=== PATIENT | male | born 1965 | race Caucasian/White ===

== ENCOUNTER 2024-02-22 13:58 | Outpatient (AMB) | payer MEDICARE, SELFPAY ==
[2024-02-22 14:14] VITALS: BP 127/72; PULSE 81; RESP 18; O2SAT 96; BMI 27.8
--- NOTE | 2024-02-22 14:14 | A.OFFVIS_ITS ---
Vital Signs 3 02/22/24 14:14 Height 6 ft 5 in Weight 234 lb 6 oz BMI 27.8 BP 127/72 Blood Pressure Location Lt brachial Position Sitting Respiration 18 Pulse 81 Pulse Source Pulse Oximeter Pulse Oximetry (%) 96 Oxygen Delivery Method Room Air Intake Visit Reasons: Spondylosis with Radiculopathy Cervical Region HPI Comments Details: Ravindra is a very pleasant 59-year-old male who presents to the office today for evaluation management of his chronic cervical neck pain Patient was referred here by Neurosurgery for consideration of cervical epidural steroid injection He has been suffering with right cervical neck pain with radiation down the arm for several years. Endorses pain to the front of the right shoulder and back of the right shoulder. Burning, numbness and tingling down the right arm and decreased right upper extremity strength. Reports atrophy of the muscles of the right hand. Neurosurgery has offered anterior and posterior cervical fusion but patient is not ready to proceed with such an extensive surgery. The pain is constant, rated today as a 6/10. Pain is worse with activity, movement and right arm use. Pain improved with elevation of the right arm over the head. He has not had a nerve conduction study, underwent an MRI a couple weeks ago. Full results are not available for review at this time. Patient has tried physical therapy, does home exercise program as best he can but states is very painful. He finds no relief with nonsteroidal anti- inflammatory medications or prescription medications. In terms of muscle damage condition is described as aching, spasming, hot, burning, stabbing, sharp, shooting, tiring, tingling, pins and needles Pain is negatively impacting patient's enjoyment of life, general activity, work, sleep Review of Systems Const All systems reviewed & are unremarkable except as noted in HPI and below Physical Exam Vital Signs: Last Vital Signs Pulse 81 02/22/24 14:14 Resp 18 02/22/24 14:14 BP 127/72 02/22/24 14:14 Pulse Ox 96 02/22/24 14:14 Oxygen Delivery Method Room Air 02/22/24 14:14 BMI result Body Mass Index 27.8 General: awake, alert, oriented. Answers questions appropriately. Fully engaged in examination. Skin: warm, dry, intact HEENT: Normocephalic. Hearing intact. Cardiac: External chest normal in appearance. Respiratory: No cough, audible wheezing or stridor. Abdomen: without gross distension. MS: No obvious swelling or deformities. Decreased cervical range of motion. Pain with right lateral rotation, right lateral flexion Tenderness midline cervical vertebrae and cervical paraspinal muscles. Tenderness to palpation right middle trapezius Decreased hand strength of the right Thenar wasting on the right hand Spurling positive Neurological: Oriented to person, place, time and situation. Thought process intact. No gait abnormalities appreciated. Psychiatric: Appropriate mood and affect. Good judgment and insight. Results Reviewed Results Reviewed: Assessment & Plan Assessment & Plan (1) Neuropathy: Code(s): G62.9 - Polyneuropathy, unspecified Category: Medical (2) Cervical radiculopathy: Code(s): M54.12 - Radiculopathy, cervical region Category: Medical Plan Patient presented to the office today for evaluation management of his chronic neck pain. History, physical exam and provocative testing consistent with cervical radiculopathy EMG ordered for evaluation Patient has exhausted conservative therapy including PT, home exercise program, nonsteroidal anti-inflammatory medications, prescription medications all without improvement of pain Referred here for cervical epidural steroid injection by Neurosurgery. Will schedule for fluoroscopy guided right C6-7 epidural steroid injection with local anesthetic All questions concerns answered, patient agrees with plan. Follow up after injections, sooner if needed Orders: Orders 2 NE electromyogram (EMG) Today G62.9 - Polyneuropathy, unspecified Coding Level of Care Code New Pt Level 4 (30863) Diagnoses Neuropathy G62.9 Cervical radiculopathy M54.12
== END 2024-02-22 14:55 | disposition home or self-care (01) ==
PROVIDERS: PCP Family Medicine; Visit Provider Registered Nurse Emergency
DX: G62.9 Polyneuropathy, unspecified (principal); M54.12 Radiculopathy, cervical region
CPT/HCPCS: 99204

== ENCOUNTER → 2024-02-22 13:58 | Outpatient (BNVA) | payer MEDICARE, SELFPAY | PROVIDERS: PCP Family Medicine; Visit Provider Registered Nurse Emergency | DX: G62.9 Polyneuropathy, unspecified (principal); M54.12 Radiculopathy, cervical region | CPT/HCPCS: 99202 ==

== ENCOUNTER 2024-03-17 14:53 | Outpatient (REF) | payer OTHER, SELFPAY ==
--- NOTE | 2024-03-17 15:00 | EMG_ITS ---
Chief complaint: Numbness on right hand, right arm and elbow pain, noted atrophy in right FDI. Chronic neck pain, history of degenerative disc per patient. History of right wrist laceration when he was younger. Reason for referral: Evaluate for radiculopathy Referred by: Alondra Oden NP Procedure done: Right upper extremity NCS/EMG Precautions and/or limitations: None The limb temperature was monitored continuously and remained between 32-36 degrees C during the performance of the NCS. Ulnar motor NCS was performed with moderate elbow flexion between 70-90 degrees, with across-elbow distance of 10 cm. Nerve Conduction Studies Anti Sensory Summary Table ?Stim Site NR Onset (ms) Norm Onset (ms) Peak (ms) Norm Peak (ms) O-P Amp (?V) Norm O-P Amp Site1 Site2 Delta-0 (ms) Dist (cm) Edmundo (m/s) Norm Edmundo (m/s) Right Median Anti Sensory (2nd Digit) Wrist ? 3.1 3.8 <3.6 9.1 >10 Wrist 2nd Digit 3.1 14.0 45 Right Radial Anti Sensory (Thumb) Forearm ? 1.6 2.1 <3.1 9.4 Forearm Thumb 1.6 0.0 Right Ulnar Anti Sensory (5th Digit) Wrist ? 3.2 3.9 <3.7 1.0 >15.0 Wrist 5th Digit 3.2 14.0 44 Motor Summary Table ?Stim Site NR Onset (ms) Norm Onset (ms) O-P Amp (mV) Norm O-P Amp iAmp (mV) Amp (1st) (%) Site1 Site2 Delta-0 (ms) Dist (cm) Edmundo (m/s) Norm Edmundo (m/s) Right Median Motor (Abd Poll Brev) Wrist ? 3.7 <3.9 5.0 >4.5 5.9 100.0 Elbow Wrist 4.6 23.0 50 >45 Elbow ? 8.3 5.0 5.8 100.0 Right Ulnar Motor (Abd Dig Minimi) Wrist ? 3.4 <3.0 2.9 >5 3.4 100.0 B Elbow Wrist 5.0 23.0 46 >45 B Elbow ? 8.4 2.2 2.7 75.9 A Elbow B Elbow 1.4 10.0 71 >45 A Elbow ? 9.8 2.2 2.5 75.9 EMG ?Side Muscle Nerve Root Ins Act Fibs Psw Amp Dur Poly Recrt Int Pat Comment Right 1stDorInt Ulnar C8-T1 Incr 1+ 1+ Nml Nml 0 Nml Complete Right Biceps Musculocut C5-6 Nml Nml Nml Nml Nml 0 Nml Complete Right Triceps Radial C6-7-8 Nml Nml Nml Nml Nml 0 Nml Complete Right Deltoid Axillary C5-6 Nml Nml Nml Nml Nml 0 Nml Complete Right FlexCarpiUln Ulnar C8,T1 Nml Nml Nml Nml Nml 0 Nml Complete Paraspinal EMG ?Side Muscle Nerve Root Ins Act Fibs Psw Comment Right Cervical Upper Rami Nml Nml Nml Right Cervical Mid Rami Nml Nml Nml Right Cervical Lower Rami Incr 2+ 2+ CRDs FINDINGS: Right ulnar motor nerve showed prolonged distal latency, small amplitudes and normal conduction velocity. Right ulnar sensory nerve showed very small amplitudes and prolonged peak latencies. Right median sensory nerve showed mildly prolonged peak latency and small amplitude. All other nerves tested were within normal. Concentric needle EMG was performed in selected muscles of the right upper extremity and cervical paraspinals. Study revealed signs of electric abnormalities as shown in the table above. Right FDI showed increased insertional activity, PSWs and fibrillations. Right lower cervical paraspinals showed CRDs. IMPRESSION: 1. This is an abnormal study. 2. There is electrodiagnostic evidence for right ulnar neuropathy, most likely at the elbow. 3. There is electrodiagnostic evidence for chronic lower cervical radiculopathy. 4. There is electrodiagnostic evidence for mild right median neuropathy at the wrist, consistent with Carpal Tunnel Syndrome. 5. There is no electrodiagnostic evidence for brachial plexopathy. Thank you for your kind referral. Noreen Roblero MD, NORAH Board Certified, [place] Board [employer] and Rehabilitation (ABPMR) Board Certified, [place] Board of Electrodiagnostic Medicine (ABEM) CODIN [id number] [facility]
== END 2024-03-17 14:54 | disposition home or self-care (01) ==
LOC: HO.NEURO 14:53
PROVIDERS: PCP Family Medicine; Visit Provider Registered Nurse Emergency
DX: G62.9 Polyneuropathy, unspecified (principal); R20.0 Anesthesia of skin
CPT/HCPCS: 95886; 95909

== ENCOUNTER → 2024-03-17 15:00 | Outpatient (BNV) | payer OTHER, SELFPAY | PROVIDERS: PCP Family Medicine; Visit Provider Physical Medicine & Rehabilitation | DX: G56.21 Lesion of ulnar nerve, right upper limb (principal); G56.01 Carpal tunnel syndrome, right upper limb | CPT/HCPCS: 95886; 95909 ==

== ENCOUNTER 2024-05-09 06:17 | Outpatient (REF) | payer OTHER, SELFPAY ==
--- NOTE | ~2024-05-09 | FL_ITS ---
EXAMINATION: XR FLUOROSCOPY WITH IMAGES CLINICAL INFORMATION: Radiculopathy, cervical region COMPARISON: None available. TECHNIQUE: Fluoroscopy provided to: Dr. Kent Fluoroscopy time: 0.3 minutes DAP: 0.0914 mGycm2 Images: 1 FINDINGS: Single coned down oblique image of the cervical spine, level unknown. FL/FL guidance in treatment room IMPRESSION: Fluoroscopic guidance. Please refer to the full operative report for details. Electronically signed by: Steven Ryan MD 07/07/2024 02:03 PM EDT
== END 2024-05-09 06:18 | disposition home or self-care (01) ==
LOC: CF 06:17
PROVIDERS: Visit Provider Anesthesiology
DX: M54.12 Radiculopathy, cervical region (principal)
CPT/HCPCS: 62321; J1100; Q9967

== ENCOUNTER 2024-05-09 07:54 | Outpatient (AMB) | payer OTHER, SELFPAY ==
--- NOTE | 2024-05-09 07:53 | MHC.OFFVIS ---
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 ?Informed consent was explained to the patient. All questions were explained and answered.? The patient was taken inside the operating room where she was positioned prone on the operating table. Time-out was performed delineating correct site, side, the nature of the procedure, patient's allergy, preoperative antibiotic if needed.? All operating room staff was participating in OR time-out procedure. The back of the neck and upper back were prepped with ChloraPrep and draped with sterile towels.? Sterilely draped C-arm was brought over the operating field and sq picture of? C4-C5-C6 -C7 vertebrae were delineated on the screen.? Upper border of the right C7 lamina was chosen as a target of the needle advancement. The projection of the point of interest to the skin was injected with 4 mls of lidocaine 1% PF using 25 g 1 inch needle. After that 22g Touhy needle was inserted through the skin wheal and advanced to the point of interest under intermittent AP, and lateral views. When the tip of the needle contacted the bone the needle was deviated cephalad and further advancement into the epidural space was made on the lateral view using ALICIA to air technique. When the loss of resistance was felt the contrast was injected into the needle demonstrating posterior epidurogram. After that injection of treatment solution of NS 0.9% 5 mls mixed with dexamethasone 10 mg was made into the needle . After that the needle was removed and bandaid was applied. The patient tolerated the procedure well, he was taken to recovery room where he recovered uneventfully. Coding Level of Care Code Procedure Only Diagnoses Cervical radiculopathy M54.12
--- OUTSIDE RECORDS SUMMARY | 2024-05-09 07:56 | XMS_ITS | Continuity of Care Document ---
Author Organization 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 Phone Jerry CHANG, Latesha Rocha Primary Care Physic augustina Encounter [facility] Date(s): 02/03/21 - 02/10/21 [facility] [address] [place] [address]- [place] Encounter Diagnosis Dizziness(Discharge Diagnosis) - 02/03/21 Lumbar back pain with radiculopathy affecting lower extremity(Discharge Diagnosis) - 02/03/21 Attending Physician: Jerry CHANG, Latesha Rocha Allergies, Adverse Reactions, Alerts No Known Medication Allergies Substance Reaction Severity Status Other Environmental Allergy 1 Active 1pets Immunizations Given and Recorded Vaccine Date Status Refusal Reason SARS-CoV-2 (COVID-19) mRNA-1273 vaccine 1 01/02/21 Recorded SARS-CoV-2 (COVID-19) mRNA-1273 vaccine 2 12/05/20 Recorded influenza virus vaccine, inactivated 3 08/08/20 Gi evan influenza virus vaccine, inactivated 4 09/07/18 Gi evan influenza virus vaccine, inactivated 5 07/05/17 Gi evan influenza virus vaccine, inactivated 09/02/16 Give n influenza virus vaccine, inactivated 10/09/15 Give n influenza virus vaccine, inactivated 07/18/14 Give n tetanus/diphtheria/pertussis, acel(Tdap) 6 11/07/14 Given tetanus-diphtheria toxoids (Td) 10/04/99 Recorded 1Result Comment: GUS Lowery [place] 2Result Comment: Beverley WEBER [place] 3Result Comment: [facility]: 08665-789-11 4Result Comment: [09/07/2018] [facility] # 90957-327-70 5Result Comment: [07/05/2017] [facility] 27447-235-64 6Result Comment: [11/07/2014] Dr. Knox; consent signed. Medications Accu-Chek Elayne Glucose Meter See Instructions, # 1 each, Maintenance, Test TID for Type 2 DM, 10/19/18 17:37:14 EST, Compound Start Date: 10/19/18 Status: Ordered Accu-Chek Elayne Plus Test Strips See Instructions, # 90 each, Refills 5, Tot. Refills 5, Maintenance, Test TID for DM type 2, 08/08/20 15:07:00 EST, Compound, 193.2, cm, 08/08/20 14:34:00 EST, Height, 113.1, kg, 08/09/19 10:20:00 EST, Dry Weight Start Date: 08/08/20 Status: Ordered Accu-Chek Compact Lancets See Instructions, # 100 each, Refills 5, Tot. Refills 5, Maintenance, Test TID for DM type 2, 08/08/20 15:07:00 EST, Compound, 193.2, cm, 08/08/20 14:34:00 EST, Height, 113.1, kg, 08/09/19 10:20:00 EST, Dry Weight Start Date: 08/08/20 Status: Ordered Advair Diskus 250 mcg-50 mcg inhalation powder 1, puffs, Inhalation, 2 times a day, # 3 each, Refills 1, Tot. Refills 1, Maintenance, 02/04/21 15:07:00 EDT, Powder, Route to Pharmacy Electronically, [id number], [facility]/pharmacy #[id number], 193.2, cm, 11/04/20 13:14:00 EST, Height,... Start Date: 02/04/21 Stop Date: 08/03/21 Status: Ordered albuterol CFC free 90 mcg/inh inhalation aerosol 2, puffs, Inhalation, Every 4 hours, PRN, # 3 each, Refills 1, Tot. Refills 1, Maintenance, 01/06/21 14:39:00 EDT, Route to Pharmacy Electronically, [id number], [facility]/pharmacy#[id number], 193.2, cm, 11/04/20 13:14:00 EST, Height, 11... Start Date: 01/06/21 Status: Ordered aspirin 81 mg oral tablet 1 tablet = 81 mg, By Mouth, Daily, # 90 tablet, 0 Refills, Maintenance, 05/20/17 11:35:13, Tablet Start Date: 05/20/17 Status: Ordered atorvastatin 20 mg oral tablet See Instructions, TAKE 1 TABLET BY MOUTH EVERY DAY, # 90 tablet, 1 Refills, Soft Stop, 01/06/21 11:59:00 EDT, [facility]/pharmacy #[id number], 193.2, cm, 11/04/20 13:14:00 EST, Height, 113.1, kg, 08/09/19 10:20:00 EST, Dry Weight Start Date: 01/06/21 Status: Ordered Basaglar KwikPen 100 units/mL subcutaneous solution = 75 units, Subcutaneous Injection, Daily at bedtime, # 12 mL, 0 Refills, Maintenance, 01/06/21 11:59:00 EDT, [facility]/pharmacy #[id number], 193.2, cm, 11/04/20 13:14:00 EST, Height, 113.1, kg, 08/09/19 10:20:00 EST, Dry Weight Start Date: 01/06/21 Status: Ordered BP monitor BP monitor, See Instructions, # 1 each, Refills 0, Tot. Refills 0, Maintenance, Dx: HTN, 02/03/21 9:25:00 EDT, Supply, 193.2, cm, 02/03/21 8:56:00 EDT, Height, 113.1, kg, 08/09/19 10:20:00 EST, Dry Weight Start Date: 02/03/21 Status: Ordered buPROPion 150 mg/12 hours (SR) oral tablet, extended release 1 tablet = 150 mg, By Mouth, Daily, # 90 tablet, 1 Refills, Soft Stop, 02/04/21 15:09:00 EDT, [facility]/pharmacy #[id number], 193.2, cm, 11/04/20 13:14:00 EST, Height, 113.1, kg, 08/09/19 10:20:00 EST, Dry Weight Start Date: 02/04/21 Stop Date: 08/03/21 Status: Ordered Freestyle Hany Sensor See Instructions, # 2 each, Refills 5, Tot. Refills 5, Maintenance, Use to test blood sugars for 14days. Type II DM E11.9, 08/08/20 15:07:00 EST, Supply, 193.2, cm, 08/08/20 14:34:00 EST, Height, 113.1, kg, 08/09/19 10:20:00 EST, Dry Weight Start Date: 08/08/20 Status: Ordered Insulin Syringe, BD Ultra-Fine 0.5 cc 31 G x 8 mm (16in) See Instructions, # 90 each, Refills 3, Tot. Refills 3, Maintenance, use as directed for Type 1 Diabetes Mellitus, 08/22/18 7:44:26 EST, Compound Start Date: 08/22/18 Stop Date: 12/20/18 Status: Ordered Insulin Syringe, BD Ultra-Fine 0.5 cc 31 G x 8 mm (16in) See Instructions, # 300 each, Refills 2, Tot. Refills 2, Maintenance, use to inject Novolog 3x daily with meals, E11.9, 90-day, 08/08/20 15:07:00 EST, BD brand, Supply, 193.2, cm, 08/08/20 14:34:00 EST, Height, 113.1, kg, 08/09/19 10:20:00 EST, Dry We... Start Date: 08/08/20 Status: Ordered levothyroxine 0.025 mg oral tablet 1 tablet = 25 mcg, By Mouth, Daily, Take with the 175 mcg for a total of 200 mcg daily, # 90 tablet, 0 Refills, Maintenance, 02/04/21 15:04:00 EDT, Tablet, [facility]/pharmacy #[id number], 193.2, cm, 11/04/20 13:14:00 EST, Height, 113.1, kg, 08/09/19 10:20:00 EST,... Start Date: 02/04/21 Stop Date: 05/05/21 Status: Ordered metFORMIN 500 mg oral tablet, extended release 2 tablet = 1,000 mg, By Mouth, Daily, # 180 tablet, 0 Refills, Soft Stop, 02/04/21 15:03:00 EDT, [facility]/pharmacy #[id number], 193.2, cm, 11/04/20 13:14:00 EST, Height, 113.1, kg, 08/09/19 10:20:00 EST, Dry Weight Start Date: 02/04/21 Stop Date: 05/05/21 Status: Ordered NovoLOG 100 units/mL subcutaneous solution See Instructions, 1-5 units sliding scale 15 min prior to meals Subcutaneous Infusion 3 times a day., # 30 mL, 0 Refills, Maintenance, 01/06/21 11:59:00 EDT, [facility]/pharmacy #[id number], 193.2, cm, 11/04/20 13:14:00 EST, Height, 113.1, kg, 08/09/19 10:20:00 ES... Start Date: 01/06/21 Status: Ordered NuLYTELY with Flavor Packs oral powder for reconstitution 240 mL, By Mouth, Every 10 minutes, Split prep method, # 1 each, 0 Refills, Acute 03/21/21 6:30:00 EDT, 03/20/21 17:00:00 EDT, REC Powder, [facility]/pharmacy #[id number], test date 03/21/21, 240 mL By Mouth Every10 minutes,Instr:Split prep method, 193.2, cm, 020... Start Date: 03/20/21 Stop Date: 03/21/21 Status: Ordered Pen [place], 30 G x 8 mm BD Ultra Fine II See Instructions, # 100 each, Refills 3, Tot. Refills 3, Maintenance, use as directed for Type 2 Diabetes Mellitus - once a day, 10/09/15 14:01:07, Compound Start Date: 10/09/15 Stop Date: 02/06/16 Status: Ordered Pen [place], 31 G x 5 mm BD Ultra Fine III See Instructions, # 100 each, Refills 2, Tot. Refills 2, Maintenance, use to inject Basaglar 1x daily, E11.9, 90-day, 08/08/20 15:07:00 EST, Supply, 193.2, cm, 08/08/20 14:34:00 EST, Height, 113.1, kg, 08/09/19 10:20:00 EST, Dry Weight Start Date: 08/08/20 Status: Ordered Pen [place], 31 G x 8 mm BD Ultra Fine III See Instructions, # 100 each, Refills 1, Tot. Refills 1, Maintenance, use with Lantus 1x daily, Dx E11.9, 90-day, 03/15/17 15:55:47, Compound Start Date: 03/15/17 Stop Date: 09/11/17 Status: Ordered Singulair 10 mg oral tablet 10 mg, 1, tablet, By Mouth, Daily in PM, # 90 tablet, Refills 1, Tot. Refills 1, Maintenance, 01/06/21 11:59:00 EDT, Route to Pharmacy Electronically, [facility]/pharmacy #[id number], 193.2, cm, 11/04/20 13:14:00EST, Height, 113.1, kg, 08/09/19 10:20:00 EST, Dry... Start Date: 01/06/21 Status: Ordered Problem List Condition Effective Dates Status Health Status Inform ant Diverticulosis(Confirmed) Active Esophagitis(Confirmed) Active Hemorrhoids(Confirmed) Active Hiatal hernia(Confirmed) Active History of colonic polyps(Confirmed) Active Hypothyroidism(Confirmed) Active ED (erectile dysfunction)(Confirmed) Active Hyperlipidemia, mixed(Confirmed) Active Diabetes mellitus type II, uncontrolled(Confirmed) Active Diagnosis Diagnosis Type Effective Dates Health Status Clinical Service Informant Dizziness Discharge Diagnosis 02/03/21 Lumbar back pain with radiculopathy affecting lower extremity Discharge Diagnosis 02/03/21 Vital Signs Most recent to oldest [Reference Range]: 1 Height 193.2 cm (02/03/21 8:56 AM) Social History Social History Type Response Smoking Status Current every day sherri weeks; Tobacco user in household: No; Type: Cigarettes; Tobacco use times per day: Down to 1/2 pack a day from 1 pack a day. Has been smoking for 35 years.; entered on: 08/19/17 Sex
--- OUTSIDE RECORDS SUMMARY | 2024-05-09 07:56 | XMS_ITS | Continuity of Care Document ---
Author Organization [facility] Address [address] [place] [address]- Care Team Providers Care Counter Stitcher Name Role Phone Jerry CHANG, Latesha Rocha Primary Care Physic augustina Encounter [facility] Date(s): 07/28/23 - 08/04/23 [facility] [address] [place] [address]- Encounter Diagnosis Hyperlipidemia, mixed(Discharge Diagnosis) - 07/28/23 Upper leg pain(Discharge Diagnosis) - 07/28/23 Hypothyroidism(Discharge Diagnosis) - 07/28/23 Myalgia(Discharge Diagnosis) - 07/28/23 Tobacco dependence(Discharge Diagnosis) - 07/28/23 Penile curve(Discharge Diagnosis) - 07/28/23 ED (erectile dysfunction)(Discharge Diagnosis) - 07/28/23 Attending Physician: Jerry CHANG, Latesha Rocha Allergies, Adverse Reactions, Alerts No Known Medication Allergies Substance Reaction Severity Status Other Environmental Allergy 1 Active 1pets Immunizations Given and Recorded Vaccine Date Status Refusal Reason Influenza Virus Vaccine (oldterm) 1 07/10/23 Recor ded SARS-CoV-2 mRNA (avtxren-ucpn-oxtey) vax 2 07/10/23 Recorded influenza virus vaccine, inactivated 09/13/22 Beny rded influenza virus vaccine, inactivated 3 08/08/20 Gi evan influenza virus vaccine, inactivated 4 09/07/18 Gi evan influenza virus vaccine, inactivated 5 07/05/17 Gi evan influenza virus vaccine, inactivated 09/02/16 Give n influenza virus vaccine, inactivated 10/09/15 Give n influenza virus vaccine, inactivated 07/18/14 Give n SARS-CoV-2 (COVID-19) mRNA-1273 vaccine 6 01/02/21 Recorded SARS-CoV-2 (COVID-19) mRNA-1273 vaccine 7 12/05/20 Recorded tetanus/diphtheria/pertussis, acel(Tdap) 8 11/07/14 Given tetanus-diphtheria toxoids (Td) 10/04/99 Recorded 1Result Comment: pt recevied vaccine from [facility] pharmacy 2Result Comment: pt received vaccine from [facility] pharmacy 3Result Comment: [facility]: 25085-546-15 4Result Comment: [09/07/2018] [facility] # 44684-893-87 5Result Comment: [07/05/2017] [facility] [id number] 6Result Comment: [facility] Beverley JACKSON 7Result [facility] [place] 8Result Comment: [11/07/2014] Dr. Knox; consent signed. Medications [...] times a day, # 3 each, Refills 3, Tot. Refills 3, Maintenance, 07/27/22 12:32:00 EDT, Powder, Route to Pharmacy Electronically, [id number], [facility]/pharmacy #[id number], 193.2, cm, 07/27/22 10:43:00 EDT, Height Start Date: 07/27/22 Stop Date: 07/22/23 Status: Ordered albuterol CFC free 90 mcg/inh inhalation aerosol 2, puffs, Inhalation, Every 4 hours, PRN, # 3 each, Refills 3, Tot. Refills 3, Maintenance, 05/07/23 10:14:00 EDT, Route to Pharmacy Electronically, [id number], [facility]/pharmacy#[id number], 195, cm, 05/07/23 9:23:00 EDT, Height, 112.6... Start Date: 05/07/23 Status: Ordered aspirin 81 mg oral tablet 1 tablet = 81 mg, By Mouth, Daily, # 90 tablet, 0 Refills, Maintenance, 05/20/17 11:35:13, Tablet Start Date: 05/20/17 Status: Ordered atorvastatin 20 mg oral tablet See Instructions, TAKE 1 TABLET BY MOUTH EVERY DAY, # 90 tablet, 3 Refills, Soft Stop, 07/27/22 12:32:00 EDT, [facility]/pharmacy #[id number], 193.2, cm, 07/27/22 10:43:00 EDT, Height Start Date: 07/27/22 Status: Ordered Basaglar KwikPen 100 units/mL subcutaneous solution = 80 units, Subcutaneous Injection, Daily at bedtime, # 15 mL, 6 Refills, Maintenance, 07/27/22 11:43:00 EDT, [facility]/pharmacy #[id number], 193.2, cm, 07/27/22 10:43:00 EDT, Height Start Date: 07/27/22 Status: Ordered BP monitor BP monitor, See Instructions, # 1 each, Refills 0, Tot. Refills 0, Maintenance, Dx: HTN, 02/03/21 9:25:00 EDT, Supply, 193.2, cm, 02/03/21 8:56:00 EDT, Height, 113.1, kg, 08/09/19 10:20:00 EST, Dry Weight Start Date: 02/03/21 Status: Ordered buPROPion 300 mg/24 hours (XL) oral tablet, extended release 1 tablet = 300 mg, By Mouth, Daily, # 90 tablet, 1 Refills, Maintenance, 05/07/23 9:46:00 EDT, ER Tablet, [facility]/pharmacy #[id number], Partial fill upon patient request if the prescription is for a schedule II opioid drug., 195, cm, 05/07/23 9:23:00 EDT, Heigh... Start Date: 05/07/23 Status: Ordered CeleBREX 100 mg oral capsule 1 capsule = 100 mg, By Mouth, 2 times a day, # 60 capsule, 0 Refills, Maintenance, 02/19/23 13:03:00 EDT, Capsule, [facility]/pharmacy #[id number], Partial fill upon patient request if the prescription is for a schedule II opioid drug., 195, cm, 02/10/23 13:17:00... Start Date: 02/19/23 Status: Ordered clonazePAM 0.5 mg oral tablet 1 tablet = 0.5 mg, By Mouth, Daily, # 28 tablet, 0 Refills, Maintenance, 09/02/22 17:46:00 EST, Tablet, [id number], Partial fill upon patient request if the prescription is for a schedule II opioid drug., 193.2, cm, 08/14/22 7:56:00 EST, Height Start Date: 09/02/22 Stop Date: 09/30/22 Status: Ordered Dexcom G7 Sensors Dexcom G7 Sensors, See Instructions, # 3 each, Refills 11, Tot. Refills 11, Maintenance, for continuous glucose monitoring, change every 10 days. E11.9, 05/13/23 13:12:00 EDT, Supply, 195, cm, 05/13/23 11:00:00 EDT, Height, 112.6, kg, 10/13/22 9:29:00... Start Date: 05/13/23 Status: Ordered Dexcom G7 Transmitter Dexcom G7 Transmitter, See Instructions, # 1 each, Refills 3, Tot. Refills 3, Maintenance, for continuous glucose monitoring. E11.9, 05/13/23 13:11:00 EDT, Supply, 195, cm, 05/13/23 11:00:00 EDT, Height, 112.6, kg, 10/13/22 9:29:00 EST, Dry Weight Start Date: 05/13/23 Status: Ordered Freestyle Hany Sensor See Instructions, # 2 each, Refills 11, Tot. Refills 11, Maintenance, Use to test blood sugars for 14 days. Type II DM E11.9, 07/27/22 12:32:00 EDT, Supply, 193.2, cm, 07/27/22 10:43:00 EDT, Height Start Date: 07/27/22 Status: Ordered gabapentin 300 mg oral capsule 300 mg, 1, capsule, By Mouth, Daily at bedtime, # 30 capsule, Refills 3, Tot. Refills 3, Maintenance, 07/28/23 11:04:00 EDT, Route to Pharmacy Electronically, [facility]/pharmacy #[id number], Partial fill upon patient request if the prescription is for a schedule... Start Date: 07/28/23 Status: Ordered Jardiance 10 mg oral tablet 1 tablet, By Mouth, Daily in AM, # 30 tablet, 2 Refills, Maintenance, 06/25/23 16:01:00 EDT, [id number], 195, cm, 05/13/23 11:00:00 EDT, Height, 112.6, kg, 10/13/22 9:29:00 EST, Dry Weight Start Date: 06/25/23 Status: Ordered levothyroxine 0.025 mg oral tablet 1 tablet = 25 mcg, By Mouth, Daily, Take with the 175 mcg for a total of 200 mcg daily, # 90 tablet, 3 Refills, Maintenance, 12/05/22 17:12:00 EST, Tablet, [facility]/pharmacy #[id number], 193.2, cm, 07/27/22 10:43:00 EDT, Height Start Date: 12/05/22 Stop Date: 11/30/23 Status: Ordered levothyroxine 175 mcg (0.175 mg) oral tablet 1 tablet = 175 mcg, By Mouth, Daily, # 90 tablet, 3 Refills, Maintenance, 12/12/22 12:34:00 EST, Tablet, [facility]/pharmacy #[id number], 193.2, cm, 07/27/22 10:43:00 EDT, Height Start Date: 12/12/22 Stop Date: 12/07/23 Status: Ordered MetFORMIN (Eqv-Glucophage XR) 500 mg oral tablet, extended release 2 tablet = 1,000 mg, By Mouth, Daily, # 180 tablet, 1 Refills, Maintenance, 05/07/23 10:45:00 EDT, [id number], Partial fill upon patient request if the prescription is for a schedule II opioid drug., 195, cm, 05/07/23 9:23:00 EDT, Height, 112.... Start Date: 05/07/23 Stop Date: 11/03/23 Status: Ordered metFORMIN 500 mg oral tablet, extended release 2 tablet = 1,000 mg, By Mouth, Daily, # 180 tablet, 1 Refills, Soft Stop, 05/07/23 9:49:00 EDT, [id number], 195, cm, 05/07/23 9:23:00 EDT, Height, 112.6, kg, 10/13/22 9:29:00 EST, Dry Weight Start Date: 05/07/23 Stop Date: 11/03/23 Status: Ordered NovoLOG 100 units/mL subcutaneous solution See Instructions, 1-5 units sliding scale 15 min prior to meals Subcutaneous Infusion 3 times a day., # 30 mL, 2 Refills, Maintenance, 07/27/22 12:32:00 EDT, [id number], 193.2, cm, 07/27/22 10:43:00 EDT, Height Start Date: 07/27/22 Status: Ordered NuLYTELY with Flavor Packs oral powder for reconstitution 240 mL, By Mouth, Every 10 minutes, May substitute any PEG 3350 solution available SPLIT PREP METHOD, # 1 each, 0 Refills, Maintenance, 10/12/22 17:00:00 EST, REC Powder, [id number], test date 10/13/22, 240 mL By Mouth Every 10 minutes,Instr:M... Start Date: 10/12/22 Status: Ordered Ozempic (1 mg dose) 4 mg/3 mL subcutaneous solution = 1 mg, Subcutaneous Infusion, Every week, use once per week e11.9, # 3 mL, 4 Refills, Maintenance,06/01/23 10:23:00 EDT, [id number], Partial fill upon patient request if the prescription isfor a schedule II opioid drug., 195, cm, 05/13/23... Start Date: 06/01/23 Status: Ordered Pen [place], 31 G x 5 mm BD Ultra Fine III See Instructions, # 100 each, Refills 3, Tot. Refills 3, Maintenance, use to inject Basaglar 1x daily, E11.9, 90-day, 07/27/22 12:32:00 EDT, Supply, 193.2, cm, 07/27/22 10:43:00 EDT, Height Start Date: 07/27/22 Status: Ordered sildenafil 20 mg oral tablet See Instructions, 1 tablet By Mouth as needed 1 hour prior to sexual intercourse. may take every 24hours as needed. take tablet on empty stomach. can take 2 tablets by mouth if 1 tablet is ineffective., # 10 tablet, 2 Refills, Maintenance, 08/04/23 1... Start Date: 08/04/23 Status: Ordered Problem List Condition Confirmation Course Effective Dates Status H ealth Status Informant Anxiety Confirmed Active Cellulitis and abscess of toe Confirmed Active Cellulitis of great toe Confirmed Active Diverticulosis Confirmed Active Rash Confirmed Active Esophagitis Confirmed Active Fatigue Confirmed Active Hemorrhoids Confirmed Active Hiatal hernia Confirmed Active History of colonic polyps Confirmed Active Hypothyroidism Confirmed Active ED (erectile dysfunction) Confirmed Active Low back pain with bilateral sciatica Confirmed Active Low back pain with right-sided sciatica Confirmed Active Lumbar spondylosis Confirmed Active Hyperlipidemia, mixed Confirmed Active Myalgia Confirmed Active Medication management Confirmed Active Penile curve Confirmed Active Upper leg pain Confirmed Active Tobacco dependence Confirmed Active 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 Confirmed Active Diagnosis Diagnosis Type Effective Dates Health Status Clinical Service Informant Hyperlipidemia, mixed Discharge Diagnosis 07/28/23 Upper leg pain Discharge Diagnosis 07/28/23 Hypothyroidism Discharge Diagnosis 07/28/23 Myalgia Discharge Diagnosis 07/28/23 Tobacco dependence Discharge Diagnosis 07/28/23 Penile curve Discharge Diagnosis 07/28/23 ED (erectile dysfunction) Discharge Diagnosis 07/28/23 Vital Signs Most recent to oldest [Reference Range]: 1 2 Height 192.3 cm (07/29/23 3:40 PM) 192.3 cm (07/28/23 10:04 AM) Weight 111.2 kg (07/29/23 3:40 PM) 111.2 kg (07/28/23 10:04 AM) Oxygen Saturation [94-100 %] 99 % (07/28/23 10:04 AM) Pulse Rate [55-90 bpm] 81 bpm (07/28/23 10:04 AM) Body Mass Index [18.5-24.99 kg/m2] 30.07 kg/m2 *>HHI* (07/28/23 10:04 AM) Blood Pressure [90-138/55-84 mm Hg] 124/ 74mm Hg (07/28/23 10:04 AM) Mode of Delivery (Oxygen) Room air (07/28/23 10:04 AM) Blood pressure sites Arm, left (07/28/23 10:04 AM) Weight Obtained Via Standing scale (07/28/23 10:04 AM) Social History Social History Type Response Smoking Status Current every day sm oker; Tobacco user in household: No; Type: Cigarettes; Tobacco use times per day: Down to 1/2 pack a day from 1 pack a day. Has been smoking for 35 years.; entered on: 08/19/17 Sex Note * Hortensia Patel: PERFORM, SIGN, VERIFY Event Display: Patient Education/Instruction Authored Date: [id number] [facility] Clinical Summary Name ROLA MAYES Age 58 Years 1965 PCP Latesha Edwards MD PCP Visit Date 07/28/2023 09:41:00 Additional Instructions: Scheduled Appointments?? Future Appointments ?*[facility] ?[address]??[place],??[place],??[address] ?Phone:??--?Fax:??-- ?Appt. Date:??08/25/2023?8:20 AM ?Scheduled Provider:??Latesha Riddle MD Follow-Up Instructions ?? With: Address: When: Follow up, 1 Year for Physical Comments: PROVIDER SCHEDULE NOT IN APPOINTMENT REMINDER ENTER FOR NEXT YEAR With: Address: When: 1 month Comments: FU myalgia and leg pain Diagnosis Encounter for general adult medical examination without abnormal findings; Pain in unspecified thigh; Nicotine dependence, unspecified, uncomplicated; Other specified hypothyroidism; Male erectile dysfunction, unspecified; Mixed hyperlipidemia; Myalgia, unspecified site; Curvature of penis (lateral) Medications: Please continue your medications until treatment is completed or stopped by your provider. Discuss any questions related to medications with your provider. New Medications [id number], [address] [place] [phone], [phone] Gabapentin (gabapentin 300 mg oral capsule) 1 capsule Oral Daily at Bedtime. Refills: 3. Next Dose: Medications to Continue with No Changes These medications were not printed or sent to your pharmacy Albuterol (albuterol CFC free 90 mcg/inh inhalation aerosol) 2 puff(s) Inhalation every 4 hours as needed NEEDED FOR WHEEZING/SHORTNESS OF BREATH. Refills: 3. Next Dose: Aspirin (aspirin 81 mg oral tablet) 1 tab(s) Oral Daily. Refills: 0. Next Dose: Atorvastatin (atorvastatin 20 mg oral tablet) TAKE 1 TABLET BY MOUTH EVERY DAY. Refills: 3. Next Dose: BuPROpion (buPROPion 300 mg/24 hours (XL) oral tablet, extended release) 1 tab(s) Oral Daily. Refills: 1. Next Dose: Celecoxib (CeleBREX 100 mg oral capsule) 1 capsule Oral twice a day. Refills: 0. Next Dose: Clonazepam (clonazePAM 0.5 mg oral tablet) 1 tab(s) Oral Daily for 28 Days. Refills: 0. Next Dose: Durable Medical Equipment (Accu-Chek Elayne Glucose Meter) Test TID for Type 2 DM. Refills: 0. Next Dose: Durable Medical Equipment (Accu-Chek Elayne Plus Test Strips) Test TID for DM type 2. Refills: 5. Next Dose: Durable Medical Equipment (Accu-Chek Compact Lancets) Test TID for DM type 2. Refills: 5. Next Dose: Durable Medical Equipment (BP monitor) Dx: HTN. Refills: 0. Next Dose: Durable Medical Equipment (Dexcom G7 Sensors) for continuous glucose monitoring, change every 10 days. E11.9. Refills: 11. Next Dose: Durable Medical Equipment (Dexcom G7 Transmitter) for continuous glucose monitoring. E11.9. Refills: 3. Next Dose: Durable Medical Equipment (Freestyle Hany Sensor) Use to test blood sugars for 14 days. Type II DME11.9. Refills: 11. Next Dose: Durable Medical Equipment (Pen [place], 31 G x 5 mm BD Ultra Fine III) use to inject Basaglar 1x daily, E11.9, 90-day. Refills: 3. Next Dose: empagliflozin (Jardiance 10 mg oral tablet) 1 tab(s) Oral Daily in the morning. Refills: 2. Next Dose: Fluticasone-Salmeterol (Advair Diskus 250 mcg-50 mcg inhalation powder) 1 puff(s) Inhalation twice a day for 90 Days. Refills: 3. Next Dose: Insulin Aspart (NovoLOG 100 units/mL subcutaneous solution) 1-5 units sliding scale 15 min prior tomeals Subcutaneous Infusion 3 times a day.. Refills: 2. Next Dose: Insulin Glargine (Basaglar KwikPen 100 units/mL subcutaneous solution) 80 unit(s) Subcutaneous Injection Daily at Bedtime. Refills: 6. Next Dose: Levothyroxine (levothyroxine 0.025 mg oral tablet) 1 tab(s) Oral Daily for 90 Days. Take with the 175 mcg for a total of 200 mcg daily. Refills: 3. Next Dose: Levothyroxine (levothyroxine 175 mcg (0.175 mg) oral tablet) 1 tab(s) Oral Daily for 90 Days. Refills: 3. Next Dose: Metformin (MetFORMIN (Eqv-Glucophage XR) 500 mg oral tablet, extended release) 2 tab(s) Oral Daily for 90 Days. Refills: 1. Next Dose: Metformin (metFORMIN 500 mg oral tablet, extended release) 2 tab(s) Oral Daily for 90 Days. Refills: 1. Next Dose: PEG Electrolyte Solution (NuLYTELY with Flavor Packs oral powder for reconstitution) 240 MilliliterOral every 10 minutes. May substitute any PEG 3350 solution available SPLIT PREP METHOD. Refills: 0. Next Dose: semaglutide (Ozempic (1 mg dose) 4 mg/3 mL subcutaneous solution) 1 Milligram Subcutaneous Infusionevery week. use once per week e11.9. Refills: 4. Next Dose: Allergy Info:?? No Known Medication Allergies; Other Environmental Allergy Medications Given This Visit Future Orders ?Lipid Panel? Order Date:07/28/23?- Complete on or after?07/28/23 ?Comprehensive Metabolic Panel? Order Date:07/28/23?- Complete on or after?07/28/23 ?CPK w/ Reflex CKMB? Order Date:07/28/23?- Complete on or after?07/28/23 ?TSH with T4 Reflex (Adults Only)? Order Date:07/28/23?- Complete on or after?07/28/23 ?CPK w/ Reflex CKMB? Order Date:07/28/23?- Complete on or after?07/28/23 Vital Signs Height 192.3 cm Weight 111.2 kg BMI 30.07 kg/m2 Blood Pressure 124 mm Hg/74 mm Hg Temperature Pulse Rate 81 bpm Respiratory Rate 02 Sat Mode of Delivery 99 %/Room air You can now view a summary of your hospital visit from the comfort of your home through a free online portal called [employer]. [employer] is a website that allows you to securely view your medical information including discharge summary, medications and follow-up visits. ??You can alsosend a secure electronic message to your doctor???s office to request appointments, renew medications or just ask a question. You can enroll at [email or web address] or register during your next office visit. Disclaimer:?? The information provided is of a general nature and is intended to be used in conjunction with the recommendations and advice of your health care practitioner. ??Every effort has been made to ensure that the information provided is accurate and complete at the time it is provided to you however, as your needs change, or, as new ??information becomes available, different or additional instructions may be required. If you have questions, please consult with your primary care provider or pharmacist, as appropriate. ??This information is not intended to serve as substitution for assessment and evaluation by a qualified health care provider. If you do not have a primary care provider, you may find a [facility] provider by calling [facility] at [phone]. [facility], in keeping with [facility] guidance, no longer requires face masks for staff, patientsor visitors in most situations. Similar to time spent indoors at other locations, there is the chance that you were exposed to respiratory viruses during your time with us (such as flu or COVID-19).? If you develop symptoms concerning for a viral respiratory infection, please seek testing (and treatment if indicated) from your medical provider or home test kit. For information about the plan of care including goals and instructions for your diagnosis, please see the patient education orders section of this document. Patient Education Materials?? The content of this educational material or handout may have been modified, supplemented, or adapted from its original content and format to support your individualized medical care. Prevention Guidelines, Men Ages 50 to 64 Screening tests and vaccines are an important part of managing your health. Health counseling is essential, too. Below are guidelines for these, for men ages 50 to 64. Talk with your healthcare provider to make sure you???re up-to-date on what you need. Screening Who needs it How often Alcohol misuse All men in this age group At routine exams Blood pressure All men in this age group Every 2 years if your blood pressure is less than 120/80 mm Hg; yearly if your systolic blood pressure is 120 to 139 mm Hg, or your diastolic blood pressure reading is 80 to 89 mm Hg Colorectal cancer All men in this age group Flexible sigmoidoscopy every 5 years, or colonoscopy every 10 years, or double- contrast barium enema every 5 years; yearly fecal occult blood test or fecal immunochemical test; or a stool DNA test asoften as your healthcare provider advises; talk with your healthcare provider about which tests arebest for you Depression All men in this age group At routine exams Type 2 diabetes or prediabetes All adults beginning at age 45 and adults without symptoms at any age who are overweight or obese and have 1 or more other risk factors for diabetes At least every 3 years Hepatitis C Men at increased risk for infection ??? talk with your healthcare provider At routine exams High cholesterol or triglycerides All men in this age group At least every 5 years HIV Men at increased risk for infection ??? talk with your healthcare provider At routine exams Lung cancer Adults age 55 to 80 who have smoked Yearly screening in smokers with 30 pack-year history of smoking or who quit within 15 years Obesity All men in this age group At routine exams Prostate cancer Starting at age 45, talk to healthcare provider about risks and benefits of digital rectal exam (SHARONA) and prostate-specific antigen (PSA) screening1 At routine exams Syphilis Men at increased risk for infection ??? talk with your healthcare provider At routine exams Tuberculosis Men at increased risk for infection ??? talk with your healthcare provider Ask your healthcare provider Vision All men in this age group Ask your healthcare provider Vaccine Who needs it How often Chickenpox (varicella) All men in this age group who have no record of this infection or vaccine 2 doses; second dose should be given at least 4 weeks after the first dose Hepatitis A Men at increased risk for infection ??? talk with your healthcare provider 2 doses given at least 6 months apart Hepatitis B Men at increased risk for infection ??? talk with your healthcare provider 3 doses over 6 months; second dose should be given 1 month after the first dose; the third dose should be given at least 2 months after the second dose and at least 4 months after the first dose Haemophilus influenzae??Type B (HIB) Men at increased risk for infection ??? talk with your healthcare provider 1 to 3 doses Influenza (flu) All men in this age group Once a year Measles, mumps, rubella (MMR) Men in this age group through their late 50s who have no record of these infections or vaccines 1 or 2 dose; ask your healthcare provider Meningococcal Men at increased risk for infection ??? talk with your healthcare provider 1 or more doses Pneumococcal conjugate vaccine (PCV13)??and pneumococcal polysaccharide??vaccine??(PPSV23) Men at increased risk for infection ??? talk with your healthcare provider PCV13: 1 dose ages 19 to 65 (protects against 13 types of pneumococcal bacteria) ?? PPSV23: 1 to??2doses through age 64, or 1 dose at 65 or older (protects against 23 types of pneumococcal bacteria) Tetanus/diphtheria/ pertussis (Td/Tdap) booster All men in this age group Td every 10 years, or a one-time dose of Tdap instead of a Td booster after age 18, then Td every 10 years Zoster All men ages 60 and older 1 dose Counseling Who needs it How often Diet and exercise Men who are overweight or obese When diagnosed, and then at routine exams Sexually transmitted infection prevention Men at increased risk for infection ??? talk with your healthcare provider At routine exams Use of daily aspirin Men in this age group at risk for cardiovascular health problems At routine exams Use of tobacco and the health affects it can cause All men in this age group Every visit [address] [place] [address] [facility] ?? [phone] [employer]. [address] [place] [address], [place] [address]. All rights reserved. This information is not intended as a substitute for professional medical care. Always follow your healthcare professional's instructions. Patient Care team information Care Team Personnel Name: Jerry CHANG, Latesha Rocha Position: [facility] Physician - Primary Care Member Role: PCP Address: Address: [address] [place] [id number]- Care Team Related Persons Name: ROSALIA MAYES Address: home [address] [place] [address]
--- OUTSIDE RECORDS SUMMARY | 2024-05-09 07:56 | XMS_ITS | Continuity of Care Document ---
Author Organization [facility] Address [address] [place] [address]- Care Team Providers Care Quarter Supervisor Name Role Phone Jerry CHANG, Latesha Rocha Primary Care Physic augustina Encounter [facility] Date(s): 08/17/23 - 08/24/23 [facility] [address] [place] [address]- Attending Physician: Manjinder Mendez MD Allergies, Adverse Reactions, Alerts No Known Medication Allergies Substance Reaction Severity Status Other Environmental Allergy 1 Active 1pets Immunizations Given and Recorded Vaccine Date Status Refusal Reason Influenza Virus Vaccine (oldterm) 1 07/10/23 Recor ded SARS-CoV-2 mRNA (narvxxa-uzmv-awzbu) vax 2 07/10/23 Recorded influenza virus vaccine, [...] Recorded 1Result Comment: pt recevied vaccine from [facility] 2Result Comment: pt received vaccine from [facility] 3Result Comment: [facility]: [id number] 4Result Comment: [09/07/2018] [facility] # [id number] 5Result Comment: [07/05/2017] [facility] [id number] 6Result Comment: GUS Lowery [place] 7Result Comment: Beverley WEBER [place] 8Result Comment: [11/07/2014] Dr. Knox; consent [...] 12:32:00 EDT, Powder, Route to Pharmacy Electronically, [id number], [facility]/pharmacy #[id number], 193.2, cm, 07/27/22 10:43:00 EDT, Height Start Date: 07/27/22 Stop Date: 07/22/23 Status: Ordered albuterol CFC free 90 mcg/inh inhalation aerosol 2, puffs, Inhalation, Every 4 hours, PRN, # 3 each, Refills 3, Tot. Refills 3, Maintenance, 05/07/23 10:14:00 EDT, Route to Pharmacy Electronically, [id number], [facility]/pharmacy#[id number], 195, cm, 05/07/23 9:23:00 EDT, Height, 112.6... Start Date: 05/07/23 Status: Ordered aspirin 81 mg oral tablet 1 tablet = 81 mg, By Mouth, Daily, # 90 tablet, 0 Refills, Maintenance, 05/20/17 11:35:13, Tablet Start Date: 05/20/17 Status: Ordered atorvastatin 20 mg oral tablet See Instructions, TAKE 1 TABLET BY MOUTH EVERY DAY, # 90 tablet, 3 Refills, Soft Stop, 07/27/22 12:32:00 EDT, [facility]/pharmacy #[id number], 193.2, cm, 07/27/22 10:43:00 EDT, Height Start Date: 07/27/22 Status: Ordered Basaglar KwikPen 100 units/mL subcutaneous solution = 80 units, Subcutaneous Injection, Daily at bedtime, # 15 mL, 6 Refills, Maintenance, 07/27/22 11:43:00 EDT, [facility]/pharmacy #[id number], 193.2, cm, 07/27/22 10:43:00 EDT, Height [...] Refills, Maintenance, 05/07/23 9:46:00 EDT, ER Tablet, [facility]/pharmacy #[id number], Partial fill upon patient request if the prescription is for a schedule II opioid drug., 195, cm, 05/07/23 9:23:00 EDT, Heigh... Start Date: 05/07/23 Status: Ordered CeleBREX 100 mg oral capsule 1 capsule = 100 mg, By Mouth, 2 times a day, # 60 capsule, 0 Refills, Maintenance, 02/19/23 13:03:00 EDT, Capsule, [facility]/pharmacy #[id number], Partial fill upon patient request if the prescription is for a schedule II opioid drug., 195, cm, 02/10/23 13:17:00... Start Date: 02/19/23 Status: Ordered clonazePAM 0.5 mg oral tablet 1 tablet = 0.5 mg, By Mouth, Daily, # 28 tablet, 0 Refills, Maintenance, 09/02/22 17:46:00 EST, Tablet, [facility]/pharmacy #[id number], Partial fill upon patient request if [...] 07/28/23 11:04:00 EDT, Route to Pharmacy Electronically, [facility]/pharmacy #[id number], Partial fill upon patient request if the prescription is for a schedule... Start Date: 07/28/23 Status: Ordered Jardiance 10 mg oral tablet 1 tablet, By Mouth, Daily in AM, # 30 tablet, 2 Refills, Maintenance, 06/25/23 16:01:00 EDT, [id number], 195, cm, 05/13/23 11:00:00 EDT, Height, 112.6, kg, 10/13/22 9:29:00 EST, Dry Weight Start Date: 06/25/23 Status: Ordered levothyroxine 0.025 mg oral tablet 1 tablet = 25 mcg, By Mouth, Daily, Take with the 175 mcg for a total of 200 mcg daily, # 90 tablet, 3 Refills, Maintenance, 12/05/22 17:12:00 EST, Tablet, [facility]/pharmacy #[id number], 193.2, cm, 07/27/22 10:43:00 EDT, Height Start Date: 12/05/22 Stop Date: 11/30/23 Status: Ordered levothyroxine 0.2 mg oral tablet 1 tablet = 200 mcg, By Mouth, Daily, take along with 225 mcg, # 90 tablet, 1 Refills, Maintenance, 08/17/23 11:43:00 EST, Tablet, [facility]/pharmacy #[id number], Partial fill upon patient request if the prescription is for a schedule II opioid drug., 192.3, cm, 1... Start Date: 08/17/23 Status: Ordered MetFORMIN (Eqv-Glucophage XR) 500 mg oral tablet, extended release 2 tablet = 1,000 mg, By Mouth, Daily, # 180 tablet, 1 Refills, Maintenance, 05/07/23 10:45:00 EDT, [facility]/pharmacy #[id number], Partial fill upon patient request if the prescription is for a schedule II opioid drug., 195, cm, 05/07/23 9:23:00 EDT, Height, 112.... Start Date: 05/07/23 Stop Date: 11/03/23 Status: Ordered metFORMIN 500 mg oral tablet, extended release 2 tablet = 1,000 mg, By Mouth, Daily, # 180 tablet, 1 Refills, Soft Stop, 05/07/23 9:49:00 EDT, [facility]/pharmacy #[id number], 195, cm, 05/07/23 9:23:00 EDT, Height, 112.6, kg, 10/13/22 9:29:00 EST, Dry Weight Start Date: 05/07/23 Stop Date: 11/03/23 Status: Ordered NovoLOG 100 units/mL subcutaneous solution See Instructions, 1-5 units sliding scale 15 min prior to meals Subcutaneous Infusion 3 times a day., # 30 mL, 2 Refills, Maintenance, 07/27/22 12:32:00 EDT, [facility]/pharmacy #[id number], 193.2, cm, 07/27/22 10:43:00 EDT, Height [...] 05/13/23... Start Date: 06/01/23 Status: Ordered Pen [place], 31 G x 5 mm BD Ultra [...] 2 diabetes mellitus with microalbuminuria Confirmed Active Vital Signs Most recent to oldest [Reference Range]: 1 Height 192.3 cm (08/17/23 11:20 AM) Weight 107 kg (08/17/23 11:20 AM) Body Mass Index [18.5-24.99 kg/m2] 28.94 kg/m2 *H* (08/17/23 11:20 AM) Weight Obtained Via Standing scale (08/17/23 11:20 AM) Social History Social History Type Response Smoking Status Current every day sm oker; Tobacco user in household: No; Type: Cigarettes; Tobacco use times per day: Down to 1/2 pack a day from 1 pack a day. Has been smoking for 35 years.; entered on: 08/19/17 Sex Note * Fatimah Solomon: PERFORM, SIGN, VERIFY Event Display: Patient Education/Instruction Authored Date: [id number] [facility] *[facility] Clinical Summary Name ROLA MAYES Age 58 Years 1965 PCP Jerry CHANG, Latesha Rocha PCP Visit Date 08/17/2023 11:20:00 Additional Instructions: Scheduled Appointments?? Future Appointments ?[facility] ?Phone:??--?Fax:??-- ?Appt. Date:??08/20/2023?1:30 PM ?Scheduled Provider:??[facility] [place] [facility] ?[address]??[place],??[place],??[address] ?Phone:??--?Fax:??-- ?Appt. Date:??08/25/2023?8:20 AM ?Scheduled Provider:??Latesha Riddle MD Follow-Up Instructions ?? Diagnosis Hypothyroidism, unspecified Medications: Please continue your medications until treatment is completed or stopped by your provider. Discuss any questions related to medications with your provider. Medications to Continue Taking That Have Changed [id number], [address] [place] [phone], [phone] - Levothyroxine (levothyroxine 0.2 mg oral tablet) 1 tab(s) Oral Daily. take along with 225 mcg. Refills: 1. Next Dose: These medications were not printed or sent to your pharmacy - Levothyroxine (levothyroxine 0.025 mg oral tablet) 1 tab(s) Oral Daily for 90 Days. Take with [id number] mcg for a total of 200 mcg daily. Refills: 3. Next Dose: Medications to Continue [...] 11. Next Dose: Durable Medical Equipment (Pen [place], 31 G x 5 mm BD Ultra Fine III) use to inject Basaglar 1x daily, E11.9, 90-day. Refills: 3. Next Dose: empagliflozin (Jardiance 10 mg oral tablet) 1 tab(s) Oral Daily in the morning. Refills: 2. Next Dose: Fluticasone-Salmeterol (Advair Diskus 250 mcg-50 mcg inhalation powder) 1 puff(s) Inhalation twice a day for 90 Days. Refills: 3. Next Dose: Gabapentin (gabapentin 300 mg oral capsule) 1 capsule Oral Daily at Bedtime. Refills: 3. Next Dose: Insulin Aspart (NovoLOG 100 units/mL subcutaneous solution) 1-5 units sliding scale 15 min prior tomeals Subcutaneous Infusion 3 times a day.. Refills: 2. Next Dose: Insulin Glargine (Basaglar KwikPen 100 units/mL subcutaneous solution) 80 unit(s) Subcutaneous Injection Daily at Bedtime. Refills: 6. Next Dose: Metformin (MetFORMIN (Eqv-Glucophage XR) 500 [...] per week e11.9. Refills: 4. Next Dose: Sildenafil (sildenafil 20 mg oral tablet) 1 tablet By Mouth as needed 1 hour prior to sexual intercourse. may take every 24 hours as needed. take tablet on empty stomach. can take 2 tablets by mouth if 1 tablet is ineffective.. Refills: 2. Next Dose: Contact Your Physician Prior to Taking the Following Medications Levothyroxine (levothyroxine 175 mcg (0.175 mg) oral tablet) 1 tab(s) Oral Daily for 90 Days. Refills: 3. Allergy Info:?? No Known Medication Allergies; Other Environmental Allergy Medications Given This Visit Future Orders ?TSH with T4 Reflex (Adults Only)? Order Date:09/28/23?- Complete by?10/05/23 Vital Signs Height 192.3 cm Weight 107 kg BMI 28.94 kg/m2 Blood Pressure / Temperature Pulse Rate Respiratory Rate 02 Sat Mode of Delivery / You can now view a summary of your hospital visit from the comfort of your home through a free online portal called [email or web address]. [email or web address] is a website that allows you to securely view your medical information including discharge summary, medications and follow-up visits. ??You can alsosend a secure electronic message to your doctor???s office to request appointments, renew medications or just ask a question. You can enroll at [email or web address] or register during your next office visit. [...] primary care provider, you may find a [facility] provider by calling [facility] [employer] Link at [phone]. [facility], in keeping with [facility] guidance, no longer requires face masks for [...] format to support your individualized medical care. Patient Care team information Care Team Personnel Name: Jerry CHANG, Latesha Rocha Position: S Physician - Primary Care Member Role: PCP Address: Address: [address] [place] [id number]- Care Team Related Persons Name: ROSALIA MAYES Address: home [address] [place] [address]
--- OUTSIDE RECORDS SUMMARY | 2024-05-09 07:56 | XMS_ITS | Continuity of Care Document ---
Author Organization [facility] Address [address] [place] [address]- Care Team Providers Care Gusset Ripper Name Role Phone Jerry CHANG, Latesha Rocha Primary Care Physic augustina Encounter [facility] Date(s): 09/01/23 - 10/01/23 [facility] [address] [place] [address]- Allergies, Adverse Reactions, Alerts No Known Medication Allergies Substance Reaction Severity Status Other Environmental Allergy 1 Active 1pets Immunizations Given and Recorded Vaccine Date Status Refusal Reason Influenza Virus Vaccine (oldterm) 1 07/10/23 Recor ded SARS-CoV-2 mRNA (phzrtcy-prrh-bdzdr) vax 2 07/10/23 Recorded influenza virus vaccine, [...] Recorded 1Result Comment: pt recevied vaccine from [facility] 2Result Comment: pt received vaccine from [facility] 3Result Comment: [facility]: [id number] 4Result Comment: [09/07/2018] [facility] # [id number] 5Result Comment: [07/05/2017] [facility] [id number] 6Result Comment: GUS Lowery [place] 7Result Comment: Beverley WEBER [place] 8Result Comment: [11/07/2014] Dr. Knox; consent signed. Medications Advair Diskus 250 mcg-50 mcg inhalation powder 1, puffs, Inhalation, 2 times a day, # 3 each, Refills 1, Tot. Refills 1, Maintenance, 09/01/23 18:48:00 EST, Powder, Route to Pharmacy Electronically, [id number], [facility]/pharmacy #[id number], 192.3, cm, 09/01/23 11:35:00 EST, Height,... Start Date: 09/01/23 Stop Date: 02/28/24 Status: Ordered albuterol CFC free 90 mcg/inh inhalation aerosol 2, puffs, Inhalation, Every 4 hours, PRN, # 3 each, Refills 3, Tot. Refills 3, Maintenance, 05/07/23 10:14:00 EDT, Route to Pharmacy Electronically, [id number], [facility]/pharmacy#[id number], 195, cm, 05/07/23 9:23:00 EDT, Height, 112.6... Start Date: 05/07/23 Status: Ordered aspirin 81 mg oral tablet 1 tablet = 81 mg, By Mouth, Daily, # 90 tablet, 0 Refills, Maintenance, 05/20/17 11:35:13, Tablet Start Date: 05/20/17 Status: Ordered atorvastatin 20 mg oral tablet See Instructions, TAKE 1 TABLET BY MOUTH EVERY DAY, # 90 tablet, 3 Refills, Soft Stop, 07/27/22 12:32:00 EDT, [facility]/pharmacy #[id number], 193.2, cm, 07/27/22 10:43:00 EDT, Height Start Date: 07/27/22 Status: Ordered Basaglar KwikPen 100 units/mL subcutaneous solution = 80 units, Subcutaneous Injection, Daily at bedtime, # 9 each, 2 Refills, Maintenance, 09/03/23 16:54:00 EST, [id number], 192.3, cm, 09/02/23 15:03:00 EST, Height, 108, kg, 08/04/23 9:53:00 EDT, Dry Weight Start Date: 09/03/23 Status: Ordered BP monitor BP monitor, See [...] Refills, Maintenance, 05/07/23 9:46:00 EDT, ER Tablet, [facility]/pharmacy #[id number], Partial fill upon patient request if the prescription is for a schedule II opioid drug., 195, cm, 05/07/23 9:23:00 EDT, Heigh... Start Date: 05/07/23 Status: Ordered CeleBREX 100 mg oral capsule 1 capsule = 100 mg, By Mouth, 2 times a day, # 60 capsule, 0 Refills, Maintenance, 02/19/23 13:03:00 EDT, Capsule, [id number], Partial fill upon patient request [...] Dry Weight Start Date: 05/13/23 Status: Ordered gabapentin 300 mg oral capsule 300 mg, 1, capsule, By Mouth, Daily at bedtime, # 30 capsule, Refills 3, Tot. Refills 3, Maintenance, 09/06/23 17:50:00 EST, Route to Pharmacy Electronically, [facility]/pharmacy #[id number], Partial fill upon patient request if the prescription is for a schedule... Start Date: 09/06/23 Status: Ordered Jardiance 10 mg oral tablet 1 tablet, By Mouth, Daily in AM, # 90 tablet, 3 Refills, Maintenance, 09/02/23 15:43:00 EST, [facility]/pharmacy #[id number], 192.3, cm, 09/02/23 15:03:00 EST, Height, 108, kg, 08/04/23 9:53:00 EDT, Dry Weight Start Date: 09/02/23 Status: Ordered levothyroxine 0.025 mg oral tablet 1 tablet = 25 mcg, By Mouth, Daily, Take with 200mcg tab for total of 225mcg., # 90 tablet, 1 Refills, Maintenance, 09/03/23 16:52:00 EST, Tablet, [facility]/pharmacy #1095, 192.3, cm, 09/02/23 15:03:00 EST, Height, 108, kg, 08/04/23 9:53:00 EDT, Dry Weight Start Date: 09/03/23 Stop Date: 03/01/24 Status: Ordered levothyroxine 0.2 mg oral tablet 1 tablet = 200 mcg, By Mouth, Daily, take along with 225 mcg, # 90 tablet, 1 Refills, Maintenance, 08/17/23 11:43:00 EST, Tablet, [id number], Partial fill upon patient request if the prescription is for a schedule II opioid drug., 192.3, cm, 1... Start Date: 08/17/23 Status: Ordered levothyroxine 175 mcg (0.175 mg) oral tablet 1 tablet = 175 mcg, By Mouth, Daily, # 90 tablet, 3 Refills, Maintenance, 12/12/22 12:34:00 EST, Tablet, [id number], 193.2, cm, 07/27/22 10:43:00 EDT, Height Start Date: 12/12/22 Stop Date: 12/07/23 Status: Ordered MetFORMIN (Eqv-Glucophage XR) 500 mg oral tablet, extended release 2 tablet = 1,000 mg, By Mouth, Daily, # 180 tablet, 3 Refills, Maintenance, 09/02/23 15:44:00 EST, [id number], Partial fill upon patient request if the prescription is for a schedule II opioid drug., 192.3, cm, 09/02/23 15:03:00 EST, Height, 1... Start Date: 09/02/23 Stop Date: 08/27/24 Status: Ordered NovoLOG 100 units/mL subcutaneous solution [...] 10 minutes,Instr:M... Start Date: 10/12/22 Status: Ordered One Touch Fine Point Lancets See Instructions, # 200 each, Refills 11, Tot. Refills 11, Maintenance, use at least 4 times per day for diabetes glucose monitor. Pharmamcy can replace by other brand based on insurance coverage, 09/02/23 15:45:00 EST, Pharmamcy can replace by other... Start Date: 09/02/23 Status: Ordered One touch Verio Glucometer One touch Verio Glucometer, See Instructions, # 1 each, Refills 0, Tot. Refills 0, Maintenance, usefor diabetes control. Pharmamcy can replace by other brand based on insurance coverage, 09/02/23 15:45:00 EST, Pharm[facility] can replace by other brand bas... Start Date: 09/02/23 Status: Ordered OneTouch Verio Test Strips OneTouch Verio Test Strips, See Instructions, # 200 each, Refills 11, Tot. Refills 11, Maintenance,use at least 4 times per day for diabetes glucose monitor. Pharmamcy can replace by other brand based on insurance coverage, 09/02/23 15:46:00 EST, Pha... Start Date: 09/02/23 Status: Ordered Ozempic (1 mg dose) 4 mg/3 mL subcutaneous solution = 1 mg, Subcutaneous Infusion, Every week, use once per week e11.9, # 9 mL, 3 Refills, Maintenance,09/02/23 15:44:00 EST, [facility]/pharmacy #[id number], Partial fill upon patient request if the prescription isfor a schedule II opioid drug., 192.3, cm, ... 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 Has been smoking for 35 years.; entered on: 08/19/17 Sex Patient Care team information Care Team Personnel Name: Jerry CHANG, Latesha Rocha Position: [facility] Physician - Primary Care Member Role: PCP [facility]: [facility] [place] [address]- Care Team Related Persons Name: ROSALIA MAYES Address: [address] [place] [address]
--- OUTSIDE RECORDS SUMMARY | 2024-05-09 07:56 | XMS_ITS | Continuity of Care Document ---
Author Organization [facility] Address [address] [place] [address]- Care Team Providers Care Fleet Director Name Role Phone Jerry CHANG, Latesha Rocha Primary Care Physic augustina Encounter [facility] Date(s): 10/19/19 - 02/16/20 [facility] [address] [place] [address]- [facility] Attending Physician: Latesha Edwards MD Allergies, Adverse Reactions, Alerts No Known Medication Allergies Substance Reaction Severity Status Other Environmental Allergy 1 Active 1pets Immunizations Given and Recorded Vaccine Date Status Refusal Reason influenza virus vaccine, inactivated 1 09/07/18 Gi evan influenza virus vaccine, inactivated 2 07/05/17 Gi evan influenza virus vaccine, inactivated 09/02/16 Give n influenza virus vaccine, inactivated 10/09/15 Give n influenza virus vaccine, inactivated 07/18/14 Give n tetanus/diphtheria/pertussis, acel(Tdap) 3 11/07/14 Given tetanus-diphtheria toxoids (Td) 10/04/99 Recorded 1Result Comment: [09/07/2018] [facility] # [id number] 2Result Comment: [07/05/2017] [facility] [id number] 3Result Comment: [11/07/2014] Dr. Knox; consent signed. Medications Accu-Chek Elayne Glucose Meter See Instructions, # 1 each, Maintenance, Test TID for Type 2 DM, 10/19/18 17:37:14 EST, Compound Start Date: 10/19/18 Status: Ordered Accu-Chek Elayne Plus Test Strips See Instructions, # 90 each, Refills 5, Tot. Refills 5, Maintenance, Test TID for DM type 2, 10/19/18 17:38:15 EST, Compound Start Date: 10/19/18 Status: Ordered Accu-Chek Compact Lancets See Instructions, # 100 each, Refills 5, Tot. Refills 5, Maintenance, Test TID for DM type 2, 04/16/19 8:55:19 EDT, Compound Start Date: 04/16/19 Status: Ordered Advair Diskus 250 mcg-50 mcg inhalation powder 1, puffs, Inhalation, 2 times a day, # 3 each, Refills 1, Tot. Refills 1, Maintenance, 02/09/20 14:47:00 EDT, Powder, Route to Pharmacy Electronically, [id number], [facility]/pharmacy #[id number], 194.2, cm, 08/16/19 8:47:00 EST, Height,... Start Date: 02/09/20 Stop Date: 08/07/20 Status: Ordered albuterol CFC free 90 mcg/inh inhalation aerosol 2, puffs, Inhalation, Every 4 hours, PRN, # 8.5 Unknown, Refills 1, Tot. Refills 1, Maintenance, 01/11/20 11:44:00 EDT, Route to Pharmacy Electronically, [id number], [facility]/pharmacy #[id number], 194.2, cm, 08/16/19 8:47:00 EST, Height... Start Date: 01/11/20 Status: Ordered aspirin 81 mg oral tablet 1 tablet = 81 mg, By Mouth, Daily, # 90 tablet, 0 Refills, Maintenance, 05/20/17 11:35:13, Tablet Start Date: 05/20/17 Status: Ordered atorvastatin 20 mg oral tablet See Instructions, TAKE 1 TABLET BY MOUTH EVERY DAY, # 90 tablet, 1 Refills, Soft Stop, 01/31/20 16:18:00 EDT, [facility]/pharmacy #[id number], 194.2, cm, 08/16/19 8:47:00 EST, Height, 113.1, kg, 08/09/19 10:20:00EST, Dry Weight Start Date: 01/31/20 Status: Ordered Basaglar KwikPen = 70 units, Subcutaneous Infusion, Daily, 0 Refills, Maintenance, 01/12/19 11:14:14 EDT Start Date: 01/12/19 Status: Ordered buPROPion 150 mg/12 hours (SR) oral tablet, extended release 1 tablet = 150 mg, By Mouth, Daily, # 90 tablet, 0 Refills, Soft Stop, 01/09/20 15:17:00 EDT, [facility]/pharmacy #[id number], 194.2, cm, 08/16/19 8:47:00 EST, Height, 113.1, kg, 08/09/19 10:20:00 EST, Dry Weight Start Date: 01/09/20 Stop Date: 04/08/20 Status: Ordered Colace sodium 100 mg oral capsule 100 mg, 1, capsule, By Mouth, 2 times a day, # 60 capsule, Refills 0, Tot. Refills 0, Maintenance, 08/09/19 11:40:56 EST, Print Requisition Start Date: 08/09/19 Status: Ordered Insulin Syringe, BD Ultra-Fine 0.5 cc 31 G x 8 mm (16in) See Instructions, # 300 each, Refills 2, Tot. Refills 2, Maintenance, use to inject Novolog 3x daily with meals, E11.9, 90-day, 02/01/20 10:41:00 EDT, BD brand, Supply, 194.2, cm, 08/16/19 8:47:00 EST, Height, 113.1, kg, 08/09/19 10:20:00 EST, Dry Weight Start Date: 02/01/20 Status: Ordered Insulin Syringe, BD Ultra-Fine 0.5 cc 31 G x 8 mm (16in) See Instructions, # 90 each, Refills 3, Tot. Refills 3, Maintenance, use as directed for Type 1 Diabetes Mellitus, 08/22/18 7:44:26 EST, Compound Start Date: 08/22/18 Stop Date: 12/20/18 Status: Ordered levothyroxine 0.025 mg oral tablet 1 tablet = 25 mcg, By Mouth, Daily, Take with the 175 mcg for a total of 200 mcg daily, # 90 tablet, 1 Refills, Maintenance, 10/27/19 7:12:00 EST, Tablet, [facility]/pharmacy #[id number], 194.2, cm, 08/16/19 8:47:00 EST, Height, 113.1, kg, 08/09/19 10:20:00 EST, D... Start Date: 10/27/19 Stop Date: 04/24/20 Status: Ordered levothyroxine 175 mcg (0.175 mg) oral tablet 1 tablet = 175 mcg, By Mouth, Daily, # 90 tablet, 3 Refills, Maintenance, 01/12/19 11:16:12 EDT, Tablet Start Date: 01/12/19 Stop Date: 01/07/20 Status: Ordered metFORMIN 500 mg oral tablet, extended release See Instructions, TAKE 2 TABLETS BY MOUTH EVERY DAY, # 180 tablet, 1 Refills, Soft Stop, 08/15/19 12:05:10 EST Start Date: 08/15/19 Stop Date: 10/15/19 Status: Ordered NovoLOG 100 units/mL subcutaneous solution See Instructions, 1-5 units sliding scale 15 min prior to meals Subcutaneous Infusion 3 times a day., # 30 mL, 0 Refills, Maintenance, 11/05/19 7:33:00 EST, [facility]/pharmacy #[id number], 194.2, cm, 08/16/19 8:47:00 EST, Height, 113.1, kg, 08/09/19 10:20:00 EST,... Start Date: 11/05/19 Status: Ordered Pen Telephone, 30 G x 8 mm BD Ultra Fine II See Instructions, # 100 each, Refills 3, Tot. Refills 3, Maintenance, use as directed for Type 2 Diabetes Mellitus - once a day, 10/09/15 14:01:07, Compound Start Date: 10/09/15 Stop Date: 02/06/16 Status: Ordered Pen Telephone, 31 G x 5 mm BD Ultra Fine III See Instructions, # 100 each, Refills 2, Tot. Refills 2, Maintenance, use to inject Basaglar 1x daily, E11.9, 90-day, 02/01/20 10:42:00 EDT, Supply, 194.2, cm, 08/16/19 8:47:00 EST, Height, 113.1, kg, 08/09/19 10:20:00 EST, Dry Weight Start Date: 02/01/20 Status: Ordered Pen Telephone, 31 G x 8 mm BD Ultra Fine III See Instructions, # 100 each, Refills 1, Tot. Refills 1, Maintenance, use with Lantus 1x daily, Dx E11.9, 90-day, 03/15/17 15:55:47, Compound Start Date: 03/15/17 Stop Date: 09/11/17 Status: Ordered Singulair 10 mg oral tablet 10 mg, 1, tablet, By Mouth, Daily in PM, # 90 tablet, Refills 1, Tot. Refills 1, Maintenance, 01/11/20 11:42:00 EDT, Route to Pharmacy Electronically, [facility]/pharmacy #[id number], 194.2, cm, 08/16/19 8:47:00 EST, Height, 113.1, kg, 08/09/19 10:20:00 EST, Dry W... Start Date: 01/11/20 Status: Ordered Problem List Condition Effective Dates Status Health Status Inform ant Diverticulosis(Confirmed) Active Esophagitis(Confirmed) Active Hemorrhoids(Confirmed) Active Hiatal hernia(Confirmed) Active History of colonic polyps(Confirmed) Active Hypothyroidism(Confirmed) Active ED (erectile dysfunction)(Confirmed) Active Hyperlipidemia, mixed(Confirmed) Active Diabetes mellitus type II, uncontrolled(Confirmed) Active Social History Social History Type Response Smoking Status Current every day sherri weeks; Tobacco user in household: No; Type: Cigarettes; Tobacco use times per day: Down to 1/2 pack a day from 1 pack a day. Has been smoking for 35 years.; entered on: 08/19/17 Sex
--- OUTSIDE RECORDS SUMMARY | 2024-05-09 07:56 | XMS_ITS | Continuity of Care Document ---
Author Organization [facility] Address [address] [place] [address]- Care Team Providers Care Radio Engineering Teacher Name Role Phone Jerry CHANG, Latesha Rocha Primary Care Physic augustina Encounter [facility] Date(s): 12/10/22 - 01/09/23 [facility] [address] [place] [address]- Allergies, Adverse Reactions, Alerts No Known Medication Allergies Substance Reaction Severity Status Other Environmental Allergy 1 Active 1pets Immunizations Given and Recorded Vaccine Date Status Refusal Reason influenza virus vaccine, inactivated 09/13/22 Beny rded influenza virus vaccine, inactivated 1 08/08/20 Gi evan influenza virus vaccine, inactivated 2 09/07/18 Gi evan influenza virus vaccine, inactivated 3 07/05/17 Gi evan influenza virus vaccine, inactivated 09/02/16 Give n influenza virus vaccine, inactivated 10/09/15 Give n influenza virus vaccine, inactivated 07/18/14 Give n SARS-CoV-2 (COVID-19) mRNA-1273 vaccine 4 01/02/21 Recorded SARS-CoV-2 (COVID-19) mRNA-1273 vaccine 5 12/05/20 Recorded tetanus/diphtheria/pertussis, acel(Tdap) 6 11/07/14 Given tetanus-diphtheria toxoids (Td) 10/04/99 Recorded 1Result Comment: [facility]: [id number] 2Result Comment: [09/07/2018] [facility] # [id number] 3Result Comment: [07/05/2017] [facility] [id number] 4Result Comment: GUS Lowery [place] 5Result Comment: Beverley WEBER [place] 6Result Comment: [11/07/2014] Dr. Knox; consent signed. [...] 12:32:00 EDT, Powder, Route to Pharmacy Electronically, [id number], [facility]/pharmacy #[id number], 193.2, cm, 07/27/22 10:43:00 EDT, Height Start Date: 07/27/22 Stop Date: 07/22/23 Status: Ordered albuterol CFC free 90 mcg/inh inhalation aerosol 2, puffs, Inhalation, Every 4 hours, PRN, # 3 each, Refills 1, Tot. Refills 1, Maintenance, 07/27/22 12:32:00 EDT, Route to Pharmacy Electronically, [id number], [facility]/pharmacy#[id number], 193.2, cm, 07/27/22 10:43:00 EDT, Height Start Date: 07/27/22 Status: Ordered aspirin 81 mg oral tablet 1 tablet = 81 mg, By Mouth, Daily, # 90 tablet, 0 Refills, Maintenance, 05/20/17 11:35:13, Tablet Start Date: 05/20/17 Status: Ordered atorvastatin 20 mg oral tablet See Instructions, TAKE 1 TABLET BY MOUTH EVERY DAY, # 90 tablet, 3 Refills, Soft Stop, 07/27/22 12:32:00 EDT, [facility]/pharmacy #[id number], 193.2, cm, 07/27/22 10:43:00 EDT, Height Start Date: 07/27/22 Status: Ordered Basaglar KwikPen 100 units/mL subcutaneous solution = 80 units, Subcutaneous Injection, Daily at bedtime, # 15 mL, 6 Refills, Maintenance, 07/27/22 11:43:00 EDT, [facility]/pharmacy #[id number], 193.2, cm, 07/27/22 10:43:00 EDT, Height [...] Daily, # 90 tablet, 1 Refills, Maintenance, 11/11/22 14:09:00 EST, ER Tablet, [facility]/pharmacy #[id number], Partial fill upon patient request if the prescription is for a schedule II opioid drug., 195, cm, 11/11/22 13:45:00 EST, Hei... Start Date: 11/11/22 Status: Ordered clonazePAM 0.5 mg oral tablet 1 tablet = 0.5 mg, By Mouth, Daily, # 28 tablet, 0 Refills, Maintenance, 09/02/22 17:46:00 EST, Tablet, [facility]/pharmacy #[id number], Partial fill upon patient request if the prescription is for a schedule II opioid drug., 193.2, cm, 08/14/22 7:56:00 EST, Height Start Date: 09/02/22 Stop Date: 09/30/22 Status: Ordered Freestyle Hany Sensor See Instructions, # 2 each, Refills 11, Tot. Refills 11, Maintenance, Use to test blood sugars for 14 days. Type II DM E11.9, 07/27/22 12:32:00 EDT, Supply, 193.2, cm, 07/27/22 10:43:00 EDT, Height Start Date: 07/27/22 Status: Ordered Insulin Syringe, BD Ultra-Fine 0.5 cc 31 G x 8 mm (5/16in) See Instructions, # 90 each, Refills 3, Tot. Refills 3, Maintenance, use as directed for Type 1 Diabetes Mellitus, 08/22/18 7:44:26 EST, Compound Start Date: 08/22/18 Stop Date: 12/20/18 Status: Ordered Insulin Syringe, BD Ultra-Fine 0.5 cc 31 G x 8 mm (516in) See Instructions, # 300 each, Refills 2, [...] 3 Refills, Maintenance, 12/05/22 17:12:00 EST, Tablet, [facility]/pharmacy #[id number], 193.2, cm, 07/27/22 [...] Daily, # 180 tablet, 3 Refills, Maintenance, 09/27/22 13:35:00 EST, [facility]pharmacy #[id number], Partial fill upon patient request if the prescription is for a schedule II opioid drug., 193.2, cm, 07/27/22 10:43:00 EDT, Height Start Date: 09/27/22 Stop Date: 09/22/23 Status: Ordered metFORMIN 500 mg oral tablet, extended release 2 tablet = 1,000 mg, By Mouth, Daily, # 180 tablet, 1 Refills, Soft Stop, 10/01/21 13:42:00 EST, [id number], 193.2, cm, 02/03/21 8:56:00 EDT, Height Start Date: 10/01/21 Stop Date: 03/30/22 Status: Ordered Nicotine 7 mg/24 hour patch 1 patch, Topically, Daily, for 6 week(s), # 42 patch, 0 Refills, Acute 02/17/23 11:15:00 EDT, 01/06/23 11:15:00 EDT, [id number], Partial fill upon patient request if the prescription is for aschedule II opioid drug., 1 patch Topically Daily,x... Start Date: 01/06/23 Stop Date: 02/17/23 Status: Ordered NovoLOG 100 units/mL subcutaneous solution [...] 10 minutes,Instr:M... Start Date: 10/12/22 Status: Ordered Pen Lakeside, 30 G x 8 mm BD Ultra Fine II See Instructions, # 100 each, Refills 3, Tot. Refills 3, Maintenance, use as directed for Type 2 Diabetes Mellitus - once a day, 10/09/15 14:01:07, Compound Start Date: 10/09/15 Stop Date: 02/06/16 Status: Ordered Pen [place]ide, 31 G x 5 mm BD Ultra Fine III See Instructions, # 100 each, Refills 3, Tot. Refills 3, Maintenance, use to inject Basaglar 1x daily, E11.9, 90-day, 07/27/22 12:32:00 EDT, Supply, 193.2, cm, 07/27/22 10:43:00 EDT, Height Start Date: 07/27/22 Status: Ordered Pen [place], 31 G x 8 mm BD Ultra Fine III See Instructions, # 100 each, Refills 1, Tot. Refills 1, Maintenance, use with Lantus 1x daily, Dx E11.9, 90-day, 03/15/17 15:55:47, Compound Start Date: 03/15/17 Stop Date: 09/11/17 Status: Ordered semaglutide 0.25 mg/0.5 mL (0.25 mg dose) subcutaneous solution = 0.25 mg, Subcutaneous Infusion, Every week, for 4 week(s), # 1 each, 0 Refills, Acute 01/14/23 18:36:00 EDT, 12/17/22 18:36:00 EDT, [facility]/pharmacy #[id number], Partial fill upon patient request if the prescription is for a schedule II opioid drug., 195, cm,... Start Date: 12/17/22 Stop Date: 01/14/23 Status: Ordered sertraline 50 mg oral tablet 1 tablet = 50 mg, By Mouth, Daily, # 90 tablet, 3 Refills, Maintenance, 07/27/22 12:32:00 EDT, Tablet, [facility]/pharmacy #[id number], Partial fill upon patient request if the prescription is for a schedule II opioid drug., 193.2, cm, 10/24/22 10:43:00 EDT, Height Start Date: 07/27/22 Stop Date: 07/22/23 Status: Ordered Singulair 10 mg oral tablet 10 mg, 1, tablet, By Mouth, Daily in PM, # 90 tablet, Refills 3, Tot. Refills 3, Maintenance, 07/27/22 12:32:00 EDT, Route to Pharmacy Electronically, [facility]/pharmacy #[id number], 193.2, cm, 07/27/22 10:43:00EDT, Height Start Date: 07/27/22 Status: Ordered Problem List Condition Confirmation Course Effective Dates Status H ealth Status Informant Anxiety Confirmed Active Diverticulosis Confirmed Active Esophagitis Confirmed Active Fatigue Confirmed Active Hemorrhoids Confirmed Active Hiatal hernia Confirmed Active History of colonic polyps Confirmed Active Hypothyroidism Confirmed Active ED (erectile dysfunction) Confirmed Active Low back pain with bilateral sciatica Confirmed Active Low back pain with right-sided sciatica Confirmed Active Hyperlipidemia, mixed Confirmed Active Tobacco dependence Confirmed Active 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 Has been smoking for 35 years.; entered on: 08/19/17 Sex Patient Care team information Care Team Personnel Name: Jerry CHANG, Latesha Rocha Position: [facility] Primary Care Physician Member Role: PCP Address: Address: [address] [place] [id number]- Care Team Related Persons Name: ROSALIA MAYES Address: home [address] [place] [address]
--- OUTSIDE RECORDS SUMMARY | 2024-05-09 07:56 | XMS_ITS | Continuity of Care Document ---
Author Organization [facility] Address [address] [place] [address]- Care Team Providers Care Religion Teacher Name Role Phone Jerry CHANG, Latesha Rocha Primary Care Physic augustina Encounter [facility] Date(s): 03/27/24 - 04/26/24 [facility] [address] [place] [address]- [place] Encounter Diagnosis Lumbar spondylosis(Discharge Diagnosis) - 03/28/24 Allergies, Adverse Reactions, Alerts No Known Medication Allergies Substance Reaction Severity Status Other Environmental Allergy 1 Active 1pets Immunizations Given and Recorded Vaccine Date Status Refusal Reason SARS-CoV-2(COVID-19)mRNA-LNP vac([id number]) 12/21/23 Recorded Influenza Virus Vaccine (oldterm) 1 07/10/23 Recor ded SARS-CoV-2 mRNA ([id number]) vax 2 07/10/23 Recorded influenza virus vaccine, [...] Recorded 1Result Comment: pt recevied vaccine from [facility] pharmacy 2Result Comment: pt received vaccine from [facility] pharmacy 3Result Comment: [facility]: [id number] 4Result Comment: [09/07/2018] [facility] # [id number] 5Result Comment: [07/05/2017] [facility] [id number] 6Result Comment: [facility] Beverley JACK[place] 7Result [facility] [place] 8Result Comment: [11/07/2014] Dr. Knox; consent signed. Medications Advair Diskus 250 mcg-50 mcg inhalation powder 1, puffs, Inhalation, 2 times a day, # 3 each, Refills 1, Tot. Refills 1, Maintenance, 09/01/23 18:48:00 EST, Powder, Route to Pharmacy Electronically, [id number], [id number] 192.3, cm, 09/01/23 11:35:00 EST, Height,... Start Date: 09/01/23 Stop Date: 02/28/24 Status: Ordered albuterol CFC free 90 mcg/inh inhalation aerosol 2, puffs, Inhalation, Every 4 hours, PRN, # 3 each, Refills 3, Tot. Refills 3, Maintenance, 03/30/24 14:05:00 EDT, Route to Pharmacy Electronically, [id number], [id number], 192.3, cm, 01/24/24 10:24:00 EDT, Height, 10... Start Date: 03/30/24 Status: Ordered aspirin 81 mg oral tablet 1 tablet = 81 mg, By Mouth, Daily, # 90 tablet, 0 Refills, Maintenance, 05/20/17 11:35:13, Tablet Start Date: 05/20/17 Status: Ordered atorvastatin 20 mg oral tablet See Instructions, TAKE 1 TABLET BY MOUTH EVERY DAY, # 90 tablet, 3 Refills, Soft Stop, 10/22/23 15:01:00 EST, [facility]/pharmacy #[id number], 192.3, cm, 10/13/23 12:06:00 EST, Height, 108, kg, 08/04/23 9:53:00 EDT, Dry Weight Start Date: 10/22/23 Status: Ordered BP monitor BP monitor, See [...] Daily, # 90 tablet, 3 Refills, Maintenance, 01/24/24 11:08:00 EDT, ER Tablet, [facility]/pharmacy #[id number], Partial fill upon patient request if the prescription is for a schedule II opioid drug., 192.3, cm, 01/24/24 10:24:00 EDT, H... Start Date: 01/24/24 Status: Ordered CeleBREX 100 mg oral capsule 1 capsule = 100 mg, By Mouth, 2 times a day, # 60 capsule, 0 Refills, Maintenance, 03/28/24 16:02:00 EDT, Capsule, [id number], Partial fill upon patient request if the prescription is for a schedule II opioid drug., 192.3, cm, 01/24/24 10:24:0... Start Date: 03/28/24 Status: Ordered clonazePAM 0.5 mg oral tablet [...] Status: Ordered gabapentin 300 mg oral capsule 600 mg, 2, capsule, By Mouth, 3 times a day, # 168 capsule, Refills 1, Tot. Refills 1, Maintenance,02/11/24 9:05:00 EDT, Route to Pharmacy Electronically, [facility]/pharmacy #[id number], Partial fill upon patient request if the prescription is for a schedule II... Start Date: 02/11/24 Stop Date: 04/07/24 Status: Ordered Jardiance 10 mg oral tablet 1 tablet, By Mouth, Daily in AM, # 90 tablet, 3 Refills, Maintenance, 09/02/23 15:43:00 EST, [facility]/pharmacy #[id number], 192.3, cm, 09/02/23 15:03:00 EST, Height, 108, kg, 08/04/23 9:53:00 EDT, Dry Weight Start Date: 09/02/23 Status: Ordered Lantus Solostar Pen 100 units/mL subcutaneous solution = 80 units, Subcutaneous Infusion, Daily, 6 months supplies, # 144 mL, 3 Refills, Maintenance, 11/24/23 11:09:00 EST, [facility]/pharmacy #[id number], Partial fill upon patient request if the prescription is for a schedule II opioid drug., 192.3, cm, 11/24/23 8:32... Start Date: 11/24/23 Stop Date: 11/13/25 Status: Ordered levalbuterol 45 mcg/inh inhalation aerosol 2 puffs, Inhalation, Every 4 hours, PRN for wheezing, # 15 Gm, 3 Refills, Maintenance, 01/24/24 11:27:00 EDT, Aerosol, [id number], Partial fill upon patient request if the prescription is fora schedule II opioid drug., 192.3, cm, 01/24/24 10:... Start Date: 01/24/24 Status: Ordered levothyroxine 0.025 mg oral tablet 1 tablet = 25 mcg, By Mouth, Daily, Take with 200mcg tab for total of 225mcg., # 90 tablet, 1 Refills, Maintenance, 03/01/24 16:52:00 EDT, Tablet, [id number], 192.3, cm, 01/24/24 10:24:00 EDT, Height, 108, kg, 08/04/23 9:53:00 EDT, Dry Weight Start Date: 03/01/24 Stop Date: 08/28/24 Status: Ordered levothyroxine 0.2 mg oral tablet 1 tablet = 200 mcg, By Mouth, Daily, take along with 225 mcg, # 90 tablet, 1 Refills, Maintenance, 01/24/24 11:08:00 EDT, Tablet, [facility]/pharmacy #[id number], Partial fill upon patient request if the prescription is for a schedule II opioid drug., 192.3, cm, 0... Start Date: 01/24/24 Status: Ordered levothyroxine 175 mcg (0.175 mg) oral tablet 1 tablet = 175 mcg, By Mouth, Daily, # 90 tablet, 3 Refills, Maintenance, 12/12/22 12:34:00 EST, Tablet, [facility]/pharmacy #[id number], 193.2, cm, 07/27/22 10:43:00 EDT, [...] mL, 2 Refills, Maintenance, 07/27/22 12:32:00 EDT, [facility]/pharmacy #[id number], 193.2, cm, 07/27/22 10:43:00 EDT, Height Start Date: 07/27/22 Status: Ordered NuLYTELY with Flavor Packs oral powder for reconstitution 240 mL, By Mouth, Every 10 minutes, May substitute any PEG 3350 solution available SPLIT PREP METHOD, # 1 each, 0 Refills, Maintenance, 10/12/22 17:00:00 EST, REC Powder, [facility]/pharmacy #[id number], test date 10/13/22, 240 mL By [...] mg dose) 4 mg/3 mL subcutaneous solution See Instructions, INJECT 1 MG SUBCUTANEOUS INFUSION EVERY WEEK. USE ONCE PER WEEK E11.9, # 3 Unknown, 11 Refills, Maintenance, 12/21/23 8:40:00 EDT, [id number], 192.3, cm, 11/24/23 8:32:00 EST, Height, 108, kg, 08/04/23 9:53:00 EDT, Dry Weight Start Date: 12/21/23 Status: Ordered Pen [place], 31 G x 5 mm BD Ultra [...] 08/04/23 1... Start Date: 08/04/23 Status: Ordered Singulair 10 mg oral tablet 10 mg, 1, tablet, By Mouth, Daily in PM, # 90 tablet, Refills 3, Tot. Refills 3, Maintenance, 11/15/23 15:36:00 EST, Route to Pharmacy Electronically, [facility]/pharmacy #[id number], 192.3, cm, 10/13/23 12:06:00EST, Height, 108, kg, 08/04/23 9:53:00 EDT, Dry Weight Start Date: 11/15/23 Status: Ordered Problem List Condition Confirmation Course Effective Dates Status H ealth Status Informant Anxiety Confirmed Active Cellulitis and abscess of toe Confirmed Active Cellulitis of great toe Confirmed Active Diverticulosis Confirmed Active Dyspnea on exertion Confirmed Active Rash Confirmed Active Esophagitis Confirmed Active Fatigue Confirmed Active Hemorrhoids Confirmed Active Hiatal hernia Confirmed Active History of colonic polyps Confirmed Active History of COVID-19 Confirmed Active Hypothyroidism Confirmed Active ED (erectile [...] Venous insufficiency of lower extremity Confirmed Active Diagnosis Diagnosis Type Effective Dates Health Status Clinical Service Informant Lumbar spondylosis Discharge Diagnosis 03/28/24 Non-Specified Social History Social History Type Response Smoking [...] Primary Care Member Role: PCP Address: Address: [address] [place] [id number]- Care Team Related Persons Name: ROSALIA MAYES Address: home [address] [place] [address]
--- OUTSIDE RECORDS SUMMARY | 2024-05-09 07:56 | XMS_ITS | Continuity of Care Document ---
Author Organization [facility] Address [address] [place] [address]- Care Team Providers Care Health Researcher Name Role Phone Jerry CHANG, Latesha Rocha Primary Care Physic augustina Encounter [facility] Date(s): 01/11/20 - 01/18/20 [facility] [address] [place] [address]- [facility] Encounter Diagnosis Mild persistent asthma(Discharge Diagnosis) - 01/11/20 Attending Physician: Jerry CHANG, Latesha Rocha Allergies, [...] toxoids (Td) 10/04/99 Recorded 1Result Comment: [09/07/2018] [facility] # [id number] 2Result Comment: [07/05/2017] [facility] [id number] 3Result Comment: [11/07/2014] Dr. Knox; consent signed. [...] each, Refills 3, Tot. Refills 3, Maintenance, 01/12/19 11:20:04 EDT, Powder, Route to Pharmacy Electronically, [id number], [facility]/pharmacy #[id number] Start Date: 01/12/19 Stop Date: 01/07/20 Status: Ordered albuterol CFC free 90 mcg/inh inhalation aerosol 2, puffs, Inhalation, Every 4 hours, PRN, # 8.5 Unknown, Refills 1, Tot. Refills 1, Maintenance, 01/11/20 11:44:00 EDT, Route to Pharmacy Electronically, [id number], [facility]/pharmacy #[id number], 194.2, cm, 08/16/19 8:47:00 EST, Height... Start Date: 01/11/20 Status: Ordered aspirin 81 mg oral tablet 1 tablet = 81 mg, By Mouth, Daily, # 90 tablet, 0 Refills, Maintenance, 05/20/17 11:35:13, Tablet Start Date: 05/20/17 Status: Ordered atorvastatin 20 mg oral tablet See Instructions, # 90 tablet, Refills 1 Tot. Refills 1, TAKE 1 TABLET BY MOUTH EVERY DAY, [facility]/pharmacy #[id number] Start Date: 06/30/19 Status: Ordered Basaglar KwikPen = 70 units, Subcutaneous Infusion, Daily, 0 Refills, Maintenance, 01/12/19 11:14:14 EDT Start Date: 01/12/19 Status: Ordered buPROPion 150 mg/12 hours (SR) oral tablet, extended release 1 tablet = 150 mg, By Mouth, Daily, # 90 tablet, 0 Refills, Soft Stop, 01/09/20 15:17:00 EDT, [facility]/pharmacy #[id number], 194.2, cm, 08/16/19 8:47:00 EST, Height, [...] 1 Refills, Maintenance, 10/27/19 7:12:00 EST, Tablet, [facility]/pharmacy #[id number], 194.2, cm, 08/16/19 8:47:00 EST, Height, [...] mL, 0 Refills, Maintenance, 11/05/19 7:33:00 EST, [facility]/pharmacy #[id number], 194.2, cm, 08/16/19 8:47:00 EST, Height, 113.1, kg, 08/09/19 10:20:00 EST,... Start Date: 11/05/19 Status: Ordered Pen [place], 30 G x 8 mm BD Ultra Fine II See Instructions, # 100 each, Refills 3, Tot. Refills 3, Maintenance, use as directed for Type 2 Diabetes Mellitus - once a day, 10/09/15 14:01:07, Compound Start Date: 10/09/15 Stop Date: 02/06/16 Status: Ordered Pen [place], 31 G x 8 mm BD Ultra [...] 01/11/20 11:42:00 EDT, Route to Pharmacy Electronically, [facility]/pharmacy #[id number], 194.2, cm, 08/16/19 8:47:00 EST, Height, [...] Effective Dates Health Status Clinical Service Informant Mild persistent asthma Discharge Diagnosis 01/11/20 Social History Social History Type Response Smoking Status Current every day sherri weeks; Tobacco user in household: No; Type: Cigarettes; Tobacco use times per day: Down to 1/2 pack a day from 1 pack a day. Has been smoking for 35 years.; entered on: 08/19/17 Sex
--- OUTSIDE RECORDS SUMMARY | 2024-05-09 07:56 | XMS_ITS | Continuity of Care Document ---
Author Organization [facility] Address [address] [place] [address]- Care Team Providers Care Cocktail Server Name Role Phone Jerry CHANG, Latesha Rocha Primary Care Physic augustina Encounter [facility] Date(s): 02/01/20 - 03/02/20 [facility] [address] [place] [address]- [facility] Attending Physician: Admtr, Ar8 Admitting Physician: Admtr, Ar8 Referring Physician: Admtr, Ar8 Allergies, Adverse Reactions, Alerts No Known Medication [...] toxoids (Td) 10/04/99 Recorded 1Result Comment: [09/07/2018] [facility] # [id number] 2Result Comment: [07/05/2017] [facility] [id number] 3Result Comment: [11/07/2014] Dr. Knox; consent signed. [...] 14:47:00 EDT, Powder, Route to Pharmacy Electronically, [id number], [facility]/pharmacy #[id number], 194.2, cm, 08/16/19 8:47:00 EST, Height,... Start Date: 02/09/20 Stop Date: 08/07/20 Status: Ordered albuterol CFC free 90 mcg/inh inhalation aerosol 2, puffs, Inhalation, Every 4 hours, PRN, # 8.5 Unknown, Refills 1, Tot. Refills 1, Maintenance, 01/11/20 11:44:00 EDT, Route to Pharmacy Electronically, [id number], [facility]/pharmacy #[id number], 194.2, cm, 08/16/19 8:47:00 [...] x 8 mm (5/16in) See Instructions, # 300 each, Refills 2, [...] mcg, By Mouth, Daily, # 90 tablet, 0 Refills, Maintenance, 02/29/20 9:22:00 EDT, Tablet, [facility]/pharmacy #1095, 194.2, cm, 08/16/19 8:47:00 EST, Height, 113.1, kg, 08/09/19 10:20:00 EST, Dry Weight Start Date: 02/29/20 Stop Date: 05/29/20 Status: Ordered metFORMIN 500 mg oral tablet, extended release 2 tablet = 1,000 mg, By Mouth, Daily, # 180 tablet, 0 Refills, Soft Stop, 02/29/20 9:22:00 EDT, [facility]/pharmacy #[id number], 194.2, cm, 08/16/19 8:47:00 EST, Height, 113.1, kg, 08/09/19 10:20:00 EST, Dry Weight Start Date: 02/29/20 Stop Date: 05/29/20 Status: Ordered NovoLOG 100 units/mL subcutaneous solution See Instructions, 1-5 units sliding scale 15 min prior to meals Subcutaneous Infusion 3 times a day., # 30 mL, 0 Refills, Maintenance, 11/05/19 7:33:00 EST, [facility]/pharmacy #[id number], 194.2, cm, 08/16/19 8:47:00 EST, Height, 113.1, kg, 08/09/19 10:20:00 EST,... Start Date: 11/05/19 Status: Ordered Pen [place], 30 G x 8 mm BD Ultra Fine II See Instructions, # 100 each, Refills 3, Tot. Refills 3, Maintenance, use as directed for Type 2 Diabetes Mellitus - once a day, 10/09/15 14:01:07, Compound Start Date: 10/09/15 Stop Date: 02/06/16 Status: Ordered Pen [place], 31 G x 5 mm BD Ultra Fine III See Instructions, # 100 each, Refills 2, Tot. Refills 2, Maintenance, use to inject Basaglar 1x daily, E11.9, 90-day, 02/01/20 10:42:00 EDT, Supply, 194.2, cm, 08/16/19 8:47:00 EST, Height, 113.1, kg, 08/09/19 10:20:00 EST, Dry Weight Start Date: 02/01/20 Status: Ordered Pen [place], 31 G x 8 mm BD Ultra [...]
--- OUTSIDE RECORDS SUMMARY | 2024-05-09 07:56 | XMS_ITS | Continuity of Care Document ---
Author Organization [facility] Address [address] [place] [address]- Care Team Providers Care Scalp Specialist Name Role Phone Jerry CHANG, Latesha Rocha Primary Care Physic augustina Encounter [facility] Date(s): 09/01/23 - 10/01/23 [facility] [address] [place] [address]- Allergies, Adverse Reactions, Alerts No Known Medication Allergies Substance Reaction Severity Status Other Environmental Allergy 1 Active 1pets Immunizations Given and Recorded Vaccine Date Status Refusal Reason Influenza Virus Vaccine (oldterm) 1 07/10/23 Recor ded SARS-CoV-2 mRNA (hlheazh-mabq-oisos) vax 2 07/10/23 Recorded influenza virus vaccine, [...] Recorded 1Result Comment: pt recevied vaccine [facility] 2Result Comment: pt received vaccine from [facility] 3Result Comment: [facility]: [id number] 4Result Comment: [09/07/2018] [facility] # [id number] 5Result Comment: [07/05/2017] [facility] [id number] 6Result Comment: GUS Lowery [place] 7Result Comment: Beverley WEBER [place] 8Result Comment: [11/07/2014] Dr. Knox; consent signed. Medications Advair Diskus 250 mcg-50 mcg inhalation powder 1, puffs, Inhalation, 2 times a day, # 3 each, Refills 1, Tot. Refills 1, Maintenance, 09/01/23 18:48:00 EST, Powder, Route to Pharmacy Electronically, [id number], [facility]/pharmacy #[id number], 192.3, cm, 09/01/23 11:35:00 EST, Height,... Start Date: 09/01/23 Stop Date: 02/28/24 Status: Ordered albuterol CFC free 90 mcg/inh inhalation aerosol 2, puffs, Inhalation, Every 4 hours, PRN, # 3 each, Refills 3, Tot. Refills 3, Maintenance, 05/07/23 10:14:00 EDT, Route to Pharmacy Electronically, [id number], [facility], [facility], cm, 05/07/23 9:23:00 EDT, Height, 112.6... Start Date: 05/07/23 Status: Ordered aspirin 81 mg oral tablet 1 tablet = 81 mg, By Mouth, Daily, # 90 tablet, 0 Refills, Maintenance, 05/20/17 11:35:13, Tablet Start Date: 05/20/17 Status: Ordered atorvastatin 20 mg oral tablet See Instructions, TAKE 1 TABLET BY MOUTH EVERY DAY, # 90 tablet, 3 Refills, Soft Stop, 07/27/22 12:32:00 EDT, [facility]/pharmacy #[id number], 193.2, cm, 07/27/22 [...] Refills, Maintenance, 05/07/23 9:46:00 EDT, ER Tablet, [facility]/pharmacy #[id number], Partial fill upon [...] 09/06/23 17:50:00 EST, Route to Pharmacy Electronically, [facility]/pharmacy #[id number], Partial fill upon patient request if the prescription is for a schedule... Start Date: 09/06/23 Status: Ordered Jardiance 10 mg oral tablet 1 tablet, By Mouth, Daily in AM, # 90 tablet, 3 Refills, Maintenance, 09/02/23 15:43:00 EST, [facility]/pharmacy #[id number], 192.3, cm, 09/02/23 15:03:00 EST, Height, 108, kg, 08/04/23 9:53:00 EDT, Dry Weight Start Date: 09/02/23 Status: Ordered levothyroxine 0.025 mg oral tablet 1 tablet = 25 mcg, By Mouth, Daily, Take with 200mcg tab for total of 225mcg., # 90 tablet, 1 Refills, Maintenance, 09/03/23 16:52:00 EST, Tablet, [facility]/pharmacy #[id number], 192.3, cm, 09/02/23 15:03:00 EST, Height, 108, kg, 08/04/23 9:53:00 EDT, Dry Weight Start Date: 09/03/23 Stop Date: 5/29/24 Status: Ordered levothyroxine 0.2 mg oral tablet [...] 9 mL, 3 Refills, Maintenance,09/02/23 15:44:00 EST, [facility]/pharmacy #[id number], Partial fill upon patient request if the prescription isfor a schedule II opioid drug., 192.3, cm, ... Start Date: 09/02/23 Status: Ordered Pen [place], 31 G x 5 mm BD Ultra [...] Response Smoking Status Current every day sm desi; Tobacco user in household: No; Type: Cigarettes; Tobacco use times per day: Down to 1/2 pack a day from 1 pack a day. Has been smoking for 35 years.; entered on: 08/19/17 Sex Patient Care team information Care Team Personnel Name: Jerry CHANG, Latesha Rocha Position: [facility] Physician - Primary Care Member Role: PCP Address: [facility] [place] [address]- Care Team Related Persons Name: ROSALIA MAYES Address: home [address] [place] [address]
--- OUTSIDE RECORDS SUMMARY | 2024-05-09 07:56 | XMS_ITS | Continuity of Care Document ---
Author Organization [facility] Address [address] [place] [address]- Care Team Providers Care Roadability Machine Operator Name Role Phone Jerry CHANG, Latesha Rocha Primary Care Physic augustina Encounter [facility] Date(s): 10/12/22 - 11/11/22 [facility] [address] [place] [address]- Allergies, Adverse Reactions, Alerts No Known Medication Allergies Substance Reaction Severity Status Other Environmental Allergy 1 Active 1pets Immunizations Given and Recorded Vaccine Date Status Refusal Reason influenza virus vaccine, inactivated 09/13/22 Ebny rded influenza virus vaccine, inactivated 1 08/08/20 [...] tetanus-diphtheria toxoids (Td) 10/04/99 Recorded 1Result Comment: [facility]: [id number] 2Result Comment: [09/07/2018] [facility] # [id number] 3Result Comment: [07/05/2017] [facility] [id number] 4Result Comment: GUS Lowery [place] 5Result Comment: [...] 12:32:00 EDT, Powder, Route to Pharmacy Electronically, [id number], [facility]/pharmacy #[id number], 193.2, cm, 07/27/22 10:43:00 EDT, Height Start Date: 07/27/22 Stop Date: 07/22/23 Status: Ordered albuterol CFC free 90 mcg/inh inhalation aerosol 2, puffs, Inhalation, Every 4 hours, PRN, # 3 each, Refills 1, Tot. Refills 1, Maintenance, 07/27/22 12:32:00 EDT, Route to Pharmacy Electronically, [id number], [facility]/pharmacy#1095, 193.2, cm, 07/27/22 10:43:00 EDT, Height Start Date: 07/27/22 Status: Ordered aspirin 81 mg oral tablet 1 tablet = 81 mg, By Mouth, Daily, # 90 tablet, 0 Refills, Maintenance, 05/20/17 11:35:13, Tablet Start Date: 05/20/17 Status: Ordered atorvastatin 20 mg oral tablet See Instructions, TAKE 1 TABLET BY MOUTH EVERY DAY, # 90 tablet, 3 Refills, Soft Stop, 07/27/22 12:32:00 EDT, [facility]/pharmacy #1095, 193.2, cm, 07/27/22 10:43:00 EDT, Height Start Date: 07/27/22 Status: Ordered Basaglar KwikPen 100 units/mL subcutaneous solution = 80 units, Subcutaneous Injection, Daily at bedtime, # 15 mL, 6 Refills, Maintenance, 07/27/22 11:43:00 EDT, [id number], 193.2, cm, 07/27/22 10:43:00 [...] Refills, Maintenance, 11/11/22 14:09:00 EST, ER Tablet, [facility]/pharmacy #[id number], Partial fill upon patient request if the prescription is for a schedule II opioid drug., 195, cm, 11/11/22 13:45:00 EST, Hei... Start Date: 11/11/22 Status: Ordered clonazePAM 0.5 mg oral tablet 1 tablet = 0.5 mg, By Mouth, Daily, # 28 tablet, 0 Refills, Maintenance, 09/02/22 17:46:00 EST, Tablet, [facility]/pharmacy #[id number], Partial fill upon patient request if [...] 3 Refills, Maintenance, 12/05/22 17:12:00 EST, Tablet, [facility]/pharmacy #1095, 193.2, cm, 07/27/22 10:43:00 EDT, Height Start Date: 12/05/22 Stop Date: 11/30/23 Status: Ordered levothyroxine 0.025 mg oral tablet 1 tablet = 25 mcg, By Mouth, Daily, for 90 days, Take with the 175 mcg for a total of 200 mcg daily, # 90 tablet, 1 Refills, Hard Stop 12/05/22 17:12:00 EST, 06/08/22 17:12:00 EDT, Tablet, [id number], 193.2, cm, 03/16/22 9:24:00 EDT, Height Start Date: 06/08/22 Stop Date: 12/05/22 Status: Ordered levothyroxine 175 mcg (0.175 mg) oral tablet 1 tablet = 175 mcg, By Mouth, Daily, # 90 tablet, 3 Refills, Maintenance, 12/12/22 12:34:00 EST, Tablet, [id number], 193.2, cm, 07/27/22 10:43:00 EDT, Height Start Date: 12/12/22 Stop Date: 12/07/23 Status: Ordered levothyroxine 175 mcg (0.175 mg) oral tablet 1 tablet = 175 mcg, By Mouth, Daily, for 90 days, # 90 tablet, 1 Refills, Hard Stop 12/12/22 12:34:00 EST, 06/15/22 12:34:00 EDT, Tablet, [facility]/pharmacy #[id number], 193.2, cm, 03/16/22 9:24:00 EDT, Height Start Date: 06/15/22 Stop Date: 12/12/22 Status: Ordered MetFORMIN (Eqv-Glucophage XR) 500 mg [...] Date: 10/01/21 Stop Date: 03/30/22 Status: Ordered nicotine 21 mg/24 hr transdermal film, extended release 1 patch, Topically, Daily, for 6 week(s), # 42 patch, 0 Refills, Acute 12/23/22 14:08:00 EDT, 11/11/22 14:08:00 EST, [facility]/pharmacy #[id number], Partial fill upon patient request if the prescription is for aschedule II opioid drug., 1 patch Topically Daily,x... Start Date: 11/11/22 Stop Date: 12/23/22 Status: Ordered nicotine 21 mg/24 hr transdermal film, extended release 1 patch, Topically, Daily, for 6 week(s), # 42 patch, 0 Refills, Acute 11/27/22 12:44:00 EST, 10/16/22 12:44:00 EST, Patch, [facility]/pharmacy #[id number], Partial fill upon patient request if the prescription is for a schedule II opioid drug., 1 patch Topically... Start Date: 10/16/22 Stop Date: 11/27/22 Status: Ordered NovoLOG 100 units/mL subcutaneous solution See Instructions, 1-5 units sliding scale 15 min prior to meals Subcutaneous Infusion 3 times a day., # 30 mL, 2 Refills, Maintenance, 07/27/22 12:32:00 EDT, [facility]/pharmacy #[id number], 193.2, cm, 07/27/22 10:43:00 EDT, Height Start Date: 07/27/22 Status: Ordered NuLYTELY with Flavor Packs oral powder for reconstitution 240 mL, By Mouth, Every 10 minutes, May substitute any PEG 3350 solution available SPLIT PREP METHOD, # 1 each, 0 Refills, Maintenance, 10/12/22 17:00:00 EST, REC Powder, [facility]/pharmacy #[id number], test date 10/13/22, 240 mL By Mouth Every 10 minutes,Instr:M... Start Date: 10/12/22 Status: Ordered Pen [place], 30 G x 8 mm BD Ultra Fine II See Instructions, # 100 each, Refills 3, Tot. Refills 3, Maintenance, use as directed for Type 2 Diabetes Mellitus - once a day, 10/09/15 14:01:07, Compound Start Date: 10/09/15 Stop Date: 02/06/16 Status: Ordered Pen [place], 31 G x 5 mm BD Ultra Fine III See Instructions, # 100 each, Refills 3, Tot. Refills 3, Maintenance, use to inject Basaglar 1x daily, E11.9, 90-day, 07/27/22 12:32:00 EDT, Supply, 193.2, cm, 07/27/22 10:43:00 EDT, Height Start Date: 07/27/22 Status: Ordered Pen [place], 31 G x 8 mm BD Ultra Fine III See Instructions, # 100 each, Refills 1, Tot. Refills 1, Maintenance, use with Lantus 1x daily, Dx E11.9, 90-day, 03/15/17 15:55:47, Compound Start Date: 03/15/17 Stop Date: 09/11/17 Status: Ordered sertraline 50 mg oral tablet 1 tablet = 50 mg, By Mouth, Daily, # 90 tablet, 3 Refills, Maintenance, 07/27/22 12:32:00 EDT, Tablet, [facility]/pharmacy #[id number], Partial fill upon patient request if the prescription is for a schedule II opioid drug., 193.2, cm, 07/27/22 10:43:00 EDT, Height Start Date: 07/27/22 Stop Date: 07/22/23 Status: Ordered Singulair 10 mg oral tablet 10 mg, 1, tablet, By Mouth, Daily in PM, # 90 tablet, Refills 3, Tot. Refills 3, Maintenance, 07/27/22 12:32:00 EDT, Route to Pharmacy Electronically, [facility]/pharmacy #[id number], 193.2, cm, 07/27/22 10:43:00EDT, Height Start [...] back pain with bilateral sciatica Confirmed Active Hyperlipidemia, mixed Confirmed Active [...] Personnel Name: Jerry CHANG, Latesha Rocha Position: [facility] Primary Care Physician Member Role: PCP Address: Address: [address] [place] [address]- Care Team Related Persons Name: MAYESROSALIA Address: home [address] [place] [address]
--- OUTSIDE RECORDS SUMMARY | 2024-05-09 07:56 | XMS_ITS | Continuity of Care Document ---
Author Organization [facility] Address [address] [place] [address]- Care Team Providers Care Stenocaptioner Name Role Phone Jerry CHANG, Latesha Rocha Primary Care Physic augustina Encounter [facility] Date(s): 09/01/23 - 10/01/23 [facility] [address] [place] [address]- Allergies, Adverse Reactions, Alerts No Known Medication Allergies Substance Reaction Severity Status Other Environmental Allergy 1 Active 1pets Immunizations Given and Recorded Vaccine Date Status Refusal Reason Influenza Virus Vaccine (oldterm) 1 07/10/23 Recor ded SARS-CoV-2 mRNA (imswnxx-abwd-gzrht) vax 2 07/10/23 Recorded influenza virus vaccine, [...] Recorded 1Result Comment: pt recevied vaccine from [facility] 2Result Comment: pt received vaccine from [facility] 3Result Comment: [facility]: [id number] 4Result Comment: [09/07/2018] [facility] # [id number] 5Result Comment: [07/05/2017] [facility] [id number] 6Result Comment: GUS Lowery [place] 7Result Comment: Beverley WEBER [place] 8Result Comment: [11/07/2014] Dr. Knox; consent signed. Medications Advair Diskus 250 mcg-50 mcg inhalation powder 1, puffs, Inhalation, 2 times a day, # 3 each, Refills 1, Tot. Refills 1, Maintenance, 09/01/23 18:48:00 EST, Powder, Route to Pharmacy Electronically, [id number], [facility]/pharmacy #[id number], 192.3, cm, 09/01/23 11:35:00 EST, Height,... Start Date: 09/01/23 Stop Date: 02/28/24 Status: Ordered albuterol CFC free 90 mcg/inh inhalation aerosol 2, puffs, Inhalation, Every 4 hours, PRN, # 3 each, Refills 3, Tot. Refills 3, Maintenance, 05/07/23 10:14:00 EDT, Route to Pharmacy Electronically, [id number], [facility]/pharmacy#1095, 195, cm, 05/07/23 9:23:00 EDT, Height, 112.6... [...] Soft Stop, 07/27/22 12:32:00 EDT, [facility]/pharmacy #1095, 193.2, cm, 07/27/22 10:43:00 EDT, Height [...] 05/07/23 9:46:00 EDT, ER Tablet, [facility]/pharmacy #1095, Partial fill upon patient request if [...] 09/06/23 17:50:00 EST, Route to Pharmacy Electronically, [facility]/pharmacy #1095, Partial fill upon patient request if the prescription is for a schedule... Start Date: 09/06/23 Status: Ordered Jardiance 10 mg oral tablet 1 tablet, By Mouth, Daily in AM, # 90 tablet, 3 Refills, Maintenance, 09/02/23 15:43:00 EST, [facility]/pharmacy #1095, 192.3, cm, 09/02/23 15:03:00 EST, Height, 108, kg, 08/04/23 9:53:00 EDT, Dry Weight Start Date: 09/02/23 Status: Ordered levothyroxine 0.025 mg oral tablet 1 tablet = 25 mcg, By Mouth, Daily, Take with 200mcg tab for total of 225mcg., # 90 tablet, 1 Refills, Maintenance, 09/03/23 16:52:00 EST, Tablet, [facility]/pharmacy #1095, 192.3, cm, 09/02/23 15:03:00 EST, Height, [...] 9 mL, 3 Refills, Maintenance,09/02/23 15:44:00 EST, [facility]/pharmacy #[id number], Partial fill upon patient request if the prescription isfor a schedule II opioid drug., 192.3, cm, ... Start Date: 09/02/23 Status: Ordered Pen [place], 31 G x 5 mm BD Ultra [...] Personnel Name: Jerry CHANG, Latesha Rocha Position: [facility] Physician - Primary Care Member Role: PCP Address: [facility] [place] [address]- Care Team Related Persons Name: ROSALIA MAYES Address: home [address] [place] [address]
--- OUTSIDE RECORDS SUMMARY | 2024-05-09 07:56 | XMS_ITS | Continuity of Care Document ---
Author Organization [facility] Address [address] [place] [address]- Care Team Providers Care Band Booker Name Role Phone Jerry CHANG, Latesha Rocha Primary Care Physic augustina [facility]counter [facility] Date[facility]s): 01/06[facility]21 - 02/05/21 [facility] [address] [place] [address]- [place] Allergies, Adverse Reactions, Alerts No Known Medication [...] 2Result Comment: Beverley WEBER [place] 3Result Comment: [facility]: [id number] 4Result Comment: [09/07/2018] [facility] # [id number] 5Result Comment: [07/05/2017] [facility] [id number] 6Result Comment: [11/07/2014] Dr. Knox; consent signed. [...] 15:07:00 EDT, Powder, Route to Pharmacy Electronically, [id number], [facility]/pharmacy #[id number], 193.2, cm, 11/04/20 13:14:00 EST, Height,... Start Date: 02/04/21 Stop Date: 08/03/21 Status: Ordered albuterol CFC free 90 mcg/inh inhalation aerosol 2, puffs, Inhalation, Every 4 hours, PRN, # 3 each, Refills 1, Tot. Refills 1, Maintenance, 01/06/21 14:39:00 EDT, Route to Pharmacy Electronically, [id number], [facility]/pharmacy#[id number], 193.2, cm, 11/04/20 13:14:00 EST, Height, 11... Start Date: 01/06/21 Status: Ordered aspirin 81 mg oral tablet 1 tablet = 81 mg, By Mouth, Daily, # 90 tablet, 0 Refills, Maintenance, 05/20/17 11:35:13, Tablet Start Date: 05/20/17 Status: Ordered atorvastatin 20 mg oral tablet See Instructions, TAKE 1 TABLET BY MOUTH EVERY DAY, # 90 tablet, 1 Refills, Soft Stop, 01/06/21 11:59:00 EDT, [facility]/pharmacy #[id number], 193.2, cm, 11/04/20 13:14:00 EST, Height, 113.1, kg, 08/09/19 10:20:00 EST, Dry Weight Start Date: 01/06/21 Status: Ordered Basaglar KwikPen 100 units/mL subcutaneous solution = 75 units, Subcutaneous Injection, Daily at bedtime, # 12 mL, 0 Refills, Maintenance, 01/06/21 11:59:00 EDT, [facility]/pharmacy #[id number], 193.2, cm, 11/04/20 13:14:00 EST, Height, [...] 1 Refills, Soft Stop, 02/04/21 15:09:00 EDT, [id number], 193.2, cm, 11/04/20 13:14:00 EST, Height, [...] 0 Refills, Maintenance, 02/04/21 15:04:00 EDT, Tablet, [facility]/pharmacy #[id number], 193.2, cm, 11/04/20 13:14:00 EST, Height, 113.1, kg, 08/09/19 10:20:00 EST,... Start Date: 02/04/21 Stop Date: 05/05/21 Status: Ordered metFORMIN 500 mg oral tablet, extended release 2 tablet = 1,000 mg, By Mouth, Daily, # 180 tablet, 0 Refills, Soft Stop, 02/04/21 15:03:00 EDT, [id number], 193.2, cm, 11/04/20 13:14:00 EST, Height, 113.1, kg, 08/09/19 10:20:00 EST, Dry Weight Start Date: 02/04/21 Stop Date: 05/05/21 Status: Ordered NovoLOG 100 units/mL subcutaneous solution See Instructions, 1-5 units sliding scale 15 min prior to meals Subcutaneous Infusion 3 times a day., # 30 mL, 0 Refills, Maintenance, 01/06/21 11:59:00 EDT, [facility]/pharmacy #[id number], 193.2, cm, 11/04/20 13:14:00 EST, Height, 113.1, kg, 08/09/19 10:20:00 ES... Start Date: 01/06/21 Status: Ordered NuLYTELY with Flavor Packs oral powder for reconstitution 240 mL, By Mouth, Every 10 minutes, Split prep method, # 1 each, 0 Refills, Acute 03/21/21 6:30:00 EDT, 03/20/21 17:00:00 EDT, REC Powder, [facility]/pharmacy #[id number], test date 03/21/21, 240 mL By Mouth Every10 minutes,Instr:Split prep method, 193.2, cm, 020... Start Date: 03/20/21 Stop Date: 03/21/21 Status: Ordered Pen [place], 30 G x 8 mm BD Ultra Fine II See Instructions, # 100 each, Refills 3, Tot. Refills 3, Maintenance, use as directed for Type 2 Diabetes Mellitus - once a day, 10/09/15 14:01:07, Compound Start Date: 10/09/15 Stop Date: 02/06/16 Status: Ordered Pen [place], 31 G x 5 mm BD Ultra Fine III See Instructions, # 100 each, Refills 2, Tot. Refills 2, Maintenance, use to inject Basaglar 1x daily, E11.9, 90-day, 08/08/20 15:07:00 EST, Supply, 193.2, cm, 08/08/20 14:34:00 EST, Height, 113.1, kg, 08/09/19 10:20:00 EST, Dry Weight Start Date: 08/08/20 Status: Ordered Pen [place], 31 G x 8 mm BD Ultra [...] 01/06/21 11:59:00 EDT, Route to Pharmacy Electronically, [facility]/pharmacy #[id number], 193.2, cm, 11/04/20 13:14:00EST, Height, 113.1, [...]
--- OUTSIDE RECORDS SUMMARY | 2024-05-09 07:56 | XMS_ITS | Continuity of Care Document ---
Author Organization [facility] Address [address] [place] [address]- Care Team Providers Care Professional Athletes Coach Name Role Phone Jerry CHANG, Latesha Rocha Primary Care Physic augustina [place] [facility] [place] 02[place]19[place]23 - 03/21/23 [facility] [address] [place] [address]- Attending Physician: Nagi Francois Admitting Physician: AdmtrNagi Referring Physician: Admtr, Ar8 Allergies, Adverse Reactions, [...] tetanus-diphtheria toxoids (Td) 10/04/99 Recorded 1Result Comment: [facility]: [id number] 2Result Comment: [09/07/2018] [facility] # [id number] 3Result Comment: [07/05/2017] [facility] [id number] 4Result Comment: GUS Lowery [place] 5Result Comment: [...] 12:32:00 EDT, Powder, Route to Pharmacy Electronically, [id number], [facility]/pharmacy #[id number], 193.2, cm, 07/27/22 10:43:00 EDT, Height Start Date: 07/27/22 Stop Date: 07/22/23 Status: Ordered albuterol CFC free 90 mcg/inh inhalation aerosol 2, puffs, Inhalation, Every 4 hours, PRN, # 3 each, Refills 1, Tot. Refills 1, Maintenance, 07/27/22 12:32:00 EDT, Route to Pharmacy Electronically, [id number], [facility]/pharmacy#[id number], 193.2, cm, 07/27/22 10:43:00 EDT, Height Start Date: 07/27/22 Status: Ordered aspirin 81 mg oral tablet 1 tablet = 81 mg, By Mouth, Daily, # 90 tablet, 0 Refills, Maintenance, 05/20/17 11:35:13, Tablet Start Date: 05/20/17 Status: Ordered atorvastatin 20 mg oral tablet See Instructions, TAKE 1 TABLET BY MOUTH EVERY DAY, # 90 tablet, 3 Refills, Soft Stop, 07/27/22 12:32:00 EDT, [id number], 193.2, cm, 07/27/22 10:43:00 EDT, Height Start Date: 07/27/22 Status: Ordered Basaglar KwikPen 100 units/mL subcutaneous solution = 80 units, Subcutaneous Injection, Daily at bedtime, # 15 mL, 6 Refills, Maintenance, 07/27/22 11:43:00 EDT, [facility]/pharmacy #[id number], 193.2, cm, 07/27/22 10:43:00 EDT, [...] Refills, Maintenance, 11/11/22 14:09:00 EST, ER Tablet, [facility]/pharmacy #[id number], Partial fill upon patient request if the prescription is for a schedule II opioid drug., 195, cm, 11/11/22 13:45:00 EST, Hei... Start Date: 11/11/22 Status: Ordered CeleBREX 100 mg oral capsule 1 capsule = 100 mg, By Mouth, 2 times a day, # 60 capsule, 0 Refills, Maintenance, 02/19/23 13:03:00 EDT, Capsule, [facility]/pharmacy #[id number], Partial fill upon patient request if the prescription is for a schedule II opioid drug., 195, cm, 02/10/23 13:17:00... Start Date: 02/19/23 Status: Ordered clonazePAM 0.5 mg oral tablet 1 tablet = 0.5 mg, By Mouth, Daily, # 28 tablet, 0 Refills, Maintenance, 09/02/22 17:46:00 EST, Tablet, [facility]/pharmacy #[id number], Partial fill upon patient request [...] Dry We... Start Date: 08/08/20 Status: Ordered Jardiance 10 mg oral tablet 1 tablet = 10 mg, By Mouth, Daily in AM, Take once daily in the morning E11.9, # 30 tablet, 3 Refills, Maintenance, 02/23/23 11:16:00 EDT, Tablet, [facility]/pharmacy #[id number], Partial fill upon patient request if the prescription is for a schedule II opioid d... Start Date: 02/23/23 Status: Ordered levothyroxine 0.025 mg oral tablet [...] 3 Refills, Maintenance, 12/12/22 12:34:00 EST, Tablet, [facility]/pharmacy #[id number], 193.2, cm, 07/27/22 10:43:00 EDT, Height Start Date: 12/12/22 Stop Date: 12/07/23 Status: Ordered metFORMIN 500 mg oral tablet, extended release 2 tablet = 1,000 mg, By Mouth, Daily, # 180 tablet, 1 Refills, Soft Stop, 10/01/21 13:42:00 EST, [facility]/pharmacy #[id number], 193.2, cm, 02/03/21 8:56:00 EDT, Height Start Date: 10/01/21 Stop Date: 03/30/22 Status: Ordered NovoLOG 100 units/mL subcutaneous solution [...] Refills, Maintenance, 10/12/22 17:00:00 EST, REC Powder, [facility]/pharmacy #[id number], test date 10/13/22, 240 mL By Mouth Every 10 minutes,Instr:M... Start Date: 10/12/22 Status: Ordered Ozempic 2 mg/3 mL (0.25 mg or 0.5 mg dose) subcutaneous solution = 0.25 mg, Subcutaneous Infusion, Every week, Take once weekly, rotate injection sites 11.9, # 3 mL, 3 Refills, Maintenance, 02/23/23 10:53:00 EDT, [facility]/pharmacy #[id number], Partial fill upon patient request if the prescription is for a schedule II opioid... Start Date: 02/23/23 Status: Ordered Pen [place], 30 G x 8 mm BD Ultra Fine II See Instructions, # 100 each, Refills 3, Tot. Refills 3, Maintenance, use as directed for Type 2 Diabetes Mellitus - once a day, 10/09/15 14:01:07, Compound Start Date: 10/09/15 Stop Date: 02/06/16 Status: Ordered Pen [place], 31 G x 5 mm BD Ultra Fine III See Instructions, # 100 each, Refills 3, Tot. Refills 3, Maintenance, use to inject Basaglar 1x daily, E11.9, 90-day, 07/27/22 12:32:00 EDT, Supply, 193.2, cm, 07/27/22 10:43:00 EDT, Height Start Date: 07/27/22 Status: Ordered Pen [place], 31 G x 8 mm BD Ultra Fine III See Instructions, # 100 each, Refills 1, Tot. Refills 1, Maintenance, use with Lantus 1x daily, Dx E11.9, 90-day, 03/15/17 15:55:47, Compound Start Date: 03/15/17 Stop Date: 09/11/17 Status: Ordered sertraline 50 mg oral tablet 1 tablet = 50 mg, By Mouth, Daily, # 90 tablet, 3 Refills, Maintenance, 07/27/22 12:32:00 EDT, Tablet, [facility]/pharmacy #[id number], Partial fill upon patient request if the prescription is for a schedule II opioid drug., 193.2, cm, 07/27/22 10:43:00 EDT, Height Start Date: 07/27/22 Stop Date: 07/22/23 Status: Ordered Problem List Condition Confirmation Course Effective Dates Status H ealth Status Informant Anxiety Confirmed Active Diverticulosis Confirmed Active Rash Confirmed Active Esophagitis Confirmed Active Fatigue Confirmed Active Hemorrhoids Confirmed Active Hiatal hernia Confirmed Active History of colonic polyps Confirmed Active Hypothyroidism Confirmed Active ED (erectile dysfunction) Confirmed Active Low back pain with bilateral sciatica Confirmed Active Low back pain with right-sided sciatica Confirmed Active Lumbar spondylosis Confirmed Active Hyperlipidemia, mixed Confirmed Active Tobacco [...] for 35 years.; entered on: 08/19/17 Sex EKG study * Event Display: EKG Authored Date: Laboratory * Event Display: Non BH Lab Results Authored Date: * Event Display: Laboratory Result Scanned Authored Date: * Event Display: Laboratory Result Scanned Authored Date: XR Chest Views * Event Display: X-Ray Chest Authored Date: Patient Care team information Care Team Personnel Name: Jerry CHANG, Latesha Rocha Position: [facility] Physician - Primary Care Member Role: PCP Address: Address: [address] [place] [id number] Care Team Related Persons Name: ROSALIA MAYES Address: home [address] [place] [address]
--- OUTSIDE RECORDS SUMMARY | 2024-05-09 07:56 | XMS_ITS | Continuity of Care Document ---
Author Organization [facility] Address [address] [place] [address]- Care Team Providers Care Electrophysiology Tech Name Role Phone Jerry CHANG, Latesha Rocha Primary Care Physic augustina Encounter [facility] Date(s): 01/06/21 - 02/05/21 [facility] [address] [place] [address]- [place] Allergies, Adverse Reactions, Alerts No Known [...] 2Result Comment: Beverley WEBER [place] 3Result Comment: [facility]: [id number] 4Result Comment: [09/07/2018] [facility] # [id number] 5Result Comment: [07/05/2017] [facility] [id number] 6Result Comment: [11/07/2014] Dr. Knox; consent signed. [...] 15:07:00 EDT, Powder, Route to Pharmacy Electronically, [id number], [facility]/pharmacy #[id number], 193.2, cm, 11/04/20 13:14:00 EST, Height,... Start Date: 02/04/21 Stop Date: 08/03/21 Status: Ordered albuterol CFC free 90 mcg/inh inhalation aerosol 2, puffs, Inhalation, Every 4 hours, PRN, # 3 each, Refills 1, Tot. Refills 1, Maintenance, 01/06/21 14:39:00 EDT, Route to Pharmacy Electronically, [id number], [facility]/pharmacy#[id number], 193.2, cm, 11/04/20 13:14:00 EST, Height, 11... Start Date: 01/06/21 Status: Ordered aspirin 81 mg oral tablet 1 tablet = 81 mg, By Mouth, Daily, # 90 tablet, 0 Refills, Maintenance, 05/20/17 11:35:13, Tablet Start Date: 05/20/17 Status: Ordered atorvastatin 20 mg oral tablet See Instructions, TAKE 1 TABLET BY MOUTH EVERY DAY, # 90 tablet, 1 Refills, Soft Stop, 01/06/21 11:59:00 EDT, [facility]/pharmacy #[id number], 193.2, cm, 11/04/20 13:14:00 EST, Height, 113.1, kg, 08/09/19 10:20:00 EST, Dry Weight Start Date: 01/06/21 Status: Ordered Basaglar KwikPen 100 units/mL subcutaneous solution = 75 units, Subcutaneous Injection, Daily at bedtime, # 12 mL, 0 Refills, Maintenance, 01/06/21 11:59:00 EDT, [facility]/pharmacy #[id number], 193.2, cm, 11/04/20 13:14:00 EST, Height, [...] 0 Refills, Maintenance, 02/04/21 15:04:00 EDT, Tablet, [facility]/pharmacy #1095, 193.2, cm, 11/04/20 13:14:00 EST, Height, [...] mL, 0 Refills, Maintenance, 01/06/21 11:59:00 EDT, [facility]/pharmacy #1095, 193.2, cm, 11/04/20 13:14:00 EST, Height, 113.1, kg, 08/09/19 10:20:00 ES... Start Date: 01/06/21 Status: Ordered NuLYTELY with Flavor Packs oral powder for reconstitution 240 mL, By Mouth, Every 10 minutes, Split prep method, # 1 each, 0 Refills, Acute 03/21/21 6:30:00 EDT, 03/20/21 17:00:00 EDT, REC Powder, [facility]/pharmacy #[id number], test date 03/21/21, 240 mL By Mouth Every10 minutes,Instr:Split prep method, 193.2, cm, 020... Start Date: 03/20/21 Stop Date: 03/21/21 Status: Ordered Pen [place], 30 G x 8 mm BD Ultra Fine II See Instructions, # 100 each, Refills 3, Tot. Refills 3, Maintenance, use as directed for Type 2 Diabetes Mellitus - once a day, 10/09/15 14:01:07, Compound Start Date: 10/09/15 Stop Date: 02/06/16 Status: Ordered Pen [place], 31 G x 5 mm BD Ultra Fine III See Instructions, # 100 each, Refills 2, Tot. Refills 2, Maintenance, use to inject Basaglar 1x daily, E11.9, 90-day, 08/08/20 15:07:00 EST, Supply, 193.2, cm, 08/08/20 14:34:00 EST, Height, 113.1, kg, 08/09/19 10:20:00 EST, Dry Weight Start Date: 08/08/20 Status: Ordered Pen [place], 31 G x 8 mm BD Ultra [...] 01/06/21 11:59:00 EDT, Route to Pharmacy Electronically, [facility]/pharmacy #[id number], 193.2, cm, 11/04/20 13:14:00EST, Height, 113.1, [...]
--- OUTSIDE RECORDS SUMMARY | 2024-05-09 07:56 | XMS_ITS | Continuity of Care Document ---
Author Organization [facility] Address [address] [place] [address]- Care Team Providers Care Greenhouse Instructor Name Role Phone Jerry CHANG, Latesha Rocha Primary Care Physic augustina En[place] [facility] [place](s): 07/27/22 - 08/03/22 [facility] [address] [place] [address]- [place] Encounter Diagnosis 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(Discharge Diagnosis) - 07/27/22 Fatigue(Discharge Diagnosis) - 07/27/22 Low back pain with bilateral sciatica(Discharge Diagnosis) - 07/27/22 Hypothyroidism(Discharge Diagnosis) - 07/27/22 Attending Physician: Jerry CHANG, Latesha Rocha Allergies, [...] 2Result Comment: Beverley WEBER [place] 3Result Comment: [facility]: [id number] 4Result Comment: [09/07/2018] [facility] # [id number] 5Result Comment: [07/05/2017] [facility] [id number] 6Result Comment: [11/07/2014] Dr. Knox; consent signed. [...] 12:32:00 EDT, Powder, Route to Pharmacy Electronically, [id number], [facility]/pharmacy #[id number], 193.2, cm, 07/27/22 10:43:00 EDT, Height Start Date: 07/27/22 Stop Date: 07/22/23 Status: Ordered albuterol CFC free 90 mcg/inh inhalation aerosol 2, puffs, Inhalation, Every 4 hours, PRN, # 3 each, Refills 1, Tot. Refills 1, Maintenance, 07/27/22 12:32:00 EDT, Route to Pharmacy Electronically, [id number], [facility]/pharmacy#[id number], 193.2, cm, 07/27/22 10:43:00 EDT, Height Start Date: 07/27/22 Status: Ordered aspirin 81 mg oral tablet 1 tablet = 81 mg, By Mouth, Daily, # 90 tablet, 0 Refills, Maintenance, 05/20/17 11:35:13, Tablet Start Date: 05/20/17 Status: Ordered atorvastatin 20 mg oral tablet See Instructions, TAKE 1 TABLET BY MOUTH EVERY DAY, # 90 tablet, 3 Refills, Soft Stop, 07/27/22 12:32:00 EDT, [facility]/pharmacy #[id number], 193.2, cm, 07/27/22 10:43:00 EDT, Height Start Date: 07/27/22 Status: Ordered Basaglar KwikPen 100 units/mL subcutaneous solution = 80 units, Subcutaneous Injection, Daily at bedtime, # 15 mL, 6 Refills, Maintenance, 07/27/22 11:43:00 EDT, [facility]/pharmacy #[id number], 193.2, cm, 07/27/22 10:43:00 EDT, [...] Mouth, Daily, # 90 tablet, 3 Refills, Soft Stop, 10/27/22 15:09:00 EST, [facility]/pharmacy #[id number], 193.2, cm, 07/27/22 10:43:00 EDT, Height Start Date: 10/27/22 Stop Date: 10/22/23 Status: Ordered buPROPion 150 mg/12 hours (SR) oral tablet, extended release 1 tablet = 150 mg, By Mouth, Daily, for 90 days, # 90 tablet, 0 Refills, Hard Stop 10/27/22 15:09:00 EST, 07/29/22 15:09:00 EDT, [facility]/pharmacy #[id number], 193.2, cm, 03/16/22 9:24:00 EDT, Height Start Date: 07/29/22 Stop Date: 10/27/22 Status: Ordered clonazePAM 0.5 mg oral tablet 1 tablet = 0.5 mg, By Mouth, Daily, # 28 tablet, 0 Refills, Maintenance, 07/03/22 17:43:00 EDT, Tablet, [facility], Partial fill upon patient request if the prescription is for a schedule II opioid drug., 193.2, cm, 03/16/22 9:24:00 EDT, Height Start Date: 07/03/22 Stop Date: 07/31/22 Status: Ordered Freestyle Hany Sensor See Instructions, [...] 12/12/22 12:34:00 EST, 06/15/22 12:34:00 EDT, Tablet, [id number], 193.2, cm, 03/16/22 [...] Date: 09/27/22 Stop Date: 09/22/23 Status: Ordered MetFORMIN (Eqv-Glucophage XR) 500 mg oral tablet, extended release 2 tablet = 1,000 mg, By Mouth, Daily, for 90 days, # 180 tablet, 1 Refills, Hard Stop 09/27/22 13:35:00 EST, 03/31/22 13:35:00 EDT, [facility]/pharmacy #[id number], Partial fill upon patient request if the prescription is for a schedule II opioid drug., 193.2, cm,... Start Date: 03/31/22 Stop Date: 09/27/22 Status: Ordered metFORMIN 500 mg oral tablet, extended release 2 tablet = 1,000 mg, By Mouth, Daily, # 180 tablet, 1 Refills, Soft Stop, 10/01/21 13:42:00 EST, [facility]/pharmacy #[id number], 193.2, cm, 02/03/21 8:56:00 EDT, Height Start Date: 10/01/21 Stop Date: 03/30/22 Status: Ordered NovoLOG 100 units/mL subcutaneous solution See Instructions, 1-5 units sliding scale 15 min prior to meals Subcutaneous Infusion 3 times a day., # 30 mL, 2 Refills, Maintenance, 07/27/22 12:32:00 EDT, [id number], 193.2, cm, 07/27/22 10:43:00 EDT, Height Start Date: 07/27/22 Status: Ordered Pen [place], 30 G x 8 mm BD Ultra Fine II See Instructions, # 100 each, Refills 3, Tot. Refills 3, Maintenance, use as directed for Type 2 Diabetes Mellitus - once a day, 10/09/15 14:01:07, Compound Start Date: 10/09/15 Stop Date: 02/06/16 Status: Ordered Pen [place], 31 G x 5 mm BD Ultra Fine III See Instructions, # 100 each, Refills 3, Tot. Refills 3, Maintenance, use to inject Basaglar 1x daily, E11.9, 90-day, 07/27/22 12:32:00 EDT, Supply, 193.2, cm, 07/27/22 10:43:00 EDT, Height Start Date: 07/27/22 Status: Ordered Pen [place], 31 G x 8 mm BD Ultra Fine III See Instructions, # 100 each, Refills 1, Tot. Refills 1, Maintenance, use with Lantus 1x daily, Dx E11.9, 90-day, 03/15/17 15:55:47, Compound Start Date: 03/15/17 Stop Date: 09/11/17 Status: Ordered sertraline 50 mg oral tablet 1 tablet = 50 mg, By Mouth, Daily, # 90 tablet, 3 Refills, Maintenance, 07/27/22 12:32:00 EDT, Tablet, [facility]/pharmacy #[id number], Partial fill upon patient request if the prescription is for a schedule II opioid drug., 193.2, cm, 07/27/22 10:43:00 EDT, Height Start Date: 07/27/22 Stop Date: 07/22/23 Status: Ordered Singulair 10 mg oral tablet 10 mg, 1, tablet, By Mouth, Daily in PM, # 90 tablet, Refills 3, Tot. Refills 3, Maintenance, 07/27/22 12:32:00 EDT, Route to Pharmacy Electronically, [facility]/pharmacy #[id number], 193.2, cm, 07/27/22 10:43:00EDT, Height Start [...] sciatica Confirmed Active Hyperlipidemia, mixed Confirmed Active Obese class I Confirmed Active Diabetes mellitus type II, uncontrolled Confirmed Active 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 Confirmed Active Diagnosis Diagnosis Type Effective Dates Health Status Clinical Service Informant 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 Discharge Diagnosis 07/27/22 Fatigue Discharge Diagnosis 07/27/22 Low back pain with bilateral sciatica Discharge Diagnosis 07/27/22 Hypothyroidism Discharge Diagnosis 07/27/22 Vital Signs Most recent to oldest [Reference Range]: 1 Height 193.2 cm (07/27/22 10:43 AM) Weight 114.5 kg (07/27/22 10:43 AM) Oxygen Saturation [94-100 %] 98 % (07/27/22 10:43 AM) Pulse Rate [55-90 bpm] 78 bpm (07/27/22 10:43 AM) Body Mass Index [18.5-24.99 kg/m2] 30.68 kg/m2 *>HHI* (07/27/22 10:43 AM) Blood Pressure [90-138/55-84 mm Hg] 120/ 64mm Hg (07/27/22 10:43 AM) Blood pressure sites Arm, right (07/27/22 10:43 AM) Weight Obtained Via Standing scale (07/27/22 10:43 AM) Social History Social History Type Response Smoking Status Current every day sm oker; Tobacco user in household: No; Type: Cigarettes; Tobacco use times per day: Down to 1/2 pack a day from 1 pack a day. Has been smoking for 35 years.; entered on: 08/19/17 Sex Patient Care team information Personnel Name: Jerry CHANG, Latesha Rocha Address: Address: [address] [place] [address]
--- OUTSIDE RECORDS SUMMARY | 2024-05-09 07:56 | XMS_ITS | Continuity of Care Document ---
Author Organization [facility] Address [address] [place] [address]- Care Team Providers Care Metal Hanger Name Role Phone Jerry CHANG, Latesha Rocha Primary Care Physic augustina [place] [facility] [place] 09/14/22 - 09/21/22 [facility] [address] [place] [address]- Encounter Diagnosis Diabetes mellitus type II, uncontrolled(Discharge Diagnosis) - 09/14/22 Attending Physician: Jerry CHANG, Latesha Rocha Allergies, [...] tetanus-diphtheria toxoids (Td) 10/04/99 Recorded 1Result Comment: [facility]: [id number] 2Result Comment: [09/07/2018] [facility] # [id number] 3Result Comment: [07/05/2017] [facility] [id number] 4Result Comment: GUS Lowery [place] 5Result Comment: GUS, RENETTA Lowery 6Result Comment: [11/07/2014] Dr. Knox; consent signed. [...] 12:32:00 EDT, Powder, Route to Pharmacy Electronically, [id number], [facility]/pharmacy #[id number], 193.2, cm, 07/27/22 10:43:00 EDT, Height Start Date: 07/27/22 Stop Date: 07/22/23 Status: Ordered albuterol CFC free 90 mcg/inh inhalation aerosol 2, puffs, Inhalation, Every 4 hours, PRN, # 3 each, Refills 1, Tot. Refills 1, Maintenance, 07/27/22 12:32:00 EDT, Route to Pharmacy Electronically, [id number], [facility]/pharmacy#[id number], 193.2, cm, 07/27/22 10:43:00 EDT, [...] 3 Refills, Soft Stop, 07/27/22 12:32:00 EDT, [facility]/pharmacy #[id number], 193.2, cm, 07/27/22 10:43:00 EDT, Height Start Date: 07/27/22 Status: Ordered Basaglar KwikPen 100 units/mL subcutaneous solution = 80 units, Subcutaneous Injection, Daily at bedtime, # 15 mL, 6 Refills, Maintenance, 07/27/22 11:43:00 EDT, [facility]/pharmacy #[id number], 193.2, cm, 07/27/22 10:43:00 [...] 3 Refills, Soft Stop, 10/27/22 15:09:00 EST, [facility]/pharmacy #[id number], 193.2, cm, 07/27/22 10:43:00 EDT, Height Start Date: 10/27/22 Stop Date: 10/22/23 Status: Ordered buPROPion 150 mg/12 hours (SR) oral tablet, extended release 1 tablet = 150 mg, By Mouth, Daily, for 90 days, # 90 tablet, 0 Refills, Hard Stop 10/27/22 15:09:00 EST, 07/29/22 15:09:00 EDT, [facility]/pharmacy #[id number], 193.2, cm, 03/16/22 9:24:00 EDT, Height Start Date: 07/29/22 Stop Date: 10/27/22 Status: Ordered clonazePAM 0.5 mg oral tablet 1 tablet = 0.5 mg, By Mouth, Daily, # 28 tablet, 0 Refills, Maintenance, 09/02/22 17:46:00 EST, Tablet, [facility]/pharmacy #[id number], Partial fill upon patient [...] 12/12/22 12:34:00 EST, 06/15/22 12:34:00 EDT, Tablet, [facility]/pharmacy #[id number], 193.2, cm, 03/16/22 9:24:00 EDT, [...] Stop 09/27/22 13:35:00 EST, 03/31/22 13:35:00 EDT, [facility]/pharmacy #[id number], Partial fill upon patient request if the prescription is for a schedule II opioid drug., 193.2, cm,... Start Date: 03/31/22 Stop Date: 09/27/22 Status: Ordered metFORMIN 500 mg oral tablet, extended release 2 tablet = 1,000 mg, By Mouth, Daily, # 180 tablet, 1 Refills, Soft Stop, 10/01/21 13:42:00 EST, [facility]/pharmacy #[id number], 193.2, cm, 02/03/21 8:56:00 [...] minutes,Instr:M... Start Date: 10/12/22 Status: Ordered Pen [place], 30 G x 8 mm BD Ultra Fine II See Instructions, # 100 each, Refills 3, Tot. Refills 3, Maintenance, use as directed for Type 2 Diabetes Mellitus - once a day, 10/09/15 14:01:07, Compound Start Date: 10/09/15 Stop Date: 02/06/16 Status: Ordered Pen [place], 31 G x 5 mm BD Ultra Fine III See Instructions, # 100 each, Refills 3, Tot. Refills 3, Maintenance, use to inject Basaglar 1x daily, E11.9, 90-day, 07/27/22 12:32:00 EDT, Supply, 193.2, cm, 07/27/22 10:43:00 EDT, Height Start Date: 07/27/22 Status: Ordered Pen [place], 31 G x 8 mm BD Ultra Fine III See Instructions, # 100 each, Refills 1, Tot. Refills 1, Maintenance, use with Lantus 1x daily, Dx E11.9, 90-day, 03/15/17 15:55:47, Compound Start Date: 03/15/17 Stop Date: 09/11/17 Status: Ordered sertraline 50 mg oral tablet 1 tablet = 50 mg, By Mouth, Daily, # 90 tablet, 3 Refills, Maintenance, 07/27/22 12:32:00 EDT, Tablet, [facility]/pharmacy #[id number], Partial fill upon patient request if the prescription is for a schedule II opioid drug., 193.2, cm, 07/27/22 10:43:00 EDT, Height Start Date: 07/27/22 Stop Date: 07/22/23 Status: Ordered Singulair 10 mg oral tablet 10 mg, 1, tablet, By Mouth, Daily in PM, # 90 tablet, Refills 3, Tot. Refills 3, Maintenance, 07/27/22 12:32:00 EDT, Route to Pharmacy Electronically, [facility]/pharmacy #[id number], 193.2, cm, 07/27/22 10:43:00EDT, Height [...] Effective Dates Health Status Clinical Service Informant Diabetes mellitus type II, uncontrolled Discharge Diagnosis 09/14/22 Social History Social History Type Response Smoking Status Current every day sm oker; Tobacco user in household: No; Type: Cigarettes; Tobacco use times per day: Down to 1/2 pack a day from 1 pack a day. Has been smoking for 35 years.; entered on: 08/19/17 Sex Patient Care team information Care Team Personnel Name: Jerry CHANG, Latesha Rocha Position: [facility] Primary Care Physician Member Role: PCP Address: Address: [address] [place] [address]- Care Team Related Persons Name: ROSALIA MAYES Address: home [address] [place] [address]
--- OUTSIDE RECORDS SUMMARY | 2024-05-09 07:56 | XMS_ITS | Continuity of Care Document ---
Author Organization [facility] Address [address] [place] [address]- Care Team Providers Care Thread Winder Automatic Name Role Phone Jerry CHANG, Latesha Rocha Primary Care Physic augustina [place] [facility] [place] 09/01/23 - 10/01/23 [facility] [address] [place] [address]- Allergies, Adverse Reactions, Alerts No Known Medication Allergies Substance Reaction Severity Status Other Environmental Allergy 1 Active 1pets Immunizations Given and Recorded Vaccine Date Status Refusal Reason Influenza Virus Vaccine (oldterm) 1 07/10/23 Recor ded SARS-CoV-2 mRNA (barcrkv-femz-dting) vax 2 07/10/23 Recorded influenza virus vaccine, [...] Recorded 1Result Comment: pt recevied vaccine [facility] 2Result Comment: pt received vaccine from [facility] 3Result Comment: [facility]: [id number] 4Result Comment: [09/07/2018] [facility] # [id number] 5Result Comment: [07/05/2017] [facility] [id number] 6Result Comment: GUS Lowery [place] 7Result Comment: Beverley WEBER [place] 8Result Comment: [11/07/2014] Dr. Knox; consent signed. Medications Advair Diskus 250 mcg-50 mcg inhalation powder 1, puffs, Inhalation, 2 times a day, # 3 each, Refills 1, Tot. Refills 1, Maintenance, 09/01/23 18:48:00 EST, Powder, Route to Pharmacy Electronically, [id number], [facility]/pharmacy #[id number], 192.3, cm, 09/01/23 11:35:00 EST, Height,... Start Date: 09/01/23 Stop Date: 02/28/24 Status: Ordered albuterol CFC free 90 mcg/inh inhalation aerosol 2, puffs, Inhalation, Every 4 hours, PRN, # 3 each, Refills 3, Tot. Refills 3, Maintenance, 05/07/23 10:14:00 EDT, Route to Pharmacy Electronically, [id number], [facility]/pharmacy#[id number], 195, cm, 05/07/23 9:23:00 EDT, Height, [...] Refills, Soft Stop, 07/27/22 12:32:00 EDT, [facility]/pharmacy #[id number], 193.2, cm, 07/27/22 10:43:00 EDT, [...] Maintenance, 05/07/23 9:46:00 EDT, ER Tablet, [facility]/pharmacy #[id number], Partial fill upon patient request [...] 09/06/23 17:50:00 EST, Route to Pharmacy Electronically, [facility]/pharmacy #[id number], Partial fill upon patient request if the prescription is for a schedule... Start Date: 09/06/23 Status: Ordered Jardiance 10 mg oral tablet 1 tablet, By Mouth, Daily in AM, # 90 tablet, 3 Refills, Maintenance, 09/02/23 15:43:00 EST, [facility]/pharmacy #[id number], 192.3, cm, 09/02/23 15:03:00 EST, Height, 108, kg, 08/04/23 9:53:00 EDT, Dry Weight Start Date: 09/02/23 Status: Ordered levothyroxine 0.025 mg oral tablet 1 tablet = 25 mcg, By Mouth, Daily, Take with 200mcg tab for total of 225mcg., # 90 tablet, 1 Refills, Maintenance, 09/03/23 16:52:00 EST, Tablet, [facility]/pharmacy #[id number], 192.3, cm, 09/02/23 15:03:00 EST, Height, [...] 9 mL, 3 Refills, Maintenance,09/02/23 15:44:00 EST, [facility]/pharmacy #[id number], Partial fill upon patient request if the prescription isfor a schedule II opioid drug., 192.3, cm, ... Start Date: 09/02/23 Status: Ordered Pen [place], 31 G x 5 mm BD Ultra [...] Personnel Name: Jerry CHANG, Latesha Rocha Position: [facility] Physician - Primary Care Member Role: PCP Address: [facility] [place] [address]- Care Team Related Persons Name: ROSALIA MAYES Address: home [address] [place] [address]
--- OUTSIDE RECORDS SUMMARY | 2024-05-09 07:56 | XMS_ITS | Continuity of Care Document ---
Author Organization [facility] Address [address] [place] [address]- Care Team Providers Care Part Time Name Role Phone Jerry CHANG, Latesha Rocha Primary Care Physic augustina [place] [facility] [place] 09/10/23 - 10/10/23 [facility] [address] [place] [address]- Allergies, Adverse Reactions, Alerts No Known Medication Allergies Substance Reaction Severity Status Other Environmental Allergy 1 Active 1pets Immunizations Given and Recorded Vaccine Date Status Refusal Reason Influenza Virus Vaccine (oldterm) 1 07/10/23 Recor ded SARS-CoV-2 mRNA (xgdosio-xpik-enxzm) vax 2 07/10/23 Recorded influenza virus vaccine, [...] Recorded 1Result Comment: pt recevied vaccine from [facility] 2Result Comment: pt received vaccine from [facility] 3Result Comment: [facility]: [id number] 4Result Comment: [09/07/2018] [facility] # [id number] 5Result Comment: [07/05/2017] [facility] [id number] 6Result Comment: GUS Lowery [place] 7Result Comment: Beverley WEBER [place] 8Result Comment: [11/07/2014] Dr. Knox; consent signed. Medications Advair Diskus 250 mcg-50 mcg inhalation powder 1, puffs, Inhalation, 2 times a day, # 3 each, Refills 1, Tot. Refills 1, Maintenance, 09/01/23 18:48:00 EST, Powder, Route to Pharmacy Electronically, [id number], [facility]/pharmacy #[id number], 192.3, cm, 09/01/23 11:35:00 EST, Height,... Start Date: 09/01/23 Stop Date: 02/28/24 Status: Ordered albuterol CFC free 90 mcg/inh inhalation aerosol 2, puffs, Inhalation, Every 4 hours, PRN, # 3 each, Refills 3, Tot. Refills 3, Maintenance, 05/07/23 10:14:00 EDT, Route to Pharmacy Electronically, [id number], [id number], 195, cm, 05/07/23 9:23:00 EDT, Height, 112.6... Start Date: 05/07/23 Status: Ordered aspirin 81 mg oral tablet 1 tablet = 81 mg, By Mouth, Daily, # 90 tablet, 0 Refills, Maintenance, 05/20/17 11:35:13, Tablet Start Date: 05/20/17 Status: Ordered atorvastatin 20 mg oral tablet See Instructions, TAKE 1 TABLET BY MOUTH EVERY DAY, # 90 tablet, 3 Refills, Soft Stop, 07/27/22 12:32:00 EDT, [facility]/pharmacy #[id number], 193.2, cm, 07/27/22 10:43:00 [...] Refills, Maintenance, 05/07/23 9:46:00 EDT, ER Tablet, [facility]/pharmacy #[id number], Partial fill upon patient [...] 09/06/23 17:50:00 EST, Route to Pharmacy Electronically, [facility]/pharmacy #[id number], Partial fill upon patient request if the prescription is for a schedule... Start Date: 09/06/23 Status: Ordered Jardiance 10 mg oral tablet 1 tablet, By Mouth, Daily in AM, # 90 tablet, 3 Refills, Maintenance, 09/02/23 15:43:00 EST, [facility]/pharmacy #[id number], 192.3, cm, 09/02/23 15:03:00 EST, Height, 108, kg, 08/04/23 9:53:00 EDT, Dry Weight Start Date: 09/02/23 Status: Ordered levothyroxine 0.025 mg oral tablet 1 tablet = 25 mcg, By Mouth, Daily, Take with 200mcg tab for total of 225mcg., # 90 tablet, 1 Refills, Maintenance, 09/03/23 16:52:00 EST, Tablet, [facility]/pharmacy #[id number], 192.3, cm, 09/02/23 15:03:00 EST, [...] 9 mL, 3 Refills, Maintenance,09/02/23 15:44:00 EST, [facility]/pharmacy #[id number], Partial fill upon patient request if the prescription isfor a schedule II opioid drug., 192.3, cm, ... Start Date: 09/02/23 Status: Ordered Pen [place], 31 G x 5 mm BD Ultra [...] Personnel Name: Jerry CHANG, Latesha Rocha Position: [facility] Physician - Primary Care Member Role: PCP Address: [facility] [place] [address]- Care Team Related Persons Name: ROSALIA MAYES Address: home [address] [place] [address]
--- OUTSIDE RECORDS SUMMARY | 2024-05-09 07:57 | XMS_ITS | Continuity of Care Document ---
Author Organization [facility] Address [address] [place] [address]- Care Team Providers Care Sticker Operator Name Role Phone Jerry CHANG, Latesha Rocha Primary Care Physic augustina [place] [facility] [place] 11[place]04[place]21 - 11/11/21 [facility] [address] [place] [address]- Encounter Diagnosis Hypothyroidism(Discharge Diagnosis) - 11/05/21 Hyperlipidemia, mixed(Discharge Diagnosis) - 11/05/21 Attending Physician: Merced Osullivan MD Allergies, Adverse Reactions, Alerts No Known [...] 2Result Comment: Beverley WEBER [place] 3Result Comment: [facility]: [id number] 4Result Comment: [09/07/2018] [facility] # [id number] 5Result Comment: [07/05/2017] [facility] [id number] 6Result Comment: [11/07/2014] Dr. Knox; consent signed. [...] 15:07:00 EDT, Powder, Route to Pharmacy Electronically, [id number], [facility]/pharmacy #[id number], 193.2, cm, 11/04/20 13:14:00 EST, Height,... Start Date: 02/04/21 Stop Date: 08/03/21 Status: Ordered albuterol CFC free 90 mcg/inh inhalation aerosol 2, puffs, Inhalation, Every 4 hours, PRN, # 3 each, Refills 1, Tot. Refills 1, Maintenance, 06/12/21 22:49:00 EDT, Route to Pharmacy Electronically, [id number], [facility]/pharmacy#1095, 193.2, cm, 02/03/21 8:56:00 EDT, Height, 113... Start Date: 06/12/21 Status: Ordered aspirin 81 mg oral tablet 1 tablet = 81 mg, By Mouth, Daily, # 90 tablet, 0 Refills, Maintenance, 05/20/17 11:35:13, Tablet Start Date: 05/20/17 Status: Ordered atorvastatin 20 mg oral tablet See Instructions, TAKE 1 TABLET BY MOUTH EVERY DAY, # 90 tablet, 1 Refills, Soft Stop, 06/12/21 22:49:00 EDT, [facility]/pharmacy #[id number], 193.2, cm, 02/03/21 8:56:00 EDT, Height, 113.1, kg, 08/09/19 10:20:00EST, Dry Weight Start Date: 06/12/21 Status: Ordered Basaglar KwikPen 100 units/mL subcutaneous solution = 75 units, Subcutaneous Injection, Daily at bedtime, # 12 mL, 0 Refills, Maintenance, 01/06/21 11:59:00 EDT, [facility]/pharmacy #[id number], 193.2, cm, 11/04/20 13:14:00 EST, [...] # 90 tablet, 1 Refills, Soft Stop, 08/03/21 15:09:00 EDT, [facility]/pharmacy #[id number], 193.2, cm, 02/03/21 8:56:00 EDT, Height, 113.1, kg, 08/09/19 10:20:00 EST, Dry Weight Start Date: 08/03/21 Stop Date: 01/30/22 Status: Ordered cephalexin monohydrate 250 mg oral capsule 1 capsule = 250 mg, By Mouth, 4 times a day, for 7 days, # 28 capsule, 0 Refills, Acute 11/12/21 11:24:00 EST, 11/05/21 11:24:00 EST, Capsule, [facility]/pharmacy #[id number], Partial fill upon patient request ifthe prescription is for a schedule II opioid drug.,... Start Date: 11/05/21 Stop Date: 11/12/21 Status: Ordered Freestyle Hany Sensor See Instructions, # 2 each, Refills 5, Tot. Refills 5, Maintenance, Use to test blood sugars for 14days. Type II DM E11.9, 08/18/21 16:44:00 EST, Supply, 193.2, cm, 02/03/21 8:56:00 EDT, Height Start Date: 08/18/21 Status: Ordered Insulin Syringe, BD Ultra-Fine 0.5 [...] daily, # 90 tablet, 1 Refills, Maintenance, 06/13/21 17:12:00 EDT, Tablet, [facility]/pharmacy #[id number], 193.2, cm, 02/03/21 8:56:00 EDT, Height, 113.1, kg, 08/09/19 10:20:00 EST,... Start Date: 06/13/21 Stop Date: 12/10/21 Status: Ordered levothyroxine 175 mcg (0.175 mg) oral tablet 1 tablet = 175 mcg, By Mouth, Daily, for 90 days, # 90 tablet, 1 Refills, Hard Stop 12/10/21 12:26:00 EST, 06/13/21 12:26:00 EDT, Tablet, [facility]/pharmacy #[id number], 193.2, cm, 02/03/21 8:56:00 EDT, Height, 113.1, kg, 08/09/19 10:20:00 EST, Dry Weight Start Date: 06/13/21 Stop Date: 12/10/21 Status: Ordered MetFORMIN (Eqv-Glucophage XR) 500 mg oral tablet, extended release 2 tablet = 1,000 mg, By Mouth, Daily, # 180 tablet, 1 Refills, Maintenance, 10/02/21 13:35:00 EST, [facility]/pharmacy #[id number], Partial fill upon patient request if the prescription is for a schedule II opioid drug., 193.2, cm, 02/03/21 8:56:00 EDT, Height Start Date: 10/02/21 Stop Date: 03/31/22 Status: Ordered metFORMIN 500 mg oral tablet, extended release 2 tablet = 1,000 mg, By Mouth, Daily, # 180 tablet, 1 Refills, Soft Stop, 10/01/21 13:42:00 EST, [facility]/pharmacy #[id number], 193.2, cm, 02/03/21 8:56:00 EDT, Height Start Date: 10/01/21 Stop Date: 03/30/22 Status: Ordered NovoLOG 100 units/mL subcutaneous solution See Instructions, 1-5 units sliding scale 15 min prior to meals Subcutaneous Infusion 3 times a day., # 30 mL, 0 Refills, Maintenance, 01/06/21 11:59:00 EDT, [facility]/pharmacy #[id number], 193.2, cm, 11/04/20 13:14:00 EST, Height, 113.1, kg, 08/09/19 10:20:00 ES... Start Date: 01/06/21 Status: Ordered Pen [place], 30 G x 8 mm BD Ultra Fine II See Instructions, # 100 each, Refills 3, Tot. Refills 3, Maintenance, use as directed for Type 2 Diabetes Mellitus - once a day, 10/09/15 14:01:07, Compound Start Date: 10/09/15 Stop Date: 02/06/16 Status: Ordered Pen [place], 31 G x 5 mm BD Ultra Fine III See Instructions, # 100 each, Refills 2, Tot. Refills 2, Maintenance, use to inject Basaglar 1x daily, E11.9, 90-day, 08/08/20 15:07:00 EST, Supply, 193.2, cm, 08/08/20 14:34:00 EST, Height, 113.1, kg, 08/09/19 10:20:00 EST, Dry Weight Start Date: 08/08/20 Status: Ordered Pen [place], 31 G x 8 mm BD Ultra Fine III See Instructions, # 100 each, Refills 1, Tot. Refills 1, Maintenance, use with Lantus 1x daily, Dx E11.9, 90-day, 03/15/17 15:55:47, Compound Start Date: 03/15/17 Stop Date: 09/11/17 Status: Ordered Singulair 10 mg oral tablet 10 mg, 1, tablet, By Mouth, Daily in PM, # 90 tablet, Refills 1, Tot. Refills 1, Maintenance, 06/12/21 22:49:00 EDT, Route to Pharmacy Electronically, [facility]/pharmacy #[id number], 193.2, cm, 02/03/21 8:56:00 EDT, Height, 113.1, kg, 08/09/19 10:20:00 EST, Dry W... 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 Has been smoking for 35 years.; entered on: 08/19/17 Sex
--- OUTSIDE RECORDS SUMMARY | 2024-05-09 07:57 | XMS_ITS | Continuity of Care Document ---
Author Organization [facility] Address [address] [place] [address]- Care Team Providers Care Workers Compensation Paralegal Name Role Phone Jerry CHANG, Latesha Rocha Primary Care Physic augustina Encounter [facility] [place] Date(s): 04/03/20 - 05/03/20 [facility] [address] [place] [address]- [facility] Attending Physician: Nagi Francois Admitting Physician: AdmNagi nj Referring Physician: Admtr, Glenn8 Allergies, Adverse Reactions, Alerts No Known Medication [...] toxoids (Td) 10/04/99 Recorded 1Result Comment: [09/07/2018] [facility] # [id number] 2Result Comment: [07/05/2017] [facility] [id number] 3Result Comment: [11/07/2014] Dr. Knox; consent signed. [...] 14:47:00 EDT, Powder, Route to Pharmacy Electronically, [id number], [facility]/pharmacy #[id number], 194.2, cm, 08/16/19 8:47:00 EST, Height,... Start Date: 02/09/20 Stop Date: 08/07/20 Status: Ordered albuterol CFC free 90 mcg/inh inhalation aerosol 2, puffs, Inhalation, Every 4 hours, PRN, # 8.5 Unknown, Refills 1, Tot. Refills 1, Maintenance, 01/11/20 11:44:00 EDT, Route to Pharmacy Electronically, [id number], [facility]/pharmacy #[id number], 194.2, cm, 08/16/19 8:47:00 [...] Date: 01/09/20 Stop Date: 04/08/20 Status: Ordered Insulin Syringe, BD Ultra-Fine 0.5 [...] 1 Refills, Maintenance, 10/27/19 7:12:00 EST, Tablet, [facility]/pharmacy #[id number], 194.2, cm, 08/16/19 8:47:00 EST, [...] 0 Refills, Soft Stop, 02/29/20 9:22:00 EDT, [facility]acy [facility][id number], 194.2, cm, 08/16/19 8:47:00 EST, [...] EST,... Start Date: 11/05/19 Status: Ordered Pen [place], 30 G x 8 mm BD Ultra Fine II See Instructions, # 100 each, Refills 3, Tot. Refills 3, Maintenance, use as directed for Type 2 Diabetes Mellitus - once a day, 10/09/15 14:01:07, Compound Start Date: 10/09/15 Stop Date: 02/06/16 Status: Ordered Pen [place], 31 G x 5 mm BD Ultra Fine III See Instructions, # 100 each, Refills 2, Tot. Refills 2, Maintenance, use to inject Basaglar 1x daily, E11.9, 90-day, 02/01/20 10:42:00 EDT, Supply, 194.2, cm, 08/16/19 8:47:00 EST, Height, 113.1, kg, 08/09/19 10:20:00 EST, Dry Weight Start Date: 02/01/20 Status: Ordered Pen [place], 31 G x 8 mm BD Ultra [...]
--- OUTSIDE RECORDS SUMMARY | 2024-05-09 07:57 | XMS_ITS | Continuity of Care Document ---
Author Organization [facility] Address [address] [place] [address]- Care Team Providers Care Sales Marketing Coordinator Name Role Phone Jerry CHANG, Latesha Rocha Primary Care Physic augustina Encounter [facility] Date(s): 09/10/23 - 10/10/23 [facility] [address] [place] [address]- Attending Physician: Nagi Francois Admitting Physician: Nagi Francois Referring Physician: AdmtrNagi Allergies, Adverse Reactions, Alerts No Known Medication Allergies Substance Reaction Severity Status Other Environmental Allergy 1 Active 1pets Immunizations Given and Recorded Vaccine Date Status Refusal Reason Influenza Virus Vaccine (oldterm) 1 07/10/23 Recor ded SARS-CoV-2 mRNA (nvoykqc-kitc-qfooi) vax 2 07/10/23 Recorded influenza virus vaccine, [...] Recorded 1Result Comment: pt recevied vaccine from [facility] 2Result Comment: pt received vaccine from [facility] 3Result Comment: [facility]: [phone] 4Result Comment: [09/07/2018] [facility] # [id number] 5Result Comment: [07/05/2017] [facility] [phone] 6Result Comment: [facility] [place] 7[facility] [place] [facility] Comment: [11/07/2014] Dr. Knox; consent signed. Medications Advair Diskus 250 mcg-50 mcg inhalation powder 1, puffs, Inhalation, 2 times a day, # 3 each, Refills 1, Tot. Refills 1, Maintenance, 09/01/23 18:48:00 EST, Powder, Route to Pharmacy Electronically, [id number], [id number] 192.3, cm, 09/01/23 11:35:00 EST, Height,... Start Date: 09/01/23 Stop Date: 02/28/24 Status: Ordered albuterol CFC free 90 mcg/inh inhalation aerosol 2, puffs, Inhalation, Every 4 hours, PRN, # 3 each, Refills 3, Tot. Refills 3, Maintenance, 05/07/23 10:14:00 EDT, Route to Pharmacy Electronically, [id number], [id number], cm, 05/07/23 9:23:00 EDT, Height, 112.6... Start Date: 05/07/23 Status: Ordered aspirin 81 mg oral tablet 1 tablet = 81 mg, By Mouth, Daily, # 90 tablet, 0 Refills, Maintenance, 05/20/17 11:35:13, Tablet Start Date: 05/20/17 Status: Ordered atorvastatin 20 mg oral tablet See Instructions, TAKE 1 TABLET BY MOUTH EVERY DAY, # 90 tablet, 3 Refills, Soft Stop, 07/27/22 12:32:00 EDT, [facility]/pharmacy #[id number], 193.2, cm, 07/27/22 10:43:00 EDT, Height [...] Refills, Maintenance, 05/07/23 9:46:00 EDT, ER Tablet, [facility]/pharmacy #[id number], Partial fill upon patient request if the prescription is for a schedule II opioid drug., 195, cm, 05/07/23 9:23:00 EDT, Heigh... Start Date: 05/07/23 Status: Ordered CeleBREX 100 mg oral capsule 1 capsule = 100 mg, By Mouth, 2 times a day, # 60 capsule, 0 Refills, Maintenance, 02/19/23 13:03:00 EDT, Capsule, [facility]/pharmacy #[id number], Partial fill upon patient request if [...] cm, 08/14/22 7:56:00 EST, Height Start Date: 11/30/22 Stop Date: 09/30/22 Status: Ordered Dexcom G7 [...] 09/06/23 17:50:00 EST, Route to Pharmacy Electronically, [facility]/pharmacy #[id number], Partial fill upon patient request if the prescription is for a schedule... Start Date: 09/06/23 Status: Ordered Jardiance 10 mg oral tablet 1 tablet, By Mouth, Daily in AM, # 90 tablet, 3 Refills, Maintenance, 09/02/23 15:43:00 EST, [facility]/pharmacy #[id number], 192.3, cm, 09/02/23 15:03:00 EST, Height, 108, kg, 08/04/23 9:53:00 EDT, Dry Weight Start Date: 09/02/23 Status: Ordered levothyroxine 0.025 mg oral tablet 1 tablet = 25 mcg, By Mouth, Daily, Take with 200mcg tab for total of 225mcg., # 90 tablet, 1 Refills, Maintenance, 09/03/23 16:52:00 EST, Tablet, [facility]/pharmacy #[id number], 192.3, cm, 09/02/23 15:03:00 EST, Height, [...] 9 mL, 3 Refills, Maintenance,09/02/23 15:44:00 EST, [facility]/pharmacy #[id number], Partial fill upon patient request if the prescription isfor a schedule II opioid drug., 192.3, cm, 2... Start Date: 09/02/23 Status: Ordered Pen [place], 31 G x 5 mm BD Ultra [...] Primary Care Member Role: PCP Address: Address: [address] [place] [id number]- Care Team Related Persons Name: ROSALIA MAYES Address: home [address] [place] [address]
--- OUTSIDE RECORDS SUMMARY | 2024-05-09 07:57 | XMS_ITS | Continuity of Care Document ---
Author Organization [facility] Address [address] [place] [address]- Care Team Providers Care Infirmary Attendant Name Role Phone Jerry CHANG, Latesha Rocha Primary Care Physic augustina Encounter [facility] Date(s): 02/11/24 - 02/18/24 [facility] [address] [place] [address]- [place] Encounter Diagnosis Cervical radicular pain(Discharge Diagnosis) - 02/11/24 Attending Physician: Jerry CHANG, Latesha Rocha Allergies, Adverse Reactions, Alerts No Known Medication Allergies Substance Reaction Severity Status Other Environmental Allergy 1 Active 1pets Immunizations Given and Recorded Vaccine Date Status Refusal Reason SARS-CoV-2(COVID-19)mRNA-LNP vac(nmp388) 12/21/23 Recorded Influenza Virus Vaccine (oldterm) 1 07/10/23 Recor ded SARS-CoV-2 mRNA (qmbzaoo-mqsq-ejxxa) vax 2 07/10/23 Recorded influenza virus vaccine, [...] Recorded 1Result Comment: pt recevied vaccine from [facility] pharmacy 2Result Comment: pt received vaccine from [facility] pharmacy 3Result Comment: [facility]: [id number] 4Result Comment: [09/07/2018] [facility] # [id number] 5Result Comment: [07/05/2017] [facility] [id number] 6Result Comment: [facility] [place] 7Result Comment: [facility] [place] 8Result Comment: [11/07/2014] Dr. Knox; consent signed. Medications Advair Diskus 250 mcg-50 mcg inhalation powder 1, puffs, Inhalation, 2 times a day, # 3 each, Refills 1, Tot. Refills 1, Maintenance, 09/01/23 18:48:00 EST, Powder, Route to Pharmacy Electronically, [id number][id number].3, cm, 09/01/23 11:35:00 EST, Height,... Start Date: 09/01/23 Stop Date: 02/28/24 Status: Ordered aspirin 81 mg oral tablet 1 tablet = 81 mg, By Mouth, Daily, # 90 tablet, 0 Refills, Maintenance, 05/20/17 11:35:13, Tablet Start Date: 05/20/17 Status: Ordered atorvastatin 20 mg oral tablet See Instructions, TAKE 1 TABLET BY MOUTH EVERY DAY, # 90 tablet, 3 Refills, Soft Stop, 10/22/23 15:01:00 EST, [facility]/pharmacy #[id number], 192.3, cm, 10/13/23 12:06:00 EST, Height, [...] Refills, Maintenance, 01/24/24 11:08:00 EDT, ER Tablet, [facility]/pharmacy #[id number], Partial fill upon patient request if the prescription is for a schedule II opioid drug., 192.3, cm, 01/24/24 10:24:00 EDT, H... Start Date: 01/24/24 Status: Ordered CeleBREX 100 mg oral capsule 1 capsule = 100 mg, By Mouth, 2 times a day, # 60 capsule, 0 Refills, Maintenance, 01/24/24 10:57:00 EDT, Capsule, [id number], Partial fill upon patient request if the prescription is for a schedule II opioid drug., 192.3, cm, 01/24/24 10:24:0... Start Date: 01/24/24 Status: Ordered clonazePAM 0.5 mg oral tablet [...] Maintenance,02/11/24 9:05:00 EDT, Route to Pharmacy Electronically, [facility]/pharmacy #[id number], Partial fill upon patient request if the prescription is for a schedule II... Start Date: 02/11/24 Stop Date: 04/07/24 Status: Ordered Jardiance 10 mg oral tablet 1 tablet, By Mouth, Daily in AM, # 90 tablet, 3 Refills, Maintenance, 09/02/23 15:43:00 EST, [facility]/pharmacy #[id number], 192.3, cm, 09/02/23 15:03:00 EST, Height, 108, kg, 08/04/23 9:53:00 EDT, Dry Weight Start Date: 09/02/23 Status: Ordered Lantus Solostar Pen 100 units/mL subcutaneous solution = 80 units, Subcutaneous Infusion, Daily, 6 months supplies, # 144 mL, 3 Refills, Maintenance, 11/24/23 11:09:00 EST, [facility]/pharmacy #[id number], Partial fill upon patient request if the prescription is for a schedule II opioid drug., 192.3, cm, 11/24/23 8:32... Start Date: 11/24/23 Stop Date: 11/13/25 Status: Ordered levalbuterol 45 mcg/inh inhalation aerosol 2 puffs, Inhalation, Every 4 hours, PRN for wheezing, # 15 Gm, 3 Refills, Maintenance, 01/24/24 11:27:00 EDT, Aerosol, [facility]/pharmacy #[id number], Partial fill upon patient request if [...] 03/01/24 Stop Date: 08/28/24 Status: Ordered levothyroxine 0.025 mg oral tablet 1 tablet = 25 mcg, By Mouth, Daily, for 90 days, Take with 200mcg tab for total of 225mcg., # 90 tablet, 1 Refills, Hard Stop 03/01/24 16:52:00 EDT, 09/03/23 16:52:00 EST, Tablet, [id number],192.3, cm, 09/02/23 15:03:00 EST, Height, 108, kg,... Start Date: 09/03/23 Stop Date: 03/01/24 Status: Ordered levothyroxine 0.2 mg oral tablet 1 tablet = 200 mcg, By Mouth, Daily, take along with 225 mcg, # 90 tablet, 1 Refills, Maintenance, 01/24/24 11:08:00 EDT, Tablet, [facility]/pharmacy #[id number], Partial fill upon patient request if the prescription is for a schedule II opioid drug., 192.3, cm, 0... Start Date: 01/24/24 Status: Ordered levothyroxine 175 mcg (0.175 mg) oral tablet 1 tablet = 175 mcg, By Mouth, Daily, # 90 tablet, 3 Refills, Maintenance, 12/12/22 12:34:00 EST, Tablet, [facility]/pharmacy #[id number], 193.2, cm, 07/27/22 10:43:00 EDT, Height [...] mL, 2 Refills, Maintenance, 07/27/22 12:32:00 EDT, [facility]/pharmacy #1095, 193.2, cm, 07/27/22 10:43:00 EDT, Height Start Date: 07/27/22 Status: Ordered NuLYTELY with Flavor Packs oral powder for reconstitution 240 mL, By Mouth, Every 10 minutes, May substitute any PEG 3350 solution available SPLIT PREP METHOD, # 1 each, 0 Refills, Maintenance, 10/12/22 17:00:00 EST, REC Powder, [facility]/pharmacy #[id number], test date 10/13/22, 240 mL By [...] Refills, Maintenance, 12/21/23 8:40:00 EDT, [id number], 192.3, cm, 11/24/23 8:32:00 EST, Height, 108, kg, 08/04/23 9:53:00 EDT, Dry Weight Start Date: 12/21/23 Status: Ordered Pen [place], 31 G x 5 mm BD [...] 11/15/23 15:36:00 EST, Route to Pharmacy Electronically, [facility]/pharmacy #[id number], 192.3, cm, 10/13/23 12:06:00EST, Height, 108, [...] Diagnosis Diagnosis Type Effective Dates Health Status Cl inical Service Informant Cervical radicular pain Discharge Diagnosis 02/11/24 Non-Specified Social History Social History Type Response Smoking Status Current every day sm oker; Tobacco user in household: No; Type: Cigarettes; Tobacco use times per day: Down to 1/2 pack a day from 1 pack a day. Has been smoking for 35 years.; entered on: 08/19/17 Sex Patient Care team information Care Team Personnel Name: Jerry CHANG, Latesha Rocha Position: [facility] Physician - Primary Care Member Role: PCP Address: Address: [address] [place] [id number]- Care Team Related Persons Name: ROSALIA MAYES Address: home [address] [place] [address]
--- OUTSIDE RECORDS SUMMARY | 2024-05-09 07:57 | XMS_ITS | Continuity of Care Document ---
Author Organization [facility] Address [address] [place] [address]- Care Team Providers Care Ceramics Machine Operator Name Role Phone Jerry CHANG, Latesha Rocha Primary Care Physic augustina [place] [facility] [place] 11/05/23 - 12/05/23 [facility] [address] [place] [address]- Allergies, Adverse Reactions, Alerts No Known Medication Allergies Substance Reaction Severity Status Other Environmental Allergy 1 Active 1pets Immunizations Given and Recorded Vaccine Date Status Refusal Reason Influenza Virus Vaccine (oldterm) 1 07/10/23 Recor ded SARS-CoV-2 mRNA (lceyfgl-jfjp-szore) vax 2 07/10/23 Recorded influenza virus vaccine, [...] Recorded 1Result Comment: pt recevied vaccine from [facility] 2Result Comment: pt received vaccine from [facility] 3Result Comment: [facility]: [id number] 4Result Comment: [09/07/2018] [facility] # [id number] 5Result Comment: [07/05/2017] [facility] [id number] 6Result Comment: [facility] [place] 7Result Comment: [place] 8Result Comment: [11/07/2014] Dr. Knox; consent signed. Medications Advair Diskus 250 mcg-50 mcg inhalation powder 1, puffs, Inhalation, 2 times a day, # 3 each, Refills 1, Tot. Refills 1, Maintenance, 09/01/23 18:48:00 EST, Powder, Route to Pharmacy Electronically, [id number], [facility]/pharmacy #1095, 192.3, cm, 09/01/23 11:35:00 EST, Height,... Start Date: 09/01/23 Stop Date: 02/28/24 Status: Ordered albuterol CFC free 90 mcg/inh inhalation aerosol 2, puffs, Inhalation, Every 4 hours, PRN, # 3 each, Refills 3, Tot. Refills 3, Maintenance, 05/07/23 10:14:00 EDT, Route to Pharmacy Electronically, [id number], [facility]/pharmacy#1095, 195, cm, 05/07/23 9:23:00 [...] 3 Refills, Soft Stop, 10/22/23 15:01:00 EST, [facility]/pharmacy #1095, 192.3, cm, 10/13/23 12:06:00 EST, [...] Daily, # 90 tablet, 1 Refills, Maintenance, 11/15/23 15:34:00 EST, ER Tablet, [facility]/pharmacy #1095, Partial fill upon patient request if the prescription is for a schedule II opioid drug., 192.3, cm, 10/13/23 12:06:00 EST, H... Start Date: 11/15/23 Status: Ordered CeleBREX 100 mg oral capsule 1 capsule = 100 mg, By Mouth, 2 times a day, # 60 capsule, 0 Refills, Maintenance, 02/19/23 13:03:00 EDT, Capsule, [facility]/pharmacy #1095, Partial fill upon patient request if the prescription is for a schedule II opioid drug., 195, cm, 02/10/23 13:17:00... Start Date: 02/19/23 Status: Ordered clonazePAM 0.5 mg oral tablet 1 tablet = 0.5 mg, By Mouth, Daily, # 28 tablet, 0 Refills, Maintenance, 09/02/22 17:46:00 EST, Tablet, [facility]/pharmacy #1095, Partial fill upon [...] 09/06/23 17:50:00 EST, Route to Pharmacy Electronically, [facility]/pharmacy #1095, Partial fill upon patient request if the prescription is for a schedule... Start Date: 09/06/23 Status: Ordered Jardiance 10 mg oral tablet 1 tablet, By Mouth, Daily in AM, # 90 tablet, 3 Refills, Maintenance, 09/02/23 15:43:00 EST, [facility]/pharmacy #1095, 192.3, cm, 09/02/23 15:03:00 EST, Height, 108, kg, 08/04/23 9:53:00 EDT, Dry Weight Start Date: 09/02/23 Status: Ordered Lantus Solostar Pen 100 units/mL subcutaneous solution = 80 units, Subcutaneous Infusion, Daily, 6 months supplies, # 144 mL, 3 Refills, Maintenance, 11/24/23 11:09:00 EST, [facility]/pharmacy #1095, Partial fill upon patient request if the prescription is for a schedule II opioid drug., 192.3, cm, 11/24/23 8:32... Start Date: 11/24/23 Stop Date: 11/13/25 Status: Ordered levothyroxine 0.025 mg oral tablet 1 tablet = 25 mcg, By Mouth, Daily, Take with 200mcg tab for total of 225mcg., # 90 tablet, 1 Refills, Maintenance, 09/03/23 16:52:00 EST, Tablet, [facility]/pharmacy #1095, 192.3, cm, 09/02/23 [...] 9 mL, 3 Refills, Maintenance,09/02/23 15:44:00 EST, [facility]/pharmacy #1095, Partial fill upon patient request if the prescription isfor a schedule II opioid drug., 192.3, cm, 2... Start Date: 09/02/23 Status: Ordered Pen [place], 31 G x 5 mm BD Ultra [...] 11/15/23 15:36:00 EST, Route to Pharmacy Electronically, [facility]/pharmacy #[id number], 192.3, cm, 10/13/23 12:06:00EST, Height, [...] Personnel Name: Jerry CHANG, Latesha Rocha Position: [facility] Physician - Primary Care Member Role: PCP Address: Address: [place] [address]- Care Team Related Persons Name: ROSALIA MAYES Address: home [address] [place] [address]
--- OUTSIDE RECORDS SUMMARY | 2024-05-09 07:57 | XMS_ITS | Continuity of Care Document ---
Author Organization [facility] Address [address] [place] [address]- Care Team Providers Care Former Hand Name Role Phone Jerry CHANG, Latesha Rocha Primary Care Physic augustina Encounter [facility] Date(s): 12/18/21 - 01/17/22 [facility] [address] [place] [address]- [place] Allergies, Adverse Reactions, Alerts No Known [...] 2Result Comment: [place] 3Result Comment: [facility] [id number] 4Result Comment: [09/07/2018] [facility] # [id number] 5Result Comment: [07/05/2017] [facility] [id number] 6Result Comment: [11/07/2014] Dr. Knox; consent signed. [...] 15:07:00 EDT, Powder, Route to Pharmacy Electronically, [id number], [facility]/pharmacy #1095, 193.2, cm, 11/04/20 13:14:00 EST, Height,... Start Date: 02/04/21 Stop Date: 08/03/21 Status: Ordered albuterol CFC free 90 mcg/inh inhalation aerosol 2, puffs, Inhalation, Every 4 hours, PRN, # 3 each, Refills 1, Tot. Refills 1, Maintenance, 06/12/21 22:49:00 EDT, Route to Pharmacy Electronically, [id number], [facility]/pharmacy#1095, 193.2, cm, 02/03/21 8:56:00 EDT, Height, [...] 1 Refills, Soft Stop, 06/12/21 22:49:00 EDT, [facility]/pharmacy #1095, 193.2, cm, 02/03/21 8:56:00 EDT, Height, 113.1, kg, 08/09/19 10:20:00EST, Dry Weight Start Date: 06/12/21 Status: Ordered Basaglar KwikPen 100 units/mL subcutaneous solution = 75 units, Subcutaneous Injection, Daily at bedtime, # 12 mL, 0 Refills, Maintenance, 01/06/21 11:59:00 EDT, [facility]/pharmacy #1095, 193.2, cm, 11/04/20 13:14:00 EST, [...] # 90 tablet, 1 Refills, Soft Stop, 01/30/22 15:09:00 EDT, [facility]/pharmacy #1095, 193.2, cm, 11/05/21 10:33:00 EST, Height Start Date: 01/30/22 Stop Date: 07/29/22 Status: Ordered buPROPion 150 mg/12 hours (SR) oral tablet, extended release 1 tablet = 150 mg, By Mouth, Daily, for 90 days, # 90 tablet, 1 Refills, Hard Stop 01/30/22 15:09:00 EDT, 08/03/21 15:09:00 EDT, [facility]/pharmacy #1095, 193.2, cm, 02/03/21 8:56:00 EDT, Height, 113.1, kg, 08/09/19 10:20:00 EST, Dry Weight Start Date: 08/03/21 Stop Date: 01/30/22 Status: Ordered clonazePAM 0.5 mg oral tablet 1 tablet = 0.5 mg, By Mouth, Daily, # 28 tablet, 0 Refills, Maintenance, 01/15/22 12:14:00 EDT, Tablet, [facility]/pharmacy #1095, Partial fill upon patient request if the prescription is for a schedule II opioid drug., 193.2, cm, 11/05/21 10:33:00 EST, Height Start Date: 01/15/22 Stop Date: 02/12/22 Status: Ordered Freestyle Hany Sensor See Instructions, [...] daily, # 90 tablet, 1 Refills, Maintenance, 12/10/21 17:12:00 EST, Tablet, [facility]/pharmacy #1095, 193.2, cm, 11/05/21 10:33:00 EST, Height Start Date: 12/10/21 Stop Date: 06/08/22 Status: Ordered levothyroxine 175 mcg (0.175 mg) oral tablet 1 tablet = 175 mcg, By Mouth, Daily, # 90 tablet, 1 Refills, Maintenance, 12/17/21 12:34:00 EDT, Tablet, [facility]/pharmacy #[id number], 193.2, cm, 11/05/21 10:33:00 EST, Height Start Date: 12/17/21 Stop Date: 06/15/22 Status: Ordered MetFORMIN (Eqv-Glucophage XR) 500 mg oral tablet, extended release 2 tablet = 1,000 mg, By Mouth, Daily, # 180 tablet, 1 Refills, Maintenance, 10/02/21 13:35:00 EST, [id number], Partial fill upon [...] day., # 30 mL, 0 Refills, Maintenance, 12/15/21 14:12:00 EDT, [facility], 193.2, cm, 11/05/21 10:33:00 EST, Height Start Date: 12/15/21 Status: Ordered Pen [place], 30 G x 8 mm BD Ultra Fine II See Instructions, # 100 each, Refills 3, Tot. Refills 3, Maintenance, use as directed for Type 2 Diabetes Mellitus - once a day, 10/09/15 14:01:07, Compound Start Date: 10/09/15 Stop Date: 02/06/16 Status: Ordered Pen [place], 31 G x 5 mm BD Ultra Fine III See Instructions, # 100 each, Refills 2, Tot. Refills 2, Maintenance, use to inject Basaglar 1x daily, E11.9, 90-day, 12/02/21 15:33:00 EST, Supply, 193.2, cm, 11/05/21 10:33:00 EST, Height Start Date: 12/02/21 Status: Ordered Pen [place], 31 G x 8 mm BD Ultra Fine III See Instructions, # 100 each, Refills 1, Tot. Refills 1, Maintenance, use with Lantus 1x daily, Dx E11.9, 90-day, 03/15/17 15:55:47, Compound Start Date: 03/15/17 Stop Date: 09/11/17 Status: Ordered sertraline 25 mg oral tablet 1 tablet = 25 mg, By Mouth, Daily, # 90 tablet, 1 Refills, Maintenance, 01/15/22 12:14:00 EDT, Tablet, [facility]/pharmacy #1095, Partial fill upon patient request if the prescription is for a schedule II opioid drug., 193.2, cm, 11/05/21 10:33:00 EST, Height Start Date: 01/15/22 Status: Ordered Singulair 10 mg oral tablet 10 mg, 1, tablet, By Mouth, Daily in PM, # 90 tablet, Refills 3, Tot. Refills 3, Maintenance, 01/15/22 12:15:00 EDT, Route to Pharmacy Electronically, [facility]/pharmacy #1095, 193.2, cm, 11/05/21 10:33:00EST, Height Start Date: 01/15/22 Status: Ordered Problem List Condition Effective Dates Status Health Status Inform ant Diverticulosis(Confirmed) Active Esophagitis(Confirmed) Active Hemorrhoids(Confirmed) Active Hiatal hernia(Confirmed) Active History of colonic polyps(Confirmed) Active Hypothyroidism(Confirmed) Active ED (erectile dysfunction)(Confirmed) Active Hyperlipidemia, mixed(Confirmed) Active Diabetes mellitus type II, uncontrolled(Confirmed) Active 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 Has been smoking for 35 years.; entered on: 08/19/17 Sex
--- OUTSIDE RECORDS SUMMARY | 2024-05-09 07:57 | XMS_ITS | Continuity of Care Document ---
Author Organization [facility] Address [address] [place] [address]- Care Team Providers Care Bi Solutions Architect Name Role Phone Jerry CHANG, Latesha Rocha Primary Care Physic augustina [place] [facility] [place]14[place]22 - 10/14/22 [facility] [address] [place] [address]- Attending Physician: Nagi Francois Admitting Physician: AdmNagi nj Referring Physician: [id number] Allergies, Adverse Reactions, Alerts No Known Medication [...] tetanus-diphtheria toxoids (Td) 10/04/99 Recorded 1Result Comment: [facility]: [id number] 2Result Comment: [09/07/2018] [facility] # [id number] 3Result Comment: [07/05/2017] [facility] [id number] 4Result Comment: GUS Lowery [place] 5Result Comment: GUS, RENETTA oLwery 6Result Comment: [11/07/2014] Dr. Knox; consent signed. [...] 12:32:00 EDT, Powder, Route to Pharmacy Electronically, [id number], [facility]/pharmacy #[id number], 193.2, cm, 07/27/22 10:43:00 EDT, Height Start Date: 07/27/22 Stop Date: 07/22/23 Status: Ordered albuterol CFC free 90 mcg/inh inhalation aerosol 2, puffs, Inhalation, Every 4 hours, PRN, # 3 each, Refills 1, Tot. Refills 1, Maintenance, 07/27/22 12:32:00 EDT, Route to Pharmacy Electronically, [id number], [id number], 193.2, cm, 07/27/22 10:43:00 EDT, Height Start [...] 3 Refills, Soft Stop, 10/27/22 15:09:00 EST, [id number], 193.2, cm, 07/27/22 10:43:00 EDT, Height Start Date: 10/27/22 Stop Date: 10/22/23 Status: Ordered buPROPion 150 mg/12 hours (SR) oral tablet, extended release 1 tablet = 150 mg, By Mouth, Daily, for 90 days, # 90 tablet, 0 Refills, Hard Stop 10/27/22 15:09:00 EST, 07/29/22 15:09:00 EDT, [facility]/pharmacy #[id number], 193.2, cm, 03/16/22 9:24:00 EDT, Height Start Date: 07/29/22 Stop Date: 10/27/22 Status: Ordered clonazePAM 0.5 mg oral tablet 1 tablet = 0.5 mg, By Mouth, Daily, # 28 tablet, 0 Refills, Maintenance, 09/02/22 17:46:00 EST, Tablet, [facility]/pharmacy #[id number], Partial fill upon patient request if [...] 1 Refills, Soft Stop, 10/01/21 13:42:00 EST, [facility]/pharmacy #[id number], 193.2, cm, 02/03/21 8:56:00 EDT, Height Start Date: 10/01/21 Stop Date: 03/30/22 Status: Ordered NovoLOG 100 units/mL subcutaneous solution See Instructions, 1-5 units sliding scale 15 min prior to meals Subcutaneous Infusion 3 times a day., # 30 mL, 2 Refills, Maintenance, 07/27/22 12:32:00 EDT, [facility]/pharmacy #[id number], 193.2, cm, 07/27/22 10:43:00 EDT, Height Start Date: 07/27/22 Status: Ordered NuLYTELY with Flavor Packs oral powder for reconstitution 240 mL, By Mouth, Every 10 minutes, May substitute any PEG 3350 solution available SPLIT PREP METHOD, # 1 each, 0 Refills, Maintenance, 10/12/22 17:00:00 EST, REC Powder, [facility]/pharmacy #[id number], test date 10/13/22, 240 mL By Mouth Every 10 minutes,Instr:M... Start Date: 10/12/22 Status: Ordered Pen [place], 30 G x 8 mm BD Ultra Fine II See Instructions, # 100 each, Refills 3, Tot. Refills 3, Maintenance, use as directed for Type 2 Diabetes Mellitus - once a day, 10/09/15 14:01:07, Compound Start Date: 10/09/15 Stop Date: 02/06/16 Status: Ordered Pen [place], 31 G x 5 mm BD Ultra Fine III See Instructions, # 100 each, Refills 3, Tot. Refills 3, Maintenance, use to inject Basaglar 1x daily, E11.9, 90-day, 07/27/22 12:32:00 EDT, Supply, 193.2, cm, 07/27/22 10:43:00 EDT, Height Start Date: 07/27/22 Status: Ordered Pen [place], 31 G x 8 mm BD Ultra Fine III See Instructions, # 100 each, Refills 1, Tot. Refills 1, Maintenance, use with Lantus 1x daily, Dx E11.9, 90-day, 03/15/17 15:55:47, Compound Start Date: 03/15/17 Stop Date: 09/11/17 Status: Ordered sertraline 50 mg oral tablet 1 tablet = 50 mg, By Mouth, Daily, # 90 tablet, 3 Refills, Maintenance, 07/27/22 12:32:00 EDT, Tablet, [facility]/pharmacy #[id number], Partial fill upon patient request if the prescription is for a schedule II opioid drug., 193.2, cm, 07/27/22 10:43:00 EDT, Height Start Date: 07/27/22 Stop Date: 07/22/23 Status: Ordered Singulair 10 mg oral tablet 10 mg, 1, tablet, By Mouth, Daily in PM, # 90 tablet, Refills 3, Tot. Refills 3, Maintenance, 07/27/22 12:32:00 EDT, Route to Pharmacy Electronically, [facility]/pharmacy #[id number], 193.2, cm, 07/27/22 10:43:00EDT, Height Start [...] sciatica Confirmed Active Hyperlipidemia, mixed Confirmed Active Diabetes mellitus type II, uncontrolled [...] study * Event Display: EKG Authored Date: Note * Event Display: Non BH Lab Results Authored Date: * Event Display: Laboratory Result Scanned Authored Date: * Event Display: Laboratory Result Scanned Authored Date: XR Chest Views * Event Display: X-Ray Chest Authored Date: Patient Care team information Care Team Personnel Name: Jerry CHANG, Latesha Rocha Position: [facility] Primary Care Physician Member Role: PCP Address: Address: [address] [place] [id number]- Care Team Related Persons Name: ROSALIA MAYES Address: home [address] [place] [address]
--- OUTSIDE RECORDS SUMMARY | 2024-05-09 07:57 | XMS_ITS | Continuity of Care Document ---
Author Organization [facility] Address [address] [place] [id number]- Care Team Providers Care Ward Maid Name Role Phone Jerry CHANG, Latesha Rocha Primary Care Physic augustina [place] [facility] [place] 08[place]18/22 - 09/17/22 [facility] [address] [place] [id number]- [place] Allergies, Adverse Reactions, Alerts No Known [...] tetanus-diphtheria toxoids (Td) 10/04/99 Recorded 1Result Comment: [facility]: [id number] 2Result Comment: [09/07/2018] [facility] # [id number] 3Result Comment: [07/05/2017] [facility] [id number] 4Result Comment: GUS Lowery [place] 5Result Comment: [...] 12:32:00 EDT, Powder, Route to Pharmacy Electronically, [id number], [facility]/pharmacy #[id number], 193.2, cm, 07/27/22 10:43:00 EDT, Height Start Date: 07/27/22 Stop Date: 07/22/23 Status: Ordered albuterol CFC free 90 mcg/inh inhalation aerosol 2, puffs, Inhalation, Every 4 hours, PRN, # 3 each, Refills 1, Tot. Refills 1, Maintenance, 07/27/22 12:32:00 EDT, Route to Pharmacy Electronically, [id number], [facility]/pharmacy#[id number], 193.2, cm, 07/27/22 10:43:00 EDT, Height [...] Stop 10/27/22 15:09:00 EST, 07/29/22 15:09:00 EDT, [id number], 193.2, cm, 03/16/22 9:24:00 EDT, Height Start Date: 07/29/22 Stop Date: 10/27/22 Status: Ordered clonazePAM 0.5 mg oral tablet 1 tablet = 0.5 mg, By Mouth, Daily, # 28 tablet, 0 Refills, Maintenance, 09/02/22 17:46:00 EST, Tablet, [facility]/pharmacy #[id number], Partial fill upon patient [...] 3 Refills, Maintenance, 12/05/22 17:12:00 EST, Tablet, [facility]/pharmacy #[id number], 193.2, cm, 07/27/22 10:43:00 [...] Stop 09/27/22 13:35:00 EST, 03/31/22 13:35:00 EDT, [facility]/pharmacy #[id number], Partial fill upon patient [...] mL, 2 Refills, Maintenance, 07/27/22 12:32:00 EDT, [facility]/pharmacy #[id number], 193.2, cm, 07/27/22 10:43:00 EDT, Height Start Date: 07/27/22 Status: Ordered NuLYTELY with Flavor Packs oral powder for reconstitution 240 mL, By Mouth, Every 10 minutes, May substitute any PEG 3350 solution available SPLIT PREP METHOD, # 1 each, 0 Refills, Maintenance, 10/12/22 17:00:00 EST, REC Powder, [facility]/pharmacy #[id number], test date 10/13/22, 240 mL By Mouth Every 10 minutes,Instr:M... Start Date: 10/12/22 Status: Ordered Pen [place], 30 G x 8 mm BD Ultra Fine II See Instructions, # 100 each, Refills 3, Tot. Refills 3, Maintenance, use as directed for Type 2 Diabetes Mellitus - once a day, 10/09/15 14:01:07, Compound Start Date: 10/09/15 Stop Date: 02/06/16 Status: Ordered Pen [place], 31 G x 5 mm BD Ultra Fine III See Instructions, # 100 each, Refills 3, Tot. Refills 3, Maintenance, use to inject Basaglar 1x daily, E11.9, 90-day, 07/27/22 12:32:00 EDT, Supply, 193.2, cm, 07/27/22 10:43:00 EDT, Height Start Date: 07/27/22 Status: Ordered Pen [place], 31 G x 8 mm BD Ultra Fine III See Instructions, # 100 each, Refills 1, Tot. Refills 1, Maintenance, use with Lantus 1x daily, Dx E11.9, 90-day, 03/15/17 15:55:47, Compound Start Date: 03/15/17 Stop Date: 09/11/17 Status: Ordered sertraline 50 mg oral tablet 1 tablet = 50 mg, By Mouth, Daily, # 90 tablet, 3 Refills, Maintenance, 07/27/22 12:32:00 EDT, Tablet, [facility]/pharmacy #[id number], Partial fill upon patient request if the prescription is for a schedule II opioid drug., 193.2, cm, 07/27/22 10:43:00 EDT, Height Start Date: 07/27/22 Stop Date: 07/22/23 Status: Ordered Singulair 10 mg oral tablet 10 mg, 1, tablet, By Mouth, Daily in PM, # 90 tablet, Refills 3, Tot. Refills 3, Maintenance, 07/27/22 12:32:00 EDT, Route to Pharmacy Electronically, [facility]/pharmacy #[id number], 193.2, cm, 07/27/22 10:43:00EDT, Height [...] Personnel Name: Jerry CHANG, Latesha Rocha Position: [facility] Primary Care Physician Member Role: PCP Address: Address: [address] [place] [address]- Care Team Related Persons Name: ROSALIA MAYES Address: home [address] [place] [address]
--- OUTSIDE RECORDS SUMMARY | 2024-05-09 07:57 | XMS_ITS | Continuity of Care Document ---
Author Organization [facility] Address [address] [place] [address]- Care Team Providers Care Supervisor Picking Crew Name Role Phone Jerry CHANG, Latesha Rocha Primary Care Physic augustina Encounter [facility] Date(s): 03/25/22 - 04/24/22 [facility] [address] [place] [address]- [place] Allergies, Adverse Reactions, Alerts No Known [...] 2Result Comment: Beverley WEBER [place] 3Result Comment: [facility]: [id number] 4Result Comment: [09/07/2018] [facility] # [id number] 5Result Comment: [07/05/2017] [facility] [id number] 6Result Comment: [11/07/2014] Dr. Knox; consent signed. [...] 15:07:00 EDT, Powder, Route to Pharmacy Electronically, [id number], [facility]/pharmacy #[id number], 193.2, cm, 11/04/20 13:14:00 EST, Height,... Start Date: 02/04/21 Stop Date: 08/03/21 Status: Ordered albuterol CFC free 90 mcg/inh inhalation aerosol 2, puffs, Inhalation, Every 4 hours, PRN, # 3 each, Refills 1, Tot. Refills 1, Maintenance, 03/26/22 17:52:00 EDT, Route to Pharmacy Electronically, [id number], [facility]/pharmacy#1095, 193.2, cm, 03/16/22 9:24:00 EDT, Height Start Date: 03/26/22 Status: Ordered aspirin 81 mg oral tablet 1 tablet = 81 mg, By Mouth, Daily, # 90 tablet, 0 Refills, Maintenance, 05/20/17 11:35:13, Tablet Start Date: 05/20/17 Status: Ordered atorvastatin 20 mg oral tablet See Instructions, TAKE 1 TABLET BY MOUTH EVERY DAY, # 90 tablet, 1 Refills, Soft Stop, 02/18/22 9:16:00 EDT, [facility]/pharmacy #[id number], 193.2, cm, 11/05/21 10:33:00 EST, Height Start Date: 02/18/22 Status: Ordered Basaglar KwikPen 100 units/mL subcutaneous solution = 80 units, Subcutaneous Injection, Daily at bedtime, # 15 mL, 6 Refills, Maintenance, 03/27/22 17:53:00 EDT, [facility]/pharmacy #[id number], 193.2, cm, 03/16/22 9:24:00 EDT, Height Start Date: 03/27/22 Status: Ordered BP monitor BP monitor, See [...] 1 Refills, Soft Stop, 01/30/22 15:09:00 EDT, [facility]/pharmacy #[id number], 193.2, cm, 11/05/21 10:33:00 EST, Height Start Date: 01/30/22 Stop Date: 07/29/22 Status: Ordered clonazePAM 0.5 mg oral tablet 1 tablet = 0.5 mg, By Mouth, Daily, # 28 tablet, 0 Refills, Maintenance, 04/24/22 15:44:00 EDT, Tablet, [facility]/pharmacy #[id number], Partial fill upon patient request if the prescription is for a schedule II opioid drug., 193.2, cm, 03/16/22 9:24:00 EDT, Height Start Date: 04/24/22 Stop Date: 05/22/22 Status: Ordered Freestyle Hany Sensor See Instructions, # 2 each, Refills 5, Tot. Refills 5, Maintenance, Use to test blood sugars for 14days. Type II DM E11.9, 02/18/22 9:16:00 EDT, Supply, 193.2, cm, 11/05/21 10:33:00 EST, Height Start Date: 02/18/22 Status: Ordered Insulin Syringe, BD Ultra-Fine 0.5 cc 31 G x 8 mm (516in) See Instructions, # 90 each, Refills 3, [...] 1 Refills, Maintenance, 12/10/21 17:12:00 EST, Tablet, [id number], 193.2, cm, 11/05/21 10:33:00 EST, Height Start Date: 12/10/21 Stop Date: 06/08/22 Status: Ordered levothyroxine 175 mcg (0.175 mg) oral tablet 1 tablet = 175 mcg, By Mouth, Daily, # 90 tablet, 1 Refills, Maintenance, 12/17/21 12:34:00 EDT, Tablet, [id number], 193.2, cm, 11/05/21 10:33:00 EST, Height Start Date: 12/17/21 Stop Date: 06/15/22 Status: Ordered MetFORMIN (Eqv-Glucophage XR) 500 mg oral tablet, extended release 2 tablet = 1,000 mg, By Mouth, Daily, # 180 tablet, 1 Refills, Maintenance, 03/31/22 13:35:00 EDT, [facility]/pharmacy #[id number], Partial fill upon patient request if the prescription is for a schedule II opioid drug., 193.2, cm, 03/16/22 9:24:00 EDT, Height Start Date: 03/31/22 Stop Date: 09/27/22 Status: Ordered metFORMIN 500 mg oral tablet, extended release 2 tablet = 1,000 mg, By Mouth, Daily, # 180 tablet, 1 Refills, Soft Stop, 10/01/21 13:42:00 EST, [facility]/pharmacy #[id number], 193.2, cm, 02/03/21 8:56:00 EDT, Height Start Date: 10/01/21 Stop Date: 03/30/22 Status: Ordered NovoLOG 100 units/mL subcutaneous solution See Instructions, 1-5 units sliding scale 15 min prior to meals Subcutaneous Infusion 3 times a day., # 30 mL, 0 Refills, Maintenance, 12/15/21 14:12:00 EDT, [facility]/pharm[facility] #[id number], 193.2, cm, 11/05/21 10:33:00 EST, Height Start Date: 12/15/21 Status: Ordered Pen [place], 30 G x 8 mm BD Ultra Fine II See Instructions, # 100 each, Refills 3, Tot. Refills 3, Maintenance, use as directed for Type 2 Diabetes Mellitus - once a day, 10/09/15 14:01:07, Compound Start Date: 10/09/15 Stop Date: 02/06/16 Status: Ordered Pen [place], 31 G x 5 mm BD Ultra Fine III See Instructions, # 100 each, Refills 2, Tot. Refills 2, Maintenance, use to inject Basaglar 1x daily, E11.9, 90-day, 12/02/21 15:33:00 EST, Supply, 193.2, cm, 11/05/21 10:33:00 EST, Height Start Date: 12/02/21 Status: Ordered Pen [place], 31 G x 8 mm BD Ultra Fine III See Instructions, # 100 each, Refills 1, Tot. Refills 1, Maintenance, use with Lantus 1x daily, Dx E11.9, 90-day, 03/15/17 15:55:47, Compound Start Date: 03/15/17 Stop Date: 09/11/17 Status: Ordered sertraline 50 mg oral tablet 1 tablet = 50 mg, By Mouth, Daily, dose increase to 50 mg daily, # 30 tablet, 3 Refills, Maintenance, 03/16/22 9:55:00 EDT, Tablet, [facility]/pharmacy #[id number], Partial fill upon patient request if the prescription is for a schedule II opioid drug., 193.2, cm,... Start Date: 03/16/22 Status: Ordered Singulair 10 mg oral tablet 10 mg, 1, tablet, By Mouth, Daily in PM, # 90 tablet, Refills 3, Tot. Refills 3, Maintenance, 01/15/22 12:15:00 EDT, Route to Pharmacy Electronically, [facility]/pharm[facility] #[id number], 193.2, cm, 11/05/21 10:33:00EST, Height Start Date: 01/15/22 Status: Ordered Problem List Condition Effective Dates Status Health Status Inform ant Anxiety(Confirmed) Active Diverticulosis(Confirmed) Active Esophagitis(Confirmed) Active Hemorrhoids(Confirmed) Active Hiatal [...]
--- OUTSIDE RECORDS SUMMARY | 2024-05-09 07:57 | XMS_ITS | Continuity of Care Document ---
Author Organization [facility] Address [address] [place] [address]- Care Team Providers Care Carrot Buncher Name Role Phone Jerry CHANG, Latesha Rocha Primary Care Physic augustina Encounter [facility] [place] Date(s): 04/01/20 - 05/01/20 [facility] [address] [place] [address]- [facility] Allergies, Adverse Reactions, Alerts No Known Medication [...] toxoids (Td) 10/04/99 Recorded 1Result Comment: [09/07/2018] [facility] # [id number] 2Result Comment: [07/05/2017] [facility] [id number] 3Result Comment: [11/07/2014] Dr. Knox; consent signed. [...] 14:47:00 EDT, Powder, Route to Pharmacy Electronically, [id number], [facility]/pharmacy #[id number], 194.2, cm, 08/16/19 8:47:00 EST, Height,... Start Date: 02/09/20 Stop Date: 08/07/20 Status: Ordered albuterol CFC free 90 mcg/inh inhalation aerosol 2, puffs, Inhalation, Every 4 hours, PRN, # 8.5 Unknown, Refills 1, Tot. Refills 1, Maintenance, 01/11/20 11:44:00 EDT, Route to Pharmacy Electronically, [id number], [facility]/pharmacy #[id number], 194.2, cm, 08/16/19 8:47:00 EST, [...] 1 Refills, Soft Stop, 01/31/20 16:18:00 EDT, [facility]/pharmacy #1095, 194.2, cm, 08/16/19 8:47:00 EST, [...] 0 Refills, Soft Stop, 01/09/20 15:17:00 EDT, [facility]/pharmacy #1095, 194.2, cm, 08/16/19 8:47:00 EST, [...] 1 Refills, Maintenance, 10/27/19 7:12:00 EST, Tablet, [facility]/pharmacy #1095, 194.2, cm, 08/16/19 8:47:00 EST, Height, 113.1, kg, 08/09/19 10:20:00 EST, D... Start Date: 10/27/19 Stop Date: 04/24/20 Status: Ordered levothyroxine 175 mcg (0.175 mg) oral tablet 1 tablet = 175 mcg, By Mouth, Daily, # 90 tablet, 0 Refills, Maintenance, 02/29/20 9:22:00 EDT, Tablet, [facility]/pharmacy #1095, 194.2, cm, 08/16/19 8:47:00 EST, Height, 113.1, kg, 08/09/19 10:20:00 EST, Dry Weight Start Date: 02/29/20 Stop Date: 05/29/20 Status: Ordered metFORMIN 500 mg oral tablet, extended release 2 tablet = 1,000 mg, By Mouth, Daily, # 180 tablet, 0 Refills, Soft Stop, 02/29/20 9:22:00 EDT, [facility]/pharmacy #1095, 194.2, cm, 08/16/19 8:47:00 EST, Height, 113.1, kg, 08/09/19 10:20:00 EST, Dry Weight Start Date: 02/29/20 Stop Date: 05/29/20 Status: Ordered NovoLOG 100 units/mL subcutaneous solution See Instructions, 1-5 units sliding scale 15 min prior to meals Subcutaneous Infusion 3 times a day., # 30 mL, 0 Refills, Maintenance, 11/05/19 7:33:00 EST, [facility]/pharmacy #[id number], 194.2, cm, 08/16/19 8:47:00 EST, Height, 113.1, kg, 08/09/19 10:20:00 EST,... Start Date: 11/05/19 Status: Ordered Pen [place], 30 G x 8 mm BD Ultra Fine II See Instructions, # 100 each, Refills 3, Tot. Refills 3, Maintenance, use as directed for Type 2 Diabetes Mellitus - once a day, 10/09/15 14:01:07, Compound Start Date: 10/09/15 Stop Date: 02/06/16 Status: Ordered Pen [place], 31 G x 5 mm BD Ultra Fine III See Instructions, # 100 each, Refills 2, Tot. Refills 2, Maintenance, use to inject Basaglar 1x daily, E11.9, 90-day, 02/01/20 10:42:00 EDT, Supply, 194.2, cm, 08/16/19 8:47:00 EST, Height, 113.1, kg, 08/09/19 10:20:00 EST, Dry Weight Start Date: 02/01/20 Status: Ordered Pen [place], 31 G x 8 mm BD Ultra [...] 01/11/20 11:42:00 EDT, Route to Pharmacy Electronically, [facility]/pharmacy #[id number], 194.2, cm, 08/16/19 8:47:00 EST, [...]
--- OUTSIDE RECORDS SUMMARY | 2024-05-09 07:57 | XMS_ITS | Continuity of Care Document ---
Author Organization [facility] Address [address] [place] [address]- Care Team Providers Care Thread Winder Automatic Name Role Phone Jerry CHANG, Latesha Rocha Primary Care Physic augustina [place] [facility] [place] 10/12/23 - 10/19/23 [facility] [address] [place] [address]- [place] Encounter Diagnosis Dyspnea on exertion(Discharge Diagnosis) - 10/12/23 History of COVID-19(Discharge Diagnosis) - 10/12/23 Attending Physician: Jerry CHANG, Latesha Rocha Allergies, Adverse Reactions, Alerts No Known Medication Allergies Substance Reaction Severity Status Other Environmental Allergy 1 Active 1pets Immunizations Given and Recorded Vaccine Date Status Refusal Reason Influenza Virus Vaccine (oldterm) 1 07/10/23 Recor ded SARS-CoV-2 mRNA (qsjimqv-ciee-wmcit) vax 2 07/10/23 Recorded influenza virus vaccine, [...] Recorded 1Result Comment: pt recevied vaccine from [facility] pharmacy 2Result Comment: pt received vaccine from [facility] pharmacy 3Result Comment: [facility]: [id number] 4Result Comment: [09/07/2018] [facility] # [id number] 5Result Comment: [07/05/2017] [facility] [id number] 6Result Comment: [facility] Beverley [place] 7Result Comment[facility] [place] 8Result Comment: [11/07/2014] Dr. Knox; consent signed. Medications Advair Diskus 250 mcg-50 mcg inhalation powder 1, puffs, Inhalation, 2 times a day, # 3 each, Refills 1, Tot. Refills 1, Maintenance, 09/01/23 18:48:00 EST, Powder, Route to Pharmacy Electronically, [id number], [id number].3, cm, 09/01/23 11:35:00 EST, Height,... Start Date: 09/01/23 Stop Date: 02/28/24 Status: Ordered albuterol CFC free 90 mcg/inh inhalation aerosol 2, puffs, Inhalation, Every 4 hours, PRN, # 3 each, Refills 3, Tot. Refills 3, Maintenance, 05/07/23 10:14:00 EDT, Route to Pharmacy Electronically, [id number], [id number], cm, 05/07/23 9:23:00 EDT, Height, [...] 3 Refills, Soft Stop, 07/27/22 12:32:00 EDT, [facility]/pharmacy #[id number], 193.2, cm, 07/27/22 10:43:00 EDT, [...] Refills, Maintenance, 05/07/23 9:46:00 EDT, ER Tablet, [facility]/pharmacy #[id number], Partial fill upon patient request if the prescription is for a schedule II opioid drug., 195, cm, 05/07/23 9:23:00 EDT, Heigh... Start Date: 05/07/23 Status: Ordered CeleBREX 100 mg oral capsule 1 capsule = 100 mg, By Mouth, 2 times a day, # 60 capsule, 0 Refills, Maintenance, 02/19/23 13:03:00 EDT, Capsule, [facility]/pharmacy #[id number], Partial fill upon patient request [...] 09/06/23 17:50:00 EST, Route to Pharmacy Electronically, [facility]/pharmacy #[id number], Partial fill upon patient request if the prescription is for a schedule... Start Date: 09/06/23 Status: Ordered Jardiance 10 mg oral tablet 1 tablet, By Mouth, Daily in AM, # 90 tablet, 3 Refills, Maintenance, 09/02/23 15:43:00 EST, [id number], 192.3, cm, 09/02/23 15:03:00 EST, Height, 108, kg, 08/04/23 9:53:00 EDT, Dry Weight Start Date: 09/02/23 Status: Ordered levothyroxine 0.025 mg oral tablet 1 tablet = 25 mcg, By Mouth, Daily, Take with 200mcg tab for total of 225mcg., # 90 tablet, 1 Refills, Maintenance, 09/03/23 16:52:00 EST, Tablet, [id number], 192.3, cm, 09/02/23 15:03:00 EST, [...] 9 mL, 3 Refills, Maintenance,09/02/23 15:44:00 EST, [facility]/pharmacy #[id number], Partial fill upon patient request if the prescription isfor a schedule II opioid drug., 192.3, cm, 2... Start Date: 09/02/23 Status: Ordered Pen [place], 31 G x 5 mm BD Ultra [...] Diagnosis Diagnosis Type Effective Dates Health Status inical Service Informant Dyspnea on exertion Discharge Diagnosis 10/12/23 History of COVID-19 Discharge Diagnosis 10/12/23 Vital Signs Most recent to oldest [Reference Range]: 1 2 Height 192.3 cm (10/13/23 12:06 PM) 192.3 cm (10/12/23 1:25 PM) Weight 110 kg (10/13/23 12:06 PM) 110 kg (10/12/23 1:25 PM) Oxygen Saturation [94-100 %] 96 % (10/12/23 1:25 PM) Pulse Rate [55-90 bpm] 82 bpm (10/12/23 1:25 PM) Body Mass Index [18.5-24.99 kg/m2] 29.75 kg/m2 *H* (10/12/23 1:25 PM) Blood Pressure [90-138/55-84 mm Hg] 110/ 80mm Hg (10/12/23 1:25 PM) Mode of Delivery (Oxygen) Room air (10/12/23 1:25 PM) Blood pressure sites Arm, left (10/12/23 1:25 PM) Weight Obtained Via Standing scale (10/12/23 1:25 PM) Social History Social History Type Response Smoking Status Current every day sm oker; Tobacco user in household: No; Type: Cigarettes; Tobacco use times per day: Down to 1/2 pack a day from 1 pack a day. Has been smoking for 35 years.; entered on: 08/19/17 Sex EKG study * Event Display: ECG 12-Lead Authored Date: Please click on pdf link to open report * Event Display: ECG 12-Lead Authored Date: Ventricular Rate: 72 BPM Atrial Rate: 72 BPM P-R Interval: 156 ms QRS Duration: 84 ms Q-T Interval: 376 ms QTC Calculation(Bazett): 411 ms P [place]: 59 degrees R [place]: 52 degrees T [place]: 53 degrees Normal sinus rhythm Normal ECG When compared with ECG of 04-NOV-2021 14:42, No significant change was found Confirmed by MCKENNA RUTLEDGE MD ([id number]) on 10/13/2023 9:50:40 AM Nu Mine: MCKENNA RUTLEDGE MD Patient Care team information Care Team Personnel Name: Jerry CHANG, Latesha Rocha Position: [facility] Physician - Primary Care Member Role: PCP Address: Address: [address] [place] [id number]- Care Team Related Persons Name: ROSALIA MAYES Address: [address] [place] [address]
--- OUTSIDE RECORDS SUMMARY | 2024-05-09 07:57 | XMS_ITS | Continuity of Care Document ---
Author Organization [facility] Address [address] [place] [address]- Care Team Providers Care Insurance Marketing Specialist Name Role Phone Jerry CHANG, Latesha Rocha Primary Care Physic augustina [place] [facility] [place]): 02/11/24 - 03/12/24 [facility] [address] [place] [address]- Attending Physician: Nagi Francois Admitting Physician: AdmtrNagi Referring Physician: Admtr, Ar8 Allergies, Adverse Reactions, Alerts No Known Medication Allergies Substance Reaction Severity Status Other Environmental Allergy 1 Active 1pets Immunizations Given and Recorded Vaccine Date Status Refusal Reason SARS-CoV-2(COVID-19)mRNA-LNP vac(the755) 12/21/23 Recorded Influenza Virus Vaccine (oldterm) 1 07/10/23 Recor ded SARS-CoV-2 mRNA (lybkxvc-tcsc-swayx) vax 2 07/10/23 Recorded influenza virus vaccine, [...] Recorded 1Result Comment: pt recevied vaccine from [facility] pharmacy 2Result Comment: pt received vaccine from [facility] pharmacy 3Result Comment: [facility]: [id number] 4Result Comment: [09/07/2018] [facility] # [id number] 5Result Comment: [07/05/2017] [facility] [id number] 6Result Comment: [facility] Beverley [place] 7Result Comment[facility] [place] 8Result Comment: [11/07/2014] Dr. Knox; consent signed. Medications Advair Diskus 250 mcg-50 mcg inhalation powder 1, puffs, Inhalation, 2 times a day, # 3 each, Refills 1, Tot. Refills 1, Maintenance, 09/01/23 18:48:00 EST, Powder, Route to Pharmacy Electronically, [id number], [id number], 192.3, cm, 09/01/23 11:35:00 EST, Height,... [...] 3 Refills, Soft Stop, 10/22/23 15:01:00 EST, [id number], 192.3, cm, 10/13/23 12:06:00 EST, Height, [...] Refills, Maintenance, 01/24/24 11:08:00 EDT, ER Tablet, [facility]/pharmacy #1095, Partial fill upon patient request if the prescription is for a schedule II opioid drug., 192.3, cm, 01/24/24 10:24:00 EDT, H... Start Date: 01/24/24 Status: Ordered CeleBREX 100 mg oral capsule 1 capsule = 100 mg, By Mouth, 2 times a day, # 60 capsule, 0 Refills, Maintenance, 01/24/24 10:57:00 EDT, Capsule, [facility]/pharmacy #[id number], Partial fill upon patient request if the prescription is for a schedule II opioid drug., 192.3, cm, 01/24/24 10:24:0... Start Date: 01/24/24 Status: Ordered clonazePAM 0.5 mg oral tablet 1 tablet = 0.5 mg, By Mouth, Daily, # 28 tablet, 0 Refills, Maintenance, 09/02/22 17:46:00 EST, Tablet, [facility]/pharmacy #[id number], Partial fill upon patient request if [...] Maintenance,02/11/24 9:05:00 EDT, Route to Pharmacy Electronically, [facility]/pharmacy #[id number], Partial fill upon patient request if the prescription is for a schedule II... Start Date: 02/11/24 Stop Date: 04/07/24 Status: Ordered Jardiance 10 mg oral tablet 1 tablet, By Mouth, Daily in AM, # 90 tablet, 3 Refills, Maintenance, 09/02/23 15:43:00 EST, [facility]/pharmacy #[id number], 192.3, cm, 09/02/23 15:03:00 EST, Height, 108, kg, 08/04/23 9:53:00 EDT, Dry Weight Start Date: 09/02/23 Status: Ordered Lantus Solostar Pen 100 units/mL subcutaneous solution = 80 units, Subcutaneous Infusion, Daily, 6 months supplies, # 144 mL, 3 Refills, Maintenance, 11/24/23 11:09:00 EST, [facility]/pharmacy #[id number], Partial fill upon patient request if the prescription is for a schedule II opioid drug., 192.3, cm, 11/24/23 8:32... Start Date: 11/24/23 Stop Date: 11/13/25 Status: Ordered levalbuterol 45 mcg/inh inhalation aerosol 2 puffs, Inhalation, Every 4 hours, PRN for wheezing, # 15 Gm, 3 Refills, Maintenance, 01/24/24 11:27:00 EDT, Aerosol, [facility]/pharmacy #1095, Partial fill upon patient request if [...] 1 Refills, Maintenance, 01/24/24 11:08:00 EDT, Tablet, [facility], Partial fill upon patient request if the prescription is for a schedule II opioid drug., 192.3, cm, 0... Start Date: 01/24/24 Status: Ordered levothyroxine 175 mcg (0.175 mg) oral tablet 1 tablet = 175 mcg, By Mouth, Daily, # 90 tablet, 3 Refills, Maintenance, 12/12/22 12:34:00 EST, Tablet, [facility]/pharmacy #1095, 193.2, cm, 07/27/22 10:43:00 EDT, Height [...] Refills, Maintenance, 10/12/22 17:00:00 EST, REC Powder, [facility]/pharmacy #[id number], test date 10/13/22, 240 mL By [...] Refills, Maintenance, 12/21/23 8:40:00 EDT, [id number], 192.3, cm, 11/24/23 8:32:00 EST, Height, 108, kg, 08/04/23 9:53:00 EDT, Dry Weight Start Date: 12/21/23 Status: Ordered Pen [place], 31 G x 5 mm BD Ultra [...] 11/15/23 15:36:00 EST, Route to Pharmacy Electronically, [facility]/pharmacy #[id number], 192.3, cm, 10/13/23 12:06:00EST, Height, 108, [...] study * Event Display: EKG Authored Date: * Event Display: EKG Authored Date: Laboratory * Event Display: Non BH Lab Results Authored Date: * Event Display: Laboratory Result Scanned Authored Date: * Event Display: Laboratory Result Scanned Authored Date: XR Chest Views * Event Display: X-Ray Chest Authored Date: Radiology * Event Display: IR Special Procedures Authored Date: Patient Care team information Care Team Personnel Name: Jerry CHANG, Latesha Rocha Position: S Physician - Primary Care Member Role: PCP Address: Address: [address] [place] [id number] Care Team Related Persons Name: ROSALIA MAYES Address: home [address] [place] [address]
--- OUTSIDE RECORDS SUMMARY | 2024-05-09 07:57 | XMS_ITS | Continuity of Care Document ---
Author Organization [facility] Address [address] [place] [address]- Care Team Providers Care Survey Compiler Name Role Phone Jerry CHANG, Latesha Rocha Primary Care Physic augustina Encounter [facility] Date(s): 03/28/22 - 04/27/22 [facility] [address] [place] [address]- [place] Allergies, Adverse Reactions, Alerts No Known [...] Comment: Beverley [place] 3Result Comment: [facility]: [id number] 4Result Comment: [09/07/2018] [facility] # [id number] 5Result Comment: [07/05/2017] [facility] [id number] 6Result Comment: [11/07/2014] Dr. Knox; consent signed. [...] 15:07:00 EDT, Powder, Route to Pharmacy Electronically, [id number], [facility]/pharmacy #[id number], 193.2, cm, 11/04/20 13:14:00 EST, Height,... Start Date: 02/04/21 Stop Date: 08/03/21 Status: Ordered albuterol CFC free 90 mcg/inh inhalation aerosol 2, puffs, Inhalation, Every 4 hours, PRN, # 3 each, Refills 1, Tot. Refills 1, Maintenance, 03/26/22 17:52:00 EDT, Route to Pharmacy Electronically, [id number], [facility]/pharmacy#1095, 193.2, cm, 03/16/22 9:24:00 EDT, Height Start Date: 03/26/22 Status: Ordered aspirin 81 mg oral tablet 1 tablet = 81 mg, By Mouth, Daily, # 90 tablet, 0 Refills, Maintenance, 05/20/17 11:35:13, Tablet Start Date: 05/20/17 Status: Ordered atorvastatin 20 mg oral tablet See Instructions, TAKE 1 TABLET BY MOUTH EVERY DAY, # 90 tablet, 1 Refills, Soft Stop, 02/18/22 9:16:00 EDT, [facility]/pharmacy #1095, 193.2, cm, 11/05/21 10:33:00 EST, Height Start Date: 02/18/22 Status: Ordered Basaglar KwikPen 100 units/mL subcutaneous solution = 80 units, Subcutaneous Injection, Daily at bedtime, # 15 mL, 6 Refills, Maintenance, 03/27/22 17:53:00 EDT, [facility], 193.2, cm, 03/16/22 9:24:00 [...] 1 Refills, Soft Stop, 01/30/22 15:09:00 EDT, [facility]/pharmacy #1095, 193.2, cm, 11/05/21 10:33:00 EST, Height Start Date: 01/30/22 Stop Date: 07/29/22 Status: Ordered clonazePAM 0.5 mg oral tablet 1 tablet = 0.5 mg, By Mouth, Daily, # 28 tablet, 0 Refills, Maintenance, 04/24/22 15:44:00 EDT, Tablet, [facility]/pharmacy #1095, Partial [...] tablet, 1 Refills, Maintenance, 03/31/22 13:35:00 EDT, [facility]/pharmacy #1095, Partial fill [...] mL, 0 Refills, Maintenance, 12/15/21 14:12:00 EDT, [facility]/pharmacy #1095, 193.2, cm, 11/05/21 10:33:00 EST, Height Start Date: 12/15/21 Status: Ordered Pen [place], 30 G x 8 mm BD Ultra Fine II See Instructions, # 100 each, Refills 3, Tot. Refills 3, Maintenance, use as directed for Type 2 Diabetes Mellitus - once a day, 10/09/15 14:01:07, Compound Start Date: 10/09/15 Stop Date: 02/06/16 Status: Ordered Pen [place], 31 G x 5 mm BD Ultra Fine III See Instructions, # 100 each, Refills 2, Tot. Refills 2, Maintenance, use to inject Basaglar 1x daily, E11.9, 90-day, 12/02/21 15:33:00 EST, Supply, 193.2, cm, 11/05/21 10:33:00 EST, Height Start Date: 12/02/21 Status: Ordered Pen [place], 31 G x 8 mm BD Ultra [...] 3 Refills, Maintenance, 03/16/22 9:55:00 EDT, Tablet, [facility]/pharmacy #1095, Partial fill upon patient request if the prescription is for a schedule II opioid drug., 193.2, cm,... Start Date: 03/16/22 Status: Ordered Singulair 10 mg oral tablet 10 mg, 1, tablet, By Mouth, Daily in PM, # 90 tablet, Refills 3, Tot. Refills 3, Maintenance, 01/15/22 12:15:00 EDT, Route to Pharmacy Electronically, [facility]/pharmacy #[id number], 193.2, cm, 11/05/21 10:33:00EST, Height [...]
--- OUTSIDE RECORDS SUMMARY | 2024-05-09 07:57 | XMS_ITS | Continuity of Care Document ---
Author Organization [facility] Address [address] [facility] [place] [address]- Care Team Providers Care Director Of Community Life Name Role Phone Jerry CHANG, Latesha Rocha Primary Care Physic augustina Encounter [facility] Date(s): 11/24/23 - 12/01/23 [facility] [address] [place] [address]- Attending Physician: Ernesto Cornell MD Admitting Physician: Ernesto Cornell MD Referring Physician: Latesha Edwards MD Allergies, Adverse Reactions, Alerts No Known Medication Allergies Substance Reaction Severity Status Other Environmental Allergy 1 Active 1pets Immunizations Given and Recorded Vaccine Date Status Refusal Reason Influenza Virus Vaccine (oldterm) 1 07/10/23 Recor ded SARS-CoV-2 mRNA (zpfvdyf-uzlu-txkjv) vax 2 07/10/23 Recorded influenza virus vaccine, [...] 1Result Comment: pt recevied vaccine from [facility] pharmacy 2Result Comment: pt received vaccine from [facility] pharmacy 3Result Comment: [facility]: [phone] 4Result Comment: [09/07/2018] [facility] # [phone] 5Result Comment: [07/05/2017] [facility] [phone] 6Result Comment: [facility] Beverley [place] 7[facility] [place] 8Result Comment: [11/07/2014] Dr. Knox; consent signed. Medications Advair Diskus 250 mcg-50 mcg inhalation powder 1, puffs, Inhalation, 2 times a day, # 3 each, Refills 1, Tot. Refills 1, Maintenance, 09/01/23 18:48:00 EST, Powder, Route to Pharmacy Electronically, [id number], [id number], 192.3, cm, 09/01/23 11:35:00 EST, Height,... Start Date: 09/01/23 Stop Date: 02/28/24 Status: Ordered albuterol CFC free 90 mcg/inh inhalation aerosol 2, puffs, Inhalation, Every 4 hours, PRN, # 3 each, Refills 3, Tot. Refills 3, Maintenance, 05/07/23 10:14:00 EDT, Route to Pharmacy Electronically, [id number], [id number], 195, cm, 05/07/23 9:23:00 EDT, Height, 112.6... Start Date: 05/07/23 Status: Ordered aspirin 81 mg oral tablet 1 tablet = 81 mg, By Mouth, Daily, # 90 tablet, 0 Refills, Maintenance, 05/20/17 11:35:13, Tablet Start Date: 05/20/17 Status: Ordered atorvastatin 20 mg oral tablet See Instructions, TAKE 1 TABLET BY MOUTH EVERY DAY, # 90 tablet, 3 Refills, Soft Stop, 10/22/23 15:01:00 EST, [facility]/pharmacy #[id number], 192.3, cm, 10/13/23 12:06:00 EST, Height, [...] Refills, Maintenance, 11/15/23 15:34:00 EST, ER Tablet, [facility]/pharmacy #[id number], Partial fill upon patient request if the prescription is for a schedule II opioid drug., 192.3, cm, 10/13/23 12:06:00 EST, H... Start Date: 11/15/23 Status: Ordered CeleBREX 100 mg oral capsule 1 capsule = 100 mg, By Mouth, 2 times a day, # 60 capsule, 0 Refills, Maintenance, 02/19/23 13:03:00 EDT, Capsule, [facility]/pharmacy #[id number], Partial fill upon patient request if [...] 17:50:00 EST, Route to Pharmacy Electronically, [facility]/pharmacy #[id number], Partial fill upon patient request if the prescription is for a schedule... Start Date: 09/06/23 Status: Ordered Jardiance 10 mg oral tablet 1 tablet, By Mouth, Daily in AM, # 90 tablet, 3 Refills, Maintenance, 09/02/23 15:43:00 EST, [facility]/pharmacy #[id number], 192.3, cm, 09/02/23 15:03:00 EST, Height, 108, kg, 08/04/23 9:53:00 EDT, Dry Weight Start Date: 09/02/23 Status: Ordered Lantus Solostar Pen 100 units/mL subcutaneous solution = 80 units, Subcutaneous Infusion, Daily, 6 months supplies, # 144 mL, 3 Refills, Maintenance, 11/24/23 11:09:00 EST, [facility]/pharmacy #[id number], Partial fill upon patient request if [...] Refills, Maintenance, 10/12/22 17:00:00 EST, REC Powder, [facility]/pharmacy #[id number], test date 10/13/22, 240 mL By [...] mL, 3 Refills, Maintenance,09/02/23 15:44:00 EST, [facility]/pharmacy #[id number], Partial fill upon patient request if the prescription isfor a schedule II opioid drug., 192.3, cm, 2... Start Date: 09/02/23 Status: Ordered Pen [place], 31 G x 5 mm BD Ultra [...] 11/15/23 15:36:00 EST, Route to Pharmacy Electronically, [facility]/pharmacy #[id number], 192.3, cm, 10/13/23 12:06:00EST, Height, 108, [...] Venous insufficiency of lower extremity Confirmed Active Vital Signs Most recent to oldest [Reference Range]: 1 Height 192.3 cm (11/24/23 8:32 AM) Pulse Rate [55-90 bpm] 83 bpm (11/24/23 8:32 AM) Blood Pressure [90-138/55-84 mm Hg] 122/ 80mm Hg (11/24/23 8:32 AM) Blood pressure sites Arm, left (11/24/23 8:32 AM) Social History Social History Type Response Smoking Status Current every day sm oker; Tobacco user in household: No; Type: Cigarettes; Tobacco use times per day: Down to 1/2 pack a day from 1 pack a day. Has been smoking for 35 years.; entered on: 08/19/17 Sex Note * Yusra Davenport: PERFORM, SIGN, VERIFY Event Display: Patient Education/Instruction Authored Date: [id number] [facility] *[facility] Clinical Summary Name ROLA MAYES Age 58 Years 1965 PCP Jerry CHANG, Latesha Rocha PCP Visit Date 11/24/2023 08:28:00 Additional Instructions: Scheduled Appointments?? Future Appointments ?No Future Appointments Scheduled Follow-Up Instructions ?? With: Address: When: Nisha Horowitz [address] [place] [address] 11/22/2024 8:30 AM Diagnosis Medications: Please continue your medications until treatment is completed or stopped by your provider. Discuss any questions related to medications with your provider. Medications to Continue Taking That Have Changed These medications were not printed or sent to your pharmacy - Insulin Glargine (Lantus Solostar Pen 100 units/mL subcutaneous solution) 80 unit(s) SubcutaneousInfusion Daily for 180 Days. 6 months supplies. Refills: 3. Next Dose: Medications to Continue [...] Refills: 0. Next Dose: Durable Medical Equipment (BP monitor) Dx: HTN. Refills: 0. Next Dose: Durable Medical Equipment (Dexcom G7 Sensors) for continuous glucose monitoring, change every 10 days. E11.9. Refills: 11. Next Dose: Durable Medical Equipment (Dexcom G7 Transmitter) for continuous glucose monitoring. E11.9. Refills: 3. Next Dose: Durable Medical Equipment (One Touch Fine Point Lancets) use at least 4 times per day for diabetes glucose monitor. Pharmamcy can replace by other brand based on insurance coverage. Refills: 11. Next Dose: Durable Medical Equipment (One touch Verio Glucometer) use for diabetes control. Pharmamcy can replace by other brand based on insurance coverage. Refills: 0. Next Dose: Durable Medical Equipment (OneTouch Verio Test Strips) use at least 4 times per day for diabetes glucose monitor. Pharmamcy can replace by other brand based on insurance coverage. Refills: 11. Next Dose: Durable Medical Equipment (Pen [place], 31 G x 5 mm BD Ultra Fine III) use to inject Basaglar 1x daily, E11.9, 90-day. Refills: 3. Next Dose: empagliflozin (Jardiance 10 mg oral tablet) 1 tab(s) Oral Daily in the morning. Refills: 3. Next Dose: Fluticasone-Salmeterol (Advair Diskus 250 mcg-50 mcg inhalation powder) 1 puff(s) Inhalation twice a day for 90 Days. Refills: 1. Next Dose: Gabapentin (gabapentin 300 mg oral capsule) 1 capsule Oral Daily at Bedtime. Refills: 3. Next Dose: Insulin Aspart (NovoLOG 100 units/mL subcutaneous solution) 1-5 units sliding scale 15 min prior tomeals Subcutaneous Infusion 3 times a day.. Refills: 2. Next Dose: Levothyroxine (levothyroxine 0.025 mg oral tablet) 1 tab(s) Oral Daily for 90 Days. Take with 200mcg tab for total of 225mcg.. Refills: 1. Next Dose: Levothyroxine (levothyroxine 0.2 mg oral tablet) 1 tab(s) Oral Daily. take along with 225 mcg. Refills: 1. Next Dose: Levothyroxine (levothyroxine 175 mcg (0.175 mg) oral tablet) 1 tab(s) Oral Daily for 90 Days. Refills: 3. Next Dose: Metformin (MetFORMIN (Eqv-Glucophage XR) 500 mg oral tablet, extended release) 2 tab(s) Oral Daily for 90 Days. Refills: 3. Next Dose: Montelukast (Singulair 10 mg oral tablet) 1 tab(s) Oral Daily in PM. Refills: 3. Next Dose: nirmatrelvir-ritonavir (Paxlovid 150 mg-100 mg (150 mg-100 mg Dose) oral tablet) Take 3 tablets twice a day by mouth for 5 days. GFR above 60. Refills: 0. Next Dose: PEG Electrolyte Solution (NuLYTELY with Flavor Packs oral powder for reconstitution) 240 MilliliterOral every 10 minutes. May substitute any PEG 3350 solution available SPLIT PREP METHOD. Refills: 0. Next Dose: semaglutide (Ozempic (1 mg dose) 4 mg/3 mL subcutaneous solution) 1 Milligram Subcutaneous Infusionevery week. use once per week e11.9. Refills: 3. Next Dose: Sildenafil (sildenafil 20 mg oral tablet) 1 tablet By Mouth as needed 1 hour prior to sexual intercourse. may take every 24 hours as needed. take tablet on empty stomach. can take 2 tablets by mouth if 1 tablet is ineffective.. Refills: 2. Next Dose: Allergy Info:?? No Known Medication Allergies; Other Environmental Allergy Medications Given This Visit Future Orders ?No future orders Vital Signs Height 192.3 cm Weight BMI Blood Pressure 122 mm Hg/80 mm Hg Temperature Pulse Rate 83 bpm Respiratory Rate 02 Sat Mode of Delivery / You can now view a summary of your hospital visit from the comfort of your home through a free online portal called [employer]. [employer] is a website that allows you to securely view your medical information including discharge summary, medications and follow-up visits. ??You can alsosend a secure electronic message to your doctor???s office to request appointments, renew medications or just ask a question. You can enroll at [email or web address] or register during your next office visit. [...] primary care provider, you may find a [facility] provider by calling [facility] at [phone]. [facility], in keeping with [facility] guidance, no longer requires face masks for [...] Personnel Name: Jerry CHANG, Latesha Rocha Position: [facility] Physician - Primary Care Member Role: PCP Address: Address: [address] [place] [address]- Care Team Related Persons Name: ROSALIA MAYES Address: home [address] [place] [address]
--- OUTSIDE RECORDS SUMMARY | 2024-05-09 07:57 | XMS_ITS | Continuity of Care Document ---
Author Organization [facility] Address [address] [place] [address]- Care Team Providers Care Box Spring Frame Builder Name Role Phone Jerry CHANG, Latesha Rocha Primary Care Physic augustina [place] [facility] [place] Date(s): 09/01/23 - 10/01/23 [facility] [address] [place] [address]- Allergies, Adverse Reactions, Alerts No Known Medication Allergies Substance Reaction Severity Status Other Environmental Allergy 1 Active 1pets Immunizations Given and Recorded Vaccine Date Status Refusal Reason Influenza Virus Vaccine (oldterm) 1 07/10/23 Recor ded SARS-CoV-2 mRNA (ejzqzxc-hxag-jwbnd) vax 2 07/10/23 Recorded influenza virus vaccine, [...] Recorded 1Result Comment: pt recevied vaccine from [facility] 2Result Comment: pt received vaccine from [facility] 3Result Comment: [facility]: [id number] 4Result Comment: [09/07/2018] [facility] # [id number] 5Result Comment: [07/05/2017] [facility] [phone] 6Result Comment: [place] 7Result Comment: Beverley [place] 8Result Comment: [11/07/2014] Dr. Knox; consent signed. Medications Advair Diskus 250 mcg-50 mcg inhalation powder 1, puffs, Inhalation, 2 times a day, # 3 each, Refills 1, Tot. Refills 1, Maintenance, 09/01/23 18:48:00 EST, Powder, Route to Pharmacy Electronically, [id number], [facility]/pharmacy #[id number], 192.3, cm, 09/01/23 11:35:00 EST, Height,... Start Date: 09/01/23 Stop Date: 02/28/24 Status: Ordered albuterol CFC free 90 mcg/inh inhalation aerosol 2, puffs, Inhalation, Every 4 hours, PRN, # 3 each, Refills 3, Tot. Refills 3, Maintenance, 05/07/23 10:14:00 EDT, Route to Pharmacy Electronically, [id number], [facility]/pharmacy#[id number], 195, cm, 05/07/23 9:23:00 EDT, Height, [...] 3 Refills, Soft Stop, 07/27/22 12:32:00 EDT, [facility]/pharmacy #1095, 193.2, cm, 07/27/22 10:43:00 [...] Refills, Maintenance, 05/07/23 9:46:00 EDT, ER Tablet, [facility]/pharmacy #[id number], Partial fill upon patient [...] 09/06/23 17:50:00 EST, Route to Pharmacy Electronically, [facility]/pharmacy #[id number], Partial fill upon patient request if the prescription is for a schedule... Start Date: 09/06/23 Status: Ordered Jardiance 10 mg oral tablet 1 tablet, By Mouth, Daily in AM, # 90 tablet, 3 Refills, Maintenance, 09/02/23 15:43:00 EST, [facility]/pharmacy #[id number], 192.3, cm, 09/02/23 15:03:00 EST, Height, 108, kg, 08/04/23 9:53:00 EDT, Dry Weight Start Date: 09/02/23 Status: Ordered levothyroxine 0.025 mg oral tablet 1 tablet = 25 mcg, By Mouth, Daily, Take with 200mcg tab for total of 225mcg., # 90 tablet, 1 Refills, Maintenance, 09/03/23 16:52:00 EST, Tablet, [facility]/pharmacy #[id number], 192.3, cm, 09/02/23 15:03:00 EST, [...] 9 mL, 3 Refills, Maintenance,09/02/23 15:44:00 EST, [facility]/pharmacy #[id number], Partial fill upon patient request if the prescription isfor a schedule II opioid drug., 192.3, cm, ... Start Date: 09/02/23 Status: Ordered Pen [place], 31 G x 5 mm BD Ultra [...] Personnel Name: Jerry CHANG, Latesha Rocha Position: [facility] Physician - Primary Care Member Role: PCP Address: [facility] [place] [address]- Care Team Related Persons Name: ROSALIA MAYES Address: home [address] [place] [address]
--- OUTSIDE RECORDS SUMMARY | 2024-05-09 07:57 | XMS_ITS | Continuity of Care Document ---
Author Organization [facility] Address [address] [place] [address]- Care Team Providers Care Circulation Supervisor Name Role Phone Jerry CHANG, Latesha Rocha Primary Care Physic augustina Encounter [facility] Date(s): 08/20/23 - 09/19/23 [place] [id number] [address]- Attending Physician: Nagi Francois Admitting Physician: Nagi Francois Referring Physician: AdmtrNagi Allergies, Adverse Reactions, Alerts No Known Medication Allergies Substance Reaction Severity Status Other Environmental Allergy 1 Active 1pets Immunizations Given and Recorded Vaccine Date Status Refusal Reason Influenza Virus Vaccine (oldterm) 1 07/10/23 Recor ded SARS-CoV-2 mRNA ([id number]-rcdl-bzupa) vax 2 07/10/23 Recorded influenza virus vaccine, [...] 1Result Comment: pt recevied vaccine from [facility] pharmacy 2Result Comment: pt received vaccine from [facility] pharmacy 3Result Comment: [facility]: [id number] 4Result Comment: [09/07/2018] [facility] # [id number] 5Result Comment: [07/05/2017] [facility] [id number] 6Result Comment: [place] 7Result Comment: [facility] [place] 8Result Comment: [11/07/2014] Dr. Knox; consent signed. Medications Advair Diskus 250 mcg-50 mcg inhalation powder 1, puffs, Inhalation, 2 times a day, # 3 each, Refills 1, Tot. Refills 1, Maintenance, 09/01/23 18:48:00 EST, Powder, Route to Pharmacy Electronically, [id number], [id number], 192.3, cm, 09/01/23 11:35:00 EST, Height,... Start Date: 09/01/23 Stop Date: 02/28/24 Status: Ordered albuterol CFC free 90 mcg/inh inhalation aerosol 2, puffs, Inhalation, Every 4 hours, PRN, # 3 each, Refills 3, Tot. Refills 3, Maintenance, 05/07/23 10:14:00 EDT, Route to Pharmacy Electronically, [id number], [facility]/pharmacy#1095, 195, cm, 05/07/23 [...] Refills, Soft Stop, 07/27/22 12:32:00 EDT, [facility]/pharmacy #1095, 193.2, cm, 07/27/22 10:43:00 EDT, Height Start Date: 07/27/22 Status: Ordered Basaglar KwikPen 100 units/mL subcutaneous solution = 80 units, Subcutaneous Injection, Daily at bedtime, # 9 each, 2 Refills, Maintenance, 09/03/23 16:54:00 EST, [facility]/pharmacy #[id number], 192.3, cm, 09/02/23 15:03:00 EST, [...] Maintenance, 05/07/23 9:46:00 EDT, ER Tablet, [facility]/pharmacy #[id number], Partial fill upon patient request if the prescription is for a schedule II opioid drug., 195, cm, 05/07/23 9:23:00 EDT, Heigh... Start Date: 05/07/23 Status: Ordered CeleBREX 100 mg oral capsule 1 capsule = 100 mg, By Mouth, 2 times a day, # 60 capsule, 0 Refills, Maintenance, 02/19/23 13:03:00 EDT, Capsule, [facility]/pharmacy #[id number], Partial fill upon patient request if the prescription is for a schedule II opioid drug., 195, cm, 02/10/23 13:17:00... Start Date: 02/19/23 Status: Ordered clonazePAM 0.5 mg oral tablet 1 tablet = 0.5 mg, By Mouth, Daily, # 28 tablet, 0 Refills, Maintenance, 09/02/22 17:46:00 EST, Tablet, [facility]/pharmacy [...] 17:50:00 EST, Route to Pharmacy Electronically, [facility]/pharmacy #[id number], Partial fill upon patient request if the prescription is for a schedule... Start Date: 09/06/23 Status: Ordered Jardiance 10 mg oral tablet 1 tablet, By Mouth, Daily in AM, # 90 tablet, 3 Refills, Maintenance, 09/02/23 15:43:00 EST, [facility]/pharmacy #1095, 192.3, cm, 09/02/23 15:03:00 EST, Height, 108, kg, 08/04/23 9:53:00 EDT, Dry Weight Start Date: 09/02/23 Status: Ordered levothyroxine 0.025 mg oral tablet 1 tablet = 25 mcg, By Mouth, Daily, Take with 200mcg tab for total of 225mcg., # 90 tablet, 1 Refills, Maintenance, 09/03/23 16:52:00 EST, Tablet, [facility]/pharmacy #[id number], 192.3, cm, 09/02/23 15:03:00 EST, [...] mL, 3 Refills, Maintenance,09/02/23 15:44:00 EST, [facility]/pharmacy #[id number], Partial fill upon patient request if the prescription isfor a schedule II opioid drug., 192.3, cm, 2... Start Date: 09/02/23 Status: Ordered Pen [place], 31 G x 5 mm BD Ultra [...] Personnel Name: Jerry CHANG, Latesha Rocha Position: [facility] Physician - Primary Care Member Role: PCP Address: Address: [address] [place] [address]- Care Team Related Persons Name: ROSALIA MAYES Address: home [address] [place] [address]
--- OUTSIDE RECORDS SUMMARY | 2024-05-09 07:57 | XMS_ITS | Continuity of Care Document ---
Author Organization [facility] Address [address] [place] [address]- Care Team Providers Care Scow Captain Name Role Phone Jerry CHANG, Latesha Rocha Primary Care Physic augustina [place] [facility] [place]/12[place]23 - 11/11/23 [facility] [address] [place] [address]- Attending Physician: Nagi Francois Admitting Physician: Nagi Francois Referring Physician: AdmtrNagi Allergies, Adverse Reactions, Alerts No Known Medication Allergies Substance Reaction Severity Status Other Environmental Allergy 1 Active 1pets Immunizations Given and Recorded Vaccine Date Status Refusal Reason Influenza Virus Vaccine (oldterm) 1 07/10/23 Recor ded SARS-CoV-2 mRNA ([id number]-ewle-gsxsy) vax 2 07/10/23 Recorded influenza virus vaccine, [...] Recorded 1Result Comment: pt recevied vaccine from [facility] pharmacy 2Result Comment: pt received vaccine from [facility] pharmacy 3Result Comment: [facility]: [id number] 4Result Comment: [09/07/2018] [facility] # [phone] 5Result Comment: [07/05/2017] [facility] [phone] 6Result Comment: [facility] Beverley [place] 7Result Comment: [facility] [place] 8Result Comment: [11/07/2014] Dr. Knox; consent signed. Medications Advair Diskus 250 mcg-50 mcg inhalation powder 1, puffs, Inhalation, 2 times a day, # 3 each, Refills 1, Tot. Refills 1, Maintenance, 09/01/23 18:48:00 EST, Powder, Route to Pharmacy Electronically, [id number], [id number], 192.3, cm, 09/01/23 11:35:00 EST, Height,... Start Date: 09/01/23 Stop Date: 02/28/24 Status: Ordered albuterol CFC free 90 mcg/inh inhalation aerosol 2, puffs, Inhalation, Every 4 hours, PRN, # 3 each, Refills 3, Tot. Refills 3, Maintenance, 05/07/23 10:14:00 EDT, Route to Pharmacy Electronically, [id number], [facility], cm, 05/07/23 9:23:00 EDT, Height, [...] 3 Refills, Soft Stop, 10/22/23 15:01:00 EST, [facility]/pharmacy #1095, 192.3, cm, 10/13/23 12:06:00 EST, Height, 108, kg, 08/04/23 9:53:00 EDT, Dry Weight Start Date: 10/22/23 Status: Ordered Basaglar KwikPen 100 units/mL subcutaneous [...] Refills, Maintenance, 05/07/23 9:46:00 EDT, ER Tablet, [facility]/pharmacy #[id number], Partial fill upon patient [...] 09/06/23 17:50:00 EST, Route to Pharmacy Electronically, [facility]/pharmacy #[id number], Partial fill upon patient [...] 1 Refills, Maintenance, 09/03/23 16:52:00 EST, Tablet, [facility]/pharmacy #1095, 192.3, cm, 09/02/23 15:03:00 [...] Refills, Maintenance, 10/12/22 17:00:00 EST, REC Powder, [facility]/pharmacy #[id number], test date 10/13/22, 240 [...] 9 mL, 3 Refills, Maintenance,09/02/23 15:44:00 EST, [facility]/pharmacy #[id number], Partial fill upon patient request if the prescription isfor a schedule II opioid drug., 192.3, cm, 2... Start Date: 09/02/23 Status: Ordered Pen [place], 31 G x 5 mm BD Ultra [...] Primary Care Member Role: PCP Address: Address: [address] [place] [address] Care Team Related Persons Name: ROSALIA MAYES Address: home [address] [place] [address]
--- OUTSIDE RECORDS SUMMARY | 2024-05-09 07:57 | XMS_ITS | Continuity of Care Document ---
Author Organization [facility] Address [address] [place] [address]- Care Team Providers Care Operations Officer Trust Department Name Role Phone Jerry CHANG, Latesha Rocha Primary Care Physic augustina [facility]): 05/13/23 - 06/12/23 [facility] [address] [place] [id number] Allergies, Adverse Reactions, Alerts No Known Medication [...] tetanus-diphtheria toxoids (Td) 10/04/99 Recorded 1Result Comment: [facility]: [id number] 2Result Comment: [09/07/2018] [facility] # [id number] 3Result Comment: [07/05/2017] [facility] [id number] 4Result Comment: GUS Lowery [place] 5Result Comment: [...] 12:32:00 EDT, Powder, Route to Pharmacy Electronically, [id number], [facility]/pharmacy #[id number], 193.2, cm, 07/27/22 10:43:00 EDT, Height Start Date: 07/27/22 Stop Date: 07/22/23 Status: Ordered albuterol CFC free 90 mcg/inh inhalation aerosol 2, puffs, Inhalation, Every 4 hours, PRN, # 3 each, Refills 3, Tot. Refills 3, Maintenance, 05/07/23 10:14:00 EDT, Route to Pharmacy Electronically, [id number], [facility]/pharmacy#[id number], 195, cm, 05/07/23 9:23:00 EDT, Height, [...] 3 Refills, Soft Stop, 07/27/22 12:32:00 EDT, [facility]/pharmacy #[id number], 193.2, cm, 07/27/22 10:43:00 EDT, Height Start Date: 07/27/22 Status: Ordered Basaglar KwikPen 100 units/mL subcutaneous solution = 80 units, Subcutaneous Injection, Daily at bedtime, # 15 mL, 6 Refills, Maintenance, 07/27/22 11:43:00 EDT, [facility]/pharmacy #[id number], 193.2, cm, 07/27/22 10:43:00 EDT, [...] Refills, Maintenance, 05/07/23 9:46:00 EDT, ER Tablet, [facility]/pharmacy #[id number], Partial fill upon patient request if the prescription is for a schedule II opioid drug., 195, cm, 05/07/23 9:23:00 EDT, Heigh... Start Date: 05/07/23 Status: Ordered CeleBREX 100 mg oral capsule 1 capsule = 100 mg, By Mouth, 2 times a day, # 60 capsule, 0 Refills, Maintenance, 02/19/23 13:03:00 EDT, Capsule, [facility]/pharmacy #[id number], Partial fill upon patient request if the prescription is for a schedule II opioid drug., 195, cm, 02/10/23 13:17:00... Start Date: 02/19/23 Status: Ordered clonazePAM 0.5 mg oral tablet 1 tablet = 0.5 mg, By Mouth, Daily, # 28 tablet, 0 Refills, Maintenance, 09/02/22 17:46:00 EST, Tablet, [facility]/pharmacy #[id number], Partial fill upon patient request [...] EDT, Height Start Date: 07/27/22 Status: Ordered Jardiance 10 mg oral tablet 1 tablet = 10 mg, By Mouth, Daily in AM, Take once daily in the morning E11.9, # 30 tablet, 3 Refills, Maintenance, 02/23/23 11:16:00 EDT, Tablet, [facility]/pharmacy #[id number], Partial fill upon patient request [...] Date: 05/07/23 Stop Date: 11/03/23 Status: Ordered nicotine 21 mg/24 hr transdermal film, extended release 1 patch, Topically, Daily, for 6 week(s), # 42 patch, 0 Refills, Acute 06/24/23 11:36:00 EDT, 05/13/23 11:36:00 EDT, [facility]/pharmacy #[id number], Partial fill upon patient request if the prescription is for aschedule II opioid drug., 1 patch Topically Daily,x... Start Date: 05/13/23 Stop Date: 06/24/23 Status: Ordered NovoLOG 100 units/mL subcutaneous solution [...] Refills, Maintenance, 10/12/22 17:00:00 EST, REC Powder, [facility]/pharmacy #[id number], test date 10/13/22, 240 mL By Mouth Every 10 minutes,Instr:M... Start Date: 10/12/22 Status: Ordered Ozempic (1 mg dose) 4 mg/3 mL subcutaneous solution = 1 mg, Subcutaneous Infusion, Every week, use once per week e11.9, # 3 mL, 4 Refills, Maintenance,06/01/23 10:23:00 EDT, [facility]/pharmacy #[id number], Partial fill upon patient request if the prescription isfor a schedule II opioid drug., 195, cm, 05/13/23... Start Date: 06/01/23 Status: Ordered Pen [place], 31 G x 5 mm BD Ultra Fine III See Instructions, # 100 each, Refills 3, Tot. Refills 3, Maintenance, use to inject Basaglar 1x daily, E11.9, 90-day, 07/27/22 12:32:00 EDT, Supply, 193.2, cm, 07/27/22 10:43:00 EDT, Height Start Date: 07/27/22 Status: Ordered Problem [...] spondylosis Confirmed Active Hyperlipidemia, mixed Confirmed Active Medication management Confirmed Active Tobacco dependence Confirmed Active Uncontrolled [...] Personnel Name: Jerry CHANG, Latesha Rocha Position: [facility] Physician - Primary Care Member Role: PCP Address: Address: [address] [place] [address]- Care Team Related Persons Name: ROSALIA MAYES Address: home [address] [place] [address]
--- OUTSIDE RECORDS SUMMARY | 2024-05-09 07:57 | XMS_ITS | Continuity of Care Document ---
Author Organization [facility] Address [address] [place] [address]- Care Team Providers Care Genetic Counsellor Name Role Phone Jerry CHANG, Latesha Rocha Primary Care Physic augustina [facility]): 11/23/22 - 01/08/23 [facility] [address] [place] [address]- Attending Physician: Jerry CHANG, Latesha Rocha Allergies, [...] tetanus-diphtheria toxoids (Td) 10/04/99 Recorded 1Result Comment: [facility]: [id number] 2Result Comment: [09/07/2018] [facility] # [id number] 3Result Comment: [07/05/2017] [facility] [id number] 4Result Comment: GUS Lowery [place] 5Result Comment: [...] 12:32:00 EDT, Powder, Route to Pharmacy Electronically, [id number], [facility]/pharmacy #[id number], 193.2, cm, 07/27/22 10:43:00 EDT, Height Start Date: 07/27/22 Stop Date: 07/22/23 Status: Ordered albuterol CFC free 90 mcg/inh inhalation aerosol 2, puffs, Inhalation, Every 4 hours, PRN, # 3 each, Refills 1, Tot. Refills 1, Maintenance, 07/27/22 12:32:00 EDT, Route to Pharmacy Electronically, [id number], [facility]/pharmacy#[id number], 193.2, cm, 07/27/22 10:43:00 EDT, [...] 6 Refills, Maintenance, 07/27/22 11:43:00 EDT, [facility]/pharmacy #[id number], 193.2, cm, 07/27/22 10:43:00 [...] Refills, Maintenance, 11/11/22 14:09:00 EST, ER Tablet, [facility]/pharmacy #[id number], Partial fill upon patient request if the prescription is for a schedule II opioid drug., 195, cm, 11/11/22 13:45:00 EST, Hei... Start Date: 11/11/22 Status: Ordered clonazePAM 0.5 mg oral tablet 1 tablet = 0.5 mg, By Mouth, Daily, # 28 tablet, 0 Refills, Maintenance, 09/02/22 17:46:00 EST, Tablet, [facility]/pharmacy #[id number], Partial fill upon patient [...] Refills, Maintenance, 12/05/22 17:12:00 EST, Tablet, [facility]/pharmacy #[id number], 193.2, cm, 07/27/22 10:43:00 [...] 1 Refills, Soft Stop, 10/01/21 13:42:00 EST, [facility]/pharmacy #[id number], 193.2, cm, 02/03/21 8:56:00 [...] minutes,Instr:M... Start Date: 10/12/22 Status: Ordered Pen [place], 30 G x 8 mm BD Ultra Fine II See Instructions, # 100 each, Refills 3, Tot. Refills 3, Maintenance, use as directed for Type 2 Diabetes Mellitus - once a day, 10/09/15 14:01:07, Compound Start Date: 10/09/15 Stop Date: 02/06/16 Status: Ordered Pen [place], 31 G x 5 mm BD Ultra Fine III See Instructions, # 100 each, Refills 3, Tot. Refills 3, Maintenance, use to inject Basaglar 1x daily, E11.9, 90-day, 07/27/22 12:32:00 EDT, Supply, 193.2, cm, 07/27/22 10:43:00 EDT, Height Start Date: 07/27/22 Status: Ordered Pen [place], 31 G x 8 mm BD Ultra [...] Acute 01/14/23 18:36:00 EDT, 12/17/22 18:36:00 EDT, [id number], Partial fill upon patient request if the prescription is for a schedule II opioid drug., 195, cm,... Start Date: 12/17/22 Stop Date: 01/14/23 Status: Ordered sertraline 50 mg oral tablet 1 tablet = 50 mg, By Mouth, Daily, # 90 tablet, 3 Refills, Maintenance, 07/27/22 12:32:00 EDT, Tablet, [id number], Partial fill upon patient request if the prescription is for a schedule II opioid drug., 193.2, cm, 07/27/22 10:43:00 EDT, Height Start Date: 07/27/22 Stop Date: 07/22/23 Status: Ordered Singulair 10 mg oral tablet 10 mg, 1, tablet, By Mouth, Daily in PM, # 90 tablet, Refills 3, Tot. Refills 3, Maintenance, 07/27/22 12:32:00 EDT, Route to Pharmacy Electronically, [facility]/pharmacy #[id number], 193.2, cm, 07/27/22 10:43:00EDT, [...] Name: Jerry CHANG, Latesha Rocha Position: S Primary Care Physician Member Role: PCP Address: Address: [address] [place] [address]- Care Team Related Persons Name: ROSALIA MAYES Address: home [address] [place] [address]
--- OUTSIDE RECORDS SUMMARY | 2024-05-09 07:57 | XMS_ITS | Continuity of Care Document ---
Author Organization [facility] Address [address] [place] [address]- Care Team Providers Care Template Fitter Name Role Phone Jerry CHANG, Latesha Rocha Primary Care Physic augustina [facility]): 05[facility]04[facility]23 - 06/03/23 [facility] [address] [place] [address]- Allergies, Adverse Reactions, Alerts No Known Medication [...] tetanus-diphtheria toxoids (Td) 10/04/99 Recorded 1Result Comment: [facility]: [id number] 2Result Comment: [09/07/2018] [facility] # [id number] 3Result Comment: [07/05/2017] [facility] [id number] 4Result Comment: GUS Lowery [place] 5Result Comment: [...] 12:32:00 EDT, Powder, Route to Pharmacy Electronically, [id number], [facility]/pharmacy #[id number], 193.2, cm, 07/27/22 10:43:00 EDT, Height Start Date: 07/27/22 Stop Date: 07/22/23 Status: Ordered albuterol CFC free 90 mcg/inh inhalation aerosol 2, puffs, Inhalation, Every 4 hours, PRN, # 3 each, Refills 3, Tot. Refills 3, Maintenance, 05/07/23 10:14:00 EDT, Route to Pharmacy Electronically, [id number], [facility]/pharmacy#[id number], 195, cm, 05/07/23 9:23:00 [...] 3 Refills, Soft Stop, 07/27/22 12:32:00 EDT, [facility]/pharmacy #[id number], 193.2, cm, 07/27/22 10:43:00 EDT, Height Start Date: 07/27/22 Status: Ordered Basaglar KwikPen 100 units/mL subcutaneous solution = 80 units, Subcutaneous Injection, Daily at bedtime, # 15 mL, 6 Refills, Maintenance, 07/27/22 11:43:00 EDT, [facility]/pharmacy #[id number], 193.2, cm, 07/27/22 [...] Refills, Maintenance, 05/07/23 9:46:00 EDT, ER Tablet, [facility]/pharmacy #[id number], Partial fill upon patient request if the prescription is for a schedule II opioid drug., 195, cm, 05/07/23 9:23:00 EDT, Heigh... Start Date: 05/07/23 Status: Ordered CeleBREX 100 mg oral capsule 1 capsule = 100 mg, By Mouth, 2 times a day, # 60 capsule, 0 Refills, Maintenance, 02/19/23 13:03:00 EDT, Capsule, [facility]/pharmacy #[id number], Partial fill upon patient request if the prescription is for a schedule II opioid drug., 195, cm, 02/10/23 13:17:00... Start Date: 02/19/23 Status: Ordered clonazePAM 0.5 mg oral tablet 1 tablet = 0.5 mg, By Mouth, Daily, # 28 tablet, 0 Refills, Maintenance, 09/02/22 17:46:00 EST, Tablet, [facility]/pharmacy #[id number], Partial fill upon [...] 3 Refills, Maintenance, 02/23/23 11:16:00 EDT, Tablet, [facility]/pharmacy #[id number], Partial fill upon [...] Acute 06/24/23 11:36:00 EDT, 05/13/23 11:36:00 EDT, [facility]/pharmacy #[id number], Partial fill upon [...] Refills, Maintenance, 10/12/22 17:00:00 EST, REC Powder, [facility]/pharmacy #[id number], test date 10/13/22, 240 mL By Mouth Every 10 minutes,Instr:M... Start Date: 10/12/22 Status: Ordered Ozempic (1 mg dose) 4 mg/3 mL subcutaneous solution = 1 mg, Subcutaneous Infusion, Every week, use once per week e11.9, # 3 mL, 4 Refills, Maintenance,06/01/23 10:23:00 EDT, [facility]/pharmacy #[id number], Partial fill upon patient request if the prescription isfor a schedule II opioid drug., 195, cm, 05/13/23... Start Date: 06/01/23 Status: Ordered Pen [place], 31 G x 5 mm BD Ultra [...] Personnel Name: Jerry CHANG, Latesha Rocha Position: [facility] Physician - Primary Care Member Role: PCP Address: Address: [address] [place] [address]- Care Team Related Persons Name: ROSALIA MAYES Address: home [address] [place] [address]
--- OUTSIDE RECORDS SUMMARY | 2024-05-09 07:57 | XMS_ITS | Continuity of Care Document ---
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(Discharge Diagnosis) - 01/06/23 Attending Physician: Jerry CHANG, Latesha Rocha Allergies, [...] tetanus-diphtheria toxoids (Td) 10/04/99 Recorded 1Result Comment: [facility]: [id number] 2Result Comment: [09/07/2018] [facility] # [id number] 3Result Comment: [07/05/2017] [facility] [id number] 4Result Comment: GUS Lowery [place] 5Result Comment: [...] 12:32:00 EDT, Powder, Route to Pharmacy Electronically, [id number], [facility]/pharmacy #[id number], 193.2, cm, 07/27/22 10:43:00 EDT, Height Start Date: 07/27/22 Stop Date: 07/22/23 Status: Ordered albuterol CFC free 90 mcg/inh inhalation aerosol 2, puffs, Inhalation, Every 4 hours, PRN, # 3 each, Refills 1, Tot. Refills 1, Maintenance, 07/27/22 12:32:00 EDT, Route to Pharmacy Electronically, [id number], [facility]/pharmacy#1095, 193.2, cm, 07/27/22 10:43:00 EDT, Height Start Date: 07/27/22 Status: Ordered aspirin 81 mg oral tablet 1 tablet = 81 mg, By Mouth, Daily, # 90 tablet, 0 Refills, Maintenance, 05/20/17 11:35:13, Tablet Start Date: 05/20/17 Status: Ordered atorvastatin 20 mg oral tablet See Instructions, TAKE 1 TABLET BY MOUTH EVERY DAY, # 90 tablet, 3 Refills, Soft Stop, 07/27/22 12:32:00 EDT, [facility]/pharmacy #[id number], 193.2, cm, 07/27/22 10:43:00 EDT, Height Start Date: 07/27/22 Status: Ordered Basaglar KwikPen 100 units/mL subcutaneous solution = 80 units, Subcutaneous Injection, Daily at bedtime, # 15 mL, 6 Refills, Maintenance, 07/27/22 11:43:00 EDT, [facility]/pharmacy #[id number], 193.2, cm, 07/27/22 [...] Refills, Maintenance, 11/11/22 14:09:00 EST, ER Tablet, [facility]/pharmacy #[id number], Partial fill upon patient request if the prescription is for a schedule II opioid drug., 195, cm, 11/11/22 13:45:00 EST, Hei... Start Date: 11/11/22 Status: Ordered clonazePAM 0.5 mg oral tablet 1 tablet = 0.5 mg, By Mouth, Daily, # 28 tablet, 0 Refills, Maintenance, 09/02/22 17:46:00 EST, Tablet, [facility]/pharmacy #[id number], Partial fill upon [...] 3 Refills, Maintenance, 12/05/22 17:12:00 EST, Tablet, [facility]/pharmacy #[id number], 193.2, cm, 07/27/22 [...] Refills, Maintenance, 10/12/22 17:00:00 EST, REC Powder, [facility]/pharmacy #[id number], test date 10/13/22, 240 mL By Mouth Every 10 minutes,Instr:M... Start Date: 10/12/22 Status: Ordered Pen [place], 30 G x 8 mm BD Ultra Fine II See Instructions, # 100 each, Refills 3, Tot. Refills 3, Maintenance, use as directed for Type 2 Diabetes Mellitus - once a day, 10/09/15 14:01:07, Compound Start Date: 10/09/15 Stop Date: 02/06/16 Status: Ordered Pen [place], 31 G x 5 mm BD Ultra Fine III See Instructions, # 100 each, Refills 3, Tot. Refills 3, Maintenance, use to inject Basaglar 1x daily, E11.9, 90-day, 07/27/22 12:32:00 EDT, Supply, 193.2, cm, 07/27/22 10:43:00 EDT, Height Start Date: 07/27/22 Status: Ordered Pen [place], 31 G x 8 mm BD Ultra [...] 3 Refills, Maintenance, 07/27/22 12:32:00 EDT, Tablet, [facility]/pharmacy #[id number], Partial fill upon patient request if the prescription is for a schedule II opioid drug., 193.2, cm, 07/27/22 10:43:00 EDT, Height Start Date: 07/27/22 Stop Date: 07/22/23 Status: Ordered Singulair 10 mg oral tablet 10 mg, 1, tablet, By Mouth, Daily in PM, # 90 tablet, Refills 3, Tot. Refills 3, Maintenance, 07/27/22 12:32:00 EDT, Route to Pharmacy Electronically, [facility]/pharmacy #[id number], 193.2, cm, 07/27/22 10:43:00EDT, Height Start [...] Effective Dates Health Status Clinical Service Informant Low back pain with right-sided sciatica Discharge Diagnosis 01/06/23 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 Discharge Diagnosis 01/06/23 Vital Signs Most recent to oldest [Reference Range]: 1 Height 195 cm (01/06/23 10:42 AM) Oxygen Saturation [94-100 %] 97 % (01/06/23 10:42 AM) Pulse Rate [55-90 bpm] 57 bpm (01/06/23 10:42 AM) Blood Pressure [90-138/55-84 mm Hg] 124/ 72mm Hg (01/06/23 10:42 AM) Blood pressure sites Arm, right (01/06/23 10:42 AM) Weight Obtained Via Standing scale (01/06/23 10:42 AM) Social History Social History Type Response Smoking Status Current every day sm desi; Tobacco user in household: No; Type: Cigarettes; Tobacco use times per day: Down to 1/2 pack a day from 1 pack a day. Has been smoking for 35 years.; entered on: 08/19/17 Sex Note * Hortensia Patel: PERFORM, SIGN, VERIFY Event Display: Patient Education/Instruction Authored Date: [id number] [facility] *[facility] Clinical Summary Name ROLA MAYES Age 57 Years 1965 PCP Jerry CHANG, Latesha Rocha PCP Visit Date 01/06/2023 10:24:00 Additional Instructions: Scheduled Appointments?? Future Appointments ?*[facility] ?[address]??[place],??[place],??[address] ?Phone:??--?Fax:??-- ?Appt. Date:??02/10/2023?1:00 PM ?Scheduled Provider:??Janessa CHANG , Latesha Rocha Follow-Up Instructions ?? Diagnosis Lumbago with sciatica, right side; Type 2 diabetes mellitus with other diabetic kidney complication Medications: Please continue your medications until treatment is completed or stopped by your provider. Discuss any questions related to medications with your provider. New Medications [id number], [address] [place] [phone], [phone] Nicotine (Nicotine 7 mg/24 hour patch) 1 patch(es) Topically Daily for 6 week(s). Refills: 0. Next Dose: Medications to Continue with No Changes These medications were not printed or sent to your pharmacy Albuterol (albuterol CFC free 90 mcg/inh inhalation aerosol) 2 puff(s) Inhalation every 4 hours as needed NEEDED FOR WHEEZING/SHORTNESS OF BREATH. Refills: 1. Next Dose: Aspirin (aspirin 81 mg oral tablet) 1 tab(s) Oral Daily. Refills: 0. Next Dose: Atorvastatin (atorvastatin 20 mg oral tablet) TAKE 1 TABLET BY MOUTH EVERY DAY. Refills: 3. Next Dose: BuPROpion (buPROPion 300 mg/24 hours (XL) oral tablet, extended release) 1 tab(s) Oral Daily. Refills: 1. Next Dose: Clonazepam (clonazePAM 0.5 mg oral [...] Refills: 0. Next Dose: Durable Medical Equipment (Freestyle Hany Sensor) Use to test blood sugars for 14 days. Type II DME11.9. Refills: 11. Next Dose: Durable Medical Equipment (Insulin Syringe, BD Ultra-Fine 0.5 cc 31 G x 8 mm (5/16in)) use to inject Novolog 3x daily with meals, E11.9, 90-day. Refills: 2. Next Dose: Durable Medical Equipment (Insulin Syringe, BD Ultra-Fine 0.5 cc 31 G x 8 mm (5/16in)) use as directed for Type 1 Diabetes Mellitus. Refills: 3. Next Dose: Durable Medical Equipment (Pen [place], 30 G x 8 mm BD Ultra Fine II) use as directed for Type 2 Diabetes Mellitus - once a day. Refills: 3. Next Dose: Durable Medical Equipment (Pen [place], 31 G x 5 mm BD Ultra Fine III) use to inject Basaglar 1x daily, E11.9, 90-day. Refills: 3. Next Dose: Durable Medical Equipment (Pen [place], 31 G x 8 mm BD Ultra Fine III) use with Lantus 1x daily, DxE11.9, 90-day. Refills: 1. Next Dose: Fluticasone-Salmeterol (Advair Diskus 250 mcg-50 [...] 90 Days. Refills: 3. Next Dose: Metformin (metFORMIN 500 mg oral tablet, extended release) 2 tab(s) Oral Daily for 90 Days. Refills: 1. Next Dose: Montelukast (Singulair 10 mg oral tablet) 1 tab(s) Oral Daily in PM. Refills: 3. Next Dose: PEG Electrolyte Solution (NuLYTELY with Flavor Packs oral powder for reconstitution) 240 MilliliterOral every 10 minutes. May substitute any PEG 3350 solution available SPLIT PREP METHOD. Refills: 0. Next Dose: semaglutide (semaglutide 0.25 mg/0.5 mL (0.25 mg dose) subcutaneous solution) 0.25 Milligram Subcutaneous Infusion every week for 4 week(s). Refills: 0. Next Dose: Sertraline (sertraline 50 mg oral tablet) 1 tab(s) Oral Daily for 90 Days. Refills: 3. Next Dose: Allergy Info:?? No Known Medication Allergies; Other Environmental Allergy Medications Given This Visit Future Orders ?No future orders Vital Signs Height 195 cm Weight BMI Blood Pressure 124 mm Hg/72 mm Hg Temperature Pulse Rate 57 bpm Respiratory Rate 02 Sat Mode of Delivery 97 %/ You can now view a summary of your hospital visit from the comfort of your home through a free online portal called [employer]. [employer] is a website that allows you to securely view your medical information including discharge summary, medications and follow-up visits. ??You can alsosend a secure electronic message to your doctor???s office to request appointments, renew medications or just ask a question. You can enroll at [email or web address] or register during your next office visit. [...] primary care provider, you may find a [facility] provider by calling [facility] List at [phone]. For information about the plan of care [...] Care Physician Member Role: PCP Address: [facility] [place] [address]- Care Team Related Persons Name: ROSALIA MAYES Address: home [address] [place] [id number]
--- OUTSIDE RECORDS SUMMARY | 2024-05-09 07:57 | XMS_ITS | Continuity of Care Document ---
Author Organization [facility] Address [address] [place] [address]- Care Team Providers Care Hse Specialist Name Role Phone Jerry CHANG, Latesha Rocha Primary Care Physic augustina [facility] Date[facility] - 02/05/21 [facility] [address] [place] [address]- [place] Allergies, Adverse Reactions, Alerts No Known [...] 2Result Comment: Beverley WEBER [place] 3Result Comment: [facility]: [id number] 4Result Comment: [09/07/2018] [facility] # [id number] 5Result Comment: [07/05/2017] [facility] [id number] 6Result Comment: [11/07/2014] Dr. Knox; consent signed. [...] 15:07:00 EDT, Powder, Route to Pharmacy Electronically, [id number], [facility]/pharmacy #[id number], 193.2, cm, 11/04/20 13:14:00 EST, Height,... Start Date: 02/04/21 Stop Date: 08/03/21 Status: Ordered albuterol CFC free 90 mcg/inh inhalation aerosol 2, puffs, Inhalation, Every 4 hours, PRN, # 3 each, Refills 1, Tot. Refills 1, Maintenance, 01/06/21 14:39:00 EDT, Route to Pharmacy Electronically, [id number], [facility]/pharmacy#[id number], 193.2, cm, 11/04/20 13:14:00 EST, [...] 1 Refills, Soft Stop, 01/06/21 11:59:00 EDT, [facility]/pharmacy #[id number], 193.2, cm, 11/04/20 13:14:00 EST, Height, 113.1, kg, 08/09/19 10:20:00 EST, Dry Weight Start Date: 01/06/21 Status: Ordered Basaglar KwikPen 100 units/mL subcutaneous solution = 75 units, Subcutaneous Injection, Daily at bedtime, # 12 mL, 0 Refills, Maintenance, 01/06/21 11:59:00 EDT, [facility]/pharmacy #[id number], 193.2, cm, 11/04/20 13:14:00 [...] 0 Refills, Maintenance, 02/04/21 15:04:00 EDT, Tablet, [facility]/pharmacy #[id number], 193.2, cm, 11/04/20 13:14:00 [...] mL, 0 Refills, Maintenance, 01/06/21 11:59:00 EDT, [facility]/pharmacy #[id number], 193.2, cm, 11/04/20 13:14:00 EST, Height, 113.1, kg, 08/09/19 10:20:00 ES... Start Date: 01/06/21 Status: Ordered NuLYTELY with Flavor Packs oral powder for reconstitution 240 mL, By Mouth, Every 10 minutes, Split prep method, # 1 each, 0 Refills, Acute 03/21/21 6:30:00 EDT, 03/20/21 17:00:00 EDT, REC Powder, [facility]/pharmacy #[id number], test date 03/21/21, 240 mL By Mouth Every10 minutes,Instr:Split prep method, 193.2, cm, 020... Start Date: 03/20/21 Stop Date: 03/21/21 Status: Ordered Pen [place], 30 G x 8 mm BD Ultra Fine II See Instructions, # 100 each, Refills 3, Tot. Refills 3, Maintenance, use as directed for Type 2 Diabetes Mellitus - once a day, 10/09/15 14:01:07, Compound Start Date: 10/09/15 Stop Date: 02/06/16 Status: Ordered Pen [place], 31 G x 5 mm BD Ultra Fine III See Instructions, # 100 each, Refills 2, Tot. Refills 2, Maintenance, use to inject Basaglar 1x daily, E11.9, 90-day, 08/08/20 15:07:00 EST, Supply, 193.2, cm, 08/08/20 14:34:00 EST, Height, 113.1, kg, 08/09/19 10:20:00 EST, Dry Weight Start Date: 08/08/20 Status: Ordered Pen [place], 31 G x 8 mm BD Ultra [...] 01/06/21 11:59:00 EDT, Route to Pharmacy Electronically, [facility]/pharmacy #[id number], 193.2, cm, 11/04/20 13:14:00EST, [...]
--- OUTSIDE RECORDS SUMMARY | 2024-05-09 07:57 | XMS_ITS | Continuity of Care Document ---
Author Organization [facility] Address [address] [place] [address]- Care Team Providers Care Church Organist Name Role Phone Jerry CHANG, Latesha Rocha Primary Care Physic augustina [facility]counter [facility] Date[facility]s): 08/20/23 - 08/27/23 [id number] [address]- Attending Physician: Latesha Edwards MD Admitting Physician: Latesha Edwards MD Referring Physician: Latesha Edwards MD Allergies, Adverse Reactions, Alerts No Known Medication Allergies Substance Reaction Severity Status Other Environmental Allergy 1 Active 1pets Immunizations Given and Recorded Vaccine Date Status Refusal Reason Influenza Virus Vaccine (oldterm) 1 07/10/23 Recor ded SARS-CoV-2 mRNA ([id number]) vax 2 07/10/23 Recorded influenza virus vaccine, [...] Recorded 1Result Comment: pt recevied vaccine from [facility] pharmacy 2Result Comment: pt received vaccine from [facility] pharmacy 3Result Comment: [facility]: [id number] 4Result Comment: [09/07/2018] [facility] # [id number] 5Result Comment: [07/05/2017] [facility] [id number] 6Result Comment: [facility] Beverley JACKSON 7Result Comment: [facility], [place] 8Result Comment: [11/07/2014] Dr. Knox; consent signed. [...] 12:32:00 EDT, Powder, Route to Pharmacy Electronically, [id number], [facility]/pharmacy #[id number], 193.2, cm, 07/27/22 10:43:00 EDT, Height Start Date: 07/27/22 Stop Date: 10/19/23 Status: Ordered albuterol CFC free 90 mcg/inh inhalation aerosol 2, puffs, Inhalation, Every 4 hours, PRN, # 3 each, Refills 3, Tot. Refills 3, Maintenance, 05/07/23 10:14:00 EDT, Route to Pharmacy Electronically, [id number], [facility]/pharmacy#1095, 195, cm, 05/07/23 9:23:00 EDT, Height, 112.6... Start Date: 05/07/23 Status: Ordered aspirin 81 mg oral tablet 1 tablet = 81 mg, By Mouth, Daily, # 90 tablet, 0 Refills, Maintenance, 05/20/17 11:35:13, Tablet Start Date: 05/20/17 Status: Ordered atorvastatin 20 mg oral tablet See Instructions, TAKE 1 TABLET BY MOUTH EVERY DAY, # 90 tablet, 3 Refills, Soft Stop, 07/27/22 12:32:00 EDT, [facility]/pharmacy #1095, 193.2, cm, 07/27/22 10:43:00 EDT, Height Start Date: 07/27/22 Status: Ordered Basaglar KwikPen 100 units/mL subcutaneous solution = 80 units, Subcutaneous Injection, Daily at bedtime, # 15 mL, 6 Refills, Maintenance, 07/27/22 11:43:00 EDT, [facility]/pharmacy #[id number], 193.2, cm, 07/27/22 10:43:00 EDT, Height [...] Refills, Maintenance, 05/07/23 9:46:00 EDT, ER Tablet, [facility]/pharmacy #1095, Partial fill upon patient request if the prescription is for a schedule II opioid drug., 195, cm, 05/07/23 9:23:00 EDT, Heigh... Start Date: 05/07/23 Status: Ordered CeleBREX 100 mg oral capsule 1 capsule = 100 mg, By Mouth, 2 times a day, # 60 capsule, 0 Refills, Maintenance, 02/19/23 13:03:00 EDT, Capsule, [facility]/pharmacy #1095, Partial fill upon patient request if the prescription is for a schedule II opioid drug., 195, cm, 02/10/23 13:17:00... Start Date: 02/19/23 Status: Ordered clonazePAM 0.5 mg oral tablet 1 tablet = 0.5 mg, By Mouth, Daily, # 28 tablet, 0 Refills, Maintenance, 09/02/22 17:46:00 EST, Tablet, [facility]/pharmacy #1095, Partial fill upon patient request if the prescription is for a schedule II opioid drug., 193.2, cm, 08/14/22 7:56:00 EST, Height Start Date: 09/02/22 Stop Date: 09/30/22 Status: Ordered Dexcom G7 Sensors Dexcom G7 Sensors, See Instructions, # 3 each, Refills 11, Tot. Refills 11, Maintenance, for continuous glucose monitoring, change every 10 days. E11., 05/13/23 13:12:00 EDT, Supply, 195, cm, 05/13/23 [...] sugars for 14 days. Type II DM E11., 07/27/22 12:32:00 EDT, Supply, 193.2, cm, 07/27/22 10:43:00 EDT, Height Start Date: 07/27/22 Status: Ordered gabapentin 300 mg oral capsule 300 mg, 1, capsule, By Mouth, Daily at bedtime, # 30 capsule, Refills 3, Tot. Refills 3, Maintenance, 07/28/23 11:04:00 EDT, Route to Pharmacy Electronically, [facility]/pharmacy #[id number], Partial fill upon patient request if the prescription is for a schedule... Start Date: 07/28/23 Status: Ordered Jardiance 10 mg oral tablet 1 tablet, By Mouth, Daily in AM, # 30 tablet, 2 Refills, Maintenance, 06/25/23 16:01:00 EDT, [id number], 195, cm, 05/13/23 11:00:00 EDT, Height, 112.6, kg, 10/13/22 9:29:00 EST, Dry Weight Start Date: 06/25/23 Status: Ordered levothyroxine 0.025 mg oral tablet 1 tablet = 25 mcg, By Mouth, Daily, Take with the 175 mcg for a total of 200 mcg daily, # 90 tablet, 3 Refills, Maintenance, 12/05/22 17:12:00 EST, Tablet, [facility]/pharmacy #1095, 193.2, cm, 07/27/22 10:43:00 EDT, Height [...] 05/13/23... Start Date: 06/01/23 Status: Ordered Pen [place], 31 G x 5 mm BD Ultra [...] for 35 years.; entered on: 08/19/17 Sex Cardiology * Event Display: VL Venous Dup Scan Venous Insuf LE Bilat Authored Date: [id number] Demographics Procedure Information Patient name: SUGEY CANELA Procedure date: 08/20/2023 1:34 PM Corporate Proc. sub type: Veins: Lower Extremities Venous Insufficiency, Venous Duplex Scan Gender: Male Venous Insuf LE Bilat. Date of : 1965 Accession No: [id number] Age: 58 year(s) Account No: [id number] Patient status: Routine Procedure Staff Admit Status: Outpatient Attending Physician: Latesha Riddle MD Probe: L9-3 Ordering physician: Latesha Riddle MD Technical quality: Adequate visualization Referring Physician: Latesha Riddle MD Facility: [facility] Card Architect Naval: Giss[facility] [place] [facility] Interpreting physician: Vishnu Esqueda MD Study location: [facility] Procedure consent obtained: Indications No Pain in limb. LE Venous Insufficiency Findings Right Left Reflu Reflu AP x AP x DIAM Time DIAM Time Location (mm) (sec) Thrombosis (mm) (sec) Thrombosis Common Femoral 0.7 1.9 Prox Femoral 2.2 0.5 Mid Femoral 1.7 0 Dist Femoral 0 0 Popliteal 0 0 Right Left Reflu Reflu AP x AP x DIAM Time DIAM Time Location (mm) (sec) Thrombosis (mm) (sec) Thrombosis Sapheno Femoral Junction 7.8 0.5 9.6 1.2 GSV High Thigh 4.2 1.5 4.2 0 GSV Mid Thigh 2.9 0.7 3.3 0.5 GSV Low Thigh 3 0.8 4.2 0 GSV Knee 3.6 0 4.6 0 GSV High Calf 2.6 0 2.9 0 SSV High Calf 3.5 0 4.7 0 SSV Low Calf 2.5 0.9 3.5 0 Physician Conclusions Summary: Right side: There is reflux lasting 1.5 seconds at the high thigh in the Great Saphenous vein. The Great Saphenous Vein does not appear aneurysmal. There is no evidence of deep vein thrombosis in the segments insonated. There is deep vein reflux. There is reflux lasting 0.9 seconds in the Small Saphenous vein. Left side: There is reflux lasting 1.2 seconds at the Saphenofemoral Junction in the Great Saphenous vein. The Great Saphenous Vein does not appear aneurysmal. There is no evidence of deep vein thrombosis in the segments insonated. There is deep vein reflux. There is no reflux in the Small Saphenous vein. Exam was performed with patient in Reverse Trendelenburg position. * Event Display: VL Venous Dup Scan Venous Insuf LE Bilat Authored Date: [id number] Patient Care team information Care Team Personnel Name: Jerry CHANG, Latesha Rocha Position: S Physician - Primary Care Member Role: PCP Address: Address: [address] [place] [address]- Care Team Related Persons Name: ROSALIA MAYES Address: home [address] [place] [address]
--- OUTSIDE RECORDS SUMMARY | 2024-05-09 07:58 | XMS_ITS | Continuity of Care Document ---
Author Organization [facility] Address [address] [place] [address]- Care Team Providers Care C.O.D. Clerk Name Role Phone Jerry CHANG, Latesha Rocha Primary Care Physic augustina Encounter [facility] [place] [place] Date(s): 09/01/23 - 10/01/23 [facility] [address] [place] [address]- Allergies, Adverse Reactions, Alerts No Known Medication Allergies Substance Reaction Severity Status Other Environmental Allergy 1 Active 1pets Immunizations Given and Recorded Vaccine Date Status Refusal Reason Influenza Virus Vaccine (oldterm) 1 07/10/23 Recor ded SARS-CoV-2 mRNA ([id number]) vax 2 07/10/23 Recorded influenza virus vaccine, [...] Recorded 1Result Comment: pt recevied vaccine from [email or web address] pharmacy 2Result Comment: pt received vaccine from [email or web address] pharmacy 3Result Comment: [facility]: [id number] 4Result Comment: [09/07/2018] [facility] # [id number] 5Result Comment: [07/05/2017] [facility] [id number] 6Result Comment: G[facility] Lower[place] 7Result Comment: Beverley WEBER [place] 8Result Comment: [11/07/2014] Dr. Knox; consent signed. Medications Advair Diskus 250 mcg-50 mcg inhalation powder 1, puffs, Inhalation, 2 times a day, # 3 each, Refills 1, Tot. Refills 1, Maintenance, 09/01/23 18:48:00 EST, Powder, Route to Pharmacy Electronically, [id number], [facility]/pharmacy #[id number], 192.3, cm, 09/01/23 11:35:00 EST, Height,... Start Date: 09/01/23 Stop Date: 02/28/24 Status: Ordered albuterol CFC free 90 mcg/inh inhalation aerosol 2, puffs, Inhalation, Every 4 hours, PRN, # 3 each, Refills 3, Tot. Refills 3, Maintenance, 05/07/23 10:14:00 EDT, Route to Pharmacy Electronically, [id number], [facility]/pharmacy#1095, 195, cm, 05/07/23 9:23:00 EDT, Height, 112.6... Start Date: 05/07/23 Status: Ordered aspirin 81 mg oral tablet 1 tablet = 81 mg, By Mouth, Daily, # 90 tablet, 0 Refills, Maintenance, 05/20/17 11:35:13, Tablet Start Date: 05/20/17 Status: Ordered atorvastatin 20 mg oral tablet See Instructions, TAKE 1 TABLET BY MOUTH EVERY DAY, # 90 tablet, 3 Refills, Soft Stop, 07/27/22 12:32:00 EDT, [facility]/pharmacy #1095, 193.2, cm, 07/27/22 10:43:00 EDT, [...] Refills, Maintenance, 05/07/23 9:46:00 EDT, ER Tablet, [facility]/pharmacy #1095, Partial fill upon patient request [...] 09/06/23 17:50:00 EST, Route to Pharmacy Electronically, [facility]/pharmacy #1095, Partial fill upon patient request if the prescription is for a schedule... Start Date: 09/06/23 Status: Ordered Jardiance 10 mg oral tablet 1 tablet, By Mouth, Daily in AM, # 90 tablet, 3 Refills, Maintenance, 09/02/23 15:43:00 EST, [facility]/pharmacy #1095, 192.3, cm, 09/02/23 15:03:00 EST, Height, 108, kg, 08/04/23 9:53:00 EDT, Dry Weight Start Date: 09/02/23 Status: Ordered levothyroxine 0.025 mg oral tablet 1 tablet = 25 mcg, By Mouth, Daily, Take with 200mcg tab for total of 225mcg., # 90 tablet, 1 Refills, Maintenance, 09/03/23 16:52:00 EST, Tablet, [facility]/pharmacy #1095, 192.3, cm, 09/02/23 15:03:00 EST, [...] 9 mL, 3 Refills, Maintenance,09/02/23 15:44:00 EST, [facility]/pharmacy #1095, Partial fill upon patient request if the prescription isfor a schedule II opioid drug., 192.3, cm, ... Start Date: 09/02/23 Status: Ordered Pen [place], 31 G x 5 mm BD Ultra [...] information Care Team Personnel Name: Jerry CHANG, Latehsa Rocha Position: [facility] Physician - Primary Care Member Role: PCP Address: Address[facility] [place] [address]- Care Team Related Persons Name: ROSALIA MAYES Address: home [address] [place] [address]
--- OUTSIDE RECORDS SUMMARY | 2024-05-09 07:58 | XMS_ITS | Continuity of Care Document ---
Author Organization [facility] Address [address] [place] [address]- Care Team Providers Care Lens Dotter Name Role Phone Jerry CHANG, Latesha Rocha Primary Care Physic augustina [facility]counter [facility] Date(s): 11/04/20 - 12/04/20 [facility] [address] [place] [address]- Attending Physician: Nagi Francois Admitting Physician: AdmNagi nj Referring Physician: [id number] Allergies, Adverse Reactions, Alerts No Known Medication Allergies Substance Reaction Severity Status Other Environmental Allergy 1 Active 1pets Immunizations Given and Recorded Vaccine Date Status Refusal Reason influenza virus vaccine, inactivated 1 08/08/20 Gi evan influenza virus vaccine, inactivated 2 09/07/18 Gi evan influenza virus vaccine, inactivated 3 07/05/17 Gi evan influenza virus vaccine, inactivated 09/02/16 Give n influenza virus vaccine, inactivated 10/09/15 Give n influenza virus vaccine, inactivated 07/18/14 Give n tetanus/diphtheria/pertussis, acel(Tdap) 4 11/07/14 Given tetanus-diphtheria toxoids (Td) 10/04/99 Recorded 1Result Comment: [facility]: [id number] 2Result Comment: [09/07/2018] [facility] # [id number] 3Result Comment: [07/05/2017] [facility] [id number] 4Result Comment: [11/07/2014] Dr. Knox; consent signed. Medications [...] each, Refills 1, Tot. Refills 1, Maintenance, 08/08/20 15:07:00 EST, Powder, Route to Pharmacy Electronically, [id number], [facility]/pharmacy #1095, 193.2, cm, 08/08/20 14:34:00 EST, Height,... Start Date: 08/08/20 Stop Date: 02/04/21 Status: Ordered albuterol CFC free 90 mcg/inh inhalation aerosol 2, puffs, Inhalation, Every 4 hours, PRN, # 3 each, Refills 1, Tot. Refills 1, Maintenance, 10/10/20 16:06:00 EST, Route to Pharmacy Electronically, [id number], [facility]/pharmacy#1095, 193.2, cm, 08/08/20 14:34:00 EST, Height, 11... Start Date: 10/10/20 Status: Ordered aspirin 81 mg oral tablet 1 tablet = 81 mg, By Mouth, Daily, # 90 tablet, 0 Refills, Maintenance, 05/20/17 11:35:13, Tablet Start Date: 05/20/17 Status: Ordered atorvastatin 20 mg oral tablet See Instructions, TAKE 1 TABLET BY MOUTH EVERY DAY, # 90 tablet, 1 Refills, Soft Stop, 08/08/20 15:09:00 EST, [facility]/pharmacy #1095, 193.2, cm, 08/08/20 14:34:00 EST, Height, 113.1, kg, 08/09/19 10:20:00 EST, Dry Weight Start Date: 08/08/20 Status: Ordered Basaglar KwikPen 100 units/mL subcutaneous solution = 75 units, Subcutaneous Injection, Daily at bedtime, # 12 mL, 3 Refills, Maintenance, 08/08/20 16:16:00 EST, [facility]/pharmacy #1095, 193.2, cm, 08/08/20 14:34:00 EST, Height, 113.1, kg, 08/09/19 10:20:00 EST, Dry Weight Start Date: 08/08/20 Status: Ordered buPROPion 150 mg/12 hours (SR) oral tablet, extended release 1 tablet = 150 mg, By Mouth, Daily, # 90 tablet, 1 Refills, Soft Stop, 08/08/20 15:09:00 EST, [facility]/pharmacy #1095, 193.2, cm, 08/08/20 14:34:00 EST, Height, 113.1, kg, 08/09/19 10:20:00 EST, Dry Weight Start Date: 08/08/20 Stop Date: 02/04/21 Status: Ordered Freestyle [place]any Sensor See Instructions, [...] daily, # 90 tablet, 1 Refills, Maintenance, 08/08/20 15:04:00 EST, Tablet, [facility]/pharmacy #1095, 193.2, cm, 08/08/20 14:34:00 EST, Height, 113.1, kg, 08/09/19 10:20:00 EST,... Start Date: 08/08/20 Stop Date: 02/04/21 Status: Ordered levothyroxine 175 mcg (0.175 mg) oral tablet 1 tablet = 175 mcg, By Mouth, Daily, # 90 tablet, 1 Refills, Maintenance, 08/08/20 15:04:00 EST, Tablet, [facility]/pharmacy #1095, 193.2, cm, 08/08/20 14:34:00 EST, Height, 113.1, kg, 08/09/19 10:20:00 EST, Dry Weight Start Date: 08/08/20 Stop Date: 02/04/21 Status: Ordered metFORMIN 500 mg oral tablet, extended release 2 tablet = 1,000 mg, By Mouth, Daily, # 180 tablet, 1 Refills, Soft Stop, 08/08/20 15:03:00 EST, [facility], 193.2, cm, 08/08/20 14:34:00 EST, Height, 113.1, kg, 08/09/19 10:20:00 EST, Dry Weight Start Date: 08/08/20 Stop Date: 02/04/21 Status: Ordered NovoLOG 100 units/mL subcutaneous solution See Instructions, 1-5 units sliding scale 15 min prior to meals Subcutaneous Infusion 3 times a day., # 30 mL, 1 Refills, Maintenance, 08/08/20 15:05:00 EST, [facility]/pharmacy #1095, 193.2, cm, 08/08/20 14:34:00 EST, Height, 113.1, kg, 08/09/19 10:20:00 ES... Start Date: 08/08/20 Status: Ordered Pen [place], 30 G x 8 mm BD Ultra Fine II See Instructions, # 100 each, Refills 3, Tot. Refills 3, Maintenance, use as directed for Type 2 Diabetes Mellitus - once a day, 10/09/15 14:01:07, Compound Start Date: 10/09/15 Stop Date: 02/06/16 Status: Ordered Pen [place], 31 G x 5 mm BD Ultra Fine III See Instructions, # 100 each, Refills 2, Tot. Refills 2, Maintenance, use to inject Basaglar 1x daily, E11.9, 90-day, 08/08/20 15:07:00 EST, Supply, 193.2, cm, 08/08/20 14:34:00 EST, Height, 113.1, kg, 08/09/19 10:20:00 EST, Dry Weight Start Date: 08/08/20 Status: Ordered Pen [place], 31 G x 8 mm BD Ultra Fine III See Instructions, # 100 each, Refills 1, Tot. Refills 1, Maintenance, use with Lantus 1x daily, Dx E11.9, 90-day, 03/15/17 15:55:47, Compound Start Date: 03/15/17 Stop Date: 09/11/17 Status: Ordered Singulair 10 mg oral tablet 10 mg, 1, tablet, By Mouth, Daily in PM, # 90 tablet, Refills 1, Tot. Refills 1, Maintenance, 08/08/20 15:03:00 EST, Route to Pharmacy Electronically, [facility]/pharmacy #1095, 193.2, cm, 08/08/20 14:34:00EST, Height, 113.1, kg, 08/09/19 10:20:00 EST, Dry... Start Date: 08/08/20 Status: Ordered Problem List Condition Effective Dates [...]
--- OUTSIDE RECORDS SUMMARY | 2024-05-09 07:58 | XMS_ITS | Continuity of Care Document ---
Author Organization [facility] Address [address] [place] [address]- Care Team Providers Care Auto Tech Name Role Phone Jerry CHANG, Latesha Rocha Primary Care Physic augustina [facility] Date[facility]): 11/[facility]/22 - 12/19/22 [facility] [address] [place] [address]- Allergies, Adverse Reactions, Alerts No Known Medication Allergies Substance Reaction Severity Status Other Environmental Allergy 1 Active 1pets Immunizations Given and Recorded Vaccine Date Status Refusal Reason influenza virus vaccine, inactivated 09/13/22 Beny rded influenza virus vaccine, inactivated 1 08/08/20 Gi evna influenza virus vaccine, inactivated 2 09/07/18 Gi evan influenza virus vaccine, inactivated 3 07/05/17 Gi evan influenza virus vaccine, inactivated 09/02/16 Give n influenza virus vaccine, inactivated 10/09/15 Give n influenza virus vaccine, inactivated 07/18/14 Give n SARS-CoV-2 (COVID-19) mRNA-1273 vaccine 4 01/02/21 Recorded SARS-CoV-2 (COVID-19) mRNA-1273 vaccine 5 12/05/20 Recorded tetanus/diphtheria/pertussis, acel(Tdap) 6 11/07/14 Given tetanus-diphtheria toxoids (Td) 10/04/99 Recorded 1Result Comment: [facility]: [id number] 2Result Comment: [09/07/2018] [facility] # [id number] 3Result Comment: [07/05/2017] [facility] [id number] 4Result Comment: G[facility] Lowery [place] 5Result Comment: [...] 12:32:00 EDT, Powder, Route to Pharmacy Electronically, [id number], [facility]/pharmacy #[id number], 193.2, cm, 07/27/22 10:43:00 EDT, Height Start Date: 07/27/22 Stop Date: 07/22/23 Status: Ordered albuterol CFC free 90 mcg/inh inhalation aerosol 2, puffs, Inhalation, Every 4 hours, PRN, # 3 each, Refills 1, Tot. Refills 1, Maintenance, 07/27/22 12:32:00 EDT, Route to Pharmacy Electronically, [id number], [facility]/pharmacy#[id number], 193.2, cm, 07/27/22 10:43:00 EDT, [...] 3 Refills, Soft Stop, 07/27/22 12:32:00 EDT, [facility]/pharmacy #[id number], 193.2, cm, 07/27/22 10:43:00 EDT, Height Start Date: 07/27/22 Status: Ordered Basaglar KwikPen 100 units/mL subcutaneous solution = 80 units, Subcutaneous Injection, Daily at bedtime, # 15 mL, 6 Refills, Maintenance, 07/27/22 11:43:00 EDT, [facility]/pharmacy #[id number], 193.2, cm, 07/27/22 10:43:00 [...] Refills, Maintenance, 11/11/22 14:09:00 EST, ER Tablet, [facility]/pharmacy #[id number], Partial fill upon patient request if the prescription is for a schedule II opioid drug., 195, cm, 11/11/22 13:45:00 EST, Hei... Start Date: 11/11/22 Status: Ordered clonazePAM 0.5 mg oral tablet 1 tablet = 0.5 mg, By Mouth, Daily, # 28 tablet, 0 Refills, Maintenance, 09/02/22 17:46:00 EST, Tablet, [facility]/pharmacy #[id number], Partial fill upon patient request if the prescription is for a schedule II opioid drug., 193.2, cm, 08/14/22 7:56:00 EST, Height Start Date: 09/02/22 Stop Date: 09/30/22 Status: Ordered cyclobenzaprine 5 mg oral tablet 1 tablet = 5 mg, By Mouth, 3 times a day, for 7 days, # 21 tablet, 0 Refills, Acute 12/23/22 16:44:00 EDT, 12/16/22 16:44:00 EDT, Tablet, [facility]/pharmacy #[id number], Partial fill upon patient request if the prescription is for a schedule II opioid drug., 195,... Start Date: 12/16/22 Stop Date: 12/23/22 Status: Ordered Freestyle Hany Sensor See Instructions, [...] Acute 12/23/22 14:08:00 EDT, 11/11/22 14:08:00 EST, [id number], Partial fill upon patient request if the prescription is for aschedule II opioid drug., 1 patch Topically Daily,x... Start Date: 11/11/22 Stop Date: 12/23/22 Status: Ordered NovoLOG 100 units/mL subcutaneous solution [...] minutes,Instr:M... Start Date: 10/12/22 Status: Ordered Pen [place], 30 G x 8 mm BD Ultra Fine II See Instructions, # 100 each, Refills 3, Tot. Refills 3, Maintenance, use as directed for Type 2 Diabetes Mellitus - once a day, 10/09/15 14:01:07, Compound Start Date: 10/09/15 Stop Date: 02/06/16 Status: Ordered Pen [place], 31 G x 5 mm BD Ultra Fine III See Instructions, # 100 each, Refills 3, Tot. Refills 3, Maintenance, use to inject Basaglar 1x daily, E11.9, 90-day, 07/27/22 12:32:00 EDT, Supply, 193.2, cm, 07/27/22 10:43:00 EDT, Height Start Date: 07/27/22 Status: Ordered Pen [place], 31 G x 8 mm BD Ultra [...] 07/27/22 12:32:00 EDT, Route to Pharmacy Electronically, [facility]/pharmacy #[id number], 193.2, cm, 07/27/22 10:43:00EDT, [...] Personnel Name: Jerry CHANG, Latesha Rocha Position: [facility] Primary Care Physician Member Role: PCP Address: [facility] [place] [address]- Care Team Related Persons Name: ROSALIA MAYES Address: home [address] [place] [address]
--- OUTSIDE RECORDS SUMMARY | 2024-05-09 07:58 | XMS_ITS | Continuity of Care Document ---
Author Organization [facility] Address [address] [place], [place] [address]- Care Team Providers Care Plating Machine Operator Name Role Phone Jerry CHANG, Latesha Rocha Primary Care Physic augustina [facility]counter [facility] Date[facility]s): 11/03/23 - 11/10/[address] [address]- Attending Physician: Latesha Edwards MD Admitting Physician: Latesha Edwards MD Referring Physician: Latesha Edwards MD Allergies, Adverse Reactions, Alerts No Known Medication Allergies Substance Reaction Severity Status Other Environmental Allergy 1 Active 1pets Immunizations Given and Recorded Vaccine Date Status Refusal Reason Influenza Virus Vaccine (oldterm) 1 07/10/23 Recor ded SARS-CoV-2 mRNA (dalzcwn-yqit-xngmm) vax 2 07/10/23 Recorded influenza virus vaccine, [...] Recorded 1Result Comment: pt recevied vaccine from [facility] pharmacy 2Result Comment: pt received vaccine from [facility] pharmacy 3Result Comment: [facility]: [id number] 4Result Comment: [09/07/2018] [facility] # [id number] 5Result Comment: [07/05/2017] [facility] [id number] 6Result Comment: [facility] Beverley JACK[place] 7Result [facility] [place] 8Result Comment: [11/07/2014] Dr. Knox; consent signed. Medications Advair Diskus 250 mcg-50 mcg inhalation powder 1, puffs, Inhalation, 2 times a day, # 3 each, Refills 1, Tot. Refills 1, Maintenance, 09/01/23 18:48:00 EST, Powder, Route to Pharmacy Electronically, [id number], [id number] 192.3, cm, 09/01/23 11:35:00 EST, Height,... Start Date: 09/01/23 Stop Date: 02/28/24 Status: Ordered albuterol CFC free 90 mcg/inh inhalation aerosol 2, puffs, Inhalation, Every 4 hours, PRN, # 3 each, Refills 3, Tot. Refills 3, Maintenance, 05/07/23 10:14:00 EDT, Route to Pharmacy Electronically, [id number], [id number], 195, cm, 05/07/23 9:23:00 EDT, Height, [...] Refills, Maintenance, 05/07/23 9:46:00 EDT, ER Tablet, [facility]/pharmacy #[id number], [...] Refills, Maintenance, 10/12/22 17:00:00 EST, REC Powder, [facility]/pharmacy #[id number], test date 10/13/22, [...] 2... Start Date: 09/02/23 Status: Ordered Pen [place], 31 G x 5 mm BD Ultra [...] on: 08/19/17 Sex Cardiology * Event Display: Stress Nuc with Regadenoson Please click on pdf link to open report Radiology * Event Display: NM Myocard Perf SPECT Multi Authored Date: Myocardial Perfusion Imaging Demographics Patient Name SUGEY CANELA Gender Male [employer] Room Number Height 76.1 inches Date of 1965 Weight 496 pounds Age 58 year(s) BSA 3.26 m2 Accession Number [id number] BMI 60.22 kg/m2 Date of study 11/03/2023 Resident Referring Physician Latesha Riddle MD Interpreting Physician Wallace Arteaga MD NM Technologist Law Coats Procedure Procedure Type: Myocardial Perfusion Imaging:NM Myocardial Perfusion Spect Multi Indications: Dyspnea on exertion. Risk Factors The patient risk factors include:Current - Every day tobacco use, hypercholesterolemia, family history of premature CAD and diabetes mellitus. Stress Protocols Resting ECG Sinus rhythm. Resting HR:72 bpm Resting BP:124/78 mmHg Pre-stress physical exam: The patient's medications include Metformin, Jardiance, Ozempic, Advair, Levothyroxine, Atorvastatin, ASA, Gabapentin, Albuterol. Stress Protocol:Pharmacologic - IV Regadenoson Peak HR:90 bpm HR response: Not assessed Peak BP:124/78 mmHg (pharmacologic study) Predicted HR: 162 bpm HR recovery: Not Assessed % of predicted HR: 56 (Pharmacologic Study) Test duration: 1 min BP response: Normal resting BP with Reason for termination:Protocol complete appropriate response Functional capacity:Not assessed HR/BP product:[id number] Time of RP Injection:00:55 min Chest pain:No chest pain ST Changes:No ST segment changes Arrhythmias No arrhythmias. Stress Interpretation Pharmacologic study only. Physiologic response not assessed - pharm stress. No EKG evidence of ischemia. Imaging Protocols - One Day Rest Stress Isotope:Tc99m Sestamibi Isotope: Tc99m Sestamibi Isotope dose:9 mCi IV Isotope dose:36 mCi IV Date:11/03/2023 Date:11/03/2023 Time to Rest Imagin minutes Time to Stress Imagin minutes Technique: Gated Technique: Gated Supine Supine Imaging Findings 1. There is satisfactory myocardial uptake of tracer. 2. There is patient motion, particularly during the rest study. 3. There is increased peritoneal uptake. Conclusions Summary 1. Aside from diaphragmatic soft tissue attenuation, there is normal tracer uptake at rest and after pharmacological stress. No evidence of myocardial ischemia or scar. 2. Left ventricular systolic function is normal with ejection fraction greater than 70% at rest and after stress. 3. The ECG findings will be reported separately. Signatures * Event Display: NM Myocard Perf SPECT Multi Authored Date: Patient Care team information Care Team Personnel Name: Jerry CHANG, Latesha Rocha Position: S Physician - Primary Care Member Role: PCP Address: Address: [address] [place] [address]- Care Team Related Persons Name: ROSALIA MAYES Address: home [address] [place] [address]
--- OUTSIDE RECORDS SUMMARY | 2024-05-09 07:58 | XMS_ITS | Continuity of Care Document ---
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(Discharge Diagnosis) - 12/16/22 Attending Physician: Jerry CHANG, Latesha Rocha Allergies, [...] tetanus-diphtheria toxoids (Td) 10/04/99 Recorded 1Result Comment: [facility]: [id number] 2Result Comment: [09/07/2018] [facility] # [id number] 3Result Comment: [07/05/2017] [facility] [id number] 4Result Comment: G[facility] Lowery [place] 5Result Comment: [...] 12:32:00 EDT, Powder, Route to Pharmacy Electronically, [id number], [facility]/pharmacy #[id number], 193.2, cm, 07/27/22 10:43:00 EDT, Height Start Date: 07/27/22 Stop Date: 07/22/23 Status: Ordered albuterol CFC free 90 mcg/inh inhalation aerosol 2, puffs, Inhalation, Every 4 hours, PRN, # 3 each, Refills 1, Tot. Refills 1, Maintenance, 07/27/22 12:32:00 EDT, Route to Pharmacy Electronically, [id number], [facility]/pharmacy#1095, 193.2, cm, 07/27/22 10:43:00 EDT, Height Start Date: 07/27/22 Status: Ordered aspirin 81 mg oral tablet 1 tablet = 81 mg, By Mouth, Daily, # 90 tablet, 0 Refills, Maintenance, 05/20/17 11:35:13, Tablet Start Date: 05/20/17 Status: Ordered atorvastatin 20 mg oral tablet See Instructions, TAKE 1 TABLET BY MOUTH EVERY DAY, # 90 tablet, 3 Refills, Soft Stop, 07/27/22 12:32:00 EDT, [facility]/pharmacy #[id number], 193.2, cm, 07/27/22 10:43:00 EDT, Height Start Date: 07/27/22 Status: Ordered Basaglar KwikPen 100 units/mL subcutaneous solution = 80 units, Subcutaneous Injection, Daily at bedtime, # 15 mL, 6 Refills, Maintenance, 07/27/22 11:43:00 EDT, [facility]/pharmacy #1095, 193.2, cm, 07/27/22 10:43:00 EDT, Height [...] Maintenance, 11/11/22 14:09:00 EST, ER Tablet, [facility]/pharmacy #[id number], Partial fill upon patient request if the prescription is for a schedule II opioid drug., 195, cm, 11/11/22 13:45:00 EST, Hei... Start Date: 11/11/22 Status: Ordered clonazePAM 0.5 mg oral tablet 1 tablet = 0.5 mg, By Mouth, Daily, # 28 tablet, 0 Refills, Maintenance, 09/02/22 17:46:00 EST, Tablet, [facility]/pharmacy #[id number], Partial fill upon patient request if [...] 3 Refills, Maintenance, 12/12/22 12:34:00 EST, Tablet, [facility]/pharmacy #[id number], 193.2, cm, 07/27/22 10:43:00 EDT, Height Start Date: 12/12/22 Stop Date: 12/07/23 Status: Ordered MetFORMIN (Eqv-Glucophage XR) 500 mg oral tablet, extended release 2 tablet = 1,000 mg, By Mouth, Daily, # 180 tablet, 3 Refills, Maintenance, 09/27/22 13:35:00 EST, [facility]/pharmacy #[id number], Partial fill upon patient request if the prescription is for a schedule II opioid drug., 193.2, cm, 07/27/22 10:43:00 EDT, Height Start Date: 09/27/22 Stop Date: 09/22/23 Status: Ordered metFORMIN 500 mg oral tablet, extended release 2 tablet = 1,000 mg, By Mouth, Daily, # 180 tablet, 1 Refills, Soft Stop, 10/01/21 13:42:00 EST, [facility]/pharmacy #[id number], 193.2, cm, 02/03/21 8:56:00 EDT, Height Start Date: 10/01/21 Stop Date: 03/30/22 Status: Ordered NovoLOG 100 units/mL subcutaneous solution See Instructions, 1-5 units sliding scale 15 min prior to meals Subcutaneous Infusion 3 times a day., # 30 mL, 2 Refills, Maintenance, 07/27/22 12:32:00 EDT, [facility]/pharmacy #[id number], 193.2, cm, 07/27/22 10:43:00 EDT, Height [...] minutes,Instr:M... Start Date: 10/12/22 Status: Ordered Pen [place], 30 G x 8 mm BD Ultra Fine II See Instructions, # 100 each, Refills 3, Tot. Refills 3, Maintenance, use as directed for Type 2 Diabetes Mellitus - once a day, 10/09/15 14:01:07, Compound Start Date: 10/09/15 Stop Date: 02/06/16 Status: Ordered Pen [place], 31 G x 5 mm BD Ultra Fine III See Instructions, # 100 each, Refills 3, Tot. Refills 3, Maintenance, use to inject Basaglar 1x daily, E11.9, 90-day, 07/27/22 12:32:00 EDT, Supply, 193.2, cm, 07/27/22 10:43:00 EDT, Height Start Date: 07/27/22 Status: Ordered Pen [place], 31 G x 8 mm BD Ultra [...] 12:32:00 EDT, Route to Pharmacy Electronically, [facility]/pharmacy #[id number], 193.2, cm, 07/27/22 10:43:00EDT, Height Start [...] 2 diabetes mellitus with microalbuminuria Discharge Diagnosis 12/16/22 Vital Signs Most recent to oldest [Reference Range]: 1 Height 195 cm (12/16/22 3:45 PM) Weight 112.1 kg (12/16/22 3:45 PM) Oxygen Saturation [94-100 %] 99 % (12/16/22 3:45 PM) Pulse Rate [55-90 bpm] 65 bpm (12/16/22 3:45 PM) Body Mass Index [18.5-24.99 kg/m2] 29.48 kg/m2 *H* (12/16/22 3:45 PM) Blood Pressure [90-138/55-84 mm Hg] 144/ 70mm Hg *H* (12/16/22 3:45 PM) Blood pressure sites Arm, left (12/16/22 3:45 PM) Weight Obtained Via Standing scale (12/16/22 3:45 PM) Social History Social History Type Response Smoking Status Current every day sm oker; Tobacco user in household: No; Type: Cigarettes; Tobacco use times per day: Down to 1/2 pack a day from 1 pack a day. Has been smoking for 35 years.; entered on: 08/19/17 Sex Note * Hortensia Patel: PERFORM, SIGN, VERIFY Event Display: Patient Education/Instruction Authored Date: [id number] [facility] *[facility] Clinical Summary Name ROLA MAYES Age 57 Years 1965 PCP Jerry CHANG, Latesha Rocha PCP Visit Date 12/16/2022 15:40:00 Additional Instructions: Scheduled Appointments?? Future Appointments ?*[facility],??[place],??[address] ?Phone:??--?Fax:??-- ?Appt. Date:??01/06/2023?10:20 AM ?Scheduled Provider:??Latesha Riddle MD ?*[facility] ?[address],??[place],??[address] ?Phone:??--?Fax:??-- ?Appt. Date:??02/10/2023?1:00 PM ?Scheduled Provider:??Latesha Riddle MD Follow-Up Instructions ?? Diagnosis Type 2 diabetes mellitus with other diabetic kidney complication Medications: Please continue your medications until treatment is completed or stopped by your provider. Discuss any questions related to medications with your provider. New Medications [id number], [address] [place] [phone], [phone] Cyclobenzaprine (cyclobenzaprine 5 mg oral tablet) 1 tab(s) Oral 3 times a day for 7 Days. Refills:0. Next Dose: Medications to Continue with No [...] 3. Next Dose: Durable Medical Equipment (Pen [place], 30 G x 8 mm BD Ultra Fine II) use as directed for Type 2 Diabetes Mellitus - once a day. Refills: 3. Next Dose: Durable Medical Equipment (Pen [place], 31 G x 5 mm BD Ultra Fine III) use to inject Basaglar 1x daily, E11.9, 90-day. Refills: 3. Next Dose: Durable Medical Equipment (Pen [place], 31 G x 8 mm BD Ultra [...] Daily in PM. Refills: 3. Next Dose: Nicotine (nicotine 21 mg/24 hr transdermal film, extended release) 1 patch(es) Topically Daily for 6 week(s). Refills: 0. Next Dose: PEG Electrolyte Solution (NuLYTELY with Flavor Packs oral powder for reconstitution) 240 MilliliterOral every 10 minutes. May substitute any PEG 3350 solution available SPLIT PREP METHOD. Refills: 0. Next Dose: Sertraline (sertraline 50 mg oral tablet) 1 tab(s) Oral Daily for 90 Days. Refills: 3. Next Dose: Allergy Info:?? No Known Medication Allergies; Other Environmental Allergy Medications Given This Visit Future Orders ?Comprehensive Metabolic Panel? Order Date:03/15/23?- Complete on or after?12/16/22 Vital Signs Height 195 cm Weight 112.1 kg BMI 29.48 kg/m2 Blood Pressure 144 mm Hg/70 mm Hg Temperature Pulse Rate 65 bpm Respiratory Rate 02 Sat Mode of Delivery 99 %/ You can now view a summary of your hospital visit from the comfort of your home through a free online portal called wishkicker. wishkicker is a website that allows you to [...] primary care provider, you may find a [facility] provider by calling [facility] Link at [phone]. For information about the plan of care [...] Care Physician Member Role: PCP Address: Address: [address] [place] [address] Care Team Related Persons Name: ROSALIA MAYES Address: home [address] [place] [address]
--- OUTSIDE RECORDS SUMMARY | 2024-05-09 07:58 | XMS_ITS | Continuity of Care Document ---
Author Organization [facility] Address [address] [place] [address]- Care Team Providers Care Bobbin Presser Name Role Phone Jerry CHAGN, Latesha Rocha Primary Care Physic augustina [facility]): 10[facility]07[facility]22 - 11/06/22 [facility] [address] [place] [address]- Allergies, Adverse Reactions, Alerts No Known Medication [...] tetanus-diphtheria toxoids (Td) 10/04/99 Recorded 1Result Comment: [facility]NOTE 2]: [id number] 2Result Comment: [09/07/2018] [facility]NOTE 2] # [id number] 3Result Comment: [07/05/2017] [facility] 2] [id number] 4Result Comment: GUS Lowery [place] 5Result Comment: [...] 12:32:00 EDT, Powder, Route to Pharmacy Electronically, [id number], [facility]/pharmacy #[id number], 193.2, cm, 07/27/22 10:43:00 EDT, Height Start Date: 07/27/22 Stop Date: 07/22/23 Status: Ordered albuterol CFC free 90 mcg/inh inhalation aerosol 2, puffs, Inhalation, Every 4 hours, PRN, # 3 each, Refills 1, Tot. Refills 1, Maintenance, 07/27/22 12:32:00 EDT, Route to Pharmacy Electronically, [id number], [facility]/pharmacy#1095, 193.2, cm, 07/27/22 10:43:00 EDT, Height Start [...] Soft Stop, 07/27/22 12:32:00 EDT, [facility]/pharmacy #[id number], 193.2, cm, 07/27/22 10:43:00 EDT, Height Start Date: 07/27/22 Status: Ordered Basaglar KwikPen 100 units/mL subcutaneous solution = 80 units, Subcutaneous Injection, Daily at bedtime, # 15 mL, 6 Refills, Maintenance, 07/27/22 11:43:00 EDT, [facility]/pharmacy #[id number], [...] 3 Refills, Soft Stop, 10/27/22 15:09:00 EST, [facility]/pharmacy #[id number], 193.2, cm, 07/27/22 10:43:00 EDT, Height Start Date: 10/27/22 Stop Date: 10/22/23 Status: Ordered clonazePAM 0.5 mg oral tablet 1 tablet = 0.5 mg, By Mouth, Daily, # 28 tablet, 0 Refills, Maintenance, 09/02/22 17:46:00 EST, Tablet, [facility]/pharmacy [...] 3 Refills, Maintenance, 12/05/22 17:12:00 EST, Tablet, [facility]/pharmacy #[id number], 193.2, cm, 07/27/22 10:43:00 EDT, Height Start Date: 12/05/22 Stop Date: 11/30/23 Status: Ordered levothyroxine 0.025 mg oral tablet 1 tablet = 25 mcg, By Mouth, Daily, for 90 days, Take with the 175 mcg for a total of 200 mcg daily, # 90 tablet, 1 Refills, Hard Stop 12/05/22 17:12:00 EST, 09/05/22 17:12:00 EDT, Tablet, [facility]/pharmacy #[id number], 193.2, cm, 03/16/22 9:24:00 EDT, Height [...] 12/12/22 12:34:00 EST, 06/15/22 12:34:00 EDT, Tablet, [facility]/pharmacy #[id number], 193.2, cm, 03/16/22 9:24:00 EDT, Height Start Date: 06/15/22 Stop Date: 12/12/22 Status: Ordered MetFORMIN (Eqv-Glucophage XR) 500 mg oral tablet, extended release 2 tablet = 1,000 mg, By Mouth, Daily, # 180 tablet, 3 Refills, Maintenance, 09/27/22 13:35:00 EST, [facility]/pharmacy #[id number], [...] 11/27/22 12:44:00 EST, 10/16/22 12:44:00 EST, Patch, [facility]/pharmacy #[id number], Partial [...] minutes,Instr:M... Start Date: 10/12/22 Status: Ordered Pen [place], 30 G x 8 mm BD Ultra Fine II See Instructions, # 100 each, Refills 3, Tot. Refills 3, Maintenance, use as directed for Type 2 Diabetes Mellitus - once a day, 10/09/15 14:01:07, Compound Start Date: 10/09/15 Stop Date: 02/06/16 Status: Ordered Pen [place], 31 G x 5 mm BD Ultra Fine III See Instructions, # 100 each, Refills 3, Tot. Refills 3, Maintenance, use to inject Basaglar 1x daily, E11.9, 90-day, 07/27/22 12:32:00 EDT, Supply, 193.2, cm, 07/27/22 10:43:00 EDT, Height Start Date: 07/27/22 Status: Ordered Pen [place], 31 G x 8 mm BD Ultra Fine III See Instructions, # 100 each, Refills 1, Tot. Refills 1, Maintenance, use with Lantus 1x daily, Dx E11.9, 90-day, 03/15/17 15:55:47, Compound Start Date: 03/15/17 Stop Date: 09/11/17 Status: Ordered sertraline 50 mg oral tablet 1 tablet = 50 mg, By Mouth, Daily, # 90 tablet, 3 Refills, Maintenance, 07/27/22 12:32:00 EDT, Tablet, [facility]/pharmacy [...] 07/27/22 12:32:00 EDT, Route to Pharmacy Electronically, [facility]/pharmacy #[id number], 193.2, cm, 07/27/22 10:43:00EDT, Height Start [...] Personnel Name: Jerry CHANG, Latesha Rocha Position: [facility] Primary Care Physician Member Role: PCP Address: Address: [address] [place] [address]- Care Team Related Persons Name: ROSALIA MAYES Address: home [address] [place] [address]
--- OUTSIDE RECORDS SUMMARY | 2024-05-09 07:58 | XMS_ITS | Continuity of Care Document ---
Author Organization [facility] Address [address] [place] [address]- Care Team Providers Care Airframe Design Engineer Name Role Phone Jerry CHANG, Latesha Rocha Primary Care Physic augustina Encounter [facility] Date(s): 11/12/23 - 12/12/23 [facility] [address] [place] [address]- Allergies, Adverse Reactions, Alerts No Known Medication Allergies Substance Reaction Severity Status Other Environmental Allergy 1 Active 1pets Immunizations Given and Recorded Vaccine Date Status Refusal Reason Influenza Virus Vaccine (oldterm) 1 07/10/23 Recor ded SARS-CoV-2 mRNA (yybsclj-enir-vhpuk) vax 2 07/10/23 Recorded influenza virus vaccine, [...] Recorded 1Result Comment: pt recevied vaccine from [email or web address] 2Result Comment: pt received vaccine from [email or web address] 3Result Comment: [facility]: [id number] 4Result Comment: [09/07/2018] [facility] # [id number] 5Result Comment: [07/05/2017] [facility] [id number] 6Result Comment: GUS Lowery [place] 7Result Comment: Beverley WEBER [place] 8Result Comment: [11/07/2014] Dr. Knox; consent signed. Medications Advair Diskus 250 mcg-50 mcg inhalation powder 1, puffs, Inhalation, 2 times a day, # 3 each, Refills 1, Tot. Refills 1, Maintenance, 09/01/23 18:48:00 EST, Powder, Route to Pharmacy Electronically, [id number], [facility]/pharmacy #[id number], 192.3, cm, 09/01/23 11:35:00 EST, Height,... Start Date: 09/01/23 Stop Date: 02/28/24 Status: Ordered albuterol CFC free 90 mcg/inh inhalation aerosol 2, puffs, Inhalation, Every 4 hours, PRN, # 3 each, Refills 3, Tot. Refills 3, Maintenance, 05/07/23 10:14:00 EDT, Route to Pharmacy Electronically, [id number], [facility]/pharmacy#[id number], 195, cm, 05/07/23 9:23:00 [...] 3 Refills, Soft Stop, 10/22/23 15:01:00 EST, [facility]/pharmacy #[id number], 192.3, cm, 10/13/23 [...] Refills, Maintenance, 11/15/23 15:34:00 EST, ER Tablet, [facility]/pharmacy #[id number], Partial fill upon patient request if the prescription is for a schedule II opioid drug., 192.3, cm, 10/13/23 12:06:00 EST, H... Start Date: 11/15/23 Status: Ordered CeleBREX 100 mg oral capsule 1 capsule = 100 mg, By Mouth, 2 times a day, # 60 capsule, 0 Refills, Maintenance, 02/19/23 13:03:00 EDT, Capsule, [facility]/pharmacy #[id number], Partial fill upon patient request if the prescription is for a schedule II opioid drug., 195, cm, 02/10/23 13:17:00... Start Date: 02/19/23 Status: Ordered clonazePAM 0.5 mg oral tablet 1 tablet = 0.5 mg, By Mouth, Daily, # 28 tablet, 0 Refills, Maintenance, 09/02/22 17:46:00 EST, Tablet, [facility]/pharmacy #[id number], Partial fill upon [...] 09/06/23 17:50:00 EST, Route to Pharmacy Electronically, [facility]/pharmacy #[id number], Partial fill upon patient request if the prescription is for a schedule... Start Date: 09/06/23 Status: Ordered Jardiance 10 mg oral tablet 1 tablet, By Mouth, Daily in AM, # 90 tablet, 3 Refills, Maintenance, 09/02/23 15:43:00 EST, [facility]/pharmacy #[id number], 192.3, cm, 09/02/23 15:03:00 EST, Height, 108, kg, 08/04/23 9:53:00 EDT, Dry Weight Start Date: 09/02/23 Status: Ordered Lantus Solostar Pen 100 units/mL subcutaneous solution = 80 units, Subcutaneous Infusion, Daily, 6 months supplies, # 144 mL, 3 Refills, Maintenance, 11/24/23 11:09:00 EST, [facility]/pharmacy #[id number], Partial fill upon patient request if the prescription is for a schedule II opioid drug., 192.3, cm, 11/24/23 8:32... Start Date: 11/24/23 Stop Date: 11/13/25 Status: Ordered levothyroxine 0.025 mg oral tablet 1 tablet = 25 mcg, By Mouth, Daily, Take with 200mcg tab for total of 225mcg., # 90 tablet, 1 Refills, Maintenance, 09/03/23 16:52:00 EST, Tablet, [facility]/pharmacy #[id number], 192.3, cm, 09/02/23 [...] 9 mL, 3 Refills, Maintenance,09/02/23 15:44:00 EST, [facility]/pharmacy #[id number], Partial fill upon patient request if the prescription isfor a schedule II opioid drug., 192.3, cm, 2... Start Date: 09/02/23 Status: Ordered Pen [place], 31 G x 5 mm BD Ultra [...] 11/15/23 15:36:00 EST, Route to Pharmacy Electronically, [facility]/pharmacy #[id number], 192.3, cm, 10/13/23 [...] Latesha Rocha Position: [facility] Physician - Primary Care Member Role: PCP Address: Address: [facility] [address] [place] [address]- Care Team Related Persons Name: ROSALIA MAYES Address: home [address] [place] [address]
--- OUTSIDE RECORDS SUMMARY | 2024-05-09 07:58 | XMS_ITS | Continuity of Care Document ---
Author Organization [facility] Address [address] [place] [address]- Care Team Providers Care Milk Runner Name Role Phone Jerry CHANG, Latesha Rocha Primary Care Physic augustina Encounter [facility] Date(s): 09/01/23 - 10/01/23 [facility] [address] [place] [address]- Allergies, Adverse Reactions, Alerts No Known Medication Allergies Substance Reaction Severity Status Other Environmental Allergy 1 Active 1pets Immunizations Given and Recorded Vaccine Date Status Refusal Reason Influenza Virus Vaccine (oldterm) 1 07/10/23 Recor ded SARS-CoV-2 mRNA (aykzxzq-znmt-epewa) vax 2 07/10/23 Recorded influenza virus vaccine, [...] Recorded 1Result Comment: pt recevied vaccine from [facility] 2Result Comment: pt received vaccine from [facility] 3Result Comment: [facility]: [id number] 4Result Comment: [09/07/2018] [facility] # [id number] 5Result Comment: [07/05/2017] [facility] [id number] 6Result Comment: GSU Lowery [place] 7Result Comment: Beverley WEBER [place] 8Result Comment: [11/07/2014] Dr. Knox; consent signed. Medications Advair Diskus 250 mcg-50 mcg inhalation powder 1, puffs, Inhalation, 2 times a day, # 3 each, Refills 1, Tot. Refills 1, Maintenance, 09/01/23 18:48:00 EST, Powder, Route to Pharmacy Electronically, [id number], [facility]/pharmacy #[id number], 192.3, cm, 09/01/23 11:35:00 EST, Height,... Start Date: 09/01/23 Stop Date: 02/28/24 Status: Ordered albuterol CFC free 90 mcg/inh inhalation aerosol 2, puffs, Inhalation, Every 4 hours, PRN, # 3 each, Refills 3, Tot. Refills 3, Maintenance, 05/07/23 10:14:00 EDT, Route to Pharmacy Electronically, [id number], [facility]/pharmacy#1095, 195, cm, 05/07/23 9:23:00 EDT, Height, 112.6... Start Date: 05/07/23 Status: Ordered aspirin 81 mg oral tablet 1 tablet = 81 mg, By Mouth, Daily, # 90 tablet, 0 Refills, Maintenance, 05/20/17 11:35:13, Tablet Start Date: 05/20/17 Status: Ordered atorvastatin 20 mg oral tablet See Instructions, TAKE 1 TABLET BY MOUTH EVERY DAY, # 90 tablet, 3 Refills, Soft Stop, 07/27/22 12:32:00 EDT, [facility]/pharmacy #1095, 193.2, cm, 07/27/22 10:43:00 EDT, Height [...] Refills, Maintenance, 05/07/23 9:46:00 EDT, ER Tablet, [facility]/pharmacy #1095, Partial fill upon patient request if [...] 09/06/23 17:50:00 EST, Route to Pharmacy Electronically, [facility]/pharmacy #1095, Partial fill upon patient request if the prescription is for a schedule... Start Date: 09/06/23 Status: Ordered Jardiance 10 mg oral tablet 1 tablet, By Mouth, Daily in AM, # 90 tablet, 3 Refills, Maintenance, 09/02/23 15:43:00 EST, [facility]/pharmacy #1095, 192.3, cm, 09/02/23 15:03:00 EST, Height, 108, kg, 08/04/23 9:53:00 EDT, Dry Weight Start Date: 09/02/23 Status: Ordered levothyroxine 0.025 mg oral tablet 1 tablet = 25 mcg, By Mouth, Daily, Take with 200mcg tab for total of 225mcg., # 90 tablet, 1 Refills, Maintenance, 09/03/23 16:52:00 EST, Tablet, [facility]/pharmacy #1095, 192.3, cm, 09/02/23 15:03:00 EST, Height, [...] 9 mL, 3 Refills, Maintenance,09/02/23 15:44:00 EST, [facility]/pharmacy #1095, Partial fill upon patient request if the prescription isfor a schedule II opioid drug., 192.3, cm, ... Start Date: 09/02/23 Status: Ordered Pen [place], 31 G x 5 mm BD Ultra [...] Personnel Name: Jerry CHANG, Latesha Rocha Position: [facility] Physician - Primary Care Member Role: PCP Address: [facility] [place] [address]- Care Team Related Persons Name: ROSALIA MAYES Address: home [address] [place] [address]
--- OUTSIDE RECORDS SUMMARY | 2024-05-09 07:58 | XMS_ITS | Continuity of Care Document ---
Author Organization [facility] Address [address] [place] [address]- Care Team Providers Care Instrumentation And Controls Technician Name Role Phone Jerry CHANG, Latesha Rocha Primary Care Physic augustina Encounter [facility] Date(s): 03/03/23 - 07/01/23 [facility] [address] [place] [id number] Attending Physician: Nisreen Chaudhry MD Admitting Physician: Nisreen Chaudhry MD Allergies, Adverse Reactions, Alerts No Known [...] tetanus-diphtheria toxoids (Td) 10/04/99 Recorded 1Result Comment: [facility]: [id number] 2Result Comment: [09/07/2018] [facility] # [id number] 3Result Comment: [07/05/2017] [facility] [id number] 4Result Comment: GUS Lowery [place] 5Result Comment: [...] 12:32:00 EDT, Powder, Route to Pharmacy Electronically, [id number], [facility]/pharmacy #1095, 193.2, cm, 07/27/22 10:43:00 EDT, Height Start Date: 07/27/22 Stop Date: 07/22/23 Status: Ordered albuterol CFC free 90 mcg/inh inhalation aerosol 2, puffs, Inhalation, Every 4 hours, PRN, # 3 each, Refills 3, Tot. Refills 3, Maintenance, 05/07/23 10:14:00 EDT, Route to Pharmacy Electronically, [id number], [facility]/pharmacy#1095, 195, cm, 05/07/23 [...] Refills, Maintenance, 06/25/23 16:01:00 EDT, [facility], 195, cm, 05/13/23 11:00:00 EDT, Height, 112.6, [...] mL, 2 Refills, Maintenance, 07/27/22 12:32:00 EDT, [facility]/pharmacy #1095, 193.2, cm, 07/27/22 [...] 3 mL, 4 Refills, Maintenance,06/01/23 10:23:00 EDT, [facility]/pharmacy #[id number], Partial fill upon patient request if the prescription isfor a schedule II opioid drug., 195, cm, 05/13/23... Start Date: 06/01/23 Status: Ordered Pen [place], 31 G x 5 mm BD Ultra [...] Personnel Name: Jerry CHANG, Latesha Rocha Position: [facility] Physician - Primary Care Member Role: PCP Address: Address: [address] [place] [address]- Care Team Related Persons Name: ROSALIA MAYES Address: home [address] [place] [address]
--- OUTSIDE RECORDS SUMMARY | 2024-05-09 07:58 | XMS_ITS | Continuity of Care Document ---
Author Organization [facility] Address [address] [place] [address]- Care Team Providers Care Hole Puncher Strap Name Role Phone Jerry CHANG, Latesha Rocha Primary Care Physic augustina Encounter [facility] Date(s): 09/01/23 - 10/01/23 [facility] [address] [place] [address]- Allergies, Adverse Reactions, Alerts No Known Medication Allergies Substance Reaction Severity Status Other Environmental Allergy 1 Active 1pets Immunizations Given and Recorded Vaccine Date Status Refusal Reason Influenza Virus Vaccine (oldterm) 1 07/10/23 Recor ded SARS-CoV-2 mRNA (mbbvbdd-teyc-rtcxl) vax 2 07/10/23 Recorded influenza virus vaccine, [...] Recorded 1Result Comment: pt recevied vaccine from [facility] 2Result Comment: pt received vaccine from [facility] 3Result Comment: [facility]: [id number] 4Result Comment: [09/07/2018] [facility] # [id number] 5Result Comment: [07/05/2017] [facility] [id number] 6Result Comment: GUS Lowery [place] 7Result Comment: Beverley WEBER [place] 8Result Comment: [11/07/2014] Dr. Knox; consent signed. Medications Advair Diskus 250 mcg-50 mcg inhalation powder 1, puffs, Inhalation, 2 times a day, # 3 each, Refills 1, Tot. Refills 1, Maintenance, 09/01/23 18:48:00 EST, Powder, Route to Pharmacy Electronically, [id number], [facility]/pharmacy #1095, 192.3, cm, 09/01/23 11:35:00 EST, Height,... Start Date: 09/01/23 Stop Date: 02/28/24 Status: Ordered albuterol CFC free 90 mcg/inh inhalation aerosol 2, puffs, Inhalation, Every 4 hours, PRN, # 3 each, Refills 3, Tot. Refills 3, Maintenance, 05/07/23 10:14:00 EDT, Route to Pharmacy Electronically, [id number], [facility]/pharmacy#1095, 195, cm, 05/07/23 9:23:00 EDT, [...] Refills, Soft Stop, 07/27/22 12:32:00 EDT, [facility]/pharmacy #1095, 193.2, [...] Maintenance, 05/07/23 9:46:00 EDT, ER Tablet, [facility]/pharmacy #1095, [...] 17:50:00 EST, Route to Pharmacy Electronically, [facility]/pharmacy #1095, Partial fill upon patient request if the prescription is for a schedule... Start Date: 09/06/23 Status: Ordered Jardiance 10 mg oral tablet 1 tablet, By Mouth, Daily in AM, # 90 tablet, 3 Refills, Maintenance, 09/02/23 15:43:00 EST, [facility]/pharmacy #1095, 192.3, cm, 09/02/23 15:03:00 EST, Height, 108, kg, 08/04/23 9:53:00 EDT, Dry Weight Start Date: 09/02/23 Status: Ordered levothyroxine 0.025 mg oral tablet 1 tablet = 25 mcg, By Mouth, Daily, Take with 200mcg tab for total of 225mcg., # 90 tablet, 1 Refills, Maintenance, 09/03/23 16:52:00 EST, Tablet, [facility]/pharmacy #1095, 192.3, cm, 09/02/23 15:03:00 [...] mL, 3 Refills, Maintenance,09/02/23 15:44:00 EST, [facility]/pharmacy #1095, Partial fill upon patient request if the prescription isfor a schedule II opioid drug., 192.3, cm, ... Start Date: 09/02/23 Status: Ordered Pen [place], 31 G x 5 mm BD Ultra [...] Personnel Name: Jerry CHANG, Latesha Rocha Position: [facility] Physician - Primary Care Member Role: PCP Address: [facility] [place] [address]- Care Team Related Persons Name: ROSALIA MAYES Address: home [address] [place] [address]
--- OUTSIDE RECORDS SUMMARY | 2024-05-09 07:58 | XMS_ITS | Continuity of Care Document ---
Author Organization [facility] Address [address] [place] [address]- Care Team Providers Care Mainspring Former Name Role Phone Jerry CHANG, Latesha Rocha Primary Care Physic augustina Encounter [facility] Date(s): 11/04/20 - 11/11/20 [facility] [address] [place] [address]- Encounter Diagnosis Diabetes mellitus type II, uncontrolled(Discharge Diagnosis) - 11/04/20 Hyperlipidemia, mixed(Discharge Diagnosis) - 11/04/20 Hypothyroidism(Discharge Diagnosis) - 11/04/20 Tubular adenoma of colon(Discharge Diagnosis) - 11/04/20 Attending Physician: Jerry CHANG, Latesha Rocha Allergies, [...] Recorded 1Result Comment: [facility]: [id number] 2Result Comment: [09/07/2018] [facility] # [id number] 3Result Comment: [07/05/2017] [facility] [id number] 4Result Comment: [11/07/2014] Dr. Knox; consent signed. [...] 15:07:00 EST, Powder, Route to Pharmacy Electronically, [id number], [facility]/pharmacy #1095, 193.2, cm, 08/08/20 14:34:00 EST, Height,... Start Date: 08/08/20 Stop Date: 02/04/21 Status: Ordered albuterol CFC free 90 mcg/inh inhalation aerosol 2, puffs, Inhalation, Every 4 hours, PRN, # 3 each, Refills 1, Tot. Refills 1, Maintenance, 10/10/20 16:06:00 EST, Route to Pharmacy Electronically, [id number], [facility]/pharmacy#1095, 193.2, cm, 08/08/20 14:34:00 EST, Height, 11... Start Date: 10/10/20 Status: Ordered aspirin 81 mg oral tablet 1 tablet = 81 mg, By Mouth, Daily, # 90 tablet, 0 Refills, Maintenance, 05/20/17 11:35:13, Tablet Start Date: 05/20/17 Status: Ordered atorvastatin 20 mg oral tablet See Instructions, TAKE 1 TABLET BY MOUTH EVERY DAY, # 90 tablet, 1 Refills, Soft Stop, 08/08/20 15:09:00 EST, [facility]/pharmacy #1095, 193.2, cm, 08/08/20 14:34:00 EST, Height, 113.1, kg, 08/09/19 10:20:00 EST, Dry Weight Start Date: 08/08/20 Status: Ordered Basaglar KwikPen 100 units/mL subcutaneous solution = 75 units, Subcutaneous Injection, Daily at bedtime, # 12 mL, 3 Refills, Maintenance, 08/08/20 16:16:00 EST, [facility]/pharmacy #1095, 193.2, cm, 08/08/20 14:34:00 EST, Height, 113.1, kg, 08/09/19 10:20:00 EST, Dry Weight Start Date: 08/08/20 Status: Ordered buPROPion 150 mg/12 hours (SR) oral tablet, extended release 1 tablet = 150 mg, By Mouth, Daily, # 90 tablet, 1 Refills, Soft Stop, 08/08/20 15:09:00 EST, [facility]/pharmacy #1095, 193.2, cm, 08/08/20 14:34:00 EST, Height, [...] 1 Refills, Maintenance, 08/08/20 15:04:00 EST, Tablet, [facility]/pharmacy #1095, 193.2, cm, 08/08/20 14:34:00 EST, Height, 113.1, kg, 08/09/19 10:20:00 EST,... Start Date: 08/08/20 Stop Date: 02/04/21 Status: Ordered levothyroxine 175 mcg (0.175 mg) oral tablet 1 tablet = 175 mcg, By Mouth, Daily, # 90 tablet, 1 Refills, Maintenance, 08/08/20 15:04:00 EST, Tablet, [facility], 193.2, cm, 08/08/20 14:34:00 EST, [...] mL, 1 Refills, Maintenance, 08/08/20 15:05:00 EST, [facility]/pharmacy #1095, 193.2, cm, 08/08/20 14:34:00 EST, Height, 113.1, kg, 08/09/19 10:20:00 ES... Start Date: 08/08/20 Status: Ordered Pen [place], 30 G x 8 mm BD Ultra Fine II See Instructions, # 100 each, Refills 3, Tot. Refills 3, Maintenance, use as directed for Type 2 Diabetes Mellitus - once a day, 10/09/15 14:01:07, Compound Start Date: 10/09/15 Stop Date: 02/06/16 Status: Ordered Pen [place], 31 G x 5 mm BD Ultra Fine III See Instructions, # 100 each, Refills 2, Tot. Refills 2, Maintenance, use to inject Basaglar 1x daily, E11.9, 90-day, 08/08/20 15:07:00 EST, Supply, 193.2, cm, 08/08/20 14:34:00 EST, Height, 113.1, kg, 08/09/19 10:20:00 EST, Dry Weight Start Date: 08/08/20 Status: Ordered Pen [place], 31 G x 8 mm BD Ultra [...] 08/08/20 15:03:00 EST, Route to Pharmacy Electronically, [facility]/pharmacy #[id number], 193.2, cm, 08/08/20 14:34:00EST, Height, 113.1, [...] Diabetes mellitus type II, uncontrolled Discharge Diagnosis 11/04/20 Hyperlipidemia, mixed Discharge Diagnosis 11/04/20 Hypothyroidism Discharge Diagnosis 11/04/20 Tubular adenoma of colon Discharge Diagnosis 11/04/20 Vital Signs Most recent to oldest [Reference Range]: 1 Height 193.2 cm (11/04/20 1:14 PM) Social History Social History Type Response Smoking Status Current every day sherri weeks; Tobacco user in household: No; Type: Cigarettes; Tobacco use times per day: Down to 1/2 pack a day from 1 pack a day. Has been smoking for 35 years.; entered on: 08/19/17 Sex
--- OUTSIDE RECORDS SUMMARY | 2024-05-09 07:58 | XMS_ITS | Continuity of Care Document ---
Author Organization [facility] Address [address] [place], [place] [address]- Care Team Providers Care Chef German Name Role Phone Jerry CHANG, Latesha Rocha Primary Care Physic augustina Encounter [facility] Date(s): 11/03/23 - 12/03/23 [place] [address]- Attending Physician: Nagi Francois Admitting Physician: Nagi Francois Referring Physician: Nagi Francois Allergies, Adverse Reactions, Alerts No Known Medication Allergies Substance Reaction Severity Status Other Environmental Allergy 1 Active 1pets Immunizations Given and Recorded Vaccine Date Status Refusal Reason Influenza Virus Vaccine (oldterm) 1 07/10/23 Recor ded SARS-CoV-2 mRNA (drislew-vdlh-ibbak) vax 2 07/10/23 Recorded influenza virus vaccine, [...] from [facility] pharmacy 3Result Comment: [facility]: [id number] 4Result Comment: [09/07/2018] [facility] # [id number] 5Result Comment: [07/05/2017] [facility] [id number] 6Result Comment: [facility] Beverley [place] 7[facility] [place] 8Result Comment: [11/07/2014] Dr. Knox; consent signed. Medications Advair Diskus 250 mcg-50 mcg inhalation powder 1, puffs, Inhalation, 2 times a day, # 3 each, Refills 1, Tot. Refills 1, Maintenance, 09/01/23 18:48:00 EST, Powder, Route to Pharmacy Electronically, [id number], [id number], 192.3, cm, 09/01/23 11:35:00 EST, Height,... Start Date: 09/01/23 Stop Date: 02/28/24 Status: Ordered albuterol CFC free 90 mcg/inh inhalation aerosol 2, puffs, Inhalation, Every 4 hours, PRN, # 3 each, Refills 3, Tot. Refills 3, Maintenance, 05/07/23 10:14:00 EDT, Route to Pharmacy Electronically, [id number], [facility], 195, cm, 05/07/23 9:23:00 EDT, Height, [...] Refills, Maintenance, 11/15/23 15:34:00 EST, ER Tablet, [facility]/pharmacy #1095, Partial fill upon [...] 0 Refills, Maintenance, 09/02/22 17:46:00 EST, Tablet, [facility]/pharmacy #1095, Partial fill upon [...] tablet, 3 Refills, Maintenance, 09/02/23 15:43:00 EST, [facility]/pharmacy #1095, 192.3, cm, 09/02/23 15:03:00 EST, Height, 108, kg, 08/04/23 9:53:00 EDT, Dry Weight Start Date: 09/02/23 Status: Ordered Lantus Solostar Pen 100 units/mL subcutaneous solution = 80 units, Subcutaneous Infusion, Daily, 6 months supplies, # 144 mL, 3 Refills, Maintenance, 11/24/23 11:09:00 EST, [facility]/pharmacy #[id number], Partial fill [...] 2... Start Date: 09/02/23 Status: Ordered Pen [place], 31 G x 5 mm BD Ultra [...] 11/15/23 15:36:00 EST, Route to Pharmacy Electronically, [facility]/pharmacy #[id number], 192.3, cm, 10/13/23 12:06:00EST, Height, 108, [...] Personnel Name: Jerry CHANG, Latesha Rocha Position: [facility] Physician - Primary Care Member Role: PCP Address: Address: [address] [place] [address]- Care Team Related Persons Name: ROSALIA MAYES Address: home [address] [place] [address]
--- OUTSIDE RECORDS SUMMARY | 2024-05-09 07:58 | XMS_ITS | Continuity of Care Document ---
Author Organization [facility] Address [address] [place] [address]- Care Team Providers Care Tattoo Designer Name Role Phone Jerry CHANG, Latesha Rocha Primary Care Physic augustina [place] [facility] [place](s[place] 11/05/21 - 11/12/21 [facility] [address] [place] [address]- Encounter Diagnosis Diabetes mellitus type II, uncontrolled(Discharge Diagnosis) - 11/05/21 Hyperlipidemia, mixed(Discharge Diagnosis) - 11/05/21 Hypothyroidism(Discharge Diagnosis) - 11/05/21 Hyperkalemia(Discharge Diagnosis) - 11/05/21 Ulcer of toe of left foot(Discharge Diagnosis) - 11/05/21 Attending Physician: Jerry CHANG, Latesha Rocha Allergies, [...] 2Result Comment: Beverley WEBER [place] 3Result Comment: [facility]: [id number] 4Result Comment: [09/07/2018] [facility] # [id number] 5Result Comment: [07/05/2017] [facility] [id number] 6Result Comment: [11/07/2014] Dr. Knox; consent signed. [...] 15:07:00 EDT, Powder, Route to Pharmacy Electronically, [id number], [facility]/pharmacy #[id number], 193.2, cm, 11/04/20 13:14:00 EST, Height,... Start Date: 02/04/21 Stop Date: 08/03/21 Status: Ordered albuterol CFC free 90 mcg/inh inhalation aerosol 2, puffs, Inhalation, Every 4 hours, PRN, # 3 each, Refills 1, Tot. Refills 1, Maintenance, 06/12/21 22:49:00 EDT, Route to Pharmacy Electronically, [id number], [facility]/pharmacy#[id number], 193.2, cm, 02/03/21 8:56:00 EDT, Height, [...] 1 Refills, Soft Stop, 06/12/21 22:49:00 EDT, [facility]/pharmacy #[id number], 193.2, cm, 02/03/21 8:56:00 EDT, Height, 113.1, kg, 08/09/19 10:20:00EST, Dry Weight Start Date: 06/12/21 Status: Ordered Basaglar KwikPen 100 units/mL subcutaneous solution = 75 units, Subcutaneous Injection, Daily at bedtime, # 12 mL, 0 Refills, Maintenance, 01/06/21 11:59:00 EDT, [facility]/pharmacy #[id number], 193.2, cm, 11/04/20 13:14:00 [...] 1 Refills, Soft Stop, 08/03/21 15:09:00 EDT, [facility]/pharmacy [facility][id number], 193.2, cm, 02/03/21 8:56:00 EDT, Height, 113.1, kg, 08/09/19 10:20:00 EST, Dry Weight Start Date: 08/03/21 Stop Date: 01/30/22 Status: Ordered Freestyle Hany Sensor See Instructions, [...] 1 Refills, Maintenance, 06/13/21 17:12:00 EDT, Tablet, [facility]/pharmacy #[id number], 193.2, cm, 02/03/21 8:56:00 EDT, Height, 113.1, kg, 08/09/19 10:20:00 EST,... Start Date: 06/13/21 Stop Date: 12/10/21 Status: Ordered levothyroxine 175 mcg (0.175 mg) oral tablet 1 tablet = 175 mcg, By Mouth, Daily, for 90 days, # 90 tablet, 1 Refills, Hard Stop 12/10/21 12:26:00 EST, 06/13/21 12:26:00 EDT, Tablet, [facility]/pharmacy #[id number], 193.2, cm, 02/03/21 8:56:00 EDT, Height, 113.1, kg, 08/09/19 10:20:00 EST, Dry Weight Start Date: 06/13/21 Stop Date: 12/10/21 Status: Ordered MetFORMIN (Eqv-Glucophage XR) 500 mg oral tablet, extended release 2 tablet = 1,000 mg, By Mouth, Daily, # 180 tablet, 1 Refills, Maintenance, 10/02/21 13:35:00 EST, [facility]/pharmacy #[id number], Partial [...] mL, 0 Refills, Maintenance, 01/06/21 11:59:00 EDT, [facility]/pharmacy #[id number], 193.2, cm, 11/04/20 13:14:00 EST, Height, 113.1, kg, 08/09/19 10:20:00 ES... Start Date: 01/06/21 Status: Ordered Pen [place], 30 G x 8 mm BD Ultra Fine II See Instructions, # 100 each, Refills 3, Tot. Refills 3, Maintenance, use as directed for Type 2 Diabetes Mellitus - once a day, 10/09/15 14:01:07, Compound Start Date: 10/09/15 Stop Date: 02/06/16 Status: Ordered Pen [place], 31 G x 5 mm BD Ultra Fine III See Instructions, # 100 each, Refills 2, Tot. Refills 2, Maintenance, use to inject Basaglar 1x daily, E11.9, 90-day, 08/08/20 15:07:00 EST, Supply, 193.2, cm, 08/08/20 14:34:00 EST, Height, 113.1, kg, 08/09/19 10:20:00 EST, Dry Weight Start Date: 08/08/20 Status: Ordered Pen [place], 31 G x 8 mm BD Ultra [...] 06/12/21 22:49:00 EDT, [facility] Diabetes mellitus type II, uncontrolled Discharge Diagnosis 11/05/21 Hyperlipidemia, mixed Discharge Diagnosis 11/05/21 Hypothyroidism Discharge Diagnosis 11/05/21 Hyperkalemia Discharge Diagnosis 11/05/21 Ulcer of toe of left foot Discharge Diagnosis 11/05/21 Vital Signs Most recent to oldest [Reference Range]: 1 Height 193.2 cm (2/2/22 10:33 AM) Weight 110.1 kg (11/05/21 10:33 AM) Oxygen Saturation [94-100 %] 98 % (11/05/21 10:33 AM) Pulse Rate [55-90 bpm] 70 bpm (11/05/21 10:33 AM) Body Mass Index [18.5-24.99] 29.5 *H* (11/05/21 10:33 AM) Blood Pressure [90-138/55-84 mm Hg] 122/ 78mm Hg (11/05/21 10:33 AM) Respiratory Rate [16-30 br/min] 18 br/mi n (11/05/21 10:33 AM) Blood pressure sites Arm, left (11/05/21 10:33 AM) Weight Obtained Via Standing scale (11/05/21 10:33 AM) Social History Social History Type Response Smoking Status Current every day sm desi; Tobacco user in household: No; Type: Cigarettes; Tobacco use times per day: Down to 1/2 pack a day from 1 pack a day. Has been smoking for 35 years.; entered on: 08/19/17 Sex
--- OUTSIDE RECORDS SUMMARY | 2024-05-09 07:58 | XMS_ITS | Continuity of Care Document ---
Author Organization [facility] Address [address] [place] [address]- Care Team Providers Care Continuity Reader Name Role Phone Jerry CHANG, Latesha Rocha Primary Care Physic augustina Encounter [facility] Date(s): 05/13/23 - 06/12/23 [facility] [address] [place] [address]- Attending Physician: Nagi Francois Admitting Physician: AdmNagi nj Referring Physician: AdmtrNagi Allergies, Adverse Reactions, Alerts [...] tetanus-diphtheria toxoids (Td) 10/04/99 Recorded 1Result Comment: [facility]: [id number] 2Result Comment: [09/07/2018] [facility] # [id number] 3Result Comment: [07/05/2017] [facility] [id number] 4Result Comment: GUS Lowery [place] 5Result Comment: [...] 12:32:00 EDT, Powder, Route to Pharmacy Electronically, [id number], [facility]/pharmacy #[id number], 193.2, cm, 07/27/22 10:43:00 EDT, Height Start Date: 07/27/22 Stop Date: 07/22/23 Status: Ordered albuterol CFC free 90 mcg/inh inhalation aerosol 2, puffs, Inhalation, Every 4 hours, PRN, # 3 each, Refills 3, Tot. Refills 3, Maintenance, 05/07/23 10:14:00 EDT, Route to Pharmacy Electronically, [id number], [facility]/pharmacy#[id number], 195, cm, 05/07/23 9:23:00 EDT, Height, [...] 3 Refills, Soft Stop, 07/27/22 12:32:00 EDT, [facility]/pharmacy #[id number], 193.2, cm, 07/27/22 10:43:00 EDT, Height Start Date: 07/27/22 Status: Ordered Basaglar KwikPen 100 units/mL subcutaneous solution = 80 units, Subcutaneous Injection, Daily at bedtime, # 15 mL, 6 Refills, Maintenance, 07/27/22 11:43:00 EDT, [facility]/pharmacy #[id number], 193.2, [...] Refills, Maintenance, 05/07/23 9:46:00 EDT, ER Tablet, [facility]/pharmacy #[id number], Partial fill upon patient request if the prescription is for a schedule II opioid drug., 195, cm, 05/07/23 9:23:00 EDT, Heigh... Start Date: 05/07/23 Status: Ordered CeleBREX 100 mg oral capsule 1 capsule = 100 mg, By Mouth, 2 times a day, # 60 capsule, 0 Refills, Maintenance, 02/19/23 13:03:00 EDT, Capsule, [facility]/pharmacy #[id number], Partial fill upon patient request if the prescription is for a schedule II opioid drug., 195, cm, 02/10/23 13:17:00... Start Date: 02/19/23 Status: Ordered clonazePAM 0.5 mg oral tablet 1 tablet = 0.5 mg, By Mouth, Daily, # 28 tablet, 0 Refills, Maintenance, 09/02/22 17:46:00 EST, Tablet, [facility]/pharmacy #[id number], Partial [...] 3 Refills, Maintenance, 02/23/23 11:16:00 EDT, Tablet, [id number], Partial fill upon [...] Acute 06/24/23 11:36:00 EDT, 05/13/23 11:36:00 EDT, [facility]/pharmacy #[id number], Partial fill [...] 3 mL, 4 Refills, Maintenance,06/01/23 10:23:00 EDT, [facility]/pharmacy #[id number], Partial fill upon patient request if the prescription isfor a schedule II opioid drug., 195, cm, 05/13/23... Start Date: 06/01/23 Status: Ordered Pen [place], 31 G x 5 mm BD Ultra [...] Primary Care Member Role: PCP Address: Address: [address] [place] [id number]- Care Team Related Persons Name: ROSALIA MAYES Address: [address] [place] [address]
--- OUTSIDE RECORDS SUMMARY | 2024-05-09 07:58 | XMS_ITS | Continuity of Care Document ---
Author Organization [facility] Address [address] [place] [address]- Care Team Providers Care Confectionery Cooker Name Role Phone Jerry CHANG, Latesha Rocha Primary Care Physic augustina Encounter [facility] Date(s): 01/06/21 - 02/05/21 [facility] [address] [place] [address]- [place] Allergies, Adverse Reactions, Alerts No Known [...] Beverley WEBER [place] 3Result Comment: [facility]: [id number] 4Result Comment: [09/07/2018] [facility] # [id number] 5Result Comment: [07/05/2017] [facility] [id number] 6Result Comment: [11/07/2014] Dr. Knox; consent signed. [...] 15:07:00 EDT, Powder, Route to Pharmacy Electronically, [id number], [facility]/pharmacy #[id number], 193.2, cm, 11/04/20 13:14:00 EST, Height,... Start Date: 02/04/21 Stop Date: 08/03/21 Status: Ordered albuterol CFC free 90 mcg/inh inhalation aerosol 2, puffs, Inhalation, Every 4 hours, PRN, # 3 each, Refills 1, Tot. Refills 1, Maintenance, 01/06/21 14:39:00 EDT, Route to Pharmacy Electronically, [id number], [facility]/pharmacy#[id number], 193.2, cm, 11/04/20 13:14:00 EST, [...] 1 Refills, Soft Stop, 01/06/21 11:59:00 EDT, [facility]/pharmacy #[id number], 193.2, cm, 11/04/20 13:14:00 EST, Height, 113.1, kg, 08/09/19 10:20:00 EST, Dry Weight Start Date: 01/06/21 Status: Ordered Basaglar KwikPen 100 units/mL subcutaneous solution = 75 units, Subcutaneous Injection, Daily at bedtime, # 12 mL, 0 Refills, Maintenance, 01/06/21 11:59:00 EDT, [facility]/pharmacy #[id number], 193.2, cm, 11/04/20 13:14:00 [...] 0 Refills, Maintenance, 02/04/21 15:04:00 EDT, Tablet, [facility]/pharmacy #[id number], 193.2, cm, 11/04/20 13:14:00 [...] mL, 0 Refills, Maintenance, 01/06/21 11:59:00 EDT, [facility]/pharmacy #[id number], 193.2, cm, 11/04/20 13:14:00 EST, Height, 113.1, kg, 08/09/19 10:20:00 ES... Start Date: 01/06/21 Status: Ordered NuLYTELY with Flavor Packs oral powder for reconstitution 240 mL, By Mouth, Every 10 minutes, Split prep method, # 1 each, 0 Refills, Acute 03/21/21 6:30:00 EDT, 03/20/21 17:00:00 EDT, REC Powder, [facility]/pharmacy #[id number], test date 03/21/21, 240 mL By Mouth Every10 minutes,Instr:Split prep method, 193.2, cm, 020... Start Date: 03/20/21 Stop Date: 03/21/21 Status: Ordered Pen [place], 30 G x 8 mm BD Ultra Fine II See Instructions, # 100 each, Refills 3, Tot. Refills 3, Maintenance, use as directed for Type 2 Diabetes Mellitus - once a day, 10/09/15 14:01:07, Compound Start Date: 10/09/15 Stop Date: 02/06/16 Status: Ordered Pen [place], 31 G x 5 mm BD Ultra Fine III See Instructions, # 100 each, Refills 2, Tot. Refills 2, Maintenance, use to inject Basaglar 1x daily, E11.9, 90-day, 08/08/20 15:07:00 EST, Supply, 193.2, cm, 08/08/20 14:34:00 EST, Height, 113.1, kg, 08/09/19 10:20:00 EST, Dry Weight Start Date: 08/08/20 Status: Ordered Pen [place], 31 G x 8 mm BD Ultra [...] 01/06/21 11:59:00 EDT, Route to Pharmacy Electronically, [facility]/pharmacy #[id number], 193.2, cm, 11/04/20 13:14:00EST, [...]
--- OUTSIDE RECORDS SUMMARY | 2024-05-09 07:58 | XMS_ITS | Continuity of Care Document ---
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(Discharge Diagnosis) - 02/10/23 Rash(Discharge Diagnosis) - 02/10/23 Attending Physician: Jerry CHANG, Latesha Rocha Allergies, [...] tetanus-diphtheria toxoids (Td) 10/04/99 Recorded 1Result Comment: [facility]: [id number] 2Result Comment: [09/07/2018] [facility] # [id number] 3Result Comment: [07/05/2017] [facility] [id number] 4Result Comment: GUS Lowery [place] 5Result Comment: [...] 12:32:00 EDT, Powder, Route to Pharmacy Electronically, [id number], [facility]/pharmacy #[id number], 193.2, cm, 07/27/22 10:43:00 EDT, Height Start Date: 07/27/22 Stop Date: 07/22/23 Status: Ordered albuterol CFC free 90 mcg/inh inhalation aerosol 2, puffs, Inhalation, Every 4 hours, PRN, # 3 each, Refills 1, Tot. Refills 1, Maintenance, 07/27/22 12:32:00 EDT, Route to Pharmacy Electronically, [id number], [facility]/pharmacy#1095, 193.2, cm, 07/27/22 10:43:00 EDT, Height Start Date: 07/27/22 Status: Ordered aspirin 81 mg oral tablet 1 tablet = 81 mg, By Mouth, Daily, # 90 tablet, 0 Refills, Maintenance, 05/20/17 11:35:13, Tablet Start Date: 05/20/17 Status: Ordered atorvastatin 20 mg oral tablet See Instructions, TAKE 1 TABLET BY MOUTH EVERY DAY, # 90 tablet, 3 Refills, Soft Stop, 07/27/22 12:32:00 EDT, [facility]/pharmacy #1095, 193.2, cm, 07/27/22 10:43:00 EDT, Height Start Date: 07/27/22 Status: Ordered Basaglar KwikPen 100 units/mL subcutaneous solution = 80 units, Subcutaneous Injection, Daily at bedtime, # 15 mL, 6 Refills, Maintenance, 07/27/22 11:43:00 EDT, [facility]/pharmacy #1095, 193.2, cm, 07/27/22 10:43:00 EDT, Height Start Date: 07/27/22 Status: Ordered betamethasone-clotrimazole 0.05%-1% topical cream 1 application, Topically, 2 times a day, for 14 days, # 45 Gm, 1 Refills, Acute 03/10/23 13:59:00 EDT, 02/10/23 13:59:00 EDT, Cream, [facility]/pharmacy #[id number], Partial fill upon patient request if the prescription is for a schedule II opioid drug., 1 applica... Start Date: 02/10/23 Stop Date: 03/10/23 Status: Ordered BP monitor BP monitor, See [...] Refills, Maintenance, 11/11/22 14:09:00 EST, ER Tablet, [facility]/pharmacy #[id number], Partial fill upon patient request if the prescription is for a schedule II opioid drug., 195, cm, 11/11/22 13:45:00 EST, Hei... Start Date: 11/11/22 Status: Ordered clonazePAM 0.5 mg oral tablet 1 tablet = 0.5 mg, By Mouth, Daily, # 28 tablet, 0 Refills, Maintenance, 09/02/22 17:46:00 EST, Tablet, [facility]/pharmacy #[id number], Partial fill upon patient request if [...] Refills, Maintenance, 12/05/22 17:12:00 EST, Tablet, [facility]/pharmacy #1095, 193.2, cm, 07/27/22 10:43:00 EDT, Height [...] minutes,Instr:M... Start Date: 10/12/22 Status: Ordered Pen [place], 30 G x 8 mm BD Ultra Fine II See Instructions, # 100 each, Refills 3, Tot. Refills 3, Maintenance, use as directed for Type 2 Diabetes Mellitus - once a day, 10/09/15 14:01:07, Compound Start Date: 10/09/15 Stop Date: 02/06/16 Status: Ordered Pen [place], 31 G x 5 mm BD Ultra Fine III See Instructions, # 100 each, Refills 3, Tot. Refills 3, Maintenance, use to inject Basaglar 1x daily, E11.9, 90-day, 07/27/22 12:32:00 EDT, Supply, 193.2, cm, 07/27/22 10:43:00 EDT, Height Start Date: 07/27/22 Status: Ordered Pen [place], 31 G x 8 mm BD Ultra Fine III See Instructions, # 100 each, Refills 1, Tot. Refills 1, Maintenance, use with Lantus 1x daily, Dx E11.9, 90-day, 03/15/17 15:55:47, Compound Start Date: 03/15/17 Stop Date: 09/11/17 Status: Ordered sertraline 50 mg oral tablet 1 tablet = 50 mg, By Mouth, Daily, # 90 tablet, 3 Refills, Maintenance, 07/27/22 12:32:00 EDT, Tablet, [facility]/pharmacy #[id number], Partial fill upon patient request if [...] 2 diabetes mellitus with microalbuminuria Discharge Diagnosis 02/10/23 Rash Discharge Diagnosis 02/10/23 Vital Signs Most recent to oldest [Reference Range]: 1 Height 195 cm (02/10/23 1:17 PM) Weight 113 kg (02/10/23 1:17 PM) Oxygen Saturation [94-100 %] 97 % (02/10/23 1:17 PM) Pulse Rate [55-90 bpm] 88 bpm (02/10/23 1:17 PM) Body Mass Index [18.5-24.99 kg/m2] 29.72 kg/m2 *H* (02/10/23 1:17 PM) Blood Pressure [90-138/55-84 mm Hg] 127/ 86mm Hg (02/10/23 1:17 PM) Mode of Delivery (Oxygen) Room air (02/10/23 1:17 PM) Blood pressure sites Arm, right (02/10/23 1:17 PM) Weight Obtained Via Standing scale (02/10/23 1:17 PM) Social History Social History Type Response Smoking Status Current every day sm oker; Tobacco user in household: No; Type: Cigarettes; Tobacco use times per day: Down to 1/2 pack a day from 1 pack a day. Has been smoking for 35 years.; entered on: 08/19/17 Sex Note * Hortensia Patel: PERFORM, SIGN, VERIFY Event Display: Patient Education/Instruction Authored Date: [id number] [facility] *[facility] Clinical Summary Name ROLA MAYES Age 58 Years 1965 PCP Jerry CHANG, Latesha Rocha PCP Visit Date 02/10/2023 13:00:00 Additional Instructions: Scheduled Appointments?? Future Appointments ?No Future Appointments Scheduled Follow-Up Instructions ?? With: Address: When: 3 months 07/28/2023 9:40 AM Diagnosis Rash and other nonspecific skin eruption; Type 2 diabetes mellitus with other diabetic kidney complication Medications: Please continue your medications until treatment is completed or stopped by your provider. Discuss any questions related to medications with your provider. New Medications [facility]/pharmacy #[id number], [address] [place] [phone], [phone] Betamethasone-Clotrimazole Topical (betamethasone-clotrimazole 0.05%-1% topical cream) 1 jolynn Topically twice a day for 14 Days. Refills: 1. Next Dose: Medications to Continue Taking That Have Changed These medications were not printed or sent to your pharmacy - Metformin (metFORMIN 500 mg oral tablet, extended release) 2 tab(s) Oral Daily for 90 Days. Refills: 1. Next Dose: Medications to Continue with No [...] 3. Next Dose: Durable Medical Equipment (Pen Salol, 30 G x 8 mm BD Ultra Fine II) use as directed for Type 2 Diabetes Mellitus - once a day. Refills: 3. Next Dose: Durable Medical Equipment (Pen Salol, 31 G x 5 mm BD Ultra Fine III) use to inject Basaglar 1x daily, E11.9, 90-day. Refills: 3. Next Dose: Durable Medical Equipment (Pen Salol, 31 G x 8 mm BD Ultra [...] for 90 Days. Refills: 3. Next Dose: Nicotine (Nicotine 7 mg/24 hour patch) 1 [...] for 90 Days. Refills: 3. Next Dose: No Longer Take the Following Medications Montelukast (Singulair 10 mg oral tablet) 1 tab(s) Oral Daily in PM. Refills: 3. Allergy Info:?? No Known Medication Allergies; Other Environmental Allergy Medications Given This Visit Future Orders ?No future orders Vital Signs Height 195 cm Weight 113 kg BMI 29.72 kg/m2 Blood Pressure 127 mm Hg/86 mm Hg Temperature Pulse Rate 88 bpm Respiratory Rate 02 Sat Mode of Delivery 97 %/Room air You can now view a summary of your hospital visit from the comfort of your home through a free online portal called [employer]. [employer] is a website that allows you to securely view your medical information including discharge summary, medications and follow-up visits. ??You can alsosend a secure electronic message to your doctor???s office to request appointments, renew medications or just ask a question. You can enroll at [email or web address] or register during your next office visit. [...] primary care provider, you may find a [facility] provider by calling [facility] [email or web address] at [phone]. For information about the plan of care [...] Care Physician Member Role: PCP Address: Address: [address] [place] [address]- Care Team Related Persons Name: ROSALIA MAYES Address: home [address] [place] [address]
--- OUTSIDE RECORDS SUMMARY | 2024-05-09 07:58 | XMS_ITS | Continuity of Care Document ---
Author Organization [facility] Address [address] [place] [address]- Care Team Providers Care Director Of Media Name Role Phone Jerry CHANG, Latesha Rocha Primary Care Physic augustina Encounter [facility] Date(s): 10/13/22 - 10/13/[address] [address] Discharge Disposition: A-D/C Home Attending Physician: Noreen Fuentes MD Admitting Physician: Noreen Fuentes MD Referring Physician: Noreen Fuentes MD Allergies, Adverse Reactions, Alerts No Known [...] tetanus-diphtheria toxoids (Td) 10/04/99 Recorded 1Result Comment: [facility]: [id number] 2Result Comment: [09/07/2018] [facility] # [id number] 3Result Comment: [07/05/2017] [facility] [id number] 4Result Comment: GUS Lowery [place] 5Result Comment: [...] 12:32:00 EDT, Powder, Route to Pharmacy Electronically, [id number], [facility]/pharmacy #[id number], 193.2, cm, 07/27/22 10:43:00 EDT, Height Start Date: 07/27/22 Stop Date: 07/22/23 Status: Ordered albuterol CFC free 90 mcg/inh inhalation aerosol 2, puffs, Inhalation, Every 4 hours, PRN, # 3 each, Refills 1, Tot. Refills 1, Maintenance, 07/27/22 12:32:00 EDT, Route to Pharmacy Electronically, [id number], [facility]/pharmacy#[id number], 193.2, cm, 07/27/22 10:43:00 EDT, [...] Soft Stop, 07/27/22 12:32:00 EDT, [facility]/pharmacy #[id number], 193.2, cm, 07/27/22 10:43:00 EDT, Height Start Date: 07/27/22 Status: Ordered Basaglar KwikPen 100 units/mL subcutaneous solution = 80 units, Subcutaneous Injection, Daily at bedtime, # 15 mL, 6 Refills, Maintenance, 07/27/22 11:43:00 EDT, [facility]/pharmacy #[id number], 193.2, cm, 07/27/22 10:43:00 [...] 3 Refills, Soft Stop, 10/27/22 15:09:00 EST, [facility]/pharmacy #[id number], 193.2, cm, 07/27/22 10:43:00 EDT, Height Start Date: 10/27/22 Stop Date: 10/22/23 Status: Ordered buPROPion 150 mg/12 hours (SR) oral tablet, extended release 1 tablet = 150 mg, By Mouth, Daily, for 90 days, # 90 tablet, 0 Refills, Hard Stop 10/27/22 15:09:00 EST, 07/29/22 15:09:00 EDT, [facility]/pharmacy #[id number], 193.2, cm, 03/16/22 9:24:00 EDT, Height Start Date: 07/29/22 Stop Date: 10/27/22 Status: Ordered clonazePAM 0.5 mg oral tablet 1 tablet = 0.5 mg, By Mouth, Daily, # 28 tablet, 0 Refills, Maintenance, 09/02/22 17:46:00 EST, Tablet, [facility]/pharmacy #[id number], Partial fill upon patient [...] 12/12/22 12:34:00 EST, 06/15/22 12:34:00 EDT, Tablet, [facility]/pharmacy #[id number], 193.2, cm, 03/16/22 9:24:00 [...] minutes,Instr:M... Start Date: 10/12/22 Status: Ordered Pen [place], 30 G x 8 mm BD Ultra Fine II See Instructions, # 100 each, Refills 3, Tot. Refills 3, Maintenance, use as directed for Type 2 Diabetes Mellitus - once a day, 10/09/15 14:01:07, Compound Start Date: 10/09/15 Stop Date: 02/06/16 Status: Ordered Pen [place], 31 G x 5 mm BD Ultra Fine III See Instructions, # 100 each, Refills 3, Tot. Refills 3, Maintenance, use to inject Basaglar 1x daily, E11.9, 90-day, 07/27/22 12:32:00 EDT, Supply, 193.2, cm, 07/27/22 10:43:00 EDT, Height Start Date: 07/27/22 Status: Ordered Pen [place], 31 G x 8 mm BD Ultra Fine III See Instructions, # 100 each, Refills 1, Tot. Refills 1, Maintenance, use with Lantus 1x daily, Dx E11.9, 90-day, 03/15/17 15:55:47, Compound Start Date: 03/15/17 Stop Date: 09/11/17 Status: Ordered sertraline 50 mg oral tablet 1 tablet = 50 mg, By Mouth, Daily, # 90 tablet, 3 Refills, Maintenance, 07/27/22 12:32:00 EDT, Tablet, [facility]/pharmacy #[id number], Partial fill upon patient [...] EDT, Route to Pharmacy Electronically, [facility]/pharmacy #[id number], 193.2, cm, 07/27/22 10:43:00EDT, [...] recent to oldest [Reference Range]: 1 2 3 Height 195 cm (10/13/22 9:29 AM) Weight 112.6 kg (10/13/22 9:29 AM) Oxygen Saturation [94-100 %] 97 % (10/13/22 11:30 AM) 98 % (10/13/22 11:15 AM) 96 % (10/13/22 11:09 AM) Pulse Rate [55-90 bpm] 74 bpm (10/13/22 9:29 AM) Body Mass Index [18.5-24.99 kg/m2] 29.61 kg/m2 *H* (10/13/22 9:29 AM) Blood Pressure [90-138/55-84 mm Hg] 125/81mm Hg (10/13/22 11:30 AM) 102/61mm Hg (10/13/22 11:15 AM) 103/64mm Hg (10/13/22 11:10 AM) Respiratory Rate [16-30 br/min] 20 br/min (10/13/22 11:30 AM) 12 br/min *L* (10/13/22 11:15 AM) 11 br/min *L* (10/13/22 11:09 AM) Temperature [96.8-100.4 DegF] 98 DegF (10/13/22 9:29 AM) Liters per Minute 5 L/min (10/13/22 11:10 AM) 5 L/min (10/13/22 11:09 AM) Mode of Delivery (Oxygen) Room air (10/13/22 11:30 AM) Room air (10/13/22 11:15 AM) Simple face mask (10/13/22 11:10 AM) Blood pressure sites Arm, right (10/13/22 11:15 AM) Arm, right (10/13/22 11:10 AM) Arm, right (10/13/22 11:09 AM) Temperature Route Temporal (10/13/22 9:29 AM) Dry Weight 112.6 kg (10/13/22 9:29 AM) Weight Obtained Via Standing scale (10/13/22 9:29 AM) Dry Weight Obtained Via Standing scale (10/13/22 9:29 AM) Social History Social History Type Response [...] Care Physician Member Role: PCP Address: Address[facility] [place] [address]- Care Team Related Persons Name: ROSALIA MAYES Address: home [address] [place] [address]
--- OUTSIDE RECORDS SUMMARY | 2024-05-09 07:58 | XMS_ITS | Continuity of Care Document ---
Author Organization [facility] Address Unknown Care Team Providers Care Informatics Physician Liaison Name Role Phone Jerry CHANG, Latesha Rocha Primary Care Physic augustina Encounter [facility] Date(s): 12/02/21 - 01/01/22 [facility] Allergies, Adverse Reactions, Alerts No Known Medication [...] 2Result Comment: Beverley WEBER [place] 3Result Comment: [facility]: [id number] 4Result Comment: [09/07/2018] [facility] # [id number] 5Result Comment: [07/05/2017] [facility] [id number] 6Result Comment: [11/07/2014] Dr. Knox; consent signed. [...] 15:07:00 EDT, Powder, Route to Pharmacy Electronically, [id number], [facility]/pharmacy #[id number], 193.2, cm, 11/04/20 13:14:00 EST, Height,... Start Date: 02/04/21 Stop Date: 08/03/21 Status: Ordered albuterol CFC free 90 mcg/inh inhalation aerosol 2, puffs, Inhalation, Every 4 hours, PRN, # 3 each, Refills 1, Tot. Refills 1, Maintenance, 06/12/21 22:49:00 EDT, Route to Pharmacy Electronically, [id number], [facility]/pharmacy#[id number], 193.2, cm, 02/03/21 8:56:00 EDT, Height, 113... Start Date: 06/12/21 Status: Ordered aspirin 81 mg oral tablet 1 tablet = 81 mg, By Mouth, Daily, # 90 tablet, 0 Refills, Maintenance, 05/20/17 11:35:13, Tablet Start Date: 05/20/17 Status: Ordered atorvastatin 20 mg oral tablet See Instructions, TAKE 1 TABLET BY MOUTH EVERY DAY, # 90 tablet, 1 Refills, Soft Stop, 06/12/21 22:49:00 EDT, [facility]/pharmacy #[id number], 193.2, cm, 02/03/21 8:56:00 EDT, Height, 113.1, kg, 08/09/19 10:20:00EST, Dry Weight Start Date: 06/12/21 Status: Ordered Basaglar KwikPen 100 units/mL subcutaneous solution = 75 units, Subcutaneous Injection, Daily at bedtime, # 12 mL, 0 Refills, Maintenance, 01/06/21 11:59:00 EDT, [facility]/pharmacy #[id number], 193.2, cm, 11/04/20 13:14:00 EST, [...] 1 Refills, Soft Stop, 01/30/22 15:09:00 EDT, [facility]/pharmacy #[id number], 193.2, cm, 11/05/21 10:33:00 EST, Height Start Date: 01/30/22 Stop Date: 07/29/22 Status: Ordered buPROPion 150 mg/12 hours (SR) oral tablet, extended release 1 tablet = 150 mg, By Mouth, Daily, for 90 days, # 90 tablet, 1 Refills, Hard Stop 01/30/22 15:09:00 EDT, 08/03/21 15:09:00 EDT, [facility]/pharmacy #[id number], 193.2, cm, 02/03/21 8:56:00 EDT, Height, 113.1, kg, 08/09/19 10:20:00 EST, Dry Weight Start Date: 08/03/21 Stop Date: 01/30/22 Status: Ordered clonazePAM 0.5 mg oral tablet 1 tablet = 0.5 mg, By Mouth, Daily, # 30 tablet, 0 Refills, Maintenance, 12/19/21 14:22:00 EDT, Tablet, [facility]/pharmacy #[id number], Partial fill upon patient request if the prescription is for a schedule II opioid drug., 193.2, cm, 11/05/21 10:33:00 EST, Height Start Date: 12/19/21 Status: Ordered Freestyle Hany Sensor See Instructions, [...] 1 Refills, Maintenance, 12/10/21 17:12:00 EST, Tablet, [facility]/pharmacy #[id number], 193.2, cm, 11/05/21 10:33:00 EST, Height Start Date: 12/10/21 Stop Date: 06/08/22 Status: Ordered levothyroxine 175 mcg (0.175 mg) oral tablet 1 tablet = 175 mcg, By Mouth, Daily, # 90 tablet, 1 Refills, Maintenance, 12/17/21 12:34:00 EDT, Tablet, [facility]/pharmacy #[id number], 193.2, cm, 11/05/21 10:33:00 EST, Height Start Date: 12/17/21 Stop Date: 06/15/22 Status: Ordered MetFORMIN (Eqv-Glucophage XR) 500 mg oral tablet, extended release 2 tablet = 1,000 mg, By Mouth, Daily, # 180 tablet, 1 Refills, Maintenance, 10/02/21 13:35:00 EST, [facility]/pharmacy #[id number], Partial fill upon patient request if the prescription is for a schedule II opioid drug., 193.2, cm, 02/03/21 8:56:00 EDT, Height Start Date: 10/02/21 Stop Date: 03/31/22 Status: Ordered metFORMIN 500 mg oral tablet, extended release 2 tablet = 1,000 mg, By Mouth, Daily, # 180 tablet, 1 Refills, Soft Stop, 10/01/21 13:42:00 EST, [facility]/pharmacy #[id number], 193.2, cm, 02/03/21 8:56:00 EDT, Height Start Date: 10/01/21 Stop Date: 03/30/22 Status: Ordered NovoLOG 100 units/mL subcutaneous solution See Instructions, 1-5 units sliding scale 15 min prior to meals Subcutaneous Infusion 3 times a day., # 30 mL, 0 Refills, Maintenance, 12/15/21 14:12:00 EDT, [facility]/pharmacy #[id number], 193.2, cm, 11/05/21 10:33:00 EST, Height Start Date: 12/15/21 Status: Ordered Pen [place], 30 G x 8 mm BD Ultra Fine II See Instructions, # 100 each, Refills 3, Tot. Refills 3, Maintenance, use as directed for Type 2 Diabetes Mellitus - once a day, 10/09/15 14:01:07, Compound Start Date: 10/09/15 Stop Date: 02/06/16 Status: Ordered Pen [place], 31 G x 5 mm BD Ultra Fine III See Instructions, # 100 each, Refills 2, Tot. Refills 2, Maintenance, use to inject Basaglar 1x daily, E11.9, 90-day, 12/02/21 15:33:00 EST, Supply, 193.2, cm, 11/05/21 10:33:00 EST, Height Start Date: 12/02/21 Status: Ordered Pen [place], 31 G x 8 mm BD Ultra Fine III See Instructions, # 100 each, Refills 1, Tot. Refills 1, Maintenance, use with Lantus 1x daily, Dx E11.9, 90-day, 03/15/17 15:55:47, Compound Start Date: 03/15/17 Stop Date: 09/11/17 Status: Ordered sertraline 25 mg oral tablet 1 tablet = 25 mg, By Mouth, Daily, # 30 tablet, 0 Refills, Maintenance, 12/19/21 14:23:00 EDT, Tablet, [facility]/pharmacy #[id number], Partial fill upon patient request if the prescription is for a schedule II opioid drug., 193.2, cm, 11/05/21 10:33:00 EST, Height Start Date: 12/19/21 Status: Ordered Singulair 10 mg oral tablet 10 mg, 1, tablet, By Mouth, Daily in PM, # 90 tablet, Refills 1, Tot. Refills 1, Maintenance, 06/12/21 22:49:00 EDT, Route to Pharmacy Electronically, [facility]/pharmacy #[id number], 193.2, cm, 02/03/21 8:56:00 EDT, Height, [...]
--- OUTSIDE RECORDS SUMMARY | 2024-05-09 07:58 | XMS_ITS | Continuity of Care Document ---
Author Organization [facility] Address [address] [place] [address]- Care Team Providers Care Transmitter Tester Name Role Phone Jerry CHANG, Latesha Rocha Primary Care Physic augustina Encounter [facility] Date(s): 01/06/23 - 02/05/23 [facility] [address] [place] [address]- Attending Physician: Nagi Francois Admitting Physician: AdmtrNagi [...] tetanus-diphtheria toxoids (Td) 10/04/99 Recorded 1Result Comment: [facility]: 29364-469-75 2Result Comment: [09/07/2018] [facility] # [id number] 3Result Comment: [07/05/2017] [facility] 08704-461-46 4Result Comment: GUS Lowery [place] 5Result Comment: [...] 12:32:00 EDT, Powder, Route to Pharmacy Electronically, [id number], [facility]/pharmacy #[id number], 193.2, cm, 07/27/22 10:43:00 EDT, Height Start Date: 07/27/22 Stop Date: 07/22/23 Status: Ordered albuterol CFC free 90 mcg/inh inhalation aerosol 2, puffs, Inhalation, Every 4 hours, PRN, # 3 each, Refills 1, Tot. Refills 1, Maintenance, 07/27/22 12:32:00 EDT, Route to Pharmacy Electronically, [id number], [facility]/pharmacy#[id number], 193.2, cm, 07/27/22 10:43:00 EDT, Height Start [...] Refills, Maintenance, 07/27/22 11:43:00 EDT, [facility]/pharmacy #[id number], 193.2, cm, 07/27/22 10:43:00 EDT, Height [...] Refills, Maintenance, 11/11/22 14:09:00 EST, ER Tablet, [facility]/pharmacy #[id number], Partial fill upon patient request if the prescription is for a schedule II opioid drug., 195, cm, 11/11/22 13:45:00 EST, Hei... Start Date: 11/11/22 Status: Ordered clonazePAM 0.5 mg oral tablet 1 tablet = 0.5 mg, By Mouth, Daily, # 28 tablet, 0 Refills, Maintenance, 09/02/22 17:46:00 EST, Tablet, [facility]/pharmacy #[id number], Partial fill upon patient request if [...] Maintenance, 12/05/22 17:12:00 EST, Tablet, [facility]/pharmacy #[id number], 193.2, cm, 07/27/22 10:43:00 EDT, Height [...] 1 Refills, Soft Stop, 10/01/21 13:42:00 EST, [facility]/pharmacy #[id number], 193.2, cm, 02/03/21 8:56:00 EDT, Height [...] Refills, Maintenance, 10/12/22 17:00:00 EST, REC Powder, [facility]/pharmacy #[id number], test date 10/13/22, 240 mL By Mouth Every 10 minutes,Instr:M... Start Date: 10/12/22 Status: Ordered Pen [place], 30 G x 8 mm BD Ultra Fine II See Instructions, # 100 each, Refills 3, Tot. Refills 3, Maintenance, use as directed for Type 2 Diabetes Mellitus - once a day, 10/09/15 14:01:07, Compound Start Date: 10/09/15 Stop Date: 02/06/16 Status: Ordered Pen [place], 31 G x 5 mm BD Ultra Fine III See Instructions, # 100 each, Refills 3, Tot. Refills 3, Maintenance, use to inject Basaglar 1x daily, E11.9, 90-day, 07/27/22 12:32:00 EDT, Supply, 193.2, cm, 07/27/22 10:43:00 EDT, Height Start Date: 07/27/22 Status: Ordered Pen [place], 31 G x 8 mm BD Ultra Fine III See Instructions, # 100 each, Refills 1, Tot. Refills 1, Maintenance, use with Lantus 1x daily, Dx E11.9, 90-day, 03/15/17 15:55:47, Compound Start Date: 03/15/17 Stop Date: 09/11/17 Status: Ordered sertraline 50 mg oral tablet 1 tablet = 50 mg, By Mouth, Daily, # 90 tablet, 3 Refills, Maintenance, 07/27/22 12:32:00 EDT, Tablet, [facility]/pharmacy #[id number], Partial fill upon patient request if the prescription is for a schedule II opioid drug., 193.2, cm, 07/27/22 10:43:00 EDT, Height Start Date: 07/27/22 Stop Date: 07/22/23 Status: Ordered Singulair 10 mg oral tablet 10 mg, 1, tablet, By Mouth, Daily in PM, # 90 tablet, Refills 3, Tot. Refills 3, Maintenance, 07/27/22 12:32:00 EDT, Route to Pharmacy Electronically, [facility]/pharmacy #[id number], 193.2, cm, 07/27/22 10:43:00EDT, Height Start [...] [facility] Primary Care Physician Member Role: PCP Address: Address: [address] [place] [id number]- Care Team Related Persons Name: ROSALIA MAYES Address: home [address] [place] [address]
--- OUTSIDE RECORDS SUMMARY | 2024-05-09 07:58 | XMS_ITS | Continuity of Care Document ---
Author Organization [facility] Address [address] [place] [address]- Care Team Providers Care Superintendent Meters Name Role Phone Jerry CHANG, Latesha Rocha Primary Care Physic augustina Encounter [facility] Date(s): 11/24/23 - 12/24/23 [facility] [address] [place] [address]- Allergies, Adverse Reactions, Alerts No Known Medication Allergies Substance Reaction Severity Status Other Environmental Allergy 1 Active 1pets Immunizations Given and Recorded Vaccine Date Status Refusal Reason Influenza Virus Vaccine (oldterm) 1 07/10/23 Recor ded SARS-CoV-2 mRNA ([id number]) vax 2 07/10/23 Recorded influenza virus vaccine, [...] Recorded 1Result Comment: pt recevied vaccine from [facility] 2Result Comment: pt received vaccine from [facility] 3Result Comment: [facility]: [id number] 4Result Comment: [09/07/2018] [facility] # [id number] 5Result Comment: [07/05/2017] [facility] [id number] 6Result Comment: GUS Lowery [place] 7Result Comment: Beverley WEBER [place] 8Result Comment: [11/07/2014] Dr. Knox; consent signed. Medications Advair Diskus 250 mcg-50 mcg inhalation powder 1, puffs, Inhalation, 2 times a day, # 3 each, Refills 1, Tot. Refills 1, Maintenance, 09/01/23 18:48:00 EST, Powder, Route to Pharmacy Electronically, [id number], [id number] 192.3, cm, 09/01/23 11:35:00 EST, Height,... Start Date: 09/01/23 Stop Date: 02/28/24 Status: Ordered albuterol CFC free 90 mcg/inh inhalation aerosol 2, puffs, Inhalation, Every 4 hours, PRN, # 3 each, Refills 3, Tot. Refills 3, Maintenance, 05/07/23 10:14:00 EDT, Route to Pharmacy Electronically, [id number], [id number], [facility], cm, 05/07/23 9:23:00 EDT, [...] Refills, Soft Stop, 10/22/23 15:01:00 EST, [facility]/pharmacy #[id number], 192.3, cm, 10/13/23 12:06:00 EST, [...] Refills, Maintenance, 11/15/23 15:34:00 EST, ER Tablet, [id number], Partial fill upon patient request if the prescription is for a schedule II opioid drug., 192.3, cm, 10/13/23 12:06:00 EST, H... Start Date: 11/15/23 Status: Ordered CeleBREX 100 mg oral capsule 1 capsule = 100 mg, By Mouth, 2 times a day, # 60 capsule, 0 Refills, Maintenance, 02/19/23 13:03:00 EDT, Capsule, [facility]/pharmacy #[id number], Partial fill upon patient request [...] 17:50:00 EST, Route to Pharmacy Electronically, [facility]/pharmacy #[id number], Partial fill upon patient request if the prescription is for a schedule... Start Date: 09/06/23 Status: Ordered Jardiance 10 mg oral tablet 1 tablet, By Mouth, Daily in AM, # 90 tablet, 3 Refills, Maintenance, 09/02/23 15:43:00 EST, [facility]/pharmacy #[id number], 192.3, cm, 09/02/23 15:03:00 EST, Height, 108, kg, 08/04/23 9:53:00 EDT, Dry Weight Start Date: 09/02/23 Status: Ordered Lantus Solostar Pen 100 units/mL subcutaneous solution = 80 units, Subcutaneous Infusion, Daily, 6 months supplies, # 144 mL, 3 Refills, Maintenance, 11/24/23 11:09:00 EST, [facility]/pharmacy #[id number], Partial fill upon patient request if the prescription is for a schedule II opioid drug., 192.3, cm, 11/24/23 8:32... Start Date: 11/24/23 Stop Date: 11/13/25 Status: Ordered levothyroxine 0.025 mg oral tablet 1 tablet = 25 mcg, By Mouth, Daily, Take with 200mcg tab for total of 225mcg., # 90 tablet, 1 Refills, Maintenance, 09/03/23 16:52:00 EST, Tablet, [facility]/pharmacy #[id number], 192.3, cm, 09/02/23 15:03:00 EST, Height, 108, kg, 08/04/23 9:53:00 EDT, Dry Weight Start Date: 09/03/23 Stop Date: 03/01/24 Status: Ordered levothyroxine 0.2 mg oral tablet 1 tablet = 200 mcg, By Mouth, Daily, take along with 225 mcg, # 90 tablet, 1 Refills, Maintenance, 08/17/23 11:43:00 EST, Tablet, [facility]/pharmacy #[id number], Partial fill upon patient request [...] Refills, Maintenance, 12/21/23 8:40:00 EDT, [id number], 192.3, cm, 11/24/23 8:32:00 EST, Height, 108, kg, 08/04/23 9:53:00 EDT, Dry Weight Start Date: 12/21/23 Status: Ordered Pen [place], 31 G x 5 mm BD Ultra [...] 15:36:00 EST, Route to Pharmacy Electronically, [facility]/pharmacy #[id number], 192.3, cm, 10/13/23 12:06:00EST, Height, [...] Primary Care Member Role: PCP Address: [facility] [place] [address]- Care Team Related Persons Name: ROSALIA MAYES Address: home [address] [place] [address]
--- OUTSIDE RECORDS SUMMARY | 2024-05-09 07:58 | XMS_ITS | Continuity of Care Document ---
Author Organization [facility] Address [address] [place] [address]- Care Team Providers Care Franchise Field Consultant Name Role Phone Jerry CHANG, Latesha Rocha Primary Care Physic augustina Encounter [facility] [place] Date(s): 09/01/23 - 09/08/23 [facility] [address] [place] [address]- [place] Encounter Diagnosis Venous insufficiency of lower extremity(Discharge Diagnosis) - 09/01/23 Lumbar spondylosis(Discharge Diagnosis) - 09/01/23 Hyperlipidemia, mixed(Discharge Diagnosis) - 09/01/23 Hypothyroidism(Discharge Diagnosis) - 09/01/23 Attending Physician: Jerry CHANG, Latesha Rocha Allergies, Adverse Reactions, Alerts No Known Medication Allergies Substance Reaction Severity Status Other Environmental Allergy 1 Active 1pets Immunizations Given and Recorded Vaccine Date Status Refusal Reason Influenza Virus Vaccine (oldterm) 1 07/10/23 Recor ded SARS-CoV-2 mRNA ([id number]) vax 2 07/10/23 Recorded influenza virus vaccine, [...] Recorded 1Result Comment: pt recevied vaccine from [facility] pharmacy 2Result Comment: pt received vaccine from [facility] pharmacy 3Result Comment: [facility]: [id number] 4Result Comment: [09/07/2018] [facility] # [phone] 5Result Comment: [07/05/2017] [facility] [id number] 6Result Comment: [facility] Beverley JACK[place] 7[facility] [place] 8Result Comment: [11/07/2014] Dr. Knox; consent signed. Medications Advair Diskus 250 mcg-50 mcg inhalation powder 1, puffs, Inhalation, 2 times a day, # 3 each, Refills 1, Tot. Refills 1, Maintenance, 09/01/23 18:48:00 EST, Powder, Route to Pharmacy Electronically, [id number], [id number], 192.3, cm, 09/01/23 11:35:00 EST, Height,... Start Date: 09/01/23 Stop Date: 02/28/24 Status: Ordered albuterol CFC free 90 mcg/inh inhalation aerosol 2, puffs, Inhalation, Every 4 hours, PRN, # 3 each, Refills 3, Tot. Refills 3, Maintenance, 05/07/23 10:14:00 EDT, Route to Pharmacy Electronically, [id number], [facility]/pharmacy#[id number], 195, cm, 05/07/23 9:23:00 EDT, Height, [...] Refills, Maintenance, 05/07/23 9:46:00 EDT, ER Tablet, [facility]/pharmacy #[id number], Partial fill upon patient request [...] 0 Refills, Maintenance, 09/02/22 17:46:00 EST, Tablet, [facility]/pharmacy #[id number], Partial fill upon patient request [...] 09/06/23 17:50:00 EST, Route to Pharmacy Electronically, [facility]/pharmacy #[id number], Partial fill upon patient request if the prescription is for a schedule... Start Date: 09/06/23 Status: Ordered Jardiance 10 mg oral tablet 1 tablet, By Mouth, Daily in AM, # 90 tablet, 3 Refills, Maintenance, 09/02/23 15:43:00 EST, [facility]/pharmacy #[id number], 192.3, cm, 09/02/23 15:03:00 EST, [...] Refills, Maintenance, 10/12/22 17:00:00 EST, REC Powder, [facility]/pharmacy #[id number], test date 10/13/22, 240 mL [...] 9 mL, 3 Refills, Maintenance,09/02/23 15:44:00 EST, [facility]/pharmacy #[id number], Partial fill upon patient request if the prescription isfor a schedule II opioid drug., 192.3, cm, 2... Start Date: 09/02/23 Status: Ordered Pen [place], 31 G x 5 mm BD Ultra [...] Effective Dates Health Status Clinical Service Informant Venous insufficiency of lower extremity Discharge Diagnosis 09/01/23 Lumbar spondylosis Discharge Diagnosis 09/01/23 Hyperlipidemia, mixed Discharge Diagnosis 09/01/23 Hypothyroidism Discharge Diagnosis 09/01/23 Vital Signs Most recent to oldest [Reference Range]: 1 Height 192.3 cm (09/01/23 11:35 AM) Weight 108.18 kg (09/01/23 11:35 AM) Oxygen Saturation [94-100 %] 97 % (09/01/23 11:35 AM) Pulse Rate [55-90 bpm] 78 bpm (09/01/23 11:35 AM) Body Mass Index [18.5-24.99 kg/m2] 29.25 kg/m2 *H* (09/01/23 11:35 AM) Blood Pressure [90-138/55-84 mm Hg] 138/ 84mm Hg (09/01/23 11:35 AM) Mode of Delivery (Oxygen) Room air (09/01/23 11:35 AM) Blood pressure sites Arm, left (09/01/23 11:35 AM) Weight Obtained Via Standing scale (09/01/23 11:35 AM) Social History Social History Type Response Smoking Status Current every day sm oker; Tobacco user in household: No; Type: Cigarettes; Tobacco use times per day: Down to 1/2 pack a day from 1 pack a day. Has been smoking for 35 years.; entered on: 08/19/17 Sex Note * Hortensia Patel: PERFORM, SIGN, VERIFY Event Display: Patient Education/Instruction Authored Date: [id number] [facility] Clinical Summary Name ROLA MAYES Age 58 Years 1965 PCP Jerry CHANG, Latesha Rocha PCP Visit Date 09/01/2023 11:10:00 Additional Instructions: Scheduled Appointments?? Future Appointments ?*[place] ?[address]??[place],??[place],??[address] ?Phone:??--?Fax:??-- ?Appt. Date:??11/24/2023?8:30 AM ?Scheduled Provider:??Nisha Scott Follow-Up Instructions ?? With: Address: When: 3 months Comments: Message sent in portal regarding appointment Diagnosis Venous insufficiency (chronic) (peripheral); Spondylosis without myelopathy or radiculopathy, lumbar region; Mixed hyperlipidemia; Hypothyroidism, unspecified Medications: Please continue your medications until treatment is completed or stopped by your provider. Discuss any questions related to medications with your provider. Medications to Continue Taking That Have Changed These medications were not printed or sent to your pharmacy - Durable Medical Equipment (BP monitor) Dx: HTN. Refills: 0. Next Dose: - Durable Medical Equipment (Dexcom G7 Sensors) for continuous glucose monitoring, change every 10 days. E11.9. Refills: 11. Next Dose: - Durable Medical Equipment (Dexcom G7 Transmitter) for continuous glucose monitoring. E11.9. Refills: 3. Next Dose: - Durable Medical Equipment (One Touch Fine Point Lancets) use at least 4 times per day for diabetes glucose monitor. Pharmamcy can replace by other brand based on insurance coverage. Refills: 11. Next Dose: - Durable Medical Equipment (One touch Verio Glucometer) use for diabetes control. Pharmamcy can replace by other brand based on insurance coverage. Refills: 0. Next Dose: - Durable Medical Equipment (OneTouch Verio Test Strips) use at least 4 times per day for diabetes glucose monitor. Pharmamcy can replace by other brand based on insurance coverage. Refills: 11. Next Dose: - Durable Medical Equipment (Pen [place], 31 G x 5 mm BD Ultra Fine III) use to inject Basaglar 1x daily, E11.9, 90-day. Refills: 3. Next Dose: - Levothyroxine (levothyroxine 0.025 mg oral tablet) 1 tab(s) Oral Daily for 90 Days. Take with 200mcg tab for total of 225mcg.. Refills: 1. Next Dose: - Levothyroxine (levothyroxine 0.2 mg oral tablet) 1 tab(s) Oral Daily. take along with 225 mcg. Refills: 1. Next Dose: - Levothyroxine (levothyroxine 175 mcg (0.175 mg) oral tablet) 1 tab(s) Oral Daily for 90 Days. Refills: 3. Next Dose: - Metformin (MetFORMIN (Eqv-Glucophage XR) 500 mg oral tablet, extended release) 2 tab(s) Oral Daily for 90 Days. Refills: 3. Next Dose: Medications to Continue [...] for 28 Days. Refills: 0. Next Dose: empagliflozin (Jardiance 10 mg oral [...] unit(s) Subcutaneous Injection Daily at Bedtime. Refills: 2. Next Dose: PEG Electrolyte Solution (NuLYTELY with [...] orders Vital Signs Height 192.3 cm Weight 108.18 kg BMI 29.25 kg/m2 Blood Pressure 138 mm Hg/84 mm Hg Temperature Pulse Rate 78 bpm Respiratory Rate 02 Sat Mode of Delivery 97 %/Room air You can now view a summary of your hospital visit from the comfort of your home through a free online portal called [facility]. [employer] is a website that allows you to securely view your medical information including discharge summary, medications and follow-up visits. ??You can alsosend a secure electronic message to your doctor???s office to request appointments, renew medications or just ask a question. You can enroll at [email or web address] or register during your next office [...] primary care provider, you may find a [facility] provider by calling [facility] Link at [phone]. [facility], in keeping with [facility] guidance, no longer requires face masks [...] Primary Care Member Role: PCP Address: Address: [address] [place] [address]- Care Team Related Persons Name: ROSALIA MAYES Address: home [address] [place] [address]
--- OUTSIDE RECORDS SUMMARY | 2024-05-09 07:58 | XMS_ITS | Continuity of Care Document ---
Author Organization [facility] Address [address] [place] [address]- Care Team Providers Care Certified Activities Director Name Role Phone Jerry CHANG, Latesha Rocha Primary Care Physic augustina En[place] [facility] [place] Date(s): 02/09/22 - 04/08/22 [facility] [address] [place] [address]- Attending Physician: Latesha Edwards MD Allergies, Adverse [...] Comment: Beverley WEBER [place] 3Result Comment: [facility]: [id number] 4Result Comment: [09/07/2018] [facility] # [phone] 5Result Comment: [07/05/2017] [facility] [id number] 6Result Comment: [11/07/2014] Dr. Knox; consent signed. [...] 15:07:00 EDT, Powder, Route to Pharmacy Electronically, [id number], [facility]/pharmacy #[id number], 193.2, cm, 11/04/20 13:14:00 EST, Height,... Start Date: 02/04/21 Stop Date: 08/03/21 Status: Ordered albuterol CFC free 90 mcg/inh inhalation aerosol 2, puffs, Inhalation, Every 4 hours, PRN, # 3 each, Refills 1, Tot. Refills 1, Maintenance, 03/26/22 17:52:00 EDT, Route to Pharmacy Electronically, [id number], [facility]/pharmacy#[id number], 193.2, cm, 03/16/22 9:24:00 EDT, Height Start Date: 03/26/22 Status: Ordered aspirin 81 mg oral tablet 1 tablet = 81 mg, By Mouth, Daily, # 90 tablet, 0 Refills, Maintenance, 05/20/17 11:35:13, Tablet Start Date: 05/20/17 Status: Ordered atorvastatin 20 mg oral tablet See Instructions, TAKE 1 TABLET BY MOUTH EVERY DAY, # 90 tablet, 1 Refills, Soft Stop, 02/18/22 9:16:00 EDT, [facility]/pharmacy #[id number], 193.2, cm, 11/05/21 10:33:00 EST, Height Start Date: 02/18/22 Status: Ordered Basaglar KwikPen 100 units/mL subcutaneous solution = 80 units, Subcutaneous Injection, Daily at bedtime, # 15 mL, 6 Refills, Maintenance, 03/27/22 17:53:00 EDT, [facility]/pharmacy #[id number], 193.2, cm, 03/16/22 9:24:00 EDT, [...] 1 Refills, Soft Stop, 01/30/22 15:09:00 EDT, [facility]/pharmacy #[id number], 193.2, cm, 11/05/21 10:33:00 EST, Height Start Date: 01/30/22 Stop Date: 07/29/22 Status: Ordered clonazePAM 0.5 mg oral tablet 1 tablet = 0.5 mg, By Mouth, Daily, # 28 tablet, 0 Refills, Maintenance, 03/27/22 17:53:00 EDT, Tablet, [facility]/pharmacy #[id number], Partial fill upon patient request if the prescription is for a schedule II opioid drug., 193.2, cm, 03/16/22 9:24:00 EDT, Height Start Date: 03/27/22 Stop Date: 04/24/22 Status: Ordered Freestyle Hany Sensor See Instructions, [...] Refills, Maintenance, 12/17/21 12:34:00 EDT, Tablet, [facility][id number], 193.2, cm, 11/05/21 10:33:00 EST, Height Start Date: 12/17/21 Stop Date: 06/15/22 Status: Ordered MetFORMIN (Eqv-Glucophage XR) 500 mg oral tablet, extended release 2 tablet = 1,000 mg, By Mouth, Daily, # 180 tablet, 1 Refills, Maintenance, 03/31/22 13:35:00 EDT, [facility]/pharmacy #[id number], Partial fill upon patient request if the prescription is for a schedule II opioid drug., 193.2, cm, 03/16/22 9:24:00 EDT, Height Start Date: 03/31/22 Stop Date: 09/27/22 Status: Ordered metFORMIN 500 mg oral tablet, extended release 2 tablet = 1,000 mg, By Mouth, Daily, # 180 tablet, 1 Refills, Soft Stop, 10/01/21 13:42:00 EST, [facility]/pharmacy #[id number], 193.2, cm, 02/03/21 8:56:00 EDT, Height Start Date: 10/01/21 Stop Date: 03/30/22 Status: Ordered NovoLOG 100 units/mL subcutaneous solution See Instructions, 1-5 units sliding scale 15 min prior to meals Subcutaneous Infusion 3 times a day., # 30 mL, 0 Refills, Maintenance, 12/15/21 14:12:00 EDT, [facility]/pharmacy #[id number], 193.2, cm, 11/05/21 10:33:00 EST, Height Start Date: 12/15/21 Status: Ordered Pen [place], 30 G x 8 mm BD Ultra Fine II See Instructions, # 100 each, Refills 3, Tot. Refills 3, Maintenance, use as directed for Type 2 Diabetes Mellitus - once a day, 10/09/15 14:01:07, Compound Start Date: 10/09/15 Stop Date: 02/06/16 Status: Ordered Pen [place], 31 G x 5 mm BD Ultra Fine III See Instructions, # 100 each, Refills 2, Tot. Refills 2, Maintenance, use to inject Basaglar 1x daily, E11.9, 90-day, 12/02/21 15:33:00 EST, Supply, 193.2, cm, 11/05/21 10:33:00 EST, Height Start Date: 12/02/21 Status: Ordered Pen [place], 31 G x 8 mm BD Ultra [...] 3 Refills, Maintenance, 03/16/22 9:55:00 EDT, Tablet, [facility]/pharmacy #[id number], Partial fill upon patient request if the prescription is for a schedule II opioid drug., 193.2, cm,... Start Date: 03/16/22 Status: Ordered Singulair 10 mg oral tablet 10 mg, 1, tablet, By Mouth, Daily in PM, # 90 tablet, Refills 3, Tot. Refills 3, Maintenance, 01/15/22 12:15:00 EDT, Route to Pharmacy Electronically, [facility]/pharmacy #[id number], 193.2, cm, 11/05/21 10:33:00EST, Height [...]
--- OUTSIDE RECORDS SUMMARY | 2024-05-09 07:59 | XMS_ITS | Continuity of Care Document ---
Author Organization [facility] Address [address] [place] [address]- Care Team Providers Care Senior Technical Program Manager Name Role Phone Jerry CHANG, Latesha Rocha Primary Care Physic augustina Encounter [facility] [place] Date(s): 11/11/22 - 11/18/22 [facility] [address] [place] [address]- [place] Encounter Diagnosis Tobacco dependence(Discharge Diagnosis) - 11/11/22 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(Discharge Diagnosis) - 11/11/22 Anxiety(Discharge Diagnosis) - 11/11/22 Hypothyroidism(Discharge Diagnosis) - 11/11/22 Attending Physician: Jerry CHANG, Latesha Rocha Allergies, [...] tetanus-diphtheria toxoids (Td) 10/04/99 Recorded 1Result Comment: [facility]: [id number] 2Result Comment: [09/07/2018] [facility] # [id number] 3Result Comment: [07/05/2017] [facility] [id number] 4Result Comment: GUS Lower[place] 5Result Comment: [...] 12:32:00 EDT, Powder, Route to Pharmacy Electronically, [id number], [facility]/pharmacy #[id number], 193.2, cm, 07/27/22 10:43:00 EDT, Height Start Date: 07/27/22 Stop Date: 07/22/23 Status: Ordered albuterol CFC free 90 mcg/inh inhalation aerosol 2, puffs, Inhalation, Every 4 hours, PRN, # 3 each, Refills 1, Tot. Refills 1, Maintenance, 07/27/22 12:32:00 EDT, Route to Pharmacy Electronically, [id number], [facility]/pharmacy#1095, 193.2, cm, 07/27/22 10:43:00 EDT, Height Start Date: 07/27/22 Status: Ordered aspirin 81 mg oral tablet 1 tablet = 81 mg, By Mouth, Daily, # 90 tablet, 0 Refills, Maintenance, 05/20/17 11:35:13, Tablet Start Date: 05/20/17 Status: Ordered atorvastatin 20 mg oral tablet See Instructions, TAKE 1 TABLET BY MOUTH EVERY DAY, # 90 tablet, 3 Refills, Soft Stop, 07/27/22 12:32:00 EDT, [facility]/pharmacy #[id number], 193.2, cm, 07/27/22 10:43:00 EDT, Height Start Date: 07/27/22 Status: Ordered Basaglar KwikPen 100 units/mL subcutaneous solution = 80 units, Subcutaneous Injection, Daily at bedtime, # 15 mL, 6 Refills, Maintenance, 07/27/22 11:43:00 EDT, [facility]/pharmacy #[id number], 193.2, cm, 07/27/22 10:43:00 EDT, Height [...] Maintenance, 11/11/22 14:09:00 EST, ER Tablet, [facility]/pharmacy #[id number], Partial fill upon patient request if the prescription is for a schedule II opioid drug., 195, cm, 11/11/22 13:45:00 EST, Hei... Start Date: 11/11/22 Status: Ordered clonazePAM 0.5 mg oral tablet 1 tablet = 0.5 mg, By Mouth, Daily, # 28 tablet, 0 Refills, Maintenance, 09/02/22 17:46:00 EST, Tablet, [facility]/pharmacy #[id number], Partial fill upon patient request if [...] Refills, Soft Stop, 10/01/21 13:42:00 EST, [facility]/pharmacy #[id number], 193.2, cm, 02/03/21 8:56:00 EDT, Height Start Date: 10/01/21 Stop Date: 03/30/22 Status: Ordered nicotine 21 mg/24 hr transdermal film, extended release 1 patch, Topically, Daily, for 6 week(s), # 42 patch, 0 Refills, Acute 12/23/22 14:08:00 EDT, 11/11/22 14:08:00 EST, [facility]/pharmacy #[id number], Partial fill upon patient request if the prescription is for aschedule II opioid drug., 1 patch Topically Daily,x... Start Date: 11/11/22 Stop Date: 12/23/22 Status: Ordered nicotine 21 mg/24 hr transdermal film, extended release 1 patch, Topically, Daily, for 6 week(s), # 42 patch, 0 Refills, Acute 11/27/22 12:44:00 EST, 10/16/22 12:44:00 EST, Patch, [facility]/pharmacy #[id number], Partial fill upon patient request if the prescription is for a schedule II opioid drug., 1 patch Topically... Start Date: 10/16/22 Stop Date: 11/27/22 Status: Ordered NovoLOG 100 units/mL subcutaneous solution See Instructions, 1-5 units sliding scale 15 min prior to meals Subcutaneous Infusion 3 times a day., # 30 mL, 2 Refills, Maintenance, 07/27/22 12:32:00 EDT, [facility]/pharmacy #[id number], 193.2, cm, 07/27/22 10:43:00 EDT, Height Start Date: 07/27/22 Status: Ordered NuLYTELY with Flavor Packs oral powder for reconstitution 240 mL, By Mouth, Every 10 minutes, May substitute any PEG 3350 solution available SPLIT PREP METHOD, # 1 each, 0 Refills, Maintenance, 10/12/22 17:00:00 EST, REC Powder, [facility]/pharmacy #[id number], test date 10/13/22, 240 mL By Mouth Every 10 minutes,Instr:M... Start Date: 10/12/22 Status: Ordered Pen [place], 30 G x 8 mm BD Ultra Fine II See Instructions, # 100 each, Refills 3, Tot. Refills 3, Maintenance, use as directed for Type 2 Diabetes Mellitus - once a day, 10/09/15 14:01:07, Compound Start Date: 10/09/15 Stop Date: 02/06/16 Status: Ordered Pen [place], 31 G x 5 mm BD Ultra Fine III See Instructions, # 100 each, Refills 3, Tot. Refills 3, Maintenance, use to inject Basaglar 1x daily, E11.9, 90-day, 07/27/22 12:32:00 EDT, Supply, 193.2, cm, 07/27/22 10:43:00 EDT, Height Start Date: 07/27/22 Status: Ordered Pen [place], 31 G x 8 mm BD Ultra Fine III See Instructions, # 100 each, Refills 1, Tot. Refills 1, Maintenance, use with Lantus 1x daily, Dx E11.9, 90-day, 03/15/17 15:55:47, Compound Start Date: 03/15/17 Stop Date: 09/11/17 Status: Ordered sertraline 50 mg oral tablet 1 tablet = 50 mg, By Mouth, Daily, # 90 tablet, 3 Refills, Maintenance, 07/27/22 12:32:00 EDT, Tablet, [facility]/pharmacy #[id number], Partial fill upon patient request if the prescription is for a schedule II opioid drug., 193.2, cm, 07/27/22 10:43:00 EDT, Height Start Date: 07/27/22 Stop Date: 07/22/23 Status: Ordered Singulair 10 mg oral tablet 10 mg, 1, tablet, By Mouth, Daily in PM, # 90 tablet, Refills 3, Tot. Refills 3, Maintenance, 07/27/22 12:32:00 EDT, Route to Pharmacy Electronically, [facility]/pharmacy #[id number], 193.2, cm, 07/27/22 10:43:00EDT, Height Start [...] Effective Dates Health Status Clinical Service Informant Tobacco dependence Discharge Diagnosis 11/11/22 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 Discharge Diagnosis 11/11/22 Anxiety Discharge Diagnosis 11/11/22 Hypothyroidism Discharge Diagnosis 11/11/22 Vital Signs Most recent to oldest [Reference Range]: 1 2 Height 195 cm (11/11/22 2:11 PM) 195 cm (11/11/22 1:45 PM) Weight 113.5 kg (11/11/22 1:45 PM) Body Mass Index [18.5-24.99 kg/m2] 29.85 kg/m2 *H* (11/11/22 1:45 PM) Blood Pressure [90-138/55-84 mm Hg] 121/ 82mm Hg (11/11/22 2:11 PM) Weight Obtained Via Standing scale (11/11/22 1:45 PM) Social History Social History Type Response [...] Care Physician Member Role: PCP Address: Address: [address] [place] [id number]- Care Team Related Persons Name: ROSALIA MAYES Address: home [address] [place] [id number]
--- OUTSIDE RECORDS SUMMARY | 2024-05-09 07:59 | XMS_ITS | Continuity of Care Document ---
Author Organization [facility] Address [address] [place] [address]- Care Team Providers Care Powerhouse Engineer Name Role Phone Jerry CHANG, Latesha Rocha Primary Care Physic augustina Encounter [facility] [place] Date(s): 12/19/21 - 12/26/21 [facility] [address] [place] [address]- Encounter Diagnosis Generalized anxiety disorder with panic attacks(Discharge Diagnosis) - 12/19/21 Attending Physician: Jerry CHANG, Latesha Rocha Allergies, [...] 2Result Comment: Beverley WEBER [place] 3Result Comment: [facility]: [id number] 4Result Comment: [09/07/2018] [facility] # [id number] 5Result Comment: [07/05/2017] [facility] [id number] 6Result Comment: [11/07/2014] Dr. Knox; consent signed. [...] 15:07:00 EDT, Powder, Route to Pharmacy Electronically, [id number], [facility]/pharmacy #[id number], 193.2, cm, 11/04/20 13:14:00 EST, Height,... Start Date: 02/04/21 Stop Date: 08/03/21 Status: Ordered albuterol CFC free 90 mcg/inh inhalation aerosol 2, puffs, Inhalation, Every 4 hours, PRN, # 3 each, Refills 1, Tot. Refills 1, Maintenance, 06/12/21 22:49:00 EDT, Route to Pharmacy Electronically, [id number], [facility]/pharmacy#[id number], 193.2, cm, 02/03/21 8:56:00 EDT, [...] 1 Refills, Soft Stop, 06/12/21 22:49:00 EDT, [facility]/pharmacy #[id number], 193.2, cm, 02/03/21 8:56:00 [...] 1 Refills, Soft Stop, 01/30/22 15:09:00 EDT, [facility]/pharmacy #[id number], 193.2, cm, 11/05/21 10:33:00 EST, Height Start Date: 01/30/22 Stop Date: 07/29/22 Status: Ordered buPROPion 150 mg/12 hours (SR) oral tablet, extended release 1 tablet = 150 mg, By Mouth, Daily, for 90 days, # 90 tablet, 1 Refills, Hard Stop 01/30/22 15:09:00 EDT, 08/03/21 15:09:00 EDT, [facility]/pharmacy #[id number], 193.2, cm, 02/03/21 8:56:00 EDT, Height, 113.1, kg, 08/09/19 10:20:00 EST, Dry Weight Start Date: 08/03/21 Stop Date: 01/30/22 Status: Ordered clonazePAM 0.5 mg oral tablet 1 tablet = 0.5 mg, By Mouth, Daily, # 30 tablet, 0 Refills, Maintenance, 12/19/21 14:22:00 EDT, Tablet, [facility]/pharmacy #[id number], Partial fill upon patient [...] Height Start Date: 12/15/21 Status: Ordered Pen [place], 30 G x 8 mm BD Ultra Fine II See Instructions, # 100 each, Refills 3, Tot. Refills 3, Maintenance, use as directed for Type 2 Diabetes Mellitus - once a day, 10/09/15 14:01:07, Compound Start Date: 10/09/15 Stop Date: 02/06/16 Status: Ordered Pen [place], 31 G x 5 mm BD Ultra Fine III See Instructions, # 100 each, Refills 2, Tot. Refills 2, Maintenance, use to inject Basaglar 1x daily, E11.9, 90-day, 12/02/21 15:33:00 EST, Supply, 193.2, cm, 11/05/21 10:33:00 EST, Height Start Date: 12/02/21 Status: Ordered Pen [place], 31 G x 8 mm BD Ultra Fine III See Instructions, # 100 each, Refills 1, Tot. Refills 1, Maintenance, use with Lantus 1x daily, Dx E11.9, 90-day, 03/15/17 15:55:47, Compound Start Date: 03/15/17 Stop Date: 09/11/17 Status: Ordered sertraline 25 mg oral tablet 1 tablet = 25 mg, By Mouth, Daily, # 30 tablet, 0 Refills, Maintenance, 12/19/21 14:23:00 EDT, Tablet, [facility]/pharmacy #[id number], Partial fill upon patient request if the prescription is for a schedule II opioid drug., 193.2, cm, 11/05/21 10:33:00 EST, Height Start Date: 12/19/21 Status: Ordered Singulair 10 mg oral tablet 10 mg, 1, tablet, By Mouth, Daily in PM, # 90 tablet, Refills 1, Tot. Refills 1, Maintenance, 06/12/21 22:49:00 EDT, Route to Pharmacy Electronically, [facility]/pharmacy #[id number], 193.2, cm, 02/03/21 8:56:00 [...] Effective Dates Health Status Clinical Service Informant Generalized anxiety disorder with panic attacks Discharge Diagnosis 12/19/21 Social History Social History Type Response Smoking Status Current every day sherri weeks; Tobacco user in household: No; Type: Cigarettes; Tobacco use times per day: Down to 1/2 pack a day from 1 pack a day. Has been smoking for 35 years.; entered on: 08/19/17 Sex
--- OUTSIDE RECORDS SUMMARY | 2024-05-09 07:59 | XMS_ITS | Continuity of Care Document ---
Author Organization [facility] Address [address] [place] [address]- Care Team Providers Care Hot Knife Foxing Cutter Name Role Phone Jerry CHANG, Latesha Rocha Primary Care Physic augustina [facility] 12[facility]21 - 01/04/22 [facility] [address] [place] [address]- [place] Allergies, Adverse Reactions, Alerts No Known [...] [place] 3Result Comment: [facility]: [id number] 4Result Comment: [09/07/2018] [facility] # [id number] 5Result Comment: [07/05/2017] [facility] [id number] 6Result Comment: [11/07/2014] Dr. Knox; consent signed. [...] 15:07:00 EDT, Powder, Route to Pharmacy Electronically, [id number], [facility]/pharmacy #[id number], 193.2, cm, 11/04/20 13:14:00 EST, Height,... Start Date: 02/04/21 Stop Date: 08/03/21 Status: Ordered albuterol CFC free 90 mcg/inh inhalation aerosol 2, puffs, Inhalation, Every 4 hours, PRN, # 3 each, Refills 1, Tot. Refills 1, Maintenance, 06/12/21 22:49:00 EDT, Route to Pharmacy Electronically, [id number], [facility]/pharmacy#[id number], 193.2, cm, 02/03/21 8:56:00 EDT, Height, [...] 1 Refills, Soft Stop, 06/12/21 22:49:00 EDT, [facility]/pharmacy #[id number], 193.2, cm, 02/03/21 8:56:00 EDT, Height, 113.1, kg, 08/09/19 10:20:00EST, Dry Weight Start Date: 06/12/21 Status: Ordered Basaglar KwikPen 100 units/mL subcutaneous solution = 75 units, Subcutaneous Injection, Daily at bedtime, # 12 mL, 0 Refills, Maintenance, 01/06/21 11:59:00 EDT, [facility]/pharmacy #[id number], 193.2, cm, 11/04/20 13:14:00 EST, [...] 1 Refills, Soft Stop, 01/30/22 15:09:00 EDT, [facility]/pharmacy #[id number], 193.2, cm, 11/05/21 10:33:00 EST, Height Start Date: 01/30/22 Stop Date: 07/29/22 Status: Ordered buPROPion 150 mg/12 hours (SR) oral tablet, extended release 1 tablet = 150 mg, By Mouth, Daily, for 90 days, # 90 tablet, 1 Refills, Hard Stop 01/30/22 15:09:00 EDT, 08/03/21 15:09:00 EDT, [facility]/pharmacy #[id number], 193.2, cm, 02/03/21 8:56:00 EDT, Height, 113.1, kg, 08/09/19 10:20:00 EST, Dry Weight Start Date: 08/03/21 Stop Date: 01/30/22 Status: Ordered clonazePAM 0.5 mg oral tablet 1 tablet = 0.5 mg, By Mouth, Daily, # 30 tablet, 0 Refills, Maintenance, 12/19/21 14:22:00 EDT, Tablet, [facility]/pharmacy #[id number], Partial fill upon patient request [...] 1 Refills, Maintenance, 12/10/21 17:12:00 EST, Tablet, [facility]/pharmacy #[id number], 193.2, cm, 11/05/21 10:33:00 EST, Height Start Date: 12/10/21 Stop Date: 06/08/22 Status: Ordered levothyroxine 175 mcg (0.175 mg) oral tablet 1 tablet = 175 mcg, By Mouth, Daily, # 90 tablet, 1 Refills, Maintenance, 12/17/21 12:34:00 EDT, Tablet, [facility]/pharmacy #[id number], 193.2, cm, 11/05/21 10:33:00 EST, [...] Height Start Date: 12/15/21 Status: Ordered Pen [place], 30 G x 8 mm BD Ultra Fine II See Instructions, # 100 each, Refills 3, Tot. Refills 3, Maintenance, use as directed for Type 2 Diabetes Mellitus - once a day, 10/09/15 14:01:07, Compound Start Date: 10/09/15 Stop Date: 02/06/16 Status: Ordered Pen [place], 31 G x 5 mm BD Ultra Fine III See Instructions, # 100 each, Refills 2, Tot. Refills 2, Maintenance, use to inject Basaglar 1x daily, E11.9, 90-day, 12/02/21 15:33:00 EST, Supply, 193.2, cm, 11/05/21 10:33:00 EST, Height Start Date: 12/02/21 Status: Ordered Pen [place], 31 G x 8 mm BD Ultra Fine III See Instructions, # 100 each, Refills 1, Tot. Refills 1, Maintenance, use with Lantus 1x daily, Dx E11.9, 90-day, 03/15/17 15:55:47, Compound Start Date: 03/15/17 Stop Date: 09/11/17 Status: Ordered sertraline 25 mg oral tablet 1 tablet = 25 mg, By Mouth, Daily, # 30 tablet, 0 Refills, Maintenance, 12/19/21 14:23:00 EDT, Tablet, [facility]/pharmacy #[id number], Partial fill upon patient request if the prescription is for a schedule II opioid drug., 193.2, cm, 11/05/21 10:33:00 EST, Height Start Date: 12/19/21 Status: Ordered Singulair 10 mg oral tablet 10 mg, 1, tablet, By Mouth, Daily in PM, # 90 tablet, Refills 1, Tot. Refills 1, Maintenance, 06/12/21 22:49:00 EDT, Route to Pharmacy Electronically, [facility]/pharmacy #[id number], 193.2, cm, 02/03/21 8:56:00 EDT, [...]
--- OUTSIDE RECORDS SUMMARY | 2024-05-09 07:59 | XMS_ITS | Continuity of Care Document ---
Author Organization [facility] Address [address] [place] [address]- Care Team Providers Care Body Make Up Artist Name Role Phone Jerry CHANG, Latesha Rocha Primary Care Physic augustina Encounter [facility] Date(s): 08/04/23 - 08/11/23 [facility] [address] [place] [address]- Attending Physician: Ernesto Cornell MD Admitting Physician: Ernesto Cornell MD Referring Physician: Latesha Edwards MD Allergies, Adverse Reactions, Alerts No Known Medication Allergies Substance Reaction Severity Status Other Environmental Allergy 1 Active 1pets Immunizations Given and Recorded Vaccine Date Status Refusal Reason Influenza Virus Vaccine (oldterm) 1 07/10/23 Recor ded SARS-CoV-2 mRNA (xyweizk-ylhc-uhnif) vax 2 07/10/23 Recorded influenza virus vaccine, [...] Comment: pt recevied vaccine from [facility] pharmacy 2Result Comment: pt received vaccine from [facility] pharmacy 3Result Comment: [facility]: [id number] 4Result Comment: [09/07/2018] [facility] # [id number] 5Result Comment: [07/05/2017] [facility] 38628-950-15 6Result Comment: [facility] Beverley JACK[place] [facility] [place] 8Result Comment: [11/07/2014] Dr. [...] 12:32:00 EDT, Powder, Route to Pharmacy Electronically, [id number], [facility]/pharmacy #[id number], 193.2, cm, 07/27/22 10:43:00 EDT, Height Start Date: 07/27/22 Stop Date: 07/22/23 Status: Ordered albuterol CFC free 90 mcg/inh inhalation aerosol 2, puffs, Inhalation, Every 4 hours, PRN, # 3 each, Refills 3, Tot. Refills 3, Maintenance, 05/07/23 10:14:00 EDT, Route to Pharmacy Electronically, [id number], [facility]/pharmacy#[id number], 195, cm, 05/07/23 9:23:00 EDT, Height, [...] Refills, Maintenance, 07/27/22 11:43:00 EDT, [facility]/pharmacy #[id number], [...] 0 Refills, Maintenance, 02/19/23 13:03:00 EDT, Capsule, [facility]/pharmacy #[id number], Partial fill upon patient request if the prescription is for a schedule II opioid drug., 195, cm, 02/10/23 13:17:00... Start Date: 02/19/23 Status: Ordered clonazePAM 0.5 mg oral tablet 1 tablet = 0.5 mg, By Mouth, Daily, # 28 tablet, 0 Refills, Maintenance, 09/02/22 17:46:00 EST, Tablet, [facility]/pharmacy [...] 07/28/23 11:04:00 EDT, Route to Pharmacy Electronically, [facility]/pharmacy #[id number], Partial fill upon patient request if the prescription is for a schedule... Start Date: 07/28/23 Status: Ordered Jardiance 10 mg oral tablet 1 tablet, By Mouth, Daily in AM, # 30 tablet, 2 Refills, Maintenance, 06/25/23 16:01:00 EDT, [facility], 195, cm, 05/13/23 11:00:00 EDT, Height, 112.6, [...] 05/13/23... Start Date: 06/01/23 Status: Ordered Pen [place], 31 G x 5 mm BD Ultra [...] oldest [Reference Range]: 1 Height 192.3 cm (08/04/23 9:53 AM) Weight 108 kg (08/04/23 9:53 AM) Pulse Rate [55-90 bpm] 79 bpm (08/04/23 9:53 AM) Body Mass Index [18.5-24.99 kg/m2] 29.21 kg/m2 *H* (08/04/23 9:53 AM) Blood Pressure [90-138/55-84 mm Hg] 12/8 1mm Hg *L* (08/04/23 9:53 AM) Blood pressure sites Arm, right (08/04/23 9:53 AM) Dry Weight 108 kg (08/04/23 9:53 AM) Social History Social History Type Response Smoking Status Current every day sherri weeks; Tobacco user in household: No; Type: Cigarettes; Tobacco use times per day: Down to 1/2 pack a day from 1 pack a day. Has been smoking for 35 years.; entered on: 08/19/17 Sex Note * Yusra Davenport: PERFORM, SIGN, VERIFY Event Display: Patient Education/Instruction Authored Date: [id number] [facility] [facility] Clinical Summary Name ROLA MAYES Age 58 Years 1965 PCP Latesha Edwards MD PCP Visit Date 08/04/2023 09:23:00 Additional Instructions: Scheduled Appointments?? Future Appointments ?*[facility] ?[address]??[place],??[place],??[address] ?Phone:??--?Fax:??-- ?Appt. Date:??08/25/2023?8:20 AM ?Scheduled Provider:??Latesha Riddle MD Follow-Up Instructions ?? With: Address: When: Nisha Horowitz [address] [place] [address] 11/24/2023 8:30 AM Diagnosis Medications: Please continue your medications until treatment is completed or stopped by your provider. Discuss any questions related to medications with your provider. New Medications [id number], [address] [place] [phone], [phone] Sildenafil (sildenafil 20 mg oral tablet) 1 tablet By Mouth as needed 1 hour prior to sexual intercourse. may take every 24 hours as needed. take tablet on empty stomach. can take 2 tablets by mouth if 1 tablet is ineffective.. Refills: 2. Next Dose: Medications to Continue with No [...] 11. Next Dose: Durable Medical Equipment (Pen [place], 31 G x 5 mm BD Ultra [...] orders Vital Signs Height 192.3 cm Weight 108 kg BMI 29.21 kg/m2 Blood Pressure 12 mm Hg/81 mm Hg Temperature Pulse Rate 79 bpm Respiratory Rate 02 Sat Mode of Delivery / You can now view a summary of your hospital visit from the comfort of your home through a free online portal called [employer]. [employer] is a website that allows you to securely view your medical information including discharge summary, medications and follow-up visits. ??You can alsosend a secure electronic message to your doctor???s office to request appointments, renew medications or just ask a question. You can enroll at [email or web address] or register during your next office [...] primary care provider, you may find a [facility] provider by calling [facility] at [phone]. [facility], in keeping with [facility] guidance, no longer requires face masks [...] Primary Care Member Role: PCP Address: Address: [address] [place] [address]- [place] Care Team Related Persons Name: ROSALIA MAYES Address: home [address] [place] [id number]
--- OUTSIDE RECORDS SUMMARY | 2024-05-09 07:59 | XMS_ITS | Continuity of Care Document ---
Author Organization [facility] Address [address] [place] [address]- Care Team Providers Care Professor Of Musicology Name Role Phone Jerry CHANG, Latesha Rocha Primary Care Physic augustina Encounter [facility] Date(s): 09/01/23 - 10/01/23 [facility] [address] [place] [address]- Allergies, Adverse Reactions, Alerts No Known Medication Allergies Substance Reaction Severity Status Other Environmental Allergy 1 Active 1pets Immunizations Given and Recorded Vaccine Date Status Refusal Reason Influenza Virus Vaccine (oldterm) 1 07/10/23 Recor ded SARS-CoV-2 mRNA (oblljzl-lfgx-xzkfq) vax 2 07/10/23 Recorded influenza virus vaccine, [...] Recorded 1Result Comment: pt recevied vaccine from [facility] 2Result Comment: pt received vaccine from [facility] 3Result Comment: [facility]: [id number] 4Result Comment: [09/07/2018] [facility] # [id number] 5Result Comment: [07/05/2017] [facility] [id number] 6Result Comment: G[facility] Lowery [place] 7Result Comment: Beverley [place] 8Result Comment: [11/07/2014] Dr. Knox; consent signed. Medications Advair Diskus 250 mcg-50 mcg inhalation powder 1, puffs, Inhalation, 2 times a day, # 3 each, Refills 1, Tot. Refills 1, Maintenance, 09/01/23 18:48:00 EST, Powder, Route to Pharmacy Electronically, [id number], [facility]/pharmacy #[id number], 192.3, cm, 09/01/23 11:35:00 EST, Height,... Start Date: 09/01/23 Stop Date: 02/28/24 Status: Ordered albuterol CFC free 90 mcg/inh inhalation aerosol 2, puffs, Inhalation, Every 4 hours, PRN, # 3 each, Refills 3, Tot. Refills 3, Maintenance, 05/07/23 10:14:00 EDT, Route to Pharmacy Electronically, [id number], [facility]/pharmacy#1095, 195, cm, 05/07/23 [...] 17:50:00 EST, Route to Pharmacy Electronically, [facility]/pharmacy #[id number], Partial fill upon patient request if the prescription is for a schedule... Start Date: 09/06/23 Status: Ordered Jardiance 10 mg oral tablet 1 tablet, By Mouth, Daily in AM, # 90 tablet, 3 Refills, Maintenance, 09/02/23 15:43:00 EST, [facility]/pharmacy #[id number], 192.3, cm, 09/02/23 15:03:00 EST, Height, 108, kg, 08/04/23 9:53:00 EDT, Dry Weight Start Date: 09/02/23 Status: Ordered levothyroxine 0.025 mg oral tablet 1 tablet = 25 mcg, By Mouth, Daily, Take with 200mcg tab for total of 225mcg., # 90 tablet, 1 Refills, Maintenance, 09/03/23 16:52:00 EST, Tablet, [facility]/pharmacy #[id number], 192.3, cm, [...] mL, 3 Refills, Maintenance,09/02/23 15:44:00 EST, [facility]/pharmacy #[id number], Partial fill upon patient request if the prescription isfor a schedule II opioid drug., 192.3, cm, ... Start Date: 09/02/23 Status: Ordered Pen [place], 31 G x 5 mm BD Ultra [...] Personnel Name: Jerry CHANG, Latesha Rocha Position: [facility] Physician - Primary Care Member Role: PCP Address: Address[address] [place] [address]- Care Team Related Persons Name: ROSALIA MAYES Address: home [address] [place] [address]
--- OUTSIDE RECORDS SUMMARY | 2024-05-09 07:59 | XMS_ITS | Continuity of Care Document ---
Author Organization [facility] Address [address] [place] [address]- Care Team Providers Care Leave Coordinator Name Role Phone Jerry CHANG, Latesha Rocha Primary Care Physic augustina [facility] Date[facility]s): 06/01/23 - 07/01/23 [facility] [address] [place] [id number] Attending Physician: Nagi Francois Admitting Physician: AdmNagi nj Referring Physician: Admtr ArWood Allergies, Adverse Reactions, Alerts No Known Medication [...] (Td) 10/04/99 Recorded 1Result Comment: [facility]: [id number] 2Result Comment: [09/07/2018] [facility] # [id number] 3Result Comment: [07/05/2017] [facility] [id number] 4Result Comment: GUS Lowery [place] 5Result Comment: [...] 12:32:00 EDT, Powder, Route to Pharmacy Electronically, [id number], [facility]/pharmacy #[id number], 193.2, cm, 07/27/22 10:43:00 EDT, Height Start Date: 07/27/22 Stop Date: 07/22/23 Status: Ordered albuterol CFC free 90 mcg/inh inhalation aerosol 2, puffs, Inhalation, Every 4 hours, PRN, # 3 each, Refills 3, Tot. Refills 3, Maintenance, 05/07/23 10:14:00 EDT, Route to Pharmacy Electronically, [id number], [facility]/pharmacy#1095, 195, cm, 05/07/23 9:23:00 EDT, Height, [...] 3 Refills, Soft Stop, 07/27/22 12:32:00 EDT, [facility]/pharmacy #1095, 193.2, cm, 07/27/22 10:43:00 EDT, Height Start Date: 07/27/22 Status: Ordered Basaglar KwikPen 100 units/mL subcutaneous solution = 80 units, Subcutaneous Injection, Daily at bedtime, # 15 mL, 6 Refills, Maintenance, 07/27/22 11:43:00 EDT, [facility]/pharmacy #1095, 193.2, cm, 07/27/22 10:43:00 EDT, [...] Refills, Maintenance, 05/07/23 9:46:00 EDT, ER Tablet, [facility]/pharmacy #1095, Partial fill upon patient request if the prescription is for a schedule II opioid drug., 195, cm, 05/07/23 9:23:00 EDT, Heigh... Start Date: 05/07/23 Status: Ordered CeleBREX 100 mg oral capsule 1 capsule = 100 mg, By Mouth, 2 times a day, # 60 capsule, 0 Refills, Maintenance, 02/19/23 13:03:00 EDT, Capsule, [facility]/pharmacy #1095, Partial fill upon patient request if the prescription is for a schedule II opioid drug., 195, cm, 02/10/23 13:17:00... Start Date: 02/19/23 Status: Ordered clonazePAM 0.5 mg oral tablet 1 tablet = 0.5 mg, By Mouth, Daily, # 28 tablet, 0 Refills, Maintenance, 09/02/22 17:46:00 EST, Tablet, [facility]/pharmacy #[id number], Partial fill upon patient request [...] Refills 3, Maintenance, for continuous glucose monitoring. E11., 05/13/23 13:11:00 EDT, Supply, 195, cm, 05/13/23 [...] tablet, 2 Refills, Maintenance, 06/25/23 16:01:00 EDT, [facility], 195, cm, 05/13/23 11:00:00 EDT, Height, 112.6, kg, 10/13/22 9:29:00 EST, Dry Weight Start Date: 06/25/23 Status: Ordered levothyroxine 0.025 mg oral tablet 1 tablet = 25 mcg, By Mouth, Daily, Take with the 175 mcg for a total of 200 mcg daily, # 90 tablet, 3 Refills, Maintenance, 12/05/22 17:12:00 EST, Tablet, [facility]/pharmacy #1095, 193.2, cm, 07/27/22 10:43:00 EDT, Height Start Date: 12/05/22 Stop Date: 11/30/23 Status: Ordered levothyroxine 175 mcg (0.175 mg) oral tablet 1 tablet = 175 mcg, By Mouth, Daily, # 90 tablet, 3 Refills, Maintenance, 12/12/22 12:34:00 EST, Tablet, [facility]/pharmacy #1095, 193.2, cm, 07/27/22 10:43:00 EDT, Height Start Date: 12/12/22 Stop Date: 12/07/23 Status: Ordered MetFORMIN (Eqv-Glucophage XR) 500 mg oral tablet, extended release 2 tablet = 1,000 mg, By Mouth, Daily, # 180 tablet, 1 Refills, Maintenance, 05/07/23 10:45:00 EDT, [facility]/pharmacy #1095, Partial fill upon patient request [...] mL, 2 Refills, Maintenance, 07/27/22 12:32:00 EDT, [facility]/pharmacy #1095, 193.2, cm, 07/27/22 10:43:00 EDT, Height Start Date: 07/27/22 Status: Ordered NuLYTELY with Flavor Packs oral powder for reconstitution 240 mL, By Mouth, Every 10 minutes, May substitute any PEG 3350 solution available SPLIT PREP METHOD, # 1 each, 0 Refills, Maintenance, 10/12/22 17:00:00 EST, REC Powder, [facility]/pharmacy #[id number], test date 10/13/22, 240 mL By Mouth Every 10 minutes,Instr:M... Start Date: 10/12/22 Status: Ordered Ozempic (1 mg dose) 4 mg/3 mL subcutaneous solution = 1 mg, Subcutaneous Infusion, Every week, use once per week e11.9, # 3 mL, 4 Refills, Maintenance,06/01/23 10:23:00 EDT, [facility]/pharmacy #1095, Partial fill upon patient request if the prescription isfor a schedule II opioid drug., 195, cm, 05/13/23... Start Date: 06/01/23 Status: Ordered Pen [place], 31 G x 5 mm BD Ultra [...] Primary Care Member Role: PCP Address: Address: [address] [place] [address]- Care Team Related Persons Name: ROSALIA MAYES Address: home [address] [place] [address]
--- OUTSIDE RECORDS SUMMARY | 2024-05-09 07:59 | XMS_ITS | Continuity of Care Document ---
Author Organization [facility] Address [address] [place] [address]- Care Team Providers Care Document Specialist Name Role Phone Jerry CHANG, Latesha Rocha Primary Care Physic augustina En[place] [facility] Date(s): 05/17/21 - 09/14/21 [facility] [address] [place] [address]- [place] Attending Physician: Jerry CHANG, Latesha Rocha Allergies, [...] [place] 3Result Comment: [facility]: [id number] 4Result Comment: [09/07/2018] [facility] # [id number] 5Result Comment: [07/05/2017] [facility] [id number] 6Result Comment: [11/07/2014] Dr. Knox; consent signed. [...] 15:07:00 EDT, Powder, Route to Pharmacy Electronically, [id number], [facility]/pharmacy #1095, 193.2, cm, 11/04/20 13:14:00 EST, Height,... Start Date: 02/04/21 Stop Date: 08/03/21 Status: Ordered albuterol CFC free 90 mcg/inh inhalation aerosol 2, puffs, Inhalation, Every 4 hours, PRN, # 3 each, Refills 1, Tot. Refills 1, Maintenance, 06/12/21 22:49:00 EDT, Route to Pharmacy Electronically, [id number], [facility]/pharmacy#1095, 193.2, cm, 02/03/21 8:56:00 EDT, Height, 113... Start Date: 06/12/21 Status: Ordered aspirin 81 mg oral tablet 1 tablet = 81 mg, By Mouth, Daily, # 90 tablet, 0 Refills, Maintenance, 05/20/17 11:35:13, Tablet Start Date: 05/20/17 Status: Ordered atorvastatin 20 mg oral tablet See Instructions, TAKE 1 TABLET BY MOUTH EVERY DAY, # 90 tablet, 1 Refills, Soft Stop, 06/12/21 22:49:00 EDT, [facility]/pharmacy #1095, 193.2, cm, 02/03/21 8:56:00 EDT, Height, 113.1, kg, 08/09/19 10:20:00EST, Dry Weight Start Date: 06/12/21 Status: Ordered Basaglar KwikPen 100 units/mL subcutaneous solution = 75 units, Subcutaneous Injection, Daily at bedtime, # 12 mL, 0 Refills, Maintenance, 01/06/21 11:59:00 EDT, [facility]/pharmacy #1095, 193.2, cm, 11/04/20 13:14:00 EST, Height, [...] 1 Refills, Soft Stop, 08/03/21 15:09:00 EDT, [facility]/pharmacy #1095, 193.2, cm, 02/03/21 8:56:00 EDT, Height, [...] 1 Refills, Maintenance, 06/13/21 17:12:00 EDT, Tablet, [facility]/pharmacy #1095, 193.2, cm, 02/03/21 8:56:00 EDT, Height, 113.1, kg, 08/09/19 10:20:00 EST,... Start Date: 06/13/21 Stop Date: 12/10/21 Status: Ordered levothyroxine 175 mcg (0.175 mg) oral tablet 1 tablet = 175 mcg, By Mouth, Daily, for 90 days, # 90 tablet, 1 Refills, Hard Stop 12/10/21 12:26:00 EST, 06/13/21 12:26:00 EDT, Tablet, [facility]/pharmacy #1095, 193.2, cm, 02/03/21 8:56:00 EDT, Height, 113.1, kg, 08/09/19 10:20:00 EST, Dry Weight Start Date: 06/13/21 Stop Date: 12/10/21 Status: Ordered metFORMIN 500 mg oral tablet, extended release 2 tablet = 1,000 mg, By Mouth, Daily, # 180 tablet, 0 Refills, Soft Stop, 02/04/21 15:03:00 EDT, [facility]/pharmacy #1095, 193.2, cm, 11/04/20 13:14:00 EST, Height, 113.1, kg, 08/09/19 10:20:00 EST, Dry Weight Start Date: 02/04/21 Stop Date: 05/05/21 Status: Ordered NovoLOG 100 units/mL subcutaneous solution See Instructions, 1-5 units sliding scale 15 min prior to meals Subcutaneous Infusion 3 times a day., # 30 mL, 0 Refills, Maintenance, 01/06/21 11:59:00 EDT, [facility]/pharmacy #1095, 193.2, cm, 11/04/20 13:14:00 EST, Height, 113.1, kg, 08/09/19 10:20:00 ES... Start Date: 01/06/21 Status: Ordered Pen [place], 30 G x 8 mm BD Ultra Fine II See Instructions, # 100 each, Refills 3, Tot. Refills 3, Maintenance, use as directed for Type 2 Diabetes Mellitus - once a day, 10/09/15 14:01:07, Compound Start Date: 10/09/15 Stop Date: 02/06/16 Status: Ordered Pen [place], 31 G x 5 mm BD Ultra Fine III See Instructions, # 100 each, Refills 2, Tot. Refills 2, Maintenance, use to inject Basaglar 1x daily, E11.9, 90-day, 08/08/20 15:07:00 EST, Supply, 193.2, cm, 08/08/20 14:34:00 EST, Height, 113.1, kg, 08/09/19 10:20:00 EST, Dry Weight Start Date: 08/08/20 Status: Ordered Pen [place], 31 G x 8 mm BD Ultra [...] 06/12/21 22:49:00 EDT, Route to Pharmacy Electronically, [facility]/pharmacy #1095, 193.2, cm, 02/03/21 8:56:00 EDT, Height, [...]
--- OUTSIDE RECORDS SUMMARY | 2024-05-09 07:59 | XMS_ITS | Continuity of Care Document ---
Author Organization [facility] Address [address] [place] [address]- Care Team Providers Care President [employer] Name Role Phone Jerry CHANG, Latesha Rocha Primary Care Physic augustina Encounter [facility] [place] Date(s): 03/28/24 - 04/27/24 [facility] [address] [place] [address]- Allergies, Adverse Reactions, Alerts No Known Medication Allergies Substance Reaction Severity Status Other Environmental Allergy 1 Active 1pets Immunizations Given and Recorded Vaccine Date Status Refusal Reason SARS-CoV-2(COVID-19)mRNA-LNP vac([id number]) 12/21/23 Recorded Influenza Virus Vaccine (oldterm) 1 07/10/23 Recor ded SARS-CoV-2 mRNA (fyihnad-pibf-ydtne) vax 2 07/10/23 Recorded influenza virus vaccine, [...] Recorded 1Result Comment: pt recevied vaccine from [facility] pharmacy 2Result Comment: pt received vaccine from [facility] pharmacy 3Result Comment: [facility]: [id number] 4Result Comment: [09/07/2018] [facility] # [id number] 5Result Comment: [07/05/2017] [facility] [id number] 6Result Comment: GUS Lowery [place] 7Result Comment: Beverley WEBER [place] 8Result Comment: [11/07/2014] Dr. Knox; consent signed. Medications Advair Diskus 250 mcg-50 mcg inhalation powder 1, puffs, Inhalation, 2 times a day, # 3 each, Refills 1, Tot. Refills 1, Maintenance, 09/01/23 18:48:00 EST, Powder, Route to Pharmacy Electronically, [id number][id number], 192.3, cm, 09/01/23 11:35:00 EST, Height,... Start Date: 09/01/23 Stop Date: 02/28/24 Status: Ordered albuterol CFC free 90 mcg/inh inhalation aerosol 2, puffs, Inhalation, Every 4 hours, PRN, # 3 each, Refills 3, Tot. Refills 3, Maintenance, 03/30/24 14:05:00 EDT, Route to Pharmacy Electronically, [id number], [facility]/pharmacy#[id number], 192.3, cm, 01/24/24 10:24:00 EDT, Height, 10... Start Date: 03/30/24 Status: Ordered aspirin 81 mg oral tablet 1 tablet = 81 mg, By Mouth, Daily, # 90 tablet, 0 Refills, Maintenance, 05/20/17 11:35:13, Tablet Start Date: 05/20/17 Status: Ordered atorvastatin 20 mg oral tablet See Instructions, TAKE 1 TABLET BY MOUTH EVERY DAY, # 90 tablet, 3 Refills, Soft Stop, 10/22/23 15:01:00 EST, [facility]/pharmacy #[id number], 192.3, cm, 10/13/23 12:06:00 [...] Refills, Maintenance, 01/24/24 11:08:00 EDT, ER Tablet, [facility]/pharmacy #[id number], Partial fill upon patient request if the prescription is for a schedule II opioid drug., 192.3, cm, 01/24/24 10:24:00 EDT, H... Start Date: 01/24/24 Status: Ordered CeleBREX 100 mg oral capsule 1 capsule = 100 mg, By Mouth, 2 times a day, # 60 capsule, 0 Refills, Maintenance, 03/28/24 16:02:00 EDT, Capsule, [facility]/pharmacy #[id number], Partial fill upon patient request if the prescription is for a schedule II opioid drug., 192.3, cm, 01/24/24 10:24:0... Start Date: 03/28/24 Status: Ordered clonazePAM 0.5 mg oral tablet 1 tablet = 0.5 mg, By Mouth, Daily, # 28 tablet, 0 Refills, Maintenance, 09/02/22 17:46:00 EST, Tablet, [facility]/pharmacy #[id number], Partial fill upon patient [...] Maintenance,02/11/24 9:05:00 EDT, Route to Pharmacy Electronically, [facility]/pharmacy #[id number], Partial fill upon patient request if the prescription is for a schedule II... Start Date: 02/11/24 Stop Date: 04/07/24 Status: Ordered Jardiance 10 mg oral tablet 1 tablet, By Mouth, Daily in AM, # 90 tablet, 3 Refills, Maintenance, 09/02/23 15:43:00 EST, [facility]/pharmacy #[id number], 192.3, cm, 09/02/23 15:03:00 EST, Height, 108, kg, 08/04/23 9:53:00 EDT, Dry Weight Start Date: 09/02/23 Status: Ordered Lantus Solostar Pen 100 units/mL subcutaneous solution = 80 units, Subcutaneous Infusion, Daily, 6 months supplies, # 144 mL, 3 Refills, Maintenance, 11/24/23 11:09:00 EST, [facility]/pharmacy #[id number], Partial fill upon patient request if the prescription is for a schedule II opioid drug., 192.3, cm, 11/24/23 8:32... Start Date: 11/24/23 Stop Date: 11/13/25 Status: Ordered levalbuterol 45 mcg/inh inhalation aerosol 2 puffs, Inhalation, Every 4 hours, PRN for wheezing, # 15 Gm, 3 Refills, Maintenance, 01/24/24 11:27:00 EDT, Aerosol, [facility]/pharmacy #[id number], Partial fill upon patient [...] mL, 2 Refills, Maintenance, 07/27/22 12:32:00 EDT, [facility]/pharmacy #[id number], 193.2, cm, 07/27/22 10:43:00 [...] Refills, Maintenance, 12/21/23 8:40:00 EDT, [id number], 192.3, cm, 11/24/23 8:32:00 EST, Height, 108, kg, 08/04/23 9:53:00 EDT, Dry Weight Start Date: 12/21/23 Status: Ordered Pen [place], 31 G x 5 mm BD Ultra [...] 11/15/23 15:36:00 EST, Route to Pharmacy Electronically, [facility]/pharmacy #[id number], 192.3, cm, 10/13/23 12:06:00EST, [...] Personnel Name: Jerry CHANG, Latesha Rocha Position: [facility] Physician - Primary Care Member Role: PCP Address: Address: [address] [place] [address]- Care Team Related Persons Name: ROSALIA MAYES Address: home [address] [place] [address]
--- OUTSIDE RECORDS SUMMARY | 2024-05-09 07:59 | XMS_ITS | Continuity of Care Document ---
Author Organization [facility] Address [address] [place] [address]- Care Team Providers Care Chief Deputy Name Role Phone Jerry CHANG, Latesha Rocha Primary Care Physic augustina Encounter [facility] Date(s): 08/31/22 - 09/30/22 [facility] [address] [place] [address]- Allergies, Adverse Reactions, Alerts No Known Medication [...] tetanus-diphtheria toxoids (Td) 10/04/99 Recorded 1Result Comment: [facility]: [id number] 2Result Comment: [09/07/2018] [facility] # [id number] 3Result Comment: [07/05/2017] [facility] [id number] 4Result Comment: GUS Lowery [place] 5Result Comment: [...] 12:32:00 EDT, Powder, Route to Pharmacy Electronically, [id number], [facility]/pharmacy #[id number], 193.2, cm, 07/27/22 10:43:00 EDT, Height Start Date: 07/27/22 Stop Date: 07/22/23 Status: Ordered albuterol CFC free 90 mcg/inh inhalation aerosol 2, puffs, Inhalation, Every 4 hours, PRN, # 3 each, Refills 1, Tot. Refills 1, Maintenance, 07/27/22 12:32:00 EDT, Route to Pharmacy Electronically, [id number], [facility]/pharmacy#[id number], 193.2, cm, 07/27/22 10:43:00 [...] 3 Refills, Soft Stop, 07/27/22 12:32:00 EDT, [facility]/pharmacy #[id number], 193.2, cm, 07/27/22 10:43:00 EDT, Height Start Date: 07/27/22 Status: Ordered Basaglar KwikPen 100 units/mL subcutaneous solution = 80 units, Subcutaneous Injection, Daily at bedtime, # 15 mL, 6 Refills, Maintenance, 07/27/22 11:43:00 EDT, [facility]/pharmacy #1095, 193.2, cm, 07/27/22 [...] 3 Refills, Soft Stop, 10/27/22 15:09:00 EST, [facility]/pharmacy #1095, 193.2, cm, 07/27/22 10:43:00 EDT, Height Start Date: 10/27/22 Stop Date: 10/22/23 Status: Ordered buPROPion 150 mg/12 hours (SR) oral tablet, extended release 1 tablet = 150 mg, By Mouth, Daily, for 90 days, # 90 tablet, 0 Refills, Hard Stop 10/27/22 15:09:00 EST, 07/29/22 15:09:00 EDT, [facility]/pharmacy #[id number], 193.2, cm, 03/16/22 9:24:00 EDT, Height Start Date: 07/29/22 Stop Date: 10/27/22 Status: Ordered clonazePAM 0.5 mg oral tablet 1 tablet = 0.5 mg, By Mouth, Daily, # 28 tablet, 0 Refills, Maintenance, 09/02/22 17:46:00 EST, Tablet, [facility]/pharmacy #[id number], Partial fill upon [...] 1 Refills, Soft Stop, 10/01/21 13:42:00 EST, [facility]/pharmacy #1095, 193.2, cm, 02/03/21 [...] Refills, Maintenance, 10/12/22 17:00:00 EST, REC Powder, [facility]/pharmacy #[id number], test date 10/13/22, 240 mL By Mouth Every 10 minutes,Instr:M... Start Date: 10/12/22 Status: Ordered Pen [place], 30 G x 8 mm BD Ultra Fine II See Instructions, # 100 each, Refills 3, Tot. Refills 3, Maintenance, use as directed for Type 2 Diabetes Mellitus - once a day, 10/09/15 14:01:07, Compound Start Date: 10/09/15 Stop Date: 02/06/16 Status: Ordered Pen [place], 31 G x 5 mm BD Ultra Fine III See Instructions, # 100 each, Refills 3, Tot. Refills 3, Maintenance, use to inject Basaglar 1x daily, E11.9, 90-day, 07/27/22 12:32:00 EDT, Supply, 193.2, cm, 07/27/22 10:43:00 EDT, Height Start Date: 07/27/22 Status: Ordered Pen [place], 31 G x 8 mm BD Ultra Fine III See Instructions, # 100 each, Refills 1, Tot. Refills 1, Maintenance, use with Lantus 1x daily, Dx E11.9, 90-day, 03/15/17 15:55:47, Compound Start Date: 03/15/17 Stop Date: 09/11/17 Status: Ordered sertraline 50 mg oral tablet 1 tablet = 50 mg, By Mouth, Daily, # 90 tablet, 3 Refills, Maintenance, 07/27/22 12:32:00 EDT, Tablet, [facility]/pharmacy #[id number], Partial fill upon patient request if the prescription is for a schedule II opioid drug., 193.2, cm, 07/27/22 10:43:00 EDT, Height Start Date: 07/27/22 Stop Date: 07/22/23 Status: Ordered Singulair 10 mg oral tablet 10 mg, 1, tablet, By Mouth, Daily in PM, # 90 tablet, Refills 3, Tot. Refills 3, Maintenance, 07/27/22 12:32:00 EDT, Route to Pharmacy Electronically, [facility]/pharmacy #[id number], 193.2, cm, 07/27/22 [...] Personnel Name: Jerry CHANG, Latesha Rocha Position: [facility] Primary Care Physician Member Role: PCP Address: Address: [address] [place] [address]- Care Team Related Persons Name: SUGEYROSALIA Address: home [address] [place] [address]
--- OUTSIDE RECORDS SUMMARY | 2024-05-09 07:59 | XMS_ITS | Continuity of Care Document ---
Author Organization [facility] Address [address] [place] [address]- Care Team Providers Care Software Quality Assurance Engineer Name Role Phone Jerry CHANG, Latesha Rocha Primary Care Physic augustina Encounter [facility] [place] Date(s): 09/01/23 - 10/01/23 [facility] [address] [place] [address]- Allergies, Adverse Reactions, Alerts No Known Medication Allergies Substance Reaction Severity Status Other Environmental Allergy 1 Active 1pets Immunizations Given and Recorded Vaccine Date Status Refusal Reason Influenza Virus Vaccine (oldterm) 1 07/10/23 Recor ded SARS-CoV-2 mRNA (xivrokq-khdl-wpazv) vax 2 07/10/23 Recorded influenza virus vaccine, [...] Recorded 1Result Comment: pt recevied vaccine from [facility] 2Result Comment: pt received vaccine from [facility] 3Result Comment: [facility]: [id number] 4Result Comment: [09/07/2018] [facility] # [id number] 5Result Comment: [07/05/2017] [facility] [id number] 6Result Comment: GUS Lowery [place] 7Result Comment: Beverley WEBER [place] 8Result Comment: [11/07/2014] Dr. Knox; consent signed. Medications Advair Diskus 250 mcg-50 mcg inhalation powder 1, puffs, Inhalation, 2 times a day, # 3 each, Refills 1, Tot. Refills 1, Maintenance, 09/01/23 18:48:00 EST, Powder, Route to Pharmacy Electronically, [id number], [facility]/pharmacy #[id number], 192.3, cm, 09/01/23 11:35:00 EST, Height,... Start Date: 09/01/23 Stop Date: 02/28/24 Status: Ordered albuterol CFC free 90 mcg/inh inhalation aerosol 2, puffs, Inhalation, Every 4 hours, PRN, # 3 each, Refills 3, Tot. Refills 3, Maintenance, 05/07/23 10:14:00 EDT, Route to Pharmacy Electronically, [id number], [facility]/pharmacy#1095, 195, cm, 05/07/23 9:23:00 EDT, Height, 112.6... Start Date: 05/07/23 Status: Ordered aspirin 81 mg oral tablet 1 tablet = 81 mg, By Mouth, Daily, # 90 tablet, 0 Refills, Maintenance, 05/20/17 11:35:13, Tablet Start Date: 05/20/17 Status: Ordered atorvastatin 20 mg oral tablet See Instructions, TAKE 1 TABLET BY MOUTH EVERY DAY, # 90 tablet, 3 Refills, Soft Stop, 07/27/22 12:32:00 EDT, [facility]/pharmacy #[id number], 193.2, cm, 07/27/22 10:43:00 EDT, Height [...] Refills, Maintenance, 05/07/23 9:46:00 EDT, ER Tablet, [facility]/pharmacy #[id number], Partial fill upon patient request if [...] 09/06/23 17:50:00 EST, Route to Pharmacy Electronically, [facility]/pharmacy #[id number], Partial fill upon patient request if the prescription is for a schedule... Start Date: 09/06/23 Status: Ordered Jardiance 10 mg oral tablet 1 tablet, By Mouth, Daily in AM, # 90 tablet, 3 Refills, Maintenance, 09/02/23 15:43:00 EST, [facility]/pharmacy #1095, 192.3, cm, 09/02/23 15:03:00 EST, Height, 108, kg, 08/04/23 9:53:00 EDT, Dry Weight Start Date: 09/02/23 Status: Ordered levothyroxine 0.025 mg oral tablet 1 tablet = 25 mcg, By Mouth, Daily, Take with 200mcg tab for total of 225mcg., # 90 tablet, 1 Refills, Maintenance, 09/03/23 16:52:00 EST, Tablet, [facility]/pharmacy #[id number], 192.3, cm, 09/02/23 15:03:00 EST, Height, [...] 9 mL, 3 Refills, Maintenance,09/02/23 15:44:00 EST, [facility]/pharmacy #[id number], Partial fill upon patient request if the prescription isfor a schedule II opioid drug., 192.3, cm, ... Start Date: 09/02/23 Status: Ordered Pen [place], 31 G x 5 mm BD Ultra [...] Jerry CHANG, Latesha Rocha Position: [facility] Physician - Primary Care Member Role: PCP Address: [facility] [place] [address]- Care Team Related Persons Name: ROSALIA MAYES Address: home [address] [place] [address]
--- OUTSIDE RECORDS SUMMARY | 2024-05-09 07:59 | XMS_ITS | Continuity of Care Document ---
Author Organization [facility] Address [address] [place] [address]- Care Team Providers Care Artificial Breeding Distributor Name Role Phone Jerry CHANG, Latesha Rocha Primary Care Physic augustina [place] [facility] [place]11[place]20 - 01/21/20 [facility] [address] [place] [address]- [facility] Attending Physician: Admtr, [id number] Admitting Physician: [...] toxoids (Td) 10/04/99 Recorded 1Result Comment: [09/07/2018] [facility] # [id number] 2Result Comment: [07/05/2017] [facility] [id number] 3Result Comment: [11/07/2014] Dr. Knox; consent signed. [...] 11:20:04 EDT, Powder, Route to Pharmacy Electronically, [id number], [facility]/pharmacy #[id number] Start Date: 01/12/19 Stop Date: 01/07/20 Status: Ordered albuterol CFC free 90 mcg/inh inhalation aerosol 2, puffs, Inhalation, Every 4 hours, PRN, # 8.5 Unknown, Refills 1, Tot. Refills 1, Maintenance, 01/11/20 11:44:00 EDT, Route to Pharmacy Electronically, [id number], [facility]/pharmacy #1095, 194.2, cm, 08/16/19 8:47:00 EST, Height... Start Date: 01/11/20 Status: Ordered aspirin 81 mg oral tablet 1 tablet = 81 mg, By Mouth, Daily, # 90 tablet, 0 Refills, Maintenance, 05/20/17 11:35:13, Tablet Start Date: 05/20/17 Status: Ordered atorvastatin 20 mg oral tablet See Instructions, # 90 tablet, Refills 1 Tot. Refills 1, TAKE 1 TABLET BY MOUTH EVERY DAY, [facility]/pharmacy #[id number] Start Date: 06/30/19 Status: Ordered Basaglar KwikPen = 70 units, Subcutaneous Infusion, Daily, 0 Refills, Maintenance, 01/12/19 11:14:14 EDT Start Date: 01/12/19 Status: Ordered buPROPion 150 mg/12 hours (SR) oral tablet, extended release 1 tablet = 150 mg, By Mouth, Daily, # 90 tablet, 0 Refills, Soft Stop, 01/09/20 15:17:00 EDT, [facility]/pharmacy #1095, 194.2, cm, 08/16/19 8:47:00 [...] 1 Refills, Maintenance, 10/27/19 7:12:00 EST, Tablet, [facility]/pharmacy #1095, 194.2, cm, 08/16/19 8:47:00 [...] mL, 0 Refills, Maintenance, 11/05/19 7:33:00 EST, [facility]/pharmacy #1095, 194.2, cm, 08/16/19 8:47:00 EST, Height, 113.1, kg, 08/09/19 10:20:00 EST,... Start Date: 11/05/19 Status: Ordered Pen [place], 30 G x 8 mm BD Ultra Fine II See Instructions, # 100 each, Refills 3, Tot. Refills 3, Maintenance, use as directed for Type 2 Diabetes Mellitus - once a day, 10/09/15 14:01:07, Compound Start Date: 10/09/15 Stop Date: 02/06/16 Status: Ordered Pen [place], 31 G x 8 mm BD Ultra [...] 01/11/20 11:42:00 EDT, Route to Pharmacy Electronically, [facility]/pharmacy #[id number], 194.2, cm, 08/16/19 8:47:00 [...]
--- OUTSIDE RECORDS SUMMARY | 2024-05-09 07:59 | XMS_ITS | Continuity of Care Document ---
Author Organization [facility] Address [address] [place] [address]- Care Team Providers Care Industrial Photographer Name Role Phone Jerry CHANG, Latesha Rocha Primary Care Physic augustina Encounter [facility] Date(s): 08/15/21 - 09/14/21 [facility] [address] [place] [address]- Attending Physician: Nagi Francois Admitting Physician: AdmNagi [...] Comment: Beverley WEBER [place] 3Result Comment: [facility]: [id number] 4Result Comment: [09/07/2018] [facility] # [id number] 5Result Comment: [07/05/2017] [facility] [id number] 6Result Comment: [11/07/2014] Dr. Knox; consent signed. [...] 15:07:00 EDT, Powder, Route to Pharmacy Electronically, [id number], [facility]/pharmacy #1095, 193.2, cm, 11/04/20 13:14:00 EST, Height,... Start Date: 02/04/21 Stop Date: 08/03/21 Status: Ordered albuterol CFC free 90 mcg/inh inhalation aerosol 2, puffs, Inhalation, Every 4 hours, PRN, # 3 each, Refills 1, Tot. Refills 1, Maintenance, 06/12/21 22:49:00 EDT, Route to Pharmacy Electronically, [id number], [facility]/pharmacy#1095, 193.2, cm, 02/03/21 8:56:00 EDT, Height, 113... Start Date: 06/12/21 Status: Ordered aspirin 81 mg oral tablet 1 tablet = 81 mg, By Mouth, Daily, # 90 tablet, 0 Refills, Maintenance, 05/20/17 11:35:13, Tablet Start Date: 05/20/17 Status: Ordered atorvastatin 20 mg oral tablet See Instructions, TAKE 1 TABLET BY MOUTH EVERY DAY, # 90 tablet, 1 Refills, Soft Stop, 06/12/21 22:49:00 EDT, [facility]/pharmacy #1095, 193.2, cm, 02/03/21 8:56:00 EDT, Height, 113.1, kg, 08/09/19 10:20:00EST, Dry Weight Start Date: 06/12/21 Status: Ordered Basaglar KwikPen 100 units/mL subcutaneous solution = 75 units, Subcutaneous Injection, Daily at bedtime, # 12 mL, 0 Refills, Maintenance, 01/06/21 11:59:00 EDT, [facility]/pharmacy #1095, 193.2, cm, 11/04/20 13:14:00 EST, Height, [...] 1 Refills, Soft Stop, 08/03/21 15:09:00 EDT, [facility]/pharmacy #1095, 193.2, cm, 02/03/21 8:56:00 EDT, Height, [...] 1 Refills, Maintenance, 06/13/21 17:12:00 EDT, Tablet, [facility]/pharmacy #1095, 193.2, cm, 02/03/21 8:56:00 EDT, Height, 113.1, kg, 08/09/19 10:20:00 EST,... Start Date: 06/13/21 Stop Date: 12/10/21 Status: Ordered levothyroxine 175 mcg (0.175 mg) oral tablet 1 tablet = 175 mcg, By Mouth, Daily, for 90 days, # 90 tablet, 1 Refills, Hard Stop 12/10/21 12:26:00 EST, 06/13/21 12:26:00 EDT, Tablet, [facility]/pharmacy #1095, 193.2, cm, 02/03/21 8:56:00 EDT, Height, 113.1, kg, 08/09/19 10:20:00 EST, Dry Weight Start Date: 06/13/21 Stop Date: 12/10/21 Status: Ordered metFORMIN 500 mg oral tablet, extended release 2 tablet = 1,000 mg, By Mouth, Daily, # 180 tablet, 0 Refills, Soft Stop, 02/04/21 15:03:00 EDT, [facility]/pharmacy #1095, 193.2, cm, 11/04/20 13:14:00 EST, Height, 113.1, kg, 08/09/19 10:20:00 EST, Dry Weight Start Date: 02/04/21 Stop Date: 05/05/21 Status: Ordered NovoLOG 100 units/mL subcutaneous solution See Instructions, 1-5 units sliding scale 15 min prior to meals Subcutaneous Infusion 3 times a day., # 30 mL, 0 Refills, Maintenance, 01/06/21 11:59:00 EDT, [facility]/pharmacy #1095, 193.2, cm, 11/04/20 13:14:00 EST, Height, 113.1, kg, 08/09/19 10:20:00 ES... Start Date: 01/06/21 Status: Ordered Pen [place], 30 G x 8 mm BD Ultra Fine II See Instructions, # 100 each, Refills 3, Tot. Refills 3, Maintenance, use as directed for Type 2 Diabetes Mellitus - once a day, 10/09/15 14:01:07, Compound Start Date: 10/09/15 Stop Date: 02/06/16 Status: Ordered Pen [place], 31 G x 5 mm BD Ultra Fine III See Instructions, # 100 each, Refills 2, Tot. Refills 2, Maintenance, use to inject Basaglar 1x daily, E11.9, 90-day, 08/08/20 15:07:00 EST, Supply, 193.2, cm, 08/08/20 14:34:00 EST, Height, 113.1, kg, 08/09/19 10:20:00 EST, Dry Weight Start Date: 08/08/20 Status: Ordered Pen [place], 31 G x 8 mm BD Ultra [...] 06/12/21 22:49:00 EDT, Route to Pharmacy Electronically, [facility]/pharmacy #[id number], 193.2, cm, 02/03/21 8:56:00 EDT, Height, [...]
--- OUTSIDE RECORDS SUMMARY | 2024-05-09 07:59 | XMS_ITS | Continuity of Care Document ---
Author Organization [facility] Address [address] [place] [address]- Care Team Providers Care Hat Ironer Name Role Phone Jerry CHANG, Latesha Rocha Primary Care Physic augustina Encounter [facility] Date(s): 11/08/23 - 12/08/23 [facility] [address] [place] [address]- Allergies, Adverse Reactions, Alerts No Known Medication Allergies Substance Reaction Severity Status Other Environmental Allergy 1 Active 1pets Immunizations Given and Recorded Vaccine Date Status Refusal Reason Influenza Virus Vaccine (oldterm) 1 07/10/23 Recor ded SARS-CoV-2 mRNA (lcduhyd-znxs-rmpgx) vax 2 07/10/23 Recorded influenza virus vaccine, [...] Recorded 1Result Comment: pt recevied vaccine from [facility] 2Result Comment: pt received vaccine from [facility] 3Result Comment: [facility]: [id number] 4Result Comment: [09/07/2018] [facility] # [id number] 5Result Comment: [07/05/2017] [facility] [id number] 6Result Comment: GUS Lowery [place] 7Result Comment: Beverley WEBER [place] 8Result Comment: [11/07/2014] Dr. Knox; consent signed. Medications Advair Diskus 250 mcg-50 mcg inhalation powder 1, puffs, Inhalation, 2 times a day, # 3 each, Refills 1, Tot. Refills 1, Maintenance, 09/01/23 18:48:00 EST, Powder, Route to Pharmacy Electronically, [id number], [facility]/pharmacy #[id number], 192.3, cm, 09/01/23 11:35:00 EST, Height,... Start Date: 09/01/23 Stop Date: 02/28/24 Status: Ordered albuterol CFC free 90 mcg/inh inhalation aerosol 2, puffs, Inhalation, Every 4 hours, PRN, # 3 each, Refills 3, Tot. Refills 3, Maintenance, 05/07/23 10:14:00 EDT, Route to Pharmacy Electronically, [id number], [facility]/pharmacy#[id number], 195, cm, 05/07/23 9:23:00 EDT, Height, [...] 3 Refills, Soft Stop, 10/22/23 15:01:00 EST, [facility]/pharmacy #[id number], 192.3, cm, 10/13/23 12:06:00 EST, [...] Refills, Maintenance, 11/15/23 15:34:00 EST, ER Tablet, [facility]/pharmacy #[id number], Partial fill [...] 0 Refills, Maintenance, 09/02/22 17:46:00 EST, Tablet, [facility]/pharmacy #[id number], Partial fill upon [...] tablet, 3 Refills, Maintenance, 09/02/23 15:43:00 EST, [facility]/pharmacy #[id number], 192.3, cm, 09/02/23 15:03:00 EST, Height, 108, kg, 08/04/23 9:53:00 EDT, Dry Weight Start Date: 09/02/23 Status: Ordered Lantus Solostar Pen 100 units/mL subcutaneous solution = 80 units, Subcutaneous Infusion, Daily, 6 months supplies, # 144 mL, 3 Refills, Maintenance, 11/24/23 11:09:00 EST, [facility]/pharmacy #[id number], Partial fill upon patient request if the prescription is for a schedule II opioid drug., 192.3, cm, 11/24/23 8:32... Start Date: 11/24/23 Stop Date: 11/13/25 Status: Ordered levothyroxine 0.025 mg oral tablet 1 tablet = 25 mcg, By Mouth, Daily, Take with 200mcg tab for total of 225mcg., # 90 tablet, 1 Refills, Maintenance, 09/03/23 16:52:00 EST, Tablet, [facility]/pharmacy #[id number], 192.3, cm, 09/02/23 15:03:00 EST, [...] 2... Start Date: 09/02/23 Status: Ordered Pen [place], 31 G x 5 mm BD Ultra [...] 11/15/23 15:36:00 EST, Route to Pharmacy Electronically, [facility]/pharmacy #[id number], 192.3, cm, 10/13/23 12:06:00EST, Height, [...] Personnel Name: Jerry CHANG, Latesha Rocha [facility] Phys[facility] - Primary Care Member Role: PCP Address: [facility] [place] [address]- Care Team Related Persons Name: ROSALIA MAYES Address: home [address] [place] [address]
--- OUTSIDE RECORDS SUMMARY | 2024-05-09 07:59 | XMS_ITS | Continuity of Care Document ---
Author Organization [facility] Address [address] [place] [address]- Care Team Providers Care Liquid Center Assembler Name Role Phone Jerry CHANG, Latesha Rocha Primary Care Physic augustina Encounter [facility] Date(s): 12/05/21 - 12/12/21 [facility] [address] [place] [address]- Encounter Diagnosis Generalized anxiety disorder with panic attacks(Discharge Diagnosis) - 12/05/21 Attending Physician: Jerry CHANG, Latesha Rocha Allergies, [...] 2Result Comment: Beverley WEBER [place] 3Result Comment: [facility]: [id number] 4Result Comment: [09/07/2018] [facility] # [id number] 5Result Comment: [07/05/2017] [facility] [id number] 6Result Comment: [11/07/2014] Dr. Knox; consent signed. [...] 15:07:00 EDT, Powder, Route to Pharmacy Electronically, [id number], [facility]/pharmacy #[id number], 193.2, cm, 11/04/20 13:14:00 EST, Height,... Start Date: 02/04/21 Stop Date: 08/03/21 Status: Ordered albuterol CFC free 90 mcg/inh inhalation aerosol 2, puffs, Inhalation, Every 4 hours, PRN, # 3 each, Refills 1, Tot. Refills 1, Maintenance, 06/12/21 22:49:00 EDT, Route to Pharmacy Electronically, [id number], [facility]/pharmacy#[id number], 193.2, cm, 02/03/21 8:56:00 EDT, [...] 1 Refills, Soft Stop, 06/12/21 22:49:00 EDT, [facility]/pharmacy #[id number], 193.2, cm, 02/03/21 8:56:00 EDT, Height, 113.1, kg, 08/09/19 10:20:00EST, Dry Weight Start Date: 06/12/21 Status: Ordered Basaglar KwikPen 100 units/mL subcutaneous solution = 75 units, Subcutaneous Injection, Daily at bedtime, # 12 mL, 0 Refills, Maintenance, 01/06/21 11:59:00 EDT, [facility]/pharmacy #[id number], 193.2, cm, 11/04/20 13:14:00 [...] 1 Refills, Soft Stop, 08/03/21 15:09:00 EDT, [facility]/pharmacy #[id number], 193.2, cm, 02/03/21 8:56:00 [...] 1 Refills, Maintenance, 12/10/21 17:12:00 EST, Tablet, [facility]/pharmacy #[id number], 193.2, cm, 11/05/21 10:33:00 EST, Height Start Date: 12/10/21 Stop Date: 06/08/22 Status: Ordered LORazepam 0.5 mg oral tablet 1 tablet = 0.5 mg, By Mouth, 2 times a day, for 14 days, # 28 tablet, 0 Refills, Acute 12/19/21 13:07:00 EDT, 12/05/21 13:07:00 EST, Tablet, [facility]/pharmacy #[id number], Partial fill upon patient request if the prescription is for a schedule II opioid drug., 1... Start Date: 12/05/21 Stop Date: 12/19/21 Status: Ordered MetFORMIN (Eqv-Glucophage XR) 500 mg oral tablet, extended release 2 tablet = 1,000 mg, By Mouth, Daily, # 180 tablet, 1 Refills, Maintenance, 10/02/21 13:35:00 EST, [facility]/pharmacy #[id number], Partial fill upon patient request if the prescription is for a schedule II opioid drug., 193.2, cm, 02/03/21 8:56:00 EDT, Height Start Date: 10/02/21 Stop Date: 03/31/22 Status: Ordered metFORMIN 500 mg oral tablet, extended release 2 tablet = 1,000 mg, By Mouth, Daily, # 180 tablet, 1 Refills, Soft Stop, 10/01/21 13:42:00 EST, [facility]/pharmacy #[id number], 193.2, cm, 02/03/21 8:56:00 EDT, Height Start Date: 10/01/21 Stop Date: 03/30/22 Status: Ordered NovoLOG 100 units/mL subcutaneous solution See Instructions, 1-5 units sliding scale 15 min prior to meals Subcutaneous Infusion 3 times a day., # 30 mL, 0 Refills, Maintenance, 01/06/21 11:59:00 EDT, [facility]/pharmacy #[id number], 193.2, cm, 11/04/20 13:14:00 EST, Height, 113.1, kg, 08/09/19 10:20:00 ES... Start Date: 01/06/21 Status: Ordered Pen [place], 30 G x 8 mm BD Ultra Fine II See Instructions, # 100 each, Refills 3, Tot. Refills 3, Maintenance, use as directed for Type 2 Diabetes Mellitus - once a day, 10/09/15 14:01:07, Compound Start Date: 10/09/15 Stop Date: 02/06/16 Status: Ordered Pen [place], 31 G x 5 mm BD Ultra Fine III See Instructions, # 100 each, Refills 2, Tot. Refills 2, Maintenance, use to inject Basaglar 1x daily, E11.9, 90-day, 12/02/21 15:33:00 EST, Supply, 193.2, cm, 11/05/21 10:33:00 EST, Height Start Date: 12/02/21 Status: Ordered Pen [place], 31 G x 8 mm BD Ultra [...] 06/12/21 22:49:00 EDT, Route to Pharmacy Electronically, [facility]/pharmacy #[id number], 193.2, cm, 02/03/21 8:56:00 [...] anxiety disorder with panic attacks Discharge Diagnosis 12/05/21 Social History Social History Type Response Smoking Status Current every day sherri weeks; Tobacco user in household: No; Type: Cigarettes; Tobacco use times per day: Down to 1/2 pack a day from 1 pack a day. Has been smoking for 35 years.; entered on: 08/19/17 Sex
--- OUTSIDE RECORDS SUMMARY | 2024-05-09 07:59 | XMS_ITS | Continuity of Care Document ---
Author Organization [facility] Address [address] [place] [address]- Care Team Providers Care Pharmacy Tech Name Role Phone Jerry CHANG, Latesha Rocha Primary Care Physic augustina Encounter [facility] Date(s): 10/08/23 - 11/07/23 [facility] [address] [place] [address]- Allergies, Adverse Reactions, Alerts No Known Medication Allergies Substance Reaction Severity Status Other Environmental Allergy 1 Active 1pets Immunizations Given and Recorded Vaccine Date Status Refusal Reason Influenza Virus Vaccine (oldterm) 1 07/10/23 Recor ded SARS-CoV-2 mRNA (wgypxgc-ruii-hkdnj) vax 2 07/10/23 Recorded influenza virus vaccine, [...] Recorded 1Result Comment: pt recevied vaccine from [facility] 2Result Comment: pt received vaccine from [facility] 3Result Comment: [facility]: [id number] 4Result Comment: [09/07/2018] [facility] # [id number] 5Result Comment: [07/05/2017] [facility] [id number] 6Result Comment: GUS Lowery [place] 7Result Comment: Beverley WEBER [place] 8Result Comment: [11/07/2014] Dr. Knox; consent signed. Medications Advair Diskus 250 mcg-50 mcg inhalation powder 1, puffs, Inhalation, 2 times a day, # 3 each, Refills 1, Tot. Refills 1, Maintenance, 09/01/23 18:48:00 EST, Powder, Route to Pharmacy Electronically, [id number], [facility]/pharmacy #[id number], 192.3, cm, 09/01/23 11:35:00 EST, Height,... Start Date: 09/01/23 Stop Date: 02/28/24 Status: Ordered albuterol CFC free 90 mcg/inh inhalation aerosol 2, puffs, Inhalation, Every 4 hours, PRN, # 3 each, Refills 3, Tot. Refills 3, Maintenance, 05/07/23 10:14:00 EDT, Route to Pharmacy Electronically, [id number], [facility]/pharmacy#[id number], 195, cm, 05/07/23 9:23:00 EDT, Height, 112.6... Start Date: 05/07/23 Status: Ordered aspirin 81 mg oral tablet 1 tablet = 81 mg, By Mouth, Daily, # 90 tablet, 0 Refills, Maintenance, 05/20/17 11:35:13, Tablet Start Date: 05/20/17 Status: Ordered atorvastatin 20 mg oral tablet See Instructions, TAKE 1 TABLET BY MOUTH EVERY DAY, # 90 tablet, 3 Refills, Soft Stop, 10/22/23 15:01:00 EST, [facility]/pharmacy #[id number], 192.3, cm, 10/13/23 12:06:00 EST, Height, [...] 0 Refills, Maintenance, 02/19/23 13:03:00 EDT, Capsule, [facility]/pharmacy #[id number], Partial fill upon patient request if [...] 09/06/23 17:50:00 EST, Route to Pharmacy Electronically, [facility]/pharmacy #[id number], Partial fill upon patient request if [...] 1 Refills, Maintenance, 09/03/23 16:52:00 EST, Tablet, [facility]/pharmacy #1095, 192.3, cm, 09/02/23 15:03:00 EST, Height, [...] 9 mL, 3 Refills, Maintenance,09/02/23 15:44:00 EST, [facility]/pharmacy #[id number], Partial fill upon patient request if the prescription isfor a schedule II opioid drug., 192.3, cm, 2... Start Date: 09/02/23 Status: Ordered Pen [place], 31 G x 5 mm BD Ultra [...] Primary Care Member Role: PCP Address: Address: [address] [place] [address]- Care Team Related Persons Name: ROSALIA MAYES Address: home [address] [place] [address]
--- OUTSIDE RECORDS SUMMARY | 2024-05-09 07:59 | XMS_ITS | Continuity of Care Document ---
Author Organization [facility] Address [address] [place] [address]- Care Team Providers Care Rn Imaging Name Role Phone Jerry CHANG, Latesha Rocha Primary Care Physic augustina Encounter [facility] Date(s): 09/01/23 - 10/01/23 [facility] [address] [place] [address]- Allergies, Adverse Reactions, Alerts No Known Medication Allergies Substance Reaction Severity Status Other Environmental Allergy 1 Active 1pets Immunizations Given and Recorded Vaccine Date Status Refusal Reason Influenza Virus Vaccine (oldterm) 1 07/10/23 Recor ded SARS-CoV-2 mRNA (cgfteno-vybi-pxiwe) vax 2 07/10/23 Recorded influenza virus vaccine, [...] Recorded 1Result Comment: pt recevied vaccine from [facility] 2Result Comment: pt received vaccine from [facility] 3Result Comment: [facility]: [id number] 4Result Comment: [09/07/2018] [facility] # [id number] 5Result Comment: [07/05/2017] [facility] [id number] 6Result Comment: GUS Lowery [place] 7Result Comment: Beverley WEBER [place] 8Result Comment: [11/07/2014] Dr. Knox; consent signed. Medications Advair Diskus 250 mcg-50 mcg inhalation powder 1, puffs, Inhalation, 2 times a day, # 3 each, Refills 1, Tot. Refills 1, Maintenance, 09/01/23 18:48:00 EST, Powder, Route to Pharmacy Electronically, [id number], [facility]/pharmacy #[id number], 192.3, cm, 09/01/23 11:35:00 EST, Height,... Start Date: 09/01/23 Stop Date: 02/28/24 Status: Ordered albuterol CFC free 90 mcg/inh inhalation aerosol 2, puffs, Inhalation, Every 4 hours, PRN, # 3 each, Refills 3, Tot. Refills 3, Maintenance, 05/07/23 10:14:00 EDT, Route to Pharmacy Electronically, [id number], [id number], 195, cm, 05/07/23 9:23:00 EDT, Height, [...] Soft Stop, 07/27/22 12:32:00 EDT, [facility]/pharmacy #[id number], 193.2, cm, 07/27/22 10:43:00 EDT, Height [...] EST, Route to Pharmacy Electronically, [facility]/pharmacy #[id number], Partial fill upon patient request if the prescription is for a schedule... Start Date: 09/06/23 Status: Ordered Jardiance 10 mg oral tablet 1 tablet, By Mouth, Daily in AM, # 90 tablet, 3 Refills, Maintenance, 09/02/23 15:43:00 EST, [facility]/pharmacy #1095, 192.3, cm, 09/02/23 15:03:00 EST, Height, 108, kg, 08/04/23 9:53:00 EDT, Dry Weight Start Date: 09/02/23 Status: Ordered levothyroxine 0.025 mg oral tablet 1 tablet = 25 mcg, By Mouth, Daily, Take with 200mcg tab for total of 225mcg., # 90 tablet, 1 Refills, Maintenance, 09/03/23 16:52:00 EST, Tablet, [facility]/pharmacy #[id number], 192.3, cm, 09/02/23 15:03:00 EST, Height, 108, kg, 08/04/23 9:53:00 EDT, Dry Weight Start Date: 09/03/23 Stop Date: 03/01/24 Status: Ordered levothyroxine 0.2 mg oral tablet 1 tablet = 200 mcg, By Mouth, Daily, take along with 225 mcg, # 90 tablet, 1 Refills, Maintenance, 08/17/23 11:43:00 EST, Tablet, [facility]/pharmacy #[id number], Partial fill upon patient request if [...] 3 Refills, Maintenance,09/02/23 15:44:00 EST, [facility]/pharmacy #[id number], Partial fill upon patient request if the prescription isfor a schedule II opioid drug., 192.3, cm, ... Start Date: 09/02/23 Status: Ordered Pen [place], 31 G x 5 mm BD Ultra [...] Personnel Name: Jerry CHANG, Latesha Rocha Position: [facility] Physician - Primary Care Member Role: PCP Address: Address: [address] [place] [address]- Care Team Related Persons Name: ROSALIA MAYES Address: home [address] [place] [address]
--- OUTSIDE RECORDS SUMMARY | 2024-05-09 07:59 | XMS_ITS | Continuity of Care Document ---
Author Organization [facility] Address [address] [place] [address]- Care Team Providers Care Chemical Processing Technician Name Role Phone Jerry CHANG, Latesha Rocha Primary Care Physic augustina Encounter [facility] Date(s): 09/10/23 - 10/10/23 [facility] [address] [place] [address]- Attending Physician: Not on Staff, Attending MD Referring Physician: Jerry CHANG, Latesha Rocha Allergies, Adverse Reactions, Alerts No Known Medication Allergies Substance Reaction Severity Status Other Environmental Allergy 1 Active 1pets Immunizations Given and Recorded Vaccine Date Status Refusal Reason Influenza Virus Vaccine (oldterm) 1 07/10/23 Recor ded SARS-CoV-2 mRNA (zqdlybe-whgq-egvmo) vax 2 07/10/23 Recorded influenza virus vaccine, [...] Recorded 1Result Comment: pt recevied vaccine from [facility] pharmacy 2Result Comment: pt received vaccine from [facility] pharmacy 3Result Comment: [facility]: [id number] 4Result Comment: [09/07/2018] [facility] # [id number] 5Result Comment: [07/05/2017] [facility] [id number] 6Result Comment: GUS Lowery [place] 7Result Comment: [facility] [place] 8Result Comment: [11/07/2014] Dr. Knox; consent signed. Medications Advair Diskus 250 mcg-50 mcg inhalation powder 1, puffs, Inhalation, 2 times a day, # 3 each, Refills 1, Tot. Refills 1, Maintenance, 09/01/23 18:48:00 EST, Powder, Route to Pharmacy Electronically, [id number], [id number], 192.3, cm, 09/01/23 11:35:00 EST, Height,... Start Date: 09/01/23 Stop Date: 02/28/24 Status: Ordered albuterol CFC free 90 mcg/inh inhalation aerosol 2, puffs, Inhalation, Every 4 hours, PRN, # 3 each, Refills 3, Tot. Refills 3, Maintenance, 05/07/23 10:14:00 EDT, Route to Pharmacy Electronically, [id number], [facility]/pharmacy#1095, 195, cm, 05/07/23 9:23:00 EDT, [...] 3 Refills, Soft Stop, 07/27/22 12:32:00 EDT, [facility]/pharmacy #1095, 193.2, cm, 07/27/22 10:43:00 EDT, Height Start Date: 07/27/22 Status: Ordered Basaglar KwikPen 100 units/mL subcutaneous solution = 80 units, Subcutaneous Injection, Daily at bedtime, # 9 each, 2 Refills, Maintenance, 09/03/23 16:54:00 EST, [facility]/pharmacy #[id number], 192.3, cm, 09/02/23 15:03:00 [...] Refills, Maintenance, 05/07/23 9:46:00 EDT, ER Tablet, [facility]/pharmacy #1095, Partial fill upon patient request if the prescription is for a schedule II opioid drug., 195, cm, 05/07/23 9:23:00 EDT, Heigh... Start Date: 05/07/23 Status: Ordered CeleBREX 100 mg oral capsule 1 capsule = 100 mg, By Mouth, 2 times a day, # 60 capsule, 0 Refills, Maintenance, 02/19/23 13:03:00 EDT, Capsule, [facility]/pharmacy #[id number], Partial fill upon patient request if the prescription is for a schedule II opioid drug., 195, cm, 02/10/23 13:17:00... Start Date: 02/19/23 Status: Ordered clonazePAM 0.5 mg oral tablet 1 tablet = 0.5 mg, By Mouth, Daily, # 28 tablet, 0 Refills, Maintenance, 09/02/22 17:46:00 EST, Tablet, [facility]/pharmacy #[id number], Partial fill upon [...] 09/06/23 17:50:00 EST, Route to Pharmacy Electronically, [facility]/pharmacy #[id number], Partial fill upon patient request if the prescription is for a schedule... Start Date: 09/06/23 Status: Ordered Jardiance 10 mg oral tablet 1 tablet, By Mouth, Daily in AM, # 90 tablet, 3 Refills, Maintenance, 09/02/23 15:43:00 EST, [facility]/pharmacy #1095, 192.3, cm, 09/02/23 15:03:00 EST, Height, 108, kg, 08/04/23 9:53:00 EDT, Dry Weight Start Date: 09/02/23 Status: Ordered levothyroxine 0.025 mg oral tablet 1 tablet = 25 mcg, By Mouth, Daily, Take with 200mcg tab for total of 225mcg., # 90 tablet, 1 Refills, Maintenance, 09/03/23 16:52:00 EST, Tablet, [facility]/pharmacy #1095, 192.3, cm, 09/02/23 15:03:00 [...] 9 mL, 3 Refills, Maintenance,09/02/23 15:44:00 EST, [facility]/pharmacy #[id number], Partial fill upon patient request if the prescription isfor a schedule II opioid drug., 192.3, cm, 2... Start Date: 09/02/23 Status: Ordered Pen [place], 31 G x 5 mm BD Ultra [...] Personnel Name: Jerry CHANG, Latesha Rocha Position: [facility] Physician - Primary Care Member Role: PCP Address: Address: [address] [place] [address]- Care Team Related Persons Name: ROSALIA MAYES Address: [address] [place] [address]
--- OUTSIDE RECORDS SUMMARY | 2024-05-09 07:59 | XMS_ITS | Continuity of Care Document ---
Author Organization [facility] Address [address] [place] [address]- Care Team Providers Care Percussion Teacher Name Role Phone Jerry CHANG, Latesha Rocha Primary Care Physic augustina Encounter [facility] [place] Date(s): 12/19/21 - 01/18/22 [facility] [address] [place] [address]- Attending Physician: Nagi Francois Admitting Physician: AdmNagi [...] 2Result Comment: Beverley WEBER [place] 3Result Comment: [facility]: [id number] 4Result Comment: [09/07/2018] [facility] # [id number] 5Result Comment: [07/05/2017] [facility] [id number] 6Result Comment: [11/07/2014] Dr. Knox; consent signed. [...] 15:07:00 EDT, Powder, Route to Pharmacy Electronically, [id number], [facility]/pharmacy #[id number], 193.2, cm, 11/04/20 13:14:00 EST, Height,... Start Date: 02/04/21 Stop Date: 08/03/21 Status: Ordered albuterol CFC free 90 mcg/inh inhalation aerosol 2, puffs, Inhalation, Every 4 hours, PRN, # 3 each, Refills 1, Tot. Refills 1, Maintenance, 06/12/21 22:49:00 EDT, Route to Pharmacy Electronically, [id number], [facility]/pharmacy#[id number], 193.2, cm, 02/03/21 8:56:00 EDT, [...] Refills, Soft Stop, 06/12/21 22:49:00 EDT, [facility]/pharmacy #[id number], 193.2, cm, 02/03/21 8:56:00 EDT, Height, 113.1, kg, 08/09/19 10:20:00EST, Dry Weight Start Date: 06/12/21 Status: Ordered Basaglar KwikPen 100 units/mL subcutaneous solution = 75 units, Subcutaneous Injection, Daily at bedtime, # 12 mL, 0 Refills, Maintenance, 01/06/21 11:59:00 EDT, [facility]/pharmacy #[id number], 193.2, cm, 11/04/20 13:14:00 [...] 1 Refills, Soft Stop, 01/30/22 15:09:00 EDT, [facility]/pharmacy #[id number], 193.2, cm, 11/05/21 10:33:00 EST, Height Start Date: 01/30/22 Stop Date: 07/29/22 Status: Ordered buPROPion 150 mg/12 hours (SR) oral tablet, extended release 1 tablet = 150 mg, By Mouth, Daily, for 90 days, # 90 tablet, 1 Refills, Hard Stop 01/30/22 15:09:00 EDT, 08/03/21 15:09:00 EDT, [facility]/pharmacy #[id number], 193.2, cm, 02/03/21 8:56:00 EDT, Height, 113.1, kg, 08/09/19 10:20:00 EST, Dry Weight Start Date: 08/03/21 Stop Date: 01/30/22 Status: Ordered clonazePAM 0.5 mg oral tablet 1 tablet = 0.5 mg, By Mouth, Daily, # 28 tablet, 0 Refills, Maintenance, 01/15/22 12:14:00 EDT, Tablet, [facility]/pharmacy #[id number], Partial fill upon [...] Height Start Date: 12/15/21 Status: Ordered Pen [place], 30 G x 8 mm BD Ultra Fine II See Instructions, # 100 each, Refills 3, Tot. Refills 3, Maintenance, use as directed for Type 2 Diabetes Mellitus - once a day, 10/09/15 14:01:07, Compound Start Date: 10/09/15 Stop Date: 02/06/16 Status: Ordered Pen [place], 31 G x 5 mm BD Ultra Fine III See Instructions, # 100 each, Refills 2, Tot. Refills 2, Maintenance, use to inject Basaglar 1x daily, E11.9, 90-day, 12/02/21 15:33:00 EST, Supply, 193.2, cm, 11/05/21 10:33:00 EST, Height Start Date: 12/02/21 Status: Ordered Pen [place], 31 G x 8 mm BD Ultra Fine III See Instructions, # 100 each, Refills 1, Tot. Refills 1, Maintenance, use with Lantus 1x daily, Dx E11.9, 90-day, 03/15/17 15:55:47, Compound Start Date: 03/15/17 Stop Date: 09/11/17 Status: Ordered sertraline 25 mg oral tablet 1 tablet = 25 mg, By Mouth, Daily, # 90 tablet, 1 Refills, Maintenance, 01/15/22 12:14:00 EDT, Tablet, [facility]/pharmacy #[id number], Partial fill upon patient request if the prescription is for a schedule II opioid drug., 193.2, cm, 11/05/21 10:33:00 EST, Height Start Date: 01/15/22 Status: Ordered Singulair 10 mg oral tablet 10 mg, 1, tablet, By Mouth, Daily in PM, # 90 tablet, Refills 3, Tot. Refills 3, Maintenance, 01/15/22 12:15:00 EDT, Route to Pharmacy Electronically, [facility]/pharmacy #[id number], 193.2, cm, 11/05/21 10:33:00EST, [...]
--- OUTSIDE RECORDS SUMMARY | 2024-05-09 07:59 | XMS_ITS | Continuity of Care Document ---
Author Organization [facility] Address [address] [place] [address]- Care Team Providers Care Film Masker Name Role Phone Jerry CHANG, Latesha Rocha Primary Care Physic augustina [place] [facility] [place] 02/10/24 - 03/11/24 [facility] [address] [place] [address]- [place] Allergies, Adverse Reactions, Alerts No Known Medication Allergies Substance Reaction Severity Status Other Environmental Allergy 1 Active 1pets Immunizations Given and Recorded Vaccine Date Status Refusal Reason SARS-CoV-2(COVID-19)mRNA-LNP vac(asl226) 12/21/23 Recorded Influenza Virus Vaccine (oldterm) 1 07/10/23 Recor ded SARS-CoV-2 mRNA ([id number]) vax 2 07/10/23 Recorded influenza virus vaccine, [...] Recorded 1Result Comment: pt recevied vaccine from [facility] pharmacy 2Result Comment: pt received vaccine from [facility] pharmacy 3Result Comment: [facility]: [id number] 4Result Comment: [09/07/2018] [facility] # [id number] 5Result Comment: [07/05/2017] [facility] [id number] 6Result Comment: [facility] Beverley JACKSON 7Result Comment[facility] [place] 8Result Comment: [11/07/2014] Dr. Knox; consent signed. Medications Advair Diskus 250 mcg-50 mcg inhalation powder 1, puffs, Inhalation, 2 times a day, # 3 each, Refills 1, Tot. Refills 1, Maintenance, 09/01/23 18:48:00 EST, Powder, Route to Pharmacy Electronically, [id number], [id number] 192.3, cm, 09/01/23 11:35:00 EST, [...] 3 Refills, Soft Stop, 10/22/23 15:01:00 EST, [facility]/pharmacy #[id number], 192.3, cm, 10/13/23 [...] Refills, Maintenance, 01/24/24 11:08:00 EDT, ER Tablet, [facility]/pharmacy #[id number], Partial fill upon patient request if the prescription is for a schedule II opioid drug., 192.3, cm, 01/24/24 10:24:00 EDT, H... Start Date: 01/24/24 Status: Ordered CeleBREX 100 mg oral capsule 1 capsule = 100 mg, By Mouth, 2 times a day, # 60 capsule, 0 Refills, Maintenance, 01/24/24 10:57:00 EDT, Capsule, [facility]/pharmacy #[id number], Partial fill upon patient request if the prescription is for a schedule II opioid drug., 192.3, cm, 01/24/24 10:24:0... Start Date: 01/24/24 Status: Ordered clonazePAM 0.5 mg oral tablet 1 tablet = 0.5 mg, By Mouth, Daily, # 28 tablet, 0 Refills, Maintenance, 09/02/22 17:46:00 EST, Tablet, [facility]/pharmacy #[id number], Partial fill upon [...] Maintenance,02/11/24 9:05:00 EDT, Route to Pharmacy Electronically, [facility]/pharmacy #[id number], Partial fill upon patient request if the prescription is for a schedule II... Start Date: 02/11/24 Stop Date: 04/07/24 Status: Ordered Jardiance 10 mg oral tablet 1 tablet, By Mouth, Daily in AM, # 90 tablet, 3 Refills, Maintenance, 09/02/23 15:43:00 EST, [facility]/pharmacy #[id number], 192.3, cm, 09/02/23 15:03:00 EST, Height, 108, kg, 08/04/23 9:53:00 EDT, Dry Weight Start Date: 09/02/23 Status: Ordered Lantus Solostar Pen 100 units/mL subcutaneous solution = 80 units, Subcutaneous Infusion, Daily, 6 months supplies, # 144 mL, 3 Refills, Maintenance, 11/24/23 11:09:00 EST, [facility]/pharmacy #[id number], Partial fill upon patient request if the prescription is for a schedule II opioid drug., 192.3, cm, 11/24/23 8:32... Start Date: 11/24/23 Stop Date: 11/13/25 Status: Ordered levalbuterol 45 mcg/inh inhalation aerosol 2 puffs, Inhalation, Every 4 hours, PRN for wheezing, # 15 Gm, 3 Refills, Maintenance, 01/24/24 11:27:00 EDT, Aerosol, [facility]/pharmacy #[id number], Partial fill upon patient request if the prescription is fora schedule II opioid drug., 192.3, cm, 01/24/24 10:... Start Date: 01/24/24 Status: Ordered levothyroxine 0.025 mg oral tablet 1 tablet = 25 mcg, By Mouth, Daily, Take with 200mcg tab for total of 225mcg., # 90 tablet, 1 Refills, Maintenance, 03/01/24 16:52:00 EDT, Tablet, [facility]/pharmacy #[id number], 192.3, cm, 01/24/24 10:24:00 EDT, Height, [...] Unknown, 11 Refills, Maintenance, 12/21/23 8:40:00 EDT, [facility] STORE [id number], 192.3, cm, 11/24/23 8:32:00 EST, Height, 108, kg, 08/04/23 9:53:00 EDT, Dry Weight Start Date: 12/21/23 Status: Ordered Pen [place], 31 G x 5 mm BD Ultra [...] 11/15/23 15:36:00 EST, Route to Pharmacy Electronically, [facility]/pharmacy #[id number], 192.3, cm, 10/13/23 [...] Care Member Role: PCP Address: Address: [address] [place] [address]- Care Team Related Persons Name: ROSALIA MAYES Address: home [address] [place] [address]
--- OUTSIDE RECORDS SUMMARY | 2024-05-09 07:59 | XMS_ITS | Continuity of Care Document ---
Author Organization [facility] Address [address] [place] [address]- Care Team Providers Care Documentation Analyst Name Role Phone Jerry CHANG, Latesha Rocha Primary Care Physic augustina [place] [facility] [place] 08/21/22 [facility] [address] [place] [address]- Encounter Diagnosis Diabetes mellitus type II, uncontrolled(Discharge Diagnosis) - 08/14/22 Hypothyroidism(Discharge Diagnosis) - 08/14/22 Attending Physician: Latesha Edwards MD Allergies, Adverse [...] [place] 3Result Comment: [facility]: [id number] 4Result Comment: [09/07/2018] [facility] # [id number] 5Result Comment: [07/05/2017] [facility] [id number] 6Result Comment: [11/07/2014] Dr. Knox; consent signed. [...] 12:32:00 EDT, Powder, Route to Pharmacy Electronically, [id number], [facility]/pharmacy #[id number], 193.2, cm, 07/27/22 10:43:00 EDT, Height Start Date: 07/27/22 Stop Date: 07/22/23 Status: Ordered albuterol CFC free 90 mcg/inh inhalation aerosol 2, puffs, Inhalation, Every 4 hours, PRN, # 3 each, Refills 1, Tot. Refills 1, Maintenance, 07/27/22 12:32:00 EDT, Route to Pharmacy Electronically, [id number], [facility]/pharmacy#[id number], 193.2, cm, 07/27/22 10:43:00 EDT, Height [...] Refills, Soft Stop, 07/27/22 12:32:00 EDT, [facility]/pharmacy #[id number], 193.2, cm, 07/27/22 10:43:00 EDT, Height Start Date: 07/27/22 Status: Ordered Basaglar KwikPen 100 units/mL subcutaneous solution = 80 units, Subcutaneous Injection, Daily at bedtime, # 15 mL, 6 Refills, Maintenance, 07/27/22 11:43:00 EDT, [facility]/pharmacy #[id number], 193.2, cm, 07/27/22 10:43:00 EDT, [...] Refills, Soft Stop, 10/27/22 15:09:00 EST, [facility]/pharmacy #[id number], 193.2, cm, 07/27/22 10:43:00 EDT, Height Start Date: 10/27/22 Stop Date: 10/22/23 Status: Ordered buPROPion 150 mg/12 hours (SR) oral tablet, extended release 1 tablet = 150 mg, By Mouth, Daily, for 90 days, # 90 tablet, 0 Refills, Hard Stop 10/27/22 15:09:00 EST, 07/29/22 15:09:00 EDT, [facility]/pharmacy #[id number], 193.2, cm, 03/16/22 9:24:00 EDT, Height Start Date: 07/29/22 Stop Date: 10/27/22 Status: Ordered clonazePAM 0.5 mg oral tablet 1 tablet = 0.5 mg, By Mouth, Daily, # 28 tablet, 0 Refills, Maintenance, 08/11/22 12:46:00 EST, Tablet, [facility]/pharmacy #[id number], Partial fill upon patient request if the prescription is for a schedule II opioid drug., 193.2, cm, 07/27/22 10:43:00 EDT, Height Start Date: 08/11/22 Stop Date: 09/08/22 Status: Ordered Freestyle Hany Sensor See Instructions, [...] Stop 09/27/22 13:35:00 EST, 03/31/22 13:35:00 EDT, [facility]/pharmacy #[id number], Partial fill upon patient request if the prescription is for a schedule II opioid drug., 193.2, cm,... Start Date: 03/31/22 Stop Date: 09/27/22 Status: Ordered metFORMIN 500 mg oral tablet, extended release 2 tablet = 1,000 mg, By Mouth, Daily, # 180 tablet, 1 Refills, Soft Stop, 10/01/21 13:42:00 EST, [facility]/pharmacy #[id number], 193.2, cm, 02/03/21 8:56:00 EDT, Height Start Date: 10/01/21 Stop Date: 03/30/22 Status: Ordered NovoLOG 100 units/mL subcutaneous solution See Instructions, 1-5 units sliding scale 15 min prior to meals Subcutaneous Infusion 3 times a day., # 30 mL, 2 Refills, Maintenance, 07/27/22 12:32:00 EDT, [facility]/pharmacy #[id number], 193.2, cm, 07/27/22 10:43:00 EDT, [...] minutes,Instr:M... Start Date: 10/12/22 Status: Ordered Pen [place], 30 G x 8 mm BD Ultra Fine II See Instructions, # 100 each, Refills 3, Tot. Refills 3, Maintenance, use as directed for Type 2 Diabetes Mellitus - once a day, 10/09/15 14:01:07, Compound Start Date: 10/09/15 Stop Date: 02/06/16 Status: Ordered Pen [place], 31 G x 5 mm BD Ultra Fine III See Instructions, # 100 each, Refills 3, Tot. Refills 3, Maintenance, use to inject Basaglar 1x daily, E11.9, 90-day, 07/27/22 12:32:00 EDT, Supply, 193.2, cm, 07/27/22 10:43:00 EDT, Height Start Date: 07/27/22 Status: Ordered Pen [place] [employer], 31 G x 8 mm BD Ultra Fine III See Instructions, # 100 each, Refills 1, Tot. Refills 1, Maintenance, use with Lantus 1x daily, Dx E11.9, 90-day, 03/15/17 15:55:47, Compound Start Date: 03/15/17 Stop Date: 09/11/17 Status: Ordered sertraline 50 mg oral tablet 1 tablet = 50 mg, By Mouth, Daily, # 90 tablet, 3 Refills, Maintenance, 07/27/22 12:32:00 EDT, Tablet, [facility]/pharmacy #[id number], Partial fill upon patient request if the prescription is for a schedule II opioid drug., 193.2, cm, 07/27/22 10:43:00 EDT, Height Start Date: 07/27/22 Stop Date: 07/22/23 Status: Ordered Singulair 10 mg oral tablet 10 mg, 1, tablet, By Mouth, Daily in PM, # 90 tablet, Refills 3, Tot. Refills 3, Maintenance, 07/27/22 12:32:00 EDT, Route to Pharmacy Electronically, [facility]/pharmacy #[id number], 193.2, cm, 07/27/22 10:43:00EDT, Height [...] Diabetes mellitus type II, uncontrolled Discharge Diagnosis 08/14/22 Hypothyroidism Discharge Diagnosis 08/14/22 Vital Signs Most recent to oldest [Reference Range]: 1 Height 193.2 cm (08/14/22 7:56 AM) Oxygen Saturation [94-100 %] 98 % (08/14/22 7:56 AM) Pulse Rate [55-90 bpm] 72 bpm (08/14/22 7:56 AM) Blood Pressure [90-138/55-84 mm Hg] 100/ 64mm Hg (08/14/22 7:56 AM) Blood pressure sites Arm, right (08/14/22 7:56 AM) Social History Social History Type Response [...] Care Physician Member Role: PCP Address: Address: [address] [place] [address]- Care Team Related Persons Name: ROSALIA MAYES Address: [address] [place] [address]
--- OUTSIDE RECORDS SUMMARY | 2024-05-09 07:59 | XMS_ITS | Continuity of Care Document ---
Author Organization [facility] Address [address] [place] [address]- Care Team Providers Care Dairy Equipment Mechanic Name Role Phone Jerry CHANG, Latesha Rocha Primary Care Physic augustina [place] [facility] [place] 03[place]21 [facility] [address] [place] [address]- Attending Physician: Nagi Francois Admitting Physician: AdmNagi [...] Comment: Beverley WEBER [place] 3Result Comment: [facility]: [id number] 4Result Comment: [09/07/2018] [facility] # [id number] 5Result Comment: [07/05/2017] [facility] [id number] 6Result Comment: [11/07/2014] Dr. Knox; consent signed. [...] 15:07:00 EDT, Powder, Route to Pharmacy Electronically, [id number], [facility]/pharmacy #[id number], 193.2, cm, 11/04/20 13:14:00 EST, Height,... Start Date: 02/04/21 Stop Date: 08/03/21 Status: Ordered albuterol CFC free 90 mcg/inh inhalation aerosol 2, puffs, Inhalation, Every 4 hours, PRN, # 3 each, Refills 1, Tot. Refills 1, Maintenance, 01/06/21 14:39:00 EDT, Route to Pharmacy Electronically, [id number], [facility]/pharmacy#[id number], 193.2, cm, 11/04/20 13:14:00 EST, Height, [...] 1 Refills, Soft Stop, 01/06/21 11:59:00 EDT, [facility] 1 Refills, Soft Stop, 02/04/21 15:09:00 EDT, [facility]/pharmacy [...] 0 Refills, Maintenance, 02/04/21 15:04:00 EDT, Tablet, [facility]/pharmacy #[id number], 193.2, cm, 11/04/20 13:14:00 EST, Height, 113.1, kg, 08/09/19 10:20:00 EST,... Start Date: 02/04/21 Stop Date: 05/05/21 Status: Ordered metFORMIN 500 mg oral tablet, extended release 2 tablet = 1,000 mg, By Mouth, Daily, # 180 tablet, 0 Refills, Soft Stop, 02/04/21 15:03:00 EDT, [facility]/pharmacy #[id number], [...] 6:30:00 EDT, 03/20/21 17:00:00 EDT, REC Powder, [facility]/pharmacy #[id number], test date 03/21/21, 240 mL By Mouth Every10 minutes,Instr:Split prep method, 193.2, cm, 02/0... Start Date: 03/20/21 Stop Date: 03/21/21 Status: Ordered Pen [place], 30 G x 8 mm BD Ultra Fine II See Instructions, # 100 each, Refills 3, Tot. Refills 3, Maintenance, use as directed for Type 2 Diabetes Mellitus - once a day, 10/09/15 14:01:07, Compound Start Date: 10/09/15 Stop Date: 02/06/16 Status: Ordered Pen [place], 31 G x 5 mm BD Ultra Fine III See Instructions, # 100 each, Refills 2, Tot. Refills 2, Maintenance, use to inject Basaglar 1x daily, E11.9, 90-day, 08/08/20 15:07:00 EST, Supply, 193.2, cm, 08/08/20 14:34:00 EST, Height, 113.1, kg, 08/09/19 10:20:00 EST, Dry Weight Start Date: 08/08/20 Status: Ordered Pen [place], 31 G x 8 mm BD Ultra [...] 01/06/21 11:59:00 EDT, Route to Pharmacy Electronically, [facility]/pharmacy #[id number], 193.2, cm, 11/04/20 13:14:00EST, Height, [...]
--- OUTSIDE RECORDS SUMMARY | 2024-05-09 07:59 | XMS_ITS | Continuity of Care Document ---
Author Organization [facility] Address [address] [place] [address]- Care Team Providers Care Drivers' Cash Clerk Name Role Phone Jerry CHANG, Latesha Rocha Primary Care Physic augustina En[place] [facility] [place](s): 03/16/22 - 04/15/22 [facility] [address] [place] [address]- Attending Physician: Nagi Francois Admitting Physician: AdmNagi [...] 2Result Comment: Beverley WEBER [place] 3Result Comment: [facility]: [id number] 4Result Comment: [09/07/2018] [facility] # [id number] 5Result Comment: [07/05/2017] [facility] [id number] 6Result Comment: [11/07/2014] Dr. Knox; consent signed. [...] 15:07:00 EDT, Powder, Route to Pharmacy Electronically, [id number], [facility]/pharmacy #[id number], 193.2, cm, 11/04/20 13:14:00 EST, Height,... Start Date: 02/04/21 Stop Date: 08/03/21 Status: Ordered albuterol CFC free 90 mcg/inh inhalation aerosol 2, puffs, Inhalation, Every 4 hours, PRN, # 3 each, Refills 1, Tot. Refills 1, Maintenance, 03/26/22 17:52:00 EDT, Route to Pharmacy Electronically, [id number], [facility]/pharmacy#[id number], 193.2, cm, 03/16/22 9:24:00 EDT, Height Start Date: 03/26/22 Status: Ordered aspirin 81 mg oral tablet 1 tablet = 81 mg, By Mouth, Daily, # 90 tablet, 0 Refills, Maintenance, 05/20/17 11:35:13, Tablet Start Date: 05/20/17 Status: Ordered atorvastatin 20 mg oral tablet See Instructions, TAKE 1 TABLET BY MOUTH EVERY DAY, # 90 tablet, 1 Refills, Soft Stop, 02/18/22 9:16:00 EDT, [facility]/pharmacy #[id number], 193.2, cm, 11/05/21 10:33:00 EST, Height Start Date: 02/18/22 Status: Ordered Basaglar KwikPen 100 units/mL subcutaneous solution = 80 units, Subcutaneous Injection, Daily at bedtime, # 15 mL, 6 Refills, Maintenance, 03/27/22 17:53:00 EDT, [facility]/pharmacy #[id number], 193.2, cm, 03/16/22 9:24:00 EDT, [...] 0 Refills, Maintenance, 03/27/22 17:53:00 EDT, Tablet, [facility]/pharmacy #[id number], Partial [...] 1 Refills, Maintenance, 12/10/21 17:12:00 EST, Tablet, [facility]/pharmacy #[id number], 193.2, cm, 11/05/21 10:33:00 EST, Height Start Date: 12/10/21 Stop Date: 06/08/22 Status: Ordered levothyroxine 175 mcg (0.175 mg) oral tablet 1 tablet = 175 mcg, By Mouth, Daily, # 90 tablet, 1 Refills, Maintenance, 12/17/21 12:34:00 EDT, Tablet, [facility]/pharmacy #[id number], 193.2, cm, 11/05/21 10:33:00 EST, Height Start Date: 12/17/21 Stop Date: 06/15/22 Status: Ordered MetFORMIN (Eqv-Glucophage XR) 500 mg oral tablet, extended release 2 tablet = 1,000 mg, By Mouth, Daily, # 180 tablet, 1 Refills, Maintenance, 03/31/22 13:35:00 EDT, [facility]/pharmacy #[id number], Partial fill upon patient request if the prescription is for a schedule II opioid drug., 193.2, cm, 03/16/22 9:24:00 EDT, Height Start Date: 03/31/22 Stop Date: 09/27/22 Status: Ordered metFORMIN 500 mg oral tablet, extended release 2 tablet = 1,000 mg, By Mouth, Daily, # 180 tablet, 1 Refills, Soft Stop, 10/01/21 13:42:00 EST, [facility]/pharmacy #[id number], 193.2, cm, 02/03/21 8:56:00 EDT, Height Start Date: 10/01/21 Stop Date: 03/30/22 Status: Ordered NovoLOG 100 units/mL subcutaneous solution See Instructions, 1-5 units sliding scale 15 min prior to meals Subcutaneous Infusion 3 times a day., # 30 mL, 0 Refills, Maintenance, 12/15/21 14:12:00 EDT, [facility]/pharmacy #[id number], 193.2, cm, 11/05/21 10:33:00 EST, Height Start Date: 12/15/21 Status: Ordered Pen [place], 30 G x 8 mm BD Ultra Fine II See Instructions, # 100 each, Refills 3, Tot. Refills 3, Maintenance, use as directed for Type 2 Diabetes Mellitus - once a day, 10/09/15 14:01:07, Compound Start Date: 10/09/15 Stop Date: 02/06/16 Status: Ordered Pen [place], 31 G x 5 mm BD Ultra Fine III See Instructions, # 100 each, Refills 2, Tot. Refills 2, Maintenance, use to inject Basaglar 1x daily, E11.9, 90-day, 12/02/21 15:33:00 EST, Supply, 193.2, cm, 11/05/21 10:33:00 EST, Height Start Date: 12/02/21 Status: Ordered Pen [place], 31 G x 8 mm BD Ultra [...] 3 Refills, Maintenance, 03/16/22 9:55:00 EDT, Tablet, [facility]/pharmacy #[id number], Partial fill upon patient request if the prescription is for a schedule II opioid drug., 193.2, cm,... Start Date: 03/16/22 Status: Ordered Singulair 10 mg oral tablet 10 mg, 1, tablet, By Mouth, Daily in PM, # 90 tablet, Refills 3, Tot. Refills 3, Maintenance, 01/15/22 12:15:00 EDT, Route to Pharmacy Electronically, [facility]/pharmacy #[id number], 193.2, cm, 11/05/21 10:33:00EST, Height [...] Response Smoking Status Current every day sm gier; Tobacco user in household: No; Type: Cigarettes; Tobacco use times per day: Down to 1/2 pack a day from 1 pack a day. Has been smoking for 35 years.; entered on: 08/19/17 Sex
--- OUTSIDE RECORDS SUMMARY | 2024-05-09 07:59 | XMS_ITS | Continuity of Care Document ---
Author Organization [facility] Address [address] [place] [address]- Care Team Providers Care Leaf Conditioner Name Role Phone Jerry CHANG, Latesha Rocha Primary Care Physic augustina Encounter [facility] Date(s): 09/07/23 - 10/07/23 [facility] [address] [place] [address]- Allergies, Adverse Reactions, Alerts No Known Medication Allergies Substance Reaction Severity Status Other Environmental Allergy 1 Active 1pets Immunizations Given and Recorded Vaccine Date Status Refusal Reason Influenza Virus Vaccine (oldterm) 1 07/10/23 Recor ded SARS-CoV-2 mRNA (erprzdo-agsu-rnqnu) vax 2 07/10/23 Recorded influenza virus vaccine, [...] Recorded 1Result Comment: pt recevied vaccine from [facility] 2Result Comment: pt received vaccine from [facility] 3Result Comment: [facility]: [id number] 4Result Comment: [09/07/2018] [facility] # [id number] 5Result Comment: [07/05/2017] [facility] [id number] 6Result Comment: GUS Lowery [place] 7Result Comment: Beverley WEBER [place] 8Result Comment: [11/07/2014] Dr. Knox; consent signed. Medications Advair Diskus 250 mcg-50 mcg inhalation powder 1, puffs, Inhalation, 2 times a day, # 3 each, Refills 1, Tot. Refills 1, Maintenance, 09/01/23 18:48:00 EST, Powder, Route to Pharmacy Electronically, [id number], [facility]/pharmacy #[id number], 192.3, cm, 09/01/23 11:35:00 EST, Height,... Start Date: 09/01/23 Stop Date: 02/28/24 Status: Ordered albuterol CFC free 90 mcg/inh inhalation aerosol 2, puffs, Inhalation, Every 4 hours, PRN, # 3 each, Refills 3, Tot. Refills 3, Maintenance, 05/07/23 10:14:00 EDT, Route to Pharmacy Electronically, [id number], [id number], cm, 05/07/23 9:23:00 EDT, [...] ... Start Date: 09/02/23 Status: Ordered Pen [place], 31 G x 5 mm BD Ultra [...] Personnel Name: Jerry CHANG, Latesha Rocha Position: [facility] Physician - Primary Care Member Role: PCP Address: Address: [address] [place] [address]- Care Team Related Persons Name: ROSALIA MAYES Address: home [address] [place] [address]
--- OUTSIDE RECORDS SUMMARY | 2024-05-09 08:00 | XMS_ITS | Continuity of Care Document ---
Author Organization [facility] Address [address] [place] [address]- Care Team Providers Care [place] Leverman Name Role Phone Jerry CHANG, Latesha Rocha Primary Care Physic augustina Encounter [facility] Date(s): 12/16/21 - 01/15/22 [facility] [address] [place] [address]- [place] Allergies, Adverse Reactions, Alerts No Known [...] Comment: Beverley WEBER [place] 3Result Comment: [facility]: [id number] 4Result Comment: [09/07/2018] [facility] # [id number] 5Result Comment: [07/05/2017] [facility] [id number] 6Result Comment: [11/07/2014] Dr. Knox; consent signed. [...] 15:07:00 EDT, Powder, Route to Pharmacy Electronically, [id number], [facility]/pharmacy #[id number], 193.2, cm, 11/04/20 13:14:00 EST, Height,... Start Date: 02/04/21 Stop Date: 08/03/21 Status: Ordered albuterol CFC free 90 mcg/inh inhalation aerosol 2, puffs, Inhalation, Every 4 hours, PRN, # 3 each, Refills 1, Tot. Refills 1, Maintenance, 06/12/21 22:49:00 EDT, Route to Pharmacy Electronically, [id number], [facility]/pharmacy#[id number], 193.2, cm, 02/03/21 8:56:00 EDT, Height, 113... Start Date: 06/12/21 Status: Ordered aspirin 81 mg oral tablet 1 tablet = 81 mg, By Mouth, Daily, # 90 tablet, 0 Refills, Maintenance, 05/20/17 11:35:13, Tablet Start Date: 05/20/17 Status: Ordered atorvastatin 20 mg oral tablet See Instructions, TAKE 1 TABLET BY MOUTH EVERY DAY, # 90 tablet, 1 Refills, Soft Stop, 06/12/21 22:49:00 EDT, [facility]/pharmacy #[id number], 193.2, cm, 02/03/21 8:56:00 EDT, Height, 113.1, kg, 08/09/19 10:20:00EST, Dry Weight Start Date: 06/12/21 Status: Ordered Basaglar KwikPen 100 units/mL subcutaneous solution = 75 units, Subcutaneous Injection, Daily at bedtime, # 12 mL, 0 Refills, Maintenance, 01/06/21 11:59:00 EDT, [facility]/pharmacy #[id number], 193.2, cm, 11/04/20 13:14:00 EST, Height, [...] 1 Refills, Soft Stop, 01/30/22 15:09:00 EDT, [facility]/pharmacy #[id number], 193.2, cm, 11/05/21 10:33:00 EST, Height Start Date: 01/30/22 Stop Date: 07/29/22 Status: Ordered buPROPion 150 mg/12 hours (SR) oral tablet, extended release 1 tablet = 150 mg, By Mouth, Daily, for 90 days, # 90 tablet, 1 Refills, Hard Stop 01/30/22 15:09:00 EDT, 08/03/21 15:09:00 EDT, [facility]/pharmacy #[id number], 193.2, cm, 02/03/21 8:56:00 EDT, Height, 113.1, kg, 08/09/19 10:20:00 EST, Dry Weight Start Date: 08/03/21 Stop Date: 01/30/22 Status: Ordered clonazePAM 0.5 mg oral tablet 1 tablet = 0.5 mg, By Mouth, Daily, # 28 tablet, 0 Refills, Maintenance, 01/15/22 12:14:00 EDT, Tablet, [facility]/pharmacy #[id number], Partial fill upon patient request [...] 1 Refills, Maintenance, 12/10/21 17:12:00 EST, Tablet, [facility]/pharmacy #[id number], 193.2, cm, 11/05/21 10:33:00 EST, Height Start Date: 12/10/21 Stop Date: 06/08/22 Status: Ordered levothyroxine 175 mcg (0.175 mg) oral tablet 1 tablet = 175 mcg, By Mouth, Daily, # 90 tablet, 1 Refills, Maintenance, 12/17/21 12:34:00 EDT, Tablet, [facility]/pharmacy #[id number], 193.2, cm, 11/05/21 10:33:00 EST, Height [...] Height Start Date: 12/15/21 Status: Ordered Pen [place], 30 G x 8 mm BD Ultra Fine II See Instructions, # 100 each, Refills 3, Tot. Refills 3, Maintenance, use as directed for Type 2 Diabetes Mellitus - once a day, 10/09/15 14:01:07, Compound Start Date: 10/09/15 Stop Date: 02/06/16 Status: Ordered Pen [place], 31 G x 5 mm BD Ultra Fine III See Instructions, # 100 each, Refills 2, Tot. Refills 2, Maintenance, use to inject Basaglar 1x daily, E11.9, 90-day, 12/02/21 15:33:00 EST, Supply, 193.2, cm, 11/05/21 10:33:00 EST, Height Start Date: 12/02/21 Status: Ordered Pen [place], 31 G x 8 mm BD Ultra Fine III See Instructions, # 100 each, Refills 1, Tot. Refills 1, Maintenance, use with Lantus 1x daily, Dx E11.9, 90-day, 03/15/17 15:55:47, Compound Start Date: 03/15/17 Stop Date: 09/11/17 Status: Ordered sertraline 25 mg oral tablet 1 tablet = 25 mg, By Mouth, Daily, # 90 tablet, 1 Refills, Maintenance, 01/15/22 12:14:00 EDT, Tablet, [facility]/pharmacy #[id number], Partial fill upon patient request if the prescription is for a schedule II opioid drug., 193.2, cm, 11/05/21 10:33:00 EST, Height Start Date: 01/15/22 Status: Ordered Singulair 10 mg oral tablet 10 mg, 1, tablet, By Mouth, Daily in PM, # 90 tablet, Refills 3, Tot. Refills 3, Maintenance, 01/15/22 12:15:00 EDT, Route to Pharmacy Electronically, [facility]/pharmacy #[id number], 193.2, cm, 11/05/21 10:33:00EST, Height Start [...]
--- OUTSIDE RECORDS SUMMARY | 2024-05-09 08:00 | XMS_ITS | Continuity of Care Document ---
Author Organization [facility] Address [address] [place] [address]- Care Team Providers Care Surgical Endoscopist Name Role Phone Jerry CHANG, Latesha Rocha Primary Care Physic augustina Encounter [facility] Date(s): 10/10/20 - 11/09/20 [facility] [address] [place] [address]- Allergies, Adverse Reactions, Alerts No Known Medication [...] tetanus-diphtheria toxoids (Td) 10/04/99 Recorded 1Result Comment: [facility]: [id number] 2Result Comment: [09/07/2018] [facility] # [id number] 3Result Comment: [07/05/2017] [facility] [id number] 4Result Comment: [11/07/2014] Dr. Knox; consent signed. [...] 15:07:00 EST, Powder, Route to Pharmacy Electronically, [id number], [facility]/pharmacy #[id number], 193.2, cm, 08/08/20 14:34:00 EST, Height,... Start Date: 08/08/20 Stop Date: 02/04/21 Status: Ordered albuterol CFC free 90 mcg/inh inhalation aerosol 2, puffs, Inhalation, Every 4 hours, PRN, # 3 each, Refills 1, Tot. Refills 1, Maintenance, 10/10/20 16:06:00 EST, Route to Pharmacy Electronically, [id number], [facility]/pharmacy#[id number], 193.2, cm, 08/08/20 14:34:00 EST, Height, [...] 1 Refills, Soft Stop, 08/08/20 15:09:00 EST, [facility]/pharmacy #[id number], 193.2, cm, 08/08/20 14:34:00 EST, Height, 113.1, kg, 08/09/19 10:20:00 EST, Dry Weight Start Date: 08/08/20 Status: Ordered Basaglar KwikPen 100 units/mL subcutaneous solution = 75 units, Subcutaneous Injection, Daily at bedtime, # 12 mL, 3 Refills, Maintenance, 08/08/20 16:16:00 EST, [facility]/pharmacy #[id number], 193.2, cm, 08/08/20 14:34:00 EST, Height, 113.1, kg, 08/09/19 10:20:00 EST, Dry Weight Start Date: 08/08/20 Status: Ordered buPROPion 150 mg/12 hours (SR) oral tablet, extended release 1 tablet = 150 mg, By Mouth, Daily, # 90 tablet, 1 Refills, Soft Stop, 08/08/20 15:09:00 EST, [facility]/pharmacy #[id number], 193.2, cm, 08/08/20 14:34:00 EST, [...] 1 Refills, Maintenance, 08/08/20 15:04:00 EST, Tablet, [facility]/pharmacy #[id number], 193.2, cm, 08/08/20 14:34:00 EST, Height, 113.1, kg, 08/09/19 10:20:00 EST,... Start Date: 08/08/20 Stop Date: 02/04/21 Status: Ordered levothyroxine 175 mcg (0.175 mg) oral tablet 1 tablet = 175 mcg, By Mouth, Daily, # 90 tablet, 1 Refills, Maintenance, 08/08/20 15:04:00 EST, Tablet, [facility]/pharmacy #[id number], 193.2, cm, 08/08/20 14:34:00 EST, [...] mL, 1 Refills, Maintenance, 08/08/20 15:05:00 EST, [facility]/pharmacy #[id number], 193.2, cm, 08/08/20 14:34:00 EST, Height, 113.1, kg, 08/09/19 10:20:00 ES... Start Date: 08/08/20 Status: Ordered Pen [place], 30 G x 8 mm BD Ultra Fine II See Instructions, # 100 each, Refills 3, Tot. Refills 3, Maintenance, use as directed for Type 2 Diabetes Mellitus - once a day, 10/09/15 14:01:07, Compound Start Date: 10/09/15 Stop Date: 02/06/16 Status: Ordered Pen [place], 31 G x 5 mm BD Ultra Fine III See Instructions, # 100 each, Refills 2, Tot. Refills 2, Maintenance, use to inject Basaglar 1x daily, E11.9, 90-day, 08/08/20 15:07:00 EST, Supply, 193.2, cm, 08/08/20 14:34:00 EST, Height, 113.1, kg, 08/09/19 10:20:00 EST, Dry Weight Start Date: 08/08/20 Status: Ordered Pen [place], 31 G x 8 mm BD Ultra [...] 08/08/20 15:03:00 EST, Route to Pharmacy Electronically, [facility]/pharmacy #[id number], 193.2, cm, 08/08/20 14:34:00EST, Height, [...]
--- OUTSIDE RECORDS SUMMARY | 2024-05-09 08:00 | XMS_ITS | Continuity of Care Document ---
Author Organization [facility] Address [address] [place] [address]- Care Team Providers Care Stunt Driver Name Role Phone Jerry CHANG, Latesha Rocha Primary Care Physic augustina Encounter [facility] Date(s): 12/24/23 - 04/22/24 [facility] [address] [place] [id number] Attending Physician: Nora Monzon MD Referring Physician: Jerry CHANG, Latesha Rocha Allergies, Adverse Reactions, Alerts No Known Medication Allergies Substance Reaction Severity Status Other Environmental Allergy 1 Active 1pets Immunizations Given and Recorded Vaccine Date Status Refusal Reason SARS-CoV-2(COVID-19)mRNA-LNP vac([id number]) 12/21/23 Recorded Influenza Virus Vaccine (oldterm) 1 07/10/23 Recor ded SARS-CoV-2 mRNA (uycvqum-iqst-huvme) vax 2 07/10/23 Recorded influenza virus vaccine, [...] Recorded 1Result Comment: pt recevied vaccine from [facility] pharmacy 2Result Comment: pt received vaccine from [facility] pharmacy 3Result Comment: [facility]: [id number] 4Result Comment: [09/07/2018] [facility] # [id number] 5Result Comment: [07/05/2017] [facility] [id number] 6Result Comment: [facility] Beverley JACKSON 7Result Comment[facility] [place] 8Result Comment: [11/07/2014] Dr. Knox; consent signed. Medications Advair Diskus 250 mcg-50 mcg inhalation powder 1, puffs, Inhalation, 2 times a day, # 3 each, Refills 1, Tot. Refills 1, Maintenance, 09/01/23 18:48:00 EST, Powder, Route to Pharmacy Electronically, [id number], [id number] 192.3, cm, 09/01/23 11:35:00 EST, Height,... Start Date: 09/01/23 Stop Date: 02/28/24 Status: Ordered albuterol CFC free 90 mcg/inh inhalation aerosol 2, puffs, Inhalation, Every 4 hours, PRN, # 3 each, Refills 3, Tot. Refills 3, Maintenance, 03/30/24 14:05:00 EDT, Route to Pharmacy Electronically, [id number], [id number], 192.3, cm, 01/24/24 10:24:00 EDT, Height, 10... Start Date: 03/30/24 Status: Ordered aspirin 81 mg oral tablet 1 tablet = 81 mg, By Mouth, Daily, # 90 tablet, 0 Refills, Maintenance, 05/20/17 11:35:13, Tablet Start Date: 05/20/17 Status: Ordered atorvastatin 20 mg oral tablet See Instructions, TAKE 1 TABLET BY MOUTH EVERY DAY, # 90 tablet, 3 Refills, Soft Stop, 10/22/23 15:01:00 EST, [facility]/pharmacy #[id number], 192.3, cm, 10/13/23 12:06:00 EST, Height, [...] Refills, Maintenance, 01/24/24 11:08:00 EDT, ER Tablet, [facility]/pharmacy #[id number], Partial fill upon patient request if [...] Maintenance,02/11/24 9:05:00 EDT, Route to Pharmacy Electronically, [facility]/pharmacy #[id number], Partial fill upon patient request if the prescription is for a schedule II... Start Date: 02/11/24 Stop Date: 04/07/24 Status: Ordered Jardiance 10 mg oral tablet 1 tablet, By Mouth, Daily in AM, # 90 tablet, 3 Refills, Maintenance, 09/02/23 15:43:00 EST, [facility]/pharmacy #[id number], 192.3, cm, 09/02/23 15:03:00 EST, Height, 108, kg, 08/04/23 9:53:00 EDT, Dry Weight Start Date: 09/02/23 Status: Ordered Lantus Solostar Pen 100 units/mL subcutaneous solution = 80 units, Subcutaneous Infusion, Daily, 6 months supplies, # 144 mL, 3 Refills, Maintenance, 11/24/23 11:09:00 EST, [facility]/pharmacy #[id number], Partial fill upon patient request if [...] 1 Refills, Maintenance, 01/24/24 11:08:00 EDT, Tablet, [facility]/pharmacy #[id number], Partial fill upon patient request if [...] 2 Refills, Maintenance, 07/27/22 12:32:00 EDT, [facility]/pharmacy #1095, 193.2, cm, 07/27/22 10:43:00 EDT, Height Start Date: 07/27/22 Status: Ordered NuLYTELY with Flavor Packs oral powder for reconstitution 240 mL, By Mouth, Every 10 minutes, May substitute any PEG 3350 solution available SPLIT PREP METHOD, # 1 each, 0 Refills, Maintenance, 10/12/22 17:00:00 EST, REC Powder, [facility]/pharmacy #[id number], test date 10/13/22, 240 mL By [...] Refills, Maintenance, 12/21/23 8:40:00 EDT, [id number], 192.3, cm, 11/24/23 8:32:00 EST, Height, 108, kg, 08/04/23 9:53:00 EDT, Dry Weight Start Date: 12/21/23 Status: Ordered Pen [place], 31 G x 5 mm BD Ultra [...] 11/15/23 15:36:00 EST, Route to Pharmacy Electronically, [facility]/pharmacy #[id number], 192.3, cm, 10/13/23 12:06:00EST, Height, 108, [...] Care Member Role: PCP Address: Address: [address] [place] [address]- Care Team Related Persons Name: ROSALIA MAYES Address: home [address] [place] [address]
--- OUTSIDE RECORDS SUMMARY | 2024-05-09 08:00 | XMS_ITS | Continuity of Care Document ---
Author Organization [facility] Address [address] [place] [address]- Care Team Providers Care Concrete Stone Fabricator Name Role Phone Jerry CHANG, Latesha Rocha Primary Care Physic augustina Encounter [facility] Date(s): 05/07/23 - 05/14/23 [facility] [address] [place] [address]- [place] Encounter Diagnosis Cellulitis and abscess of toe(Discharge Diagnosis) - 05/07/23 Medication management(Discharge Diagnosis) - 05/07/23 Attending Physician: Jerry CHANG, Latesha Rocha Allergies, [...] tetanus-diphtheria toxoids (Td) 10/04/99 Recorded 1Result Comment: [facility]: [id number] 2Result Comment: [09/07/2018] [facility] # [id number] 3Result Comment: [07/05/2017] [facility] [id number] 4Result Comment: GUS Lowery [place] 5Result Comment: [...] 12:32:00 EDT, Powder, Route to Pharmacy Electronically, [id number], [facility]/pharmacy #[id number], 193.2, cm, 07/27/22 10:43:00 EDT, Height Start Date: 07/27/22 Stop Date: 07/22/23 Status: Ordered albuterol CFC free 90 mcg/inh inhalation aerosol 2, puffs, Inhalation, Every 4 hours, PRN, # 3 each, Refills 3, Tot. Refills 3, Maintenance, 05/07/23 10:14:00 EDT, Route to Pharmacy Electronically, [id number], [facility]/pharmacy#[id number], 195, cm, 05/07/23 9:23:00 EDT, Height, 112.6... Start Date: 05/07/23 Status: Ordered aspirin 81 mg oral tablet 1 tablet = 81 mg, By Mouth, Daily, # 90 tablet, 0 Refills, Maintenance, 05/20/17 11:35:13, Tablet Start Date: 05/20/17 Status: Ordered atorvastatin 20 mg oral tablet See Instructions, TAKE 1 TABLET BY MOUTH EVERY DAY, # 90 tablet, 3 Refills, Soft Stop, 07/27/22 12:32:00 EDT, [facility]/pharmacy #[id number], 193.2, cm, 07/27/22 10:43:00 EDT, Height Start Date: 07/27/22 Status: Ordered Basaglar KwikPen 100 units/mL subcutaneous solution = 80 units, Subcutaneous Injection, Daily at bedtime, # 15 mL, 6 Refills, Maintenance, 07/27/22 11:43:00 EDT, [facility]/pharmacy #[id number], 193.2, cm, 07/27/22 10:43:00 EDT, Height [...] Refills, Maintenance, 05/07/23 9:46:00 EDT, ER Tablet, [facility]/pharmacy #[id number], Partial fill upon patient request if the prescription is for a schedule II opioid drug., 195, cm, 05/07/23 9:23:00 EDT, Heigh... Start Date: 05/07/23 Status: Ordered CeleBREX 100 mg oral capsule 1 capsule = 100 mg, By Mouth, 2 times a day, # 60 capsule, 0 Refills, Maintenance, 02/19/23 13:03:00 EDT, Capsule, [facility]/pharmacy #[id number], Partial fill upon patient request if the prescription is for a schedule II opioid drug., 195, cm, 02/10/23 13:17:00... Start Date: 02/19/23 Status: Ordered clonazePAM 0.5 mg oral tablet 1 tablet = 0.5 mg, By Mouth, Daily, # 28 tablet, 0 Refills, Maintenance, 09/02/22 17:46:00 EST, Tablet, [facility]/pharmacy #[id number], Partial fill upon patient request if [...] Acute 06/24/23 11:36:00 EDT, 05/13/23 11:36:00 EDT, [facility]/pharmacy #[id number], Partial fill upon patient request if the prescription is for aschedule II opioid drug., 1 patch Topically Daily,x... Start Date: 05/13/23 Stop Date: 06/24/23 Status: Ordered NovoLOG 100 units/mL subcutaneous solution See Instructions, 1-5 units sliding scale 15 min prior to meals Subcutaneous Infusion 3 times a day., # 30 mL, 2 Refills, Maintenance, 07/27/22 12:32:00 EDT, [facility]/pharmacy #[id number], 193.2, cm, 07/27/22 10:43:00 EDT, Height Start Date: 07/27/22 Status: Ordered NuLYTELY with Flavor Packs oral powder for reconstitution 240 mL, By Mouth, Every 10 minutes, May substitute any PEG 3350 solution available SPLIT PREP METHOD, # 1 each, 0 Refills, Maintenance, 10/12/22 17:00:00 EST, REC Powder, [facility]/pharmacy #[id number], test date 10/13/22, 240 mL By Mouth Every 10 minutes,Instr:M... Start Date: 10/12/22 Status: Ordered Ozempic 2 mg/3 mL (0.25 mg or 0.5 mg dose) subcutaneous solution = 0.25 mg, Subcutaneous Infusion, Every week, Take once weekly, rotate injection sites 11.9, # 3 mL, 3 Refills, Maintenance, 02/23/23 10:53:00 EDT, [facility]/pharmacy #[id number], Partial fill upon patient request if the prescription is for a schedule II opioid... Start Date: 02/23/23 Status: Ordered Pen [place], 31 G x 5 mm BD Ultra [...] Effective Dates Health Status Clinical Service Informant Cellulitis and abscess of toe Discharge Diagnosis 05/07/23 Medication management Discharge Diagnosis 05/07/23 Vital Signs Most recent to oldest [Reference Range]: 1 Height 195 cm (05/07/23 9:23 AM) Pulse Rate [55-90 bpm] 90 bpm (05/07/23 9:23 AM) Blood Pressure [90-138/55-84 mm Hg] 112/ 75mm Hg (05/07/23 9:23 AM) Social History Social History Type Response Smoking Status Current every day sherri weeks; Tobacco user in household: No; Type: Cigarettes; Tobacco use times per day: Down to 1/2 pack a day from 1 pack a day. Has been smoking for 35 years.; entered on: 08/19/17 Sex Note * Fatimah Solomon: PERFORM, SIGN, VERIFY Event Display: Patient Education/Instruction Authored Date: [id number] [facility] Clinical Summary Name ROLA MAYES Age 58 Years 1965 PCP Jerry CHANG, Latesha Rocha PCP [facility]# [id number] Visit Date 05/07/2023 08:58:00 Additional Instructions: Scheduled Appointments?? Future Appointments ?*[facility] ?[address],??[place],??[address] ?Phone:??--?Fax:??-- ?Appt. Date:??05/13/2023?10:40 AM ?Scheduled Provider:??Latesha Riddle MD ?*[facility] ?[address]??[place],??[place],??[address] ?Phone:??--?Fax:??-- ?Appt. Date:??06/01/2023?10:15 AM ?Scheduled Provider:??Raz TRIAL JUSTICE, Maria Isabel ?*[facility] ?[address],??[place],??[address] ?Phone:??--?Fax:??-- ?Appt. Date:??07/28/2023?9:40 AM ?Scheduled Provider:??Latesha Riddle MD Follow-Up Instructions ?? With: Address: When: Podiatry Comments: Note for checkout: Hand out Podiatry list. You may schedule your own appointment with one of the providers from the printed list received at checkout. Diagnosis Cellulitis of unspecified toe; Cutaneous abscess of unspecified foot; Other ad terminal makeup operator (current) drug therapy Medications: Please continue your medications until treatment is completed or stopped by your provider. Discuss any questions related to medications with your provider. New Medications [id number], [address] [place] [id number], [phone] Amoxicillin (amoxicillin 500 mg oral capsule) 1 capsule Oral 3 times a day for 7 Days. Refills: 0. Next Dose: BuPROpion (buPROPion 300 mg/24 hours (XL) oral tablet, extended release) 1 tab(s) Oral Daily. Refills: 1. Next Dose: Doxycycline (doxycycline hyclate 100 mg oral capsule) 1 capsule Oral twice a day for 7 Days. Refills: 0. Next Dose: Metformin (MetFORMIN (Eqv-Glucophage XR) 500 mg oral tablet, extended release) 2 tab(s) Oral Daily for 90 Days. Refills: 1. Next Dose: Metformin (metFORMIN 500 mg oral tablet, extended release) 2 tab(s) Oral Daily for 90 Days. Refills: 1. Next Dose: Medications to Continue with No Changes [id number], [address] [place], [place] [id number], [phone] Albuterol (albuterol CFC free 90 mcg/inh inhalation aerosol) 2 puff(s) Inhalation every 4 hours as needed NEEDED FOR WHEEZING/SHORTNESS OF BREATH. Refills: 3. Next Dose: These medications were not printed or sent to your pharmacy Aspirin (aspirin 81 mg oral tablet) 1 tab(s) Oral Daily. Refills: 0. Next Dose: Atorvastatin (atorvastatin 20 mg oral tablet) TAKE 1 TABLET BY MOUTH EVERY DAY. Refills: 3. Next Dose: Celecoxib (CeleBREX 100 mg oral [...] 3. Next Dose: Durable Medical Equipment (Pen [place], 30 G x 8 mm BD Ultra Fine II) use as directed for Type 2 Diabetes Mellitus - once a day. Refills: 3. Next Dose: Durable Medical Equipment (Pen [place], 31 G x 5 mm BD Ultra Fine III) use to inject Basaglar 1x daily, E11.9, 90-day. Refills: 3. Next Dose: Durable Medical Equipment (Pen [place], 31 G x 8 mm BD Ultra Fine III) use with Lantus 1x daily, DxE11.9, 90-day. Refills: 1. Next Dose: empagliflozin (Jardiance 10 mg oral tablet) 1 tab(s) Oral Daily in the morning. Take once daily in the morning E11.9. Refills: 3. Next Dose: Fluticasone-Salmeterol (Advair Diskus [...] for 90 Days. Refills: 3. Next Dose: PEG Electrolyte Solution (NuLYTELY with Flavor Packs oral powder for reconstitution) 240 MilliliterOral every 10 minutes. May substitute any PEG 3350 solution available SPLIT PREP METHOD. Refills: 0. Next Dose: semaglutide (Ozempic 2 mg/3 mL (0.25 mg or 0.5 mg dose) subcutaneous solution) 0.25 Milligram Subcutaneous Infusion every week. Take once weekly, rotate injection sites 11.9. Refills: 3. Next Dose: Allergy Info:?? No Known Medication Allergies; Other Environmental Allergy Medications Given This Visit Future Orders ?No future orders Vital Signs Height 195 cm Weight BMI Blood Pressure 112 mm Hg/75 mm Hg Temperature Pulse Rate 90 bpm Respiratory Rate 02 Sat Mode of Delivery / You can now view a summary of your hospital visit from the comfort of your home through a free online portal called [employer]. [employer] is a website that allows you to securely view your medical information including discharge summary, medications and follow-up visits. ??You can alsosend a secure electronic message to your doctor???s office to request appointments, renew medications or just ask a question. You can enroll at [email or web address] or register during your next office visit. [...] care provider, you may find a [facility] provider by calling [facility] at [phone]. For information about the plan of care [...] Primary Care Member Role: PCP Address: Address: [address] [place] [address]- Care Team Related Persons Name: ROSALIA MAYES Address: home [address] [place] [address]
--- OUTSIDE RECORDS SUMMARY | 2024-05-09 08:00 | XMS_ITS | Continuity of Care Document ---
Author Organization [facility] Address [address] [place] [address]- Care Team Providers Care Regional Manager Name Role Phone Jerry CHANG, Latesha Rocha Primary Care Physic augustina Encounter [facility] Date(s): 09/01/23 - 10/01/23 [facility] [address] [place] [address]- Allergies, Adverse Reactions, Alerts No Known Medication Allergies Substance Reaction Severity Status Other Environmental Allergy 1 Active 1pets Immunizations Given and Recorded Vaccine Date Status Refusal Reason Influenza Virus Vaccine (oldterm) 1 07/10/23 Recor ded SARS-CoV-2 mRNA ([id number]-jbii-mjris) vax 2 07/10/23 Recorded influenza virus vaccine, [...] Recorded 1Result Comment: pt recevied vaccine from [facility] 2Result Comment: pt received vaccine from [facility] 3Result Comment: [facility]: [id number] 4Result Comment: [09/07/2018] [facility] # [id number] 5Result Comment: [07/05/2017] [facility] [id number] 6Result Comment: GUS Lowery [place] 7Result Comment: Beverley WEBER [place] 8Result Comment: [11/07/2014] Dr. Knox; consent signed. Medications Advair Diskus 250 mcg-50 mcg inhalation powder 1, puffs, Inhalation, 2 times a day, # 3 each, Refills 1, Tot. Refills 1, Maintenance, 09/01/23 18:48:00 EST, Powder, Route to Pharmacy Electronically, [id number], [facility]/pharmacy #1095, 192.3, cm, 09/01/23 11:35:00 EST, Height,... Start Date: 09/01/23 Stop Date: 02/28/24 Status: Ordered albuterol CFC free 90 mcg/inh inhalation aerosol 2, puffs, Inhalation, Every 4 hours, PRN, # 3 each, Refills 3, Tot. Refills 3, Maintenance, 05/07/23 10:14:00 EDT, Route to Pharmacy Electronically, [id number], [facility]/pharmacy#1095, 195, cm, 05/07/23 9:23:00 EDT, Height, 112.6... [...] Refills, Soft Stop, 07/27/22 12:32:00 EDT, [facility]/pharmacy #1095, 193.2, cm, 07/27/22 10:43:00 EDT, [...] Refills, Maintenance, 05/07/23 9:46:00 EDT, ER Tablet, [facility]/pharmacy #1095, Partial fill [...] 09/06/23 17:50:00 EST, Route to Pharmacy Electronically, [facility]/pharmacy #1095, Partial fill upon patient request if the prescription is for a schedule... Start Date: 09/06/23 Status: Ordered Jardiance 10 mg oral tablet 1 tablet, By Mouth, Daily in AM, # 90 tablet, 3 Refills, Maintenance, 09/02/23 15:43:00 EST, [facility]/pharmacy #1095, 192.3, cm, 09/02/23 15:03:00 EST, Height, 108, kg, 08/04/23 9:53:00 EDT, Dry Weight Start Date: 09/02/23 Status: Ordered levothyroxine 0.025 mg oral tablet 1 tablet = 25 mcg, By Mouth, Daily, Take with 200mcg tab for total of 225mcg., # 90 tablet, 1 Refills, Maintenance, 09/03/23 16:52:00 EST, Tablet, [facility]/pharmacy #1095, 192.3, cm, 09/02/23 15:03:00 EST, [...] 9 mL, 3 Refills, Maintenance,09/02/23 15:44:00 EST, [facility]/pharmacy #1095, Partial fill upon patient request if the prescription isfor a schedule II opioid drug., 192.3, cm, ... Start Date: 09/02/23 Status: Ordered Pen Abbott, 31 G x 5 mm BD Ultra [...] Primary Care Member Role: PCP Address: Address: [place] [address]- Care Team Related Persons Name: ROSALIA MAYES Address: home [address] [place] [address]
--- OUTSIDE RECORDS SUMMARY | 2024-05-09 08:00 | XMS_ITS | Continuity of Care Document ---
Author Organization [facility] Address [address] [place] [address]- Care Team Providers Care Technical Service Engineer Name Role Phone Jerry CHANG, Latesha Rocha Primary Care Physic augustina Encounter [facility] Date(s): 03/23/24 - 04/22/24 [facility] [address] [place] [address] Attending Physician: Admondina, [id number] Admitting Physician: Admtr, Ar8 Referring Physician: Admtr, Ar8 Allergies, Adverse Reactions, Alerts No Known Medication Allergies Substance Reaction Severity Status Other Environmental Allergy 1 Active 1pets Immunizations Given and Recorded Vaccine Date Status Refusal Reason SARS-CoV-2(COVID-19)mRNA-LNP vac([id number]) 12/21/23 Recorded Influenza Virus Vaccine (oldterm) 1 07/10/23 Recor ded SARS-CoV-2 mRNA (mofnfrh-llqo-vwgbr) vax 2 07/10/23 Recorded influenza virus vaccine, [...] 1Result Comment: pt recevied vaccine from [facility] pharmacy 2Result Comment: pt received vaccine from [facility] pharmacy 3Result Comment: [facility]: [id number] 4Result Comment: [09/07/2018] [facility] # [id number] 5Result Comment: [07/05/2017] [facility] [id number] 6Result Comment: [facility] Beverley J[place] 7Result Comment[facility] [place] 8Result Comment: [11/07/2014] Dr. Knox; consent signed. Medications Advair Diskus 250 mcg-50 mcg inhalation powder 1, puffs, Inhalation, 2 times a day, # 3 each, Refills 1, Tot. Refills 1, Maintenance, 09/01/23 18:48:00 EST, Powder, Route to Pharmacy Electronically, [id number], [id number], 192.3, cm, 09/01/23 11:35:00 EST, Height,... Start Date: 09/01/23 Stop Date: 02/28/24 Status: Ordered albuterol CFC free 90 mcg/inh inhalation aerosol 2, puffs, Inhalation, Every 4 hours, PRN, # 3 each, Refills 3, Tot. Refills 3, Maintenance, 03/30/24 14:05:00 EDT, Route to Pharmacy Electronically, [id number], [facility], 192.3, cm, 01/24/24 10:24:00 EDT, [...] Refills, Maintenance, 01/24/24 11:08:00 EDT, ER Tablet, [facility]/pharmacy #1095, Partial fill [...] Maintenance,02/11/24 9:05:00 EDT, Route to Pharmacy Electronically, [facility]/pharmacy [...] mL, 2 Refills, Maintenance, 07/27/22 12:32:00 EDT, [facility]/pharmacy #1095, 193.2, cm, 07/27/22 10:43:00 EDT, Height Start Date: 07/27/22 Status: Ordered NuLYTELY with Flavor Packs oral powder for reconstitution 240 mL, By Mouth, Every 10 minutes, May substitute any PEG 3350 solution available SPLIT PREP METHOD, # 1 each, 0 Refills, Maintenance, 10/12/22 17:00:00 EST, REC Powder, [facility]/pharmacy #1095, test date 10/13/22, 240 mL [...] Refills, Maintenance, 12/21/23 8:40:00 EDT, [id number], 192.3, cm, 11/24/23 8:32:00 EST, Height, 108, kg, 08/04/23 9:53:00 EDT, Dry Weight Start Date: 12/21/23 Status: Ordered Pen [place], 31 G x 5 mm BD Ultra [...] Primary Care Member Role: PCP Address: Address: [address] [place] [address]- Care Team Related Persons Name: ROSALIA MAYES Address: home [address] [place] [address]
--- OUTSIDE RECORDS SUMMARY | 2024-05-09 08:00 | XMS_ITS | Continuity of Care Document ---
Author Organization [facility] Address [address] [place] [address]- Care Team Providers Care Delivery Department Supervisor Name Role Phone Jerry CHANG, Latesha Rocha Primary Care Physic augustina Encounter [facility] Date(s): 03/13/22 - 03/20/22 [facility] [address] [place] [address]- [place] Attending Physician: Nicole Zavaleta NP Allergies, Adverse Reactions, Alerts No Known Medication [...] 2Result Comment: Beverley WE[place] 3Result Comment: [facility]: [id number] 4Result Comment: [09/07/2018] [facility] # [id number] 5Result Comment: [07/05/2017] [facility] [id number] 6Result Comment: [11/07/2014] Dr. Knox; consent signed. [...] 15:07:00 EDT, Powder, Route to Pharmacy Electronically, [id number], [facility]/pharmacy #1095, 193.2, cm, 11/04/20 13:14:00 EST, Height,... Start Date: 02/04/21 Stop Date: 08/03/21 Status: Ordered albuterol CFC free 90 mcg/inh inhalation aerosol 2, puffs, Inhalation, Every 4 hours, PRN, # 3 each, Refills 1, Tot. Refills 1, Maintenance, 06/12/21 22:49:00 EDT, Route to Pharmacy Electronically, [id number], [facility]/pharmacy#1095, 193.2, cm, 02/03/21 8:56:00 EDT, Height, 113... Start Date: 06/12/21 Status: Ordered aspirin 81 mg oral tablet 1 tablet = 81 mg, By Mouth, Daily, # 90 tablet, 0 Refills, Maintenance, 05/20/17 11:35:13, Tablet Start Date: 05/20/17 Status: Ordered atorvastatin 20 mg oral tablet See Instructions, TAKE 1 TABLET BY MOUTH EVERY DAY, # 90 tablet, 1 Refills, Soft Stop, 02/18/22 9:16:00 EDT, [facility]/pharmacy #1095, 193.2, cm, 11/05/21 10:33:00 EST, Height Start Date: 02/18/22 Status: Ordered Basaglar KwikPen 100 units/mL subcutaneous solution = 70 units, Subcutaneous Injection, Daily at bedtime, pt reduced to 70 units related to hypoglycema, # 12 mL, 0 Refills, Maintenance, 02/18/22 9:16:00 EDT, [facility]/pharmacy #1095, 193.2, cm, 11/05/21 10:33:00 EST, Height Start Date: 02/18/22 Status: Ordered BP monitor BP monitor, See [...] Daily, # 28 tablet, 0 Refills, Maintenance, 02/18/22 9:16:00 EDT, Tablet, [facility]/pharmacy #1095, Partial fill upon patient request if the prescription is for a schedule II opioid drug., 193.2, cm, 11/05/21 10:33:00 EST, Height Start Date: 02/18/22 Stop Date: 03/18/22 Status: Ordered Freestyle Hany Sensor See Instructions, [...] 1 Refills, Maintenance, 12/10/21 17:12:00 EST, Tablet, [facility]/pharmacy #1095, 193.2, cm, 11/05/21 10:33:00 EST, Height Start Date: 12/10/21 Stop Date: 06/08/22 Status: Ordered levothyroxine 175 mcg (0.175 mg) oral tablet 1 tablet = 175 mcg, By Mouth, Daily, # 90 tablet, 1 Refills, Maintenance, 12/17/21 12:34:00 EDT, Tablet, [facility]/pharmacy #2837, 193.2, cm, 11/05/21 10:33:00 EST, Height Start Date: 12/17/21 Stop Date: 06/15/22 Status: Ordered MetFORMIN (Eqv-Glucophage XR) 500 mg oral tablet, extended release 2 tablet = 1,000 mg, By Mouth, Daily, # 180 tablet, 1 Refills, Maintenance, 10/02/21 13:35:00 EST, [facility]/pharmacy #1095, Partial fill upon patient request if the prescription is for a schedule II opioid drug., 193.2, cm, 02/03/21 8:56:00 EDT, Height Start Date: 10/02/21 Stop Date: 03/31/22 Status: Ordered metFORMIN 500 mg oral tablet, extended release 2 tablet = 1,000 mg, By Mouth, Daily, # 180 tablet, 1 Refills, Soft Stop, 10/01/21 13:42:00 EST, [facility]/pharmacy #1095, 193.2, cm, 02/03/21 8:56:00 EDT, Height Start Date: 10/01/21 Stop Date: 03/30/22 Status: Ordered NovoLOG 100 units/mL subcutaneous solution See Instructions, 1-5 units sliding scale 15 min prior to meals Subcutaneous Infusion 3 times a day., # 30 mL, 0 Refills, Maintenance, 12/15/21 14:12:00 EDT, [facility]/pharmacy #1095, 193.2, cm, 11/05/21 10:33:00 EST, Height Start Date: 12/15/21 Status: Ordered Pen [place], 30 G x 8 mm BD Ultra Fine II See Instructions, # 100 each, Refills 3, Tot. Refills 3, Maintenance, use as directed for Type 2 Diabetes Mellitus - once a day, 10/09/15 14:01:07, Compound Start Date: 10/09/15 Stop Date: 02/06/16 Status: Ordered Pen [place], 31 G x 5 mm BD Ultra Fine III See Instructions, # 100 each, Refills 2, Tot. Refills 2, Maintenance, use to inject Basaglar 1x daily, E11.9, 90-day, 12/02/21 15:33:00 EST, Supply, 193.2, cm, 11/05/21 10:33:00 EST, Height Start Date: 12/02/21 Status: Ordered Pen [place], 31 G x 8 mm BD Ultra [...] 3 Refills, Maintenance, 03/16/22 9:55:00 EDT, Tablet, [facility]/pharmacy #1095, Partial fill upon patient request if the prescription is for a schedule II opioid drug., 193.2, cm,... Start Date: 03/16/22 Status: Ordered Singulair 10 mg oral tablet 10 mg, 1, tablet, By Mouth, Daily in PM, # 90 tablet, Refills 3, Tot. Refills 3, Maintenance, 01/15/22 12:15:00 EDT, Route to Pharmacy Electronically, [facility]/pharmacy #1095, 193.2, cm, 11/05/21 10:33:00EST, Height Start Date: 01/15/22 Status: Ordered Problem List Condition Effective Dates Status Health Status Inform ant Anxiety(Confirmed) Active Diverticulosis(Confirmed) Active Esophagitis(Confirmed) Active Hemorrhoids(Confirmed) Active Hiatal hernia(Confirmed) Active History of colonic polyps(Confirmed) Active Hypothyroidism(Confirmed) Active ED (erectile dysfunction)(Confirmed) Active Hyperlipidemia, mixed(Confirmed) Active Diabetes mellitus type II, uncontrolled(Confirmed) Active 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(Confirmed) Active Vital Signs Most recent to oldest [Reference Range]: 1 Height 193.2 cm (03/13/22 12:35 PM) Weight 107.27 kg (03/13/22 12:35 PM) Body Mass Index [18.5-24.99] 28.74 *H* (03/13/22 12:35 PM) Weight Obtained Via Patient/family state d (03/13/22 12:35 PM) Social History Social History Type Response Smoking Status Current every day sm oker; Tobacco user in household: No; Type: Cigarettes; Tobacco use times per day: Down to 1/2 pack a day from 1 pack a day. Has been smoking for 35 years.; entered on: 08/19/17 Sex
--- OUTSIDE RECORDS SUMMARY | 2024-05-09 08:00 | XMS_ITS | Continuity of Care Document ---
Author Organization [facility] Address [address] [place] [address]- Care Team Providers Care Travel Registered Nurse Icu Name Role Phone Jerry CHANG, Latesha Rocha Primary Care Physic augustina [facility]counter [facility] Date(s): 12/29/23 - 01/28/24 [facility] [address] [place] [address]- Allergies, Adverse Reactions, Alerts No Known Medication Allergies Substance Reaction Severity Status Other Environmental Allergy 1 Active 1pets Immunizations Given and Recorded Vaccine Date Status Refusal Reason SARS-CoV-2(COVID-19)mRNA-LNP vac([id number]) 12/21/23 Recorded Influenza Virus Vaccine (oldterm) 1 07/10/23 Recor ded SARS-CoV-2 mRNA (izafmht-vszc-zphne) vax 2 07/10/23 Recorded influenza virus vaccine, [...] Recorded 1Result Comment: pt recevied vaccine from [facility] pharmacy 2Result Comment: pt received vaccine from [facility] pharmacy 3Result Comment: [facility]: [id number] 4Result Comment: [09/07/2018] [facility] # [id number] 5Result Comment: [07/05/2017] [facility] [id number] 6Result Comment: [facility] Beverley JACKSON 7Result Comment: [facility] [place] 8Result Comment: [11/07/2014] Dr. Knox; consent signed. Medications Advair Diskus 250 mcg-50 mcg inhalation powder 1, puffs, Inhalation, 2 times a day, # 3 each, Refills 1, Tot. Refills 1, Maintenance, 09/01/23 18:48:00 EST, Powder, Route to Pharmacy Electronically, [id number], [id number] 192.3, cm, 09/01/23 11:35:00 [...] 3 Refills, Soft Stop, 10/22/23 15:01:00 EST, [id number] 192.3, cm, 10/13/23 12:06:00 EST, Height, [...] Refills, Maintenance, 01/24/24 11:08:00 EDT, ER Tablet, [facility]/pharmacy #[id number], Partial fill upon patient request if the prescription is for a schedule II opioid drug., 192.3, cm, 01/24/24 10:24:00 EDT, H... Start Date: 01/24/24 Status: Ordered CeleBREX 100 mg oral capsule 1 capsule = 100 mg, By Mouth, 2 times a day, # 60 capsule, 0 Refills, Maintenance, 01/24/24 10:57:00 EDT, Capsule, [facility]/pharmacy #[id number], Partial fill upon patient request if the prescription is for a schedule II opioid drug., 192.3, cm, 01/24/24 10:24:0... Start Date: 01/24/24 Status: Ordered clonazePAM 0.5 mg oral tablet 1 tablet = 0.5 mg, By Mouth, Daily, # 28 tablet, 0 Refills, Maintenance, 09/02/22 17:46:00 EST, Tablet, [facility]/pharmacy #[id number], Partial fill upon patient request [...] capsule 600 mg, 2, capsule, By Mouth, Daily at bedtime, # 180 capsule, Refills 3, Tot. Refills 3, Maintenance, 01/24/24 11:09:00 EDT, Route to Pharmacy Electronically, [facility]/pharmacy #[id number], Partial fill upon patient request if the prescription is for a schedule... Start Date: 01/24/24 Status: Ordered Jardiance 10 mg oral tablet 1 tablet, By Mouth, Daily in AM, # 90 tablet, 3 Refills, Maintenance, 09/02/23 15:43:00 EST, [facility]/pharmacy #[id number], 192.3, cm, 09/02/23 15:03:00 EST, Height, 108, kg, 08/04/23 9:53:00 EDT, Dry Weight Start Date: 09/02/23 Status: Ordered Lantus Solostar Pen 100 units/mL subcutaneous solution = 80 units, Subcutaneous Infusion, Daily, 6 months supplies, # 144 mL, 3 Refills, Maintenance, 11/24/23 11:09:00 EST, [facility]/pharmacy #[id number], Partial fill upon patient request if the prescription is for a schedule II opioid drug., 192.3, cm, 11/24/23 8:32... Start Date: 11/24/23 Stop Date: 11/13/25 Status: Ordered levalbuterol 45 mcg/inh inhalation aerosol 2 puffs, Inhalation, Every 4 hours, PRN for wheezing, # 15 Gm, 3 Refills, Maintenance, 01/24/24 11:27:00 EDT, Aerosol, [facility]/pharmacy #[id number], Partial fill upon patient request if the prescription is fora schedule II opioid drug., 192.3, cm, 01/24/24 10:... Start Date: 01/24/24 Status: Ordered levothyroxine 0.025 mg oral tablet 1 tablet = 25 mcg, By Mouth, Daily, Take with 200mcg tab for total of 225mcg., # 90 tablet, 1 Refills, Maintenance, 03/01/24 16:52:00 EDT, Tablet, [facility]/pharmacy #[id number], 192.3, cm, 01/24/24 10:24:00 EDT, Height, 108, kg, 08/04/23 9:53:00 EDT, Dry Weight Start Date: 03/01/24 Stop Date: 08/28/24 Status: Ordered levothyroxine 0.025 mg oral tablet 1 tablet = 25 mcg, By Mouth, Daily, for 90 days, Take with 200mcg tab for total of 225mcg., # 90 tablet, 1 Refills, Hard Stop 03/01/24 16:52:00 EDT, 09/03/23 16:52:00 EST, Tablet, [facility]/pharmacy #1095,192.3, cm, 09/02/23 15:03:00 EST, Height, 108, [...] 3 Refills, Maintenance, 12/12/22 12:34:00 EST, Tablet, [facility]/pharmacy #[id number], 193.2, cm, 07/27/22 10:43:00 EDT, [...] mL, 2 Refills, Maintenance, 07/27/22 12:32:00 EDT, [facility]/pharmacy #[id number], 193.2, cm, 07/27/22 10:43:00 EDT, Height Start Date: 07/27/22 Status: Ordered NuLYTELY with Flavor Packs oral powder for reconstitution 240 mL, By Mouth, Every 10 minutes, May substitute any PEG 3350 solution available SPLIT PREP METHOD, # 1 each, 0 Refills, Maintenance, 10/12/22 17:00:00 EST, REC Powder, [facility]/pharmacy #[id number], test date 10/13/22, 240 mL [...] Refills, Maintenance, 12/21/23 8:40:00 EDT, [id number], 192.3, cm, 11/24/23 8:32:00 EST, Height, 108, kg, 08/04/23 9:53:00 EDT, Dry Weight Start Date: 12/21/23 Status: Ordered Pen [place], 31 G x 5 mm BD Ultra [...] 11/15/23 15:36:00 EST, Route to Pharmacy Electronically, [facility]/pharmacy #[id number], 192.3, cm, 10/13/23 12:06:00EST, Height, 108, kg, 08/04/23 9:53:00 EDT, Dry Weight Start Date: 11/15/23 Status: Ordered traMADol 50 mg oral tablet 1 tablet = 50 mg, By Mouth, Every 12 hours, PRN Pain , Severe, for 7 days, # 14 tablet, 0 Refills, Acute 01/31/24 10:58:00 EDT, 01/24/24 10:58:00 EDT, Tablet, [facility]/pharmacy #[id number], Partial fill upon patient request if the prescription is for a schedule... Start Date: 01/24/24 Stop Date: 01/31/24 Status: Ordered Problem List Condition Confirmation Course [...] Personnel Name: Jerry CHANG, Latesha Rocha Position: [facility] Physician - Primary Care Member Role: PCP Address: Address: [address] [place] [id number]- Care Team Related Persons Name: ROSALIA MAYES Address: home [address] [place] [address]
--- OUTSIDE RECORDS SUMMARY | 2024-05-09 08:00 | XMS_ITS | Continuity of Care Document ---
Author Organization [facility] Address [address] [place] [address]- Care Team Providers Care Core Assembly Supervisor Name Role Phone Jerry CHANG, Latesha Rocha Primary Care Physic augustina Encounter [facility] Date(s): 09/02/23 - 10/02/23 [facility] [address] [place] [id number] Attending Physician: Nagi Francois Admitting Physician: Nagi Francois Referring Physician: AdmtrNagi Allergies, Adverse Reactions, Alerts No Known Medication Allergies Substance Reaction Severity Status Other Environmental Allergy 1 Active 1pets Immunizations Given and Recorded Vaccine Date Status Refusal Reason Influenza Virus Vaccine (oldterm) 1 07/10/23 Recor ded SARS-CoV-2 mRNA (vshxzlc-coxw-nnlrw) vax 2 07/10/23 Recorded influenza virus vaccine, [...] vaccine from [facility] pharmacy 3Result Comment: [facility]: [id number] 4Result Comment: [09/07/2018] [facility] # [id number] 5Result Comment: [07/05/2017] [facility] [id number] 6Result Comment: [facility] Beverley JACK[place] 7Result Comment: [facility] [place] 8Result Comment: [11/07/2014] Dr. Knox; consent signed. Medications Advair Diskus 250 mcg-50 mcg inhalation powder 1, puffs, Inhalation, 2 times a day, # 3 each, Refills 1, Tot. Refills 1, Maintenance, 09/01/23 18:48:00 EST, Powder, Route to Pharmacy Electronically, [id number], [facility], 192.3, cm, 09/01/23 11:35:00 EST, Height,... Start Date: 09/01/23 Stop Date: 02/28/24 Status: Ordered albuterol CFC free 90 mcg/inh inhalation aerosol 2, puffs, Inhalation, Every 4 hours, PRN, # 3 each, Refills 3, Tot. Refills 3, Maintenance, 05/07/23 10:14:00 EDT, Route to Pharmacy Electronically, [id number], [facility], 195, cm, 05/07/23 9:23:00 EDT, Height, 112.6... Start Date: 05/07/23 Status: Ordered aspirin 81 mg oral tablet 1 tablet = 81 mg, By Mouth, Daily, # 90 tablet, 0 Refills, Maintenance, 05/20/17 11:35:13, Tablet Start Date: 05/20/17 Status: Ordered atorvastatin 20 mg oral tablet See Instructions, TAKE 1 TABLET BY MOUTH EVERY DAY, # 90 tablet, 3 Refills, Soft Stop, 07/27/22 12:32:00 EDT, [facility]/pharmacy #1095, 193.2, cm, 07/27/22 10:43:00 EDT, [...] 0 Refills, Maintenance, 02/19/23 13:03:00 EDT, Capsule, [facility]/pharmacy #1095, Partial fill upon patient [...] 1 Refills, Maintenance, 09/03/23 16:52:00 EST, Tablet, [facility]/pharmacy #1095, 192.3, cm, 09/02/23 15:03:00 [...] 2... Start Date: 09/02/23 Status: Ordered Pen [place], 31 G x 5 mm BD [...] Personnel Name: Jerry CHANG, Latesha Rocha Position: [facility] Physician - Primary Care Member Role: PCP Address: Address: [address] [place] [address]- Care Team Related Persons Name: ROSALIA MAYES Address: home [address] [place] [address]
--- OUTSIDE RECORDS SUMMARY | 2024-05-09 08:00 | XMS_ITS | Continuity of Care Document ---
Author Organization [facility] Address [address] [place] [address]- Care Team Providers Care Radiochemical Technician Name Role Phone Jerry CHANG, Latesha Rocha Primary Care Physic augustina Encounter [facility] Date(s): 09/01/23 - 10/01/23 [facility] [address] [place] [address]- Attending Physician: Nagi Francois Admitting Physician: AdmNagi nj Referring Physician: AdmtrGlenn8 Allergies, Adverse Reactions, Alerts No Known Medication Allergies Substance Reaction Severity Status Other Environmental Allergy 1 Active 1pets Immunizations Given and Recorded Vaccine Date Status Refusal Reason Influenza Virus Vaccine (oldterm) 1 07/10/23 Recor ded SARS-CoV-2 mRNA (pwcspfq-qwmc-tuxan) vax 2 07/10/23 Recorded influenza virus vaccine, [...] Recorded 1Result Comment: pt recevied vaccine from [facility] pharmacy 2Result Comment: pt received vaccine from [facility] pharmacy 3Result Comment: [facility]: [id number] 4Result Comment: [09/07/2018] [facility] # [id number] 5Result Comment: [07/05/2017] [facility] [id number] 6Result Comment: [facility] Beverley JACKSON 7Result Comment: [facility] [place] 8Result Comment: [11/07/2014] Dr. Knox; consent signed. Medications Advair Diskus 250 mcg-50 mcg inhalation powder 1, puffs, Inhalation, 2 times a day, # 3 each, Refills 1, Tot. Refills 1, Maintenance, 09/01/23 18:48:00 EST, Powder, Route to Pharmacy Electronically, [id number], [id number], 192.3, cm, 09/01/23 11:35:00 EST, Height,... Start Date: 09/01/23 Stop Date: 02/28/24 Status: Ordered albuterol CFC free 90 mcg/inh inhalation aerosol 2, puffs, Inhalation, Every 4 hours, PRN, # 3 each, Refills 3, Tot. Refills 3, Maintenance, 05/07/23 10:14:00 EDT, Route to Pharmacy Electronically, [id number], [facility], 195, cm, 05/07/23 9:23:00 [...] 3 Refills, Soft Stop, 07/27/22 12:32:00 EDT, [facility]/pharmacy #1095, 193.2, cm, 07/27/22 10:43:00 EDT, [...] 09/06/23 17:50:00 EST, Route to Pharmacy Electronically, [facility]/pharmacy #[id number], Partial fill upon patient request if the prescription is for a schedule... Start Date: 09/06/23 Status: Ordered Jardiance 10 mg oral tablet 1 tablet, By Mouth, Daily in AM, # 90 tablet, 3 Refills, Maintenance, 09/02/23 15:43:00 EST, [facility]/pharmacy #1095, 192.3, cm, 09/02/23 15:03:00 EST, Height, 108, kg, 08/04/23 9:53:00 EDT, Dry Weight Start Date: 09/02/23 Status: Ordered levothyroxine 0.025 mg oral tablet 1 tablet = 25 mcg, By Mouth, Daily, Take with 200mcg tab for total of 225mcg., # 90 tablet, 1 Refills, Maintenance, 09/03/23 16:52:00 EST, Tablet, [facility]/pharmacy #1095, 192.3, cm, 09/02/23 15:03:00 EST, [...] 9 mL, 3 Refills, Maintenance,09/02/23 15:44:00 EST, [facility]/pharmacy #1095, Partial fill upon patient request if the prescription isfor a schedule II opioid drug., 192.3, cm, 2... Start Date: 09/02/23 Status: Ordered Pen [place], 31 G x 5 mm BD Ultra [...] Personnel Name: Jerry CHANG, Latesha Rocha Position: [facility] Physician - Primary Care Member Role: PCP Address: Address: [address] [place] [address]- Care Team Related Persons Name: ROSALIA MAYES Address: home [address] [place] [address]
--- OUTSIDE RECORDS SUMMARY | 2024-05-09 08:00 | XMS_ITS | Continuity of Care Document ---
Author Organization [facility] Address [address] [place] [address]- Care Team Providers Care Senior Power Plant Operator Name Role Phone Jerry CHANG, Latesha Rocha Primary Care Physic augustina Encounter [facility] Date(s): 02/15/23 - 03/17/23 [facility] [address] [place] [address]- Allergies, Adverse Reactions, Alerts No Known Medication [...] toxoids (Td) 10/04/99 Recorded 1Result Comment: [facility]: [id number] 2Result Comment: [09/07/2018] [facility] # [id number] 3Result Comment: [07/05/2017] [facility] [id number] 4Result Comment: GUS Lowery [place] 5Result Comment: [...] 12:32:00 EDT, Powder, Route to Pharmacy Electronically, [id number], [facility]/pharmacy #1095, 193.2, cm, 07/27/22 10:43:00 EDT, Height Start Date: 07/27/22 Stop Date: 07/22/23 Status: Ordered albuterol CFC free 90 mcg/inh inhalation aerosol 2, puffs, Inhalation, Every 4 hours, PRN, # 3 each, Refills 1, Tot. Refills 1, Maintenance, 07/27/22 12:32:00 EDT, Route to Pharmacy Electronically, [id number], [facility]/pharmacy#1095, 193.2, cm, 07/27/22 10:43:00 EDT, [...] Refills, Maintenance, 11/11/22 14:09:00 EST, ER Tablet, [facility]/pharmacy #[id number], Partial fill upon patient request if the prescription is for a schedule II opioid drug., 195, cm, 11/11/22 13:45:00 EST, Hei... Start Date: 11/11/22 Status: Ordered CeleBREX 100 mg oral capsule 1 capsule = 100 mg, By Mouth, 2 times a day, # 60 capsule, 0 Refills, Maintenance, 02/19/23 13:03:00 EDT, Capsule, [facility]/pharmacy #[id number], Partial fill upon patient request if the prescription is for a schedule II opioid drug., 195, cm, 02/10/23 13:17:00... Start Date: 02/19/23 Status: Ordered clonazePAM 0.5 mg oral tablet 1 tablet = 0.5 mg, By Mouth, Daily, # 28 tablet, 0 Refills, Maintenance, 09/02/22 17:46:00 EST, Tablet, [facility]/pharmacy #1095, Partial fill upon patient [...] 3 Refills, Maintenance, 12/05/22 17:12:00 EST, Tablet, [facility]/pharmacy #1095, 193.2, cm, 07/27/22 10:43:00 EDT, Height Start Date: 12/05/22 Stop Date: 11/30/23 Status: Ordered levothyroxine 175 mcg (0.175 mg) oral tablet 1 tablet = 175 mcg, By Mouth, Daily, # 90 tablet, 3 Refills, Maintenance, 12/12/22 12:34:00 EST, Tablet, [facility]/pharmacy #1095, 193.2, cm, 07/27/22 10:43:00 EDT, Height Start Date: 12/12/22 Stop Date: 12/07/23 Status: Ordered metFORMIN 500 mg oral tablet, extended release 2 tablet = 1,000 mg, By Mouth, Daily, # 180 tablet, 1 Refills, Soft Stop, 10/01/21 13:42:00 EST, [facility]/pharmacy #1095, 193.2, cm, 02/03/21 8:56:00 [...] Refills, Maintenance, 10/12/22 17:00:00 EST, REC Powder, [facility]/pharmacy #[id number], test date 10/13/22, 240 mL By Mouth Every 10 minutes,Instr:M... Start Date: 10/12/22 Status: Ordered Ozempic 2 mg/3 mL (0.25 mg or 0.5 mg dose) subcutaneous solution = 0.25 mg, Subcutaneous Infusion, Every week, Take once weekly, rotate injection sites 11.9, # 3 mL, 3 Refills, Maintenance, 02/23/23 10:53:00 EDT, [id number], Partial fill upon patient request if the prescription is for a schedule II opioid... Start Date: 02/23/23 Status: Ordered Pen [place], 30 G x 8 mm BD Ultra Fine II See Instructions, # 100 each, Refills 3, Tot. Refills 3, Maintenance, use as directed for Type 2 Diabetes Mellitus - once a day, 10/09/15 14:01:07, Compound Start Date: 10/09/15 Stop Date: 02/06/16 Status: Ordered Pen [place], 31 G x 5 mm BD Ultra Fine III See Instructions, # 100 each, Refills 3, Tot. Refills 3, Maintenance, use to inject Basaglar 1x daily, E11.9, 90-day, 07/27/22 12:32:00 EDT, Supply, 193.2, cm, 07/27/22 10:43:00 EDT, Height Start Date: 07/27/22 Status: Ordered Pen [place], 31 G x 8 mm BD Ultra [...] Personnel Name: Jerry CHANG, Latesha Rocha Position: [facility] Physician - Primary Care Member Role: PCP Address: Address: [address] [place] [address]- Care Team Related Persons Name: ROSALIA MAYES Address: home [address] [place] [address]
--- OUTSIDE RECORDS SUMMARY | 2024-05-09 08:00 | XMS_ITS | Continuity of Care Document ---
Author Organization [facility] Address [address] [place] [address]- Care Team Providers Care Heart Doctor Name Role Phone Jerry CHANG, Latesha Rocha Primary Care Physic augustina Encounter [facility] [place] Date(s): 11/28/20 - 04/20/[address] [address] Attending Physician: Alfredo Cornell MD Admitting Physician: Alfredo Cornell MD Allergies, Adverse Reactions, Alerts No Known [...] Comment: Beverley WEBER [place] 3Result Comment: [facility]: [id number] 4Result Comment: [09/07/2018] [facility] # [id number] 5Result Comment: [07/05/2017] [facility] [id number] 6Result Comment: [11/07/2014] Dr. Knox; consent signed. [...] 15:07:00 EDT, Powder, Route to Pharmacy Electronically, [id number], [facility]/pharmacy #1095, 193.2, cm, 11/04/20 13:14:00 EST, Height,... Start Date: 02/04/21 Stop Date: 08/03/21 Status: Ordered albuterol CFC free 90 mcg/inh inhalation aerosol 2, puffs, Inhalation, Every 4 hours, PRN, # 3 each, Refills 1, Tot. Refills 1, Maintenance, 01/06/21 14:39:00 EDT, Route to Pharmacy Electronically, [id number], [facility]/pharmacy#1095, 193.2, cm, 11/04/20 13:14:00 EST, Height, [...] 1 Refills, Soft Stop, 01/06/21 11:59:00 EDT, [facility]/pharmacy #1095, 193.2, cm, 11/04/20 13:14:00 EST, Height, 113.1, kg, 08/09/19 10:20:00 EST, Dry Weight Start Date: 01/06/21 Status: Ordered Basaglar KwikPen 100 units/mL subcutaneous solution = 75 units, Subcutaneous Injection, Daily at bedtime, # 12 mL, 0 Refills, Maintenance, 01/06/21 11:59:00 EDT, [facility]/pharmacy #1095, 193.2, cm, 11/04/20 13:14:00 EST, [...] 1 Refills, Soft Stop, 02/04/21 15:09:00 EDT, [facility]/pharmacy #1095, 193.2, cm, 11/04/20 13:14:00 EST, [...] 0 Refills, Maintenance, 02/04/21 15:04:00 EDT, Tablet, [facility], 193.2, cm, 11/04/20 13:14:00 EST, [...] mL, 0 Refills, Maintenance, 01/06/21 11:59:00 EDT, [facility]/pharmacy #1095, 193.2, cm, 11/04/20 13:14:00 EST, Height, 113.1, kg, 08/09/19 10:20:00 ES... Start Date: 01/06/21 Status: Ordered Pen [place], 30 G x 8 mm BD Ultra Fine II See Instructions, # 100 each, Refills 3, Tot. Refills 3, Maintenance, use as directed for Type 2 Diabetes Mellitus - once a day, 10/09/15 14:01:07, Compound Start Date: 10/09/15 Stop Date: 02/06/16 Status: Ordered Pen [place], 31 G x 5 mm BD Ultra Fine III See Instructions, # 100 each, Refills 2, Tot. Refills 2, Maintenance, use to inject Basaglar 1x daily, E11.9, 90-day, 08/08/20 15:07:00 EST, Supply, 193.2, cm, 08/08/20 14:34:00 EST, Height, 113.1, kg, 08/09/19 10:20:00 EST, Dry Weight Start Date: 08/08/20 Status: Ordered Pen [place], 31 G x 8 mm BD Ultra [...] 01/06/21 11:59:00 EDT, Route to Pharmacy Electronically, [facility]/pharmacy #[id number], 193.2, cm, 11/04/20 13:14:00EST, Height, [...]
--- OUTSIDE RECORDS SUMMARY | 2024-05-09 08:00 | XMS_ITS | Continuity of Care Document ---
Author Organization [facility] Address [address] [place] [address]- Care Team Providers Care Drilling Foreman Name Role Phone Jerry CHANG, Latesha Rocha Primary Care Physic augustina [facility] - 01/14/22 [facility] [address] [place] [address]- [place] Allergies, Adverse Reactions, Alerts No Known [...] 2Result Comment: Beverley WEBER [place] 3Result Comment: [facility]ED [facility]: [id number] 4Result Comment: [09/07/2018] [facility] # [id number] 5Result Comment: [07/05/2017] [facility] [id number] 6Result Comment: [11/07/2014] Dr. Knox; consent signed. [...] 15:07:00 EDT, Powder, Route to Pharmacy Electronically, [id number], [facility]/pharmacy #[id number], 193.2, cm, 11/04/20 13:14:00 EST, Height,... Start Date: 02/04/21 Stop Date: 08/03/21 Status: Ordered albuterol CFC free 90 mcg/inh inhalation aerosol 2, puffs, Inhalation, Every 4 hours, PRN, # 3 each, Refills 1, Tot. Refills 1, Maintenance, 06/12/21 22:49:00 EDT, Route to Pharmacy Electronically, [id number], [facility]/pharmacy#[id number], 193.2, cm, 02/03/21 8:56:00 EDT, [...] Refills, Soft Stop, 06/12/21 22:49:00 EDT, [facility]/pharmacy #[id number], 193.2, cm, 02/03/21 8:56:00 EDT, Height, 113.1, kg, 08/09/19 10:20:00EST, Dry Weight Start Date: 06/12/21 Status: Ordered Basaglar KwikPen 100 units/mL subcutaneous solution = 75 units, Subcutaneous Injection, Daily at bedtime, # 12 mL, 0 Refills, Maintenance, 01/06/21 11:59:00 EDT, [facility]/pharmacy #[id number], 193.2, cm, 11/04/20 13:14:00 EST, Height, [...] Refills, Soft Stop, 01/30/22 15:09:00 EDT, [facility]/pharmacy #[id number], 193.2, cm, 11/05/21 10:33:00 EST, Height Start Date: 01/30/22 Stop Date: 07/29/22 Status: Ordered buPROPion 150 mg/12 hours (SR) oral tablet, extended release 1 tablet = 150 mg, By Mouth, Daily, for 90 days, # 90 tablet, 1 Refills, Hard Stop 01/30/22 15:09:00 EDT, 08/03/21 15:09:00 EDT, [facility]/pharmacy #[id number], 193.2, cm, 02/03/21 8:56:00 EDT, Height, 113.1, kg, 08/09/19 10:20:00 EST, Dry Weight Start Date: 08/03/21 Stop Date: 01/30/22 Status: Ordered clonazePAM 0.5 mg oral tablet 1 tablet = 0.5 mg, By Mouth, Daily, # 30 tablet, 0 Refills, Maintenance, 12/19/21 14:22:00 EDT, Tablet, [facility]/pharmacy #[id number], Partial fill upon patient [...] Refills, Maintenance, 12/10/21 17:12:00 EST, Tablet, [facility]/pharmacy #[id number], 193.2, cm, 11/05/21 10:33:00 EST, Height Start Date: 12/10/21 Stop Date: 06/08/22 Status: Ordered levothyroxine 175 mcg (0.175 mg) oral tablet 1 tablet = 175 mcg, By Mouth, Daily, # 90 tablet, 1 Refills, Maintenance, 12/17/21 12:34:00 EDT, Tablet, [facility]/pharmacy #[id number], 193.2, cm, 11/05/21 10:33:00 [...] Height Start Date: 12/15/21 Status: Ordered Pen [place], 30 G x 8 mm BD Ultra Fine II See Instructions, # 100 each, Refills 3, Tot. Refills 3, Maintenance, use as directed for Type 2 Diabetes Mellitus - once a day, 10/09/15 14:01:07, Compound Start Date: 10/09/15 Stop Date: 02/06/16 Status: Ordered Pen [place], 31 G x 5 mm BD Ultra Fine III See Instructions, # 100 each, Refills 2, Tot. Refills 2, Maintenance, use to inject Basaglar 1x daily, E11.9, 90-day, 12/02/21 15:33:00 EST, Supply, 193.2, cm, 11/05/21 10:33:00 EST, Height Start Date: 12/02/21 Status: Ordered Pen [place], 31 G x 8 mm BD Ultra Fine III See Instructions, # 100 each, Refills 1, Tot. Refills 1, Maintenance, use with Lantus 1x daily, Dx E11.9, 90-day, 03/15/17 15:55:47, Compound Start Date: 03/15/17 Stop Date: 09/11/17 Status: Ordered sertraline 25 mg oral tablet 1 tablet = 25 mg, By Mouth, Daily, # 30 tablet, 0 Refills, Maintenance, 12/19/21 14:23:00 EDT, Tablet, [facility]/pharmacy #[id number], Partial fill upon patient request if the prescription is for a schedule II opioid drug., 193.2, cm, 11/05/21 10:33:00 EST, Height Start Date: 12/19/21 Status: Ordered Singulair 10 mg oral tablet 10 mg, 1, tablet, By Mouth, Daily in PM, # 90 tablet, Refills 1, Tot. Refills 1, Maintenance, 06/12/21 22:49:00 EDT, Route to Pharmacy Electronically, [facility]/pharmacy #[id number], 193.2, cm, 02/03/21 8:56:00 EDT, Height, [...]
--- OUTSIDE RECORDS SUMMARY | 2024-05-09 08:00 | XMS_ITS | Continuity of Care Document ---
Author Organization [facility] Address [address] [place] [address]- Care Team Providers Care Assisted Living Housekeeper Name Role Phone Jerry CHANG, Latesha Rocha Primary Care Physic augustina [facility]): 12[facility]16[facility]21 - 01/15/22 [facility] [address] [place] [address]- [place] Allergies, Adverse Reactions, Alerts No Known [...] 2Result Comment: Beverley WEBER [place] 3Result Comment: [facility]: [id number] 4Result Comment: [09/07/2018] [facility] # [id number] 5Result Comment: [07/05/2017] [facility] [id number] 6Result Comment: [11/07/2014] Dr. Knox; consent signed. [...] 15:07:00 EDT, Powder, Route to Pharmacy Electronically, [id number], [facility]/pharmacy #[id number], 193.2, cm, 11/04/20 13:14:00 EST, Height,... Start Date: 02/04/21 Stop Date: 08/03/21 Status: Ordered albuterol CFC free 90 mcg/inh inhalation aerosol 2, puffs, Inhalation, Every 4 hours, PRN, # 3 each, Refills 1, Tot. Refills 1, Maintenance, 06/12/21 22:49:00 EDT, Route to Pharmacy Electronically, [id number], [facility]/pharmacy#[id number], 193.2, cm, 02/03/21 8:56:00 EDT, Height, [...] 1 Refills, Soft Stop, 06/12/21 22:49:00 EDT, [facility]/pharmacy #[id number], 193.2, cm, 02/03/21 8:56:00 EDT, Height, 113.1, kg, 08/09/19 10:20:00EST, Dry Weight Start Date: 06/12/21 Status: Ordered Basaglar KwikPen 100 units/mL subcutaneous solution = 75 units, Subcutaneous Injection, Daily at bedtime, # 12 mL, 0 Refills, Maintenance, 01/06/21 11:59:00 EDT, [facility]/pharmacy #[id number], 193.2, cm, 11/04/20 13:14:00 EST, [...] 1 Refills, Soft Stop, 01/30/22 15:09:00 EDT, [facility]/pharmacy #[id number], 193.2, cm, 11/05/21 10:33:00 EST, Height Start Date: 01/30/22 Stop Date: 07/29/22 Status: Ordered buPROPion 150 mg/12 hours (SR) oral tablet, extended release 1 tablet = 150 mg, By Mouth, Daily, for 90 days, # 90 tablet, 1 Refills, Hard Stop 01/30/22 15:09:00 EDT, 08/03/21 15:09:00 EDT, [facility]/pharmacy #[id number], 193.2, cm, 02/03/21 8:56:00 EDT, Height, 113.1, kg, 08/09/19 10:20:00 EST, Dry Weight Start Date: 08/03/21 Stop Date: 01/30/22 Status: Ordered clonazePAM 0.5 mg oral tablet 1 tablet = 0.5 mg, By Mouth, Daily, # 28 tablet, 0 Refills, Maintenance, 01/15/22 12:14:00 EDT, Tablet, [facility]/pharmacy #[id number], Partial fill upon patient [...] 1 Refills, Maintenance, 12/10/21 17:12:00 EST, Tablet, [facility]/pharmacy #[id number], 193.2, cm, 11/05/21 10:33:00 EST, Height Start Date: 12/10/21 Stop Date: 06/08/22 Status: Ordered levothyroxine 175 mcg (0.175 mg) oral tablet 1 tablet = 175 mcg, By Mouth, Daily, # 90 tablet, 1 Refills, Maintenance, 12/17/21 12:34:00 EDT, Tablet, [facility]/pharmacy #[id number], 193.2, cm, 11/05/21 10:33:00 EST, [...] Height Start Date: 12/15/21 Status: Ordered Pen [place], 30 G x 8 mm BD Ultra Fine II See Instructions, # 100 each, Refills 3, Tot. Refills 3, Maintenance, use as directed for Type 2 Diabetes Mellitus - once a day, 10/09/15 14:01:07, Compound Start Date: 10/09/15 Stop Date: 02/06/16 Status: Ordered Pen [place], 31 G x 5 mm BD Ultra Fine III See Instructions, # 100 each, Refills 2, Tot. Refills 2, Maintenance, use to inject Basaglar 1x daily, E11.9, 90-day, 12/02/21 15:33:00 EST, Supply, 193.2, cm, 11/05/21 10:33:00 EST, Height Start Date: 12/02/21 Status: Ordered Pen [place], 31 G x 8 mm BD Ultra Fine III See Instructions, # 100 each, Refills 1, Tot. Refills 1, Maintenance, use with Lantus 1x daily, Dx E11.9, 90-day, 03/15/17 15:55:47, Compound Start Date: 03/15/17 Stop Date: 09/11/17 Status: Ordered sertraline 25 mg oral tablet 1 tablet = 25 mg, By Mouth, Daily, # 90 tablet, 1 Refills, Maintenance, 01/15/22 12:14:00 EDT, Tablet, [facility]/pharmacy #[id number], Partial fill upon patient request if the prescription is for a schedule II opioid drug., 193.2, cm, 11/05/21 10:33:00 EST, Height Start Date: 01/15/22 Status: Ordered Singulair 10 mg oral tablet 10 mg, 1, tablet, By Mouth, Daily in PM, # 90 tablet, Refills 3, Tot. Refills 3, Maintenance, 01/15/22 12:15:00 EDT, Route to Pharmacy Electronically, [facility]/pharmacy #[id number], 193.2, cm, 11/05/21 10:33:00EST, Height [...]
--- OUTSIDE RECORDS SUMMARY | 2024-05-09 08:00 | XMS_ITS | Continuity of Care Document ---
Author Organization [facility] Address [address] [place] [address]- Care Team Providers Care Farm Equipment Mechanic Name Role Phone Jerry CHANG, Latesha Rocha Primary Care Physic augustina [facility] Date[facility]): 10/13/22 - 11/12/22 [facility] [address] [place] [address]- Allergies, Adverse Reactions, Alerts No Known Medication [...] tetanus-diphtheria toxoids (Td) 10/04/99 Recorded 1Result Comment: [facility]: [id number] 2Result Comment: [09/07/2018] [facility] # [id number] 3Result Comment: [07/05/2017] [facility] [id number] 4Result Comment: GUS Lowery [place] 5Result Comment: Beverley WEBER [place] 6Rzachult Comment: [11/07/2014] Dr. Knox; consent signed. Medications [...] 12:32:00 EDT, Powder, Route to Pharmacy Electronically, [id number], [facility]/pharmacy #[id number], 193.2, cm, 07/27/22 10:43:00 EDT, Height Start Date: 07/27/22 Stop Date: 07/22/23 Status: Ordered albuterol CFC free 90 mcg/inh inhalation aerosol 2, puffs, Inhalation, Every 4 hours, PRN, # 3 each, Refills 1, Tot. Refills 1, Maintenance, 07/27/22 12:32:00 EDT, Route to Pharmacy Electronically, [id number], [facility]/pharmacy#[id number], 193.2, cm, 07/27/22 10:43:00 EDT, Height [...] Refills, Soft Stop, 07/27/22 12:32:00 EDT, [facility]/pharmacy #[id number], 193.2, cm, 07/27/22 10:43:00 EDT, Height Start Date: 07/27/22 Status: Ordered Basaglar KwikPen 100 units/mL subcutaneous solution = 80 units, Subcutaneous Injection, Daily at bedtime, # 15 mL, 6 Refills, Maintenance, 07/27/22 11:43:00 EDT, [facility]/pharmacy #[id number], 193.2, cm, 07/27/22 10:43:00 EDT, [...] Refills, Maintenance, 11/11/22 14:09:00 EST, ER Tablet, [facility]/pharmacy #[id number], Partial fill upon patient request if the prescription is for a schedule II opioid drug., 195, cm, 11/11/22 13:45:00 EST, Hei... Start Date: 11/11/22 Status: Ordered clonazePAM 0.5 mg oral tablet 1 tablet = 0.5 mg, By Mouth, Daily, # 28 tablet, 0 Refills, Maintenance, 09/02/22 17:46:00 EST, Tablet, [facility]/pharmacy #[id number], Partial fill upon patient request [...] 3 Refills, Maintenance, 12/05/22 17:12:00 EST, Tablet, [facility]/pharmacy #[id number], 193.2, cm, 07/27/22 10:43:00 EDT, [...] 12/12/22 12:34:00 EST, 06/15/22 12:34:00 EDT, Tablet, [facility]/pharmacy #[id number], 193.2, cm, 03/16/22 9:24:00 EDT, [...] Acute 12/23/22 14:08:00 EDT, 11/11/22 14:08:00 EST, [facility]/pharmacy #[id number], Partial fill upon patient request if the prescription is for aschedule II opioid drug., 1 patch Topically Daily,x... Start Date: 11/11/22 Stop Date: 12/23/22 Status: Ordered nicotine 21 mg/24 hr transdermal film, extended release 1 patch, Topically, Daily, for 6 week(s), # 42 patch, 0 Refills, Acute 11/27/22 12:44:00 EST, 10/16/22 12:44:00 EST, Patch, [facility]/pharmacy #[id number], Partial fill upon patient request if the prescription is for a schedule II opioid drug., 1 patch Topically... Start Date: 10/16/22 Stop Date: 11/27/22 Status: Ordered NovoLOG 100 units/mL subcutaneous solution See Instructions, 1-5 units sliding scale 15 min prior to meals Subcutaneous Infusion 3 times a day., # 30 mL, 2 Refills, Maintenance, 07/27/22 12:32:00 EDT, [facility]/pharmacy #[id number], 193.2, cm, 07/27/22 10:43:00 EDT, Height Start Date: 07/27/22 Status: Ordered NuLYTELY with Flavor Packs oral powder for reconstitution 240 mL, By Mouth, Every 10 minutes, May substitute any PEG 3350 solution available SPLIT PREP METHOD, # 1 each, 0 Refills, Maintenance, 10/12/22 17:00:00 EST, REC Powder, [facility]/pharmacy #[id number], test date 10/13/22, 240 mL By Mouth Every 10 minutes,Instr:M... Start Date: 10/12/22 Status: Ordered Pen [place], 30 G x 8 mm BD Ultra Fine II See Instructions, # 100 each, Refills 3, Tot. Refills 3, Maintenance, use as directed for Type 2 Diabetes Mellitus - once a day, 10/09/15 14:01:07, Compound Start Date: 10/09/15 Stop Date: 02/06/16 Status: Ordered Pen [place], 31 G x 5 mm BD Ultra Fine III See Instructions, # 100 each, Refills 3, Tot. Refills 3, Maintenance, use to inject Basaglar 1x daily, E11.9, 90-day, 07/27/22 12:32:00 EDT, Supply, 193.2, cm, 07/27/22 10:43:00 EDT, Height Start Date: 07/27/22 Status: Ordered Pen [place], 31 G x 8 mm BD Ultra Fine III See Instructions, # 100 each, Refills 1, Tot. Refills 1, Maintenance, use with Lantus 1x daily, Dx E11.9, 90-day, 03/15/17 15:55:47, Compound Start Date: 03/15/17 Stop Date: 09/11/17 Status: Ordered sertraline 50 mg oral tablet 1 tablet = 50 mg, By Mouth, Daily, # 90 tablet, 3 Refills, Maintenance, 07/27/22 12:32:00 EDT, Tablet, [facility]/pharmacy #[id number], Partial fill upon patient request if the prescription is for a schedule II opioid drug., 193.2, cm, 07/27/22 10:43:00 EDT, Height Start Date: 07/27/22 Stop Date: 07/22/23 Status: Ordered Singulair 10 mg oral tablet 10 mg, 1, tablet, By Mouth, Daily in PM, # 90 tablet, Refills 3, Tot. Refills 3, Maintenance, 07/27/22 12:32:00 EDT, Route to Pharmacy Electronically, [facility]/pharmacy #[id number], 193.2, cm, 07/27/22 10:43:00EDT, Height [...] CHANG, Latesha Rocha Position: [facility] Primary Care Physician Member Role: PCP Address: Address: [address] [place] [id number]- Care Team Related Persons Name: ROSALIA MAYES Address: [address] [place] [address]
--- OUTSIDE RECORDS SUMMARY | 2024-05-09 08:00 | XMS_ITS | Continuity of Care Document ---
Author Organization [facility] Address [address] [place] [address]- Care Team Providers Care Financial Analysis Advisor Name Role Phone Jerry CHANG, Latesha Rocha Primary Care Physic augustina Encounter [facility] Date(s): 05/13/20 - 06/12/20 [facility] [address] [place] [address]- [facility] Allergies, Adverse Reactions, Alerts No Known Medication [...] toxoids (Td) 10/04/99 Recorded 1Result Comment: [09/07/2018] [facility] # [id number] 2Result Comment: [07/05/2017] [facility] [id number] 3Result Comment: [11/07/2014] Dr. Knox; consent signed. [...] 14:47:00 EDT, Powder, Route to Pharmacy Electronically, [id number], [facility]/pharmacy #[id number], 194.2, cm, 08/16/19 8:47:00 EST, Height,... Start Date: 02/09/20 Stop Date: 08/07/20 Status: Ordered albuterol CFC free 90 mcg/inh inhalation aerosol 2, puffs, Inhalation, Every 4 hours, PRN, # 8.5 Unknown, Refills 1, Tot. Refills 1, Maintenance, 01/11/20 11:44:00 EDT, Route to Pharmacy Electronically, [id number], [facility]/pharmacy #[id number], 194.2, cm, 08/16/19 8:47:00 EST, [...] 1 Refills, Soft Stop, 01/31/20 16:18:00 EDT, [facility]/pharmacy #[id number], 194.2, cm, 08/16/19 8:47:00 EST, [...] 0 Refills, Soft Stop, 01/09/20 15:17:00 EDT, [facility]/pharmacy #[id number], 194.2, cm, 08/16/19 8:47:00 EST, [...] 1 Refills, Maintenance, 10/27/19 7:12:00 EST, Tablet, [facility]/pharmacy #[id number], 194.2, cm, 08/16/19 8:47:00 EST, Height, 113.1, kg, 08/09/19 10:20:00 EST, D... Start Date: 10/27/19 Stop Date: 04/24/20 Status: Ordered levothyroxine 175 mcg (0.175 mg) oral tablet 1 tablet = 175 mcg, By Mouth, Daily, # 90 tablet, 0 Refills, Maintenance, 02/29/20 9:22:00 EDT, Tablet, [facility]/pharmacy #[id number], 194.2, cm, 08/16/19 8:47:00 EST, Height, 113.1, kg, 08/09/19 10:20:00 EST, Dry Weight Start Date: 02/29/20 Stop Date: 05/29/20 Status: Ordered metFORMIN 500 mg oral tablet, extended release 2 tablet = 1,000 mg, By Mouth, Daily, # 180 tablet, 0 Refills, Soft Stop, 05/14/20 14:03:00 EDT, [facility]/pharmacy #[id number], 198, cm, 04/25/20 9:27:00 EDT, Height, 113.1, kg, 08/09/19 10:20:00 EST, Dry Weight Start Date: 05/14/20 Stop Date: 08/12/20 Status: Ordered NovoLOG 100 units/mL subcutaneous solution See Instructions, 1-5 units sliding scale 15 min prior to meals Subcutaneous Infusion 3 times a day., # 30 mL, 0 Refills, Maintenance, 11/05/19 7:33:00 EST, [facility]/pharmacy #[id number], 194.2, cm, 08/16/19 8:47:00 EST, Height, 113.1, kg, 08/09/19 10:20:00 EST,... Start Date: 11/05/19 Status: Ordered Pen [place], 30 G x 8 mm BD Ultra Fine II See Instructions, # 100 each, Refills 3, Tot. Refills 3, Maintenance, use as directed for Type 2 Diabetes Mellitus - once a day, 10/09/15 14:01:07, Compound Start Date: 10/09/15 Stop Date: 02/06/16 Status: Ordered Pen [place], 31 G x 5 mm BD Ultra Fine III See Instructions, # 100 each, Refills 2, Tot. Refills 2, Maintenance, use to inject Basaglar 1x daily, E11.9, 90-day, 02/01/20 10:42:00 EDT, Supply, 194.2, cm, 08/16/19 8:47:00 EST, Height, 113.1, kg, 08/09/19 10:20:00 EST, Dry Weight Start Date: 02/01/20 Status: Ordered Pen [place], 31 G x 8 mm BD Ultra [...] 01/11/20 11:42:00 EDT, Route to Pharmacy Electronically, [facility]/pharmacy #[id number], 194.2, cm, 08/16/19 8:47:00 EST, [...]
--- OUTSIDE RECORDS SUMMARY | 2024-05-09 08:00 | XMS_ITS | Continuity of Care Document ---
Author Organization [facility] Address [address] [place] [address]- Care Team Providers Care Wool Washing Machine Operator Name Role Phone Jerry CHANG, Latesha Rocha Primary Care Physic augustina Encounter [facility] Date(s): 03/27/24 - 04/26/24 [facility] [address] [place] [address]- [place] Allergies, Adverse Reactions, Alerts No Known Medication Allergies Substance Reaction Severity Status Other Environmental Allergy 1 Active 1pets Immunizations Given and Recorded Vaccine Date Status Refusal Reason SARS-CoV-2(COVID-19)mRNA-LNP vac([id number]) 12/21/23 Recorded Influenza Virus Vaccine (oldterm) 1 07/10/23 Recor ded SARS-CoV-2 mRNA ([id number]-gnyro) vax 2 07/10/23 Recorded influenza virus vaccine, [...] pt recevied vaccine from [facility] pharmacy 2Result Comment: pt received vaccine from [facility] pharmacy 3Result Comment: [facility]: [id number] 4Result Comment: [09/07/2018] [facility] # [id number] 5Result Comment: [07/05/2017] [facility] [id number] 6Result Comment: [facility] Beverley JACKSON 7Result Comment[facility] [place] 8Result Comment: [11/07/2014] Dr. Knox; consent signed. Medications Advair Diskus 250 mcg-50 mcg inhalation powder 1, puffs, Inhalation, 2 times a day, # 3 each, Refills 1, Tot. Refills 1, Maintenance, 09/01/23 18:48:00 EST, Powder, Route to Pharmacy Electronically, [id number], [id number], 192.3, cm, 09/01/23 11:35:00 EST, Height,... Start Date: 09/01/23 Stop Date: 02/28/24 Status: Ordered albuterol CFC free 90 mcg/inh inhalation aerosol 2, puffs, Inhalation, Every 4 hours, PRN, # 3 each, Refills 3, Tot. Refills 3, Maintenance, 03/30/24 14:05:00 EDT, Route to Pharmacy Electronically, [id number], [id number], 192.3, cm, 01/24/24 10:24:00 EDT, Height, [...] Stop, 10/22/23 15:01:00 EST, [facility]/pharmacy #[id number], 192.3, cm, 10/13/23 12:06:00 EST, Height, [...] 11:08:00 EDT, ER Tablet, [facility]/pharmacy #[id number], Partial fill upon patient request if the prescription is for a schedule II opioid drug., 192.3, cm, 01/24/24 10:24:00 EDT, H... Start Date: 01/24/24 Status: Ordered CeleBREX 100 mg oral capsule 1 capsule = 100 mg, By Mouth, 2 times a day, # 60 capsule, 0 Refills, Maintenance, 03/28/24 16:02:00 EDT, Capsule, [facility]/pharmacy #[id number], Partial fill upon patient request if the prescription is for a schedule II opioid drug., 192.3, cm, 01/24/24 10:24:0... Start Date: 03/28/24 Status: Ordered clonazePAM 0.5 mg oral tablet 1 tablet = 0.5 mg, By Mouth, Daily, # 28 tablet, 0 Refills, Maintenance, 09/02/22 17:46:00 EST, Tablet, [facility]/pharmacy #[id number], Partial fill upon patient request if [...] Route to Pharmacy Electronically, [facility]/pharmacy #[id number], Partial fill upon patient request if the prescription is for a schedule II... Start Date: 02/11/24 Stop Date: 04/07/24 Status: Ordered Jardiance 10 mg oral tablet 1 tablet, By Mouth, Daily in AM, # 90 tablet, 3 Refills, Maintenance, 09/02/23 15:43:00 EST, [facility]/pharmacy #[id number], 192.3, cm, 09/02/23 15:03:00 EST, Height, 108, kg, 08/04/23 9:53:00 EDT, Dry Weight Start Date: 09/02/23 Status: Ordered Lantus Solostar Pen 100 units/mL subcutaneous solution = 80 units, Subcutaneous Infusion, Daily, 6 months supplies, # 144 mL, 3 Refills, Maintenance, 11/24/23 11:09:00 EST, [facility]/pharmacy #[id number], Partial fill upon patient request if the prescription is for a schedule II opioid drug., 192.3, cm, 11/24/23 8:32... Start Date: 11/24/23 Stop Date: 11/13/25 Status: Ordered levalbuterol 45 mcg/inh inhalation aerosol 2 puffs, Inhalation, Every 4 hours, PRN for wheezing, # 15 Gm, 3 Refills, Maintenance, 01/24/24 11:27:00 EDT, Aerosol, [facility]/pharmacy #[id number], Partial fill upon patient request if [...] Maintenance, 07/27/22 12:32:00 EDT, [facility]/pharmacy #[id number], 193.2, cm, 07/27/22 10:43:00 EDT, Height Start Date: 07/27/22 Status: Ordered NuLYTELY with Flavor Packs oral powder for reconstitution 240 mL, By Mouth, Every 10 minutes, May substitute any PEG 3350 solution available SPLIT PREP METHOD, # 1 each, 0 Refills, Maintenance, 10/12/22 17:00:00 EST, REC Powder, [facility]/pharmacy #[id number], test date 10/13/22, 240 mL By [...] Refills, Maintenance, 12/21/23 8:40:00 EDT, [id number], 192.3, cm, 11/24/23 8:32:00 EST, Height, 108, kg, 08/04/23 9:53:00 EDT, Dry Weight Start Date: 12/21/23 Status: Ordered Pen [place], 31 G x 5 mm BD Ultra [...] Route to Pharmacy Electronically, [facility]/pharmacy #[id number], 192.3, cm, 10/13/23 12:06:00EST, Height, 108, [...] Tobacco use times per day: Down to 2 pack a day from 1 pack a day. Has been smoking for 35 years.; entered on: 08/19/17 Sex Patient Care team information Care Team Personnel Name: Jerry CHANG, Latesha Rocha Position: [facility] Physician - Primary Care Member Role: PCP Address: Address: [address] [place] [address]- Care Team Related Persons Name: ROSALIA MAYES Address: home [address] [place] [address]
--- OUTSIDE RECORDS SUMMARY | 2024-05-09 08:00 | XMS_ITS | Continuity of Care Document ---
Author Organization [facility] Address [address] [place] [address]- Care Team Providers Care Microchip Specialist Name Role Phone Jerry CHANG, Latesha Rocha Primary Care Physic augustina Encounter [facility] Date(s): 03/30/22 - 04/29/22 [facility] [address] [place] [address]- [place] Allergies, Adverse Reactions, Alerts No Known [...] 2Result Comment: Beverley WEBER [place] 3Result Comment: [facility]: [id number] 4Result Comment: [09/07/2018] [facility] # [id number] 5Result Comment: [07/05/2017] [facility] [id number] 6Result Comment: [11/07/2014] Dr. Knox; consent signed. [...] 15:07:00 EDT, Powder, Route to Pharmacy Electronically, [id number], [facility]/pharmacy #[id number], 193.2, cm, 11/04/20 13:14:00 EST, Height,... Start Date: 02/04/21 Stop Date: 08/03/21 Status: Ordered albuterol CFC free 90 mcg/inh inhalation aerosol 2, puffs, Inhalation, Every 4 hours, PRN, # 3 each, Refills 1, Tot. Refills 1, Maintenance, 03/26/22 17:52:00 EDT, Route to Pharmacy Electronically, [id number], [facility]/pharmacy#[id number], 193.2, cm, 03/16/22 9:24:00 [...] 1 Refills, Soft Stop, 02/18/22 9:16:00 EDT, [facility]/pharmacy #[id number], 193.2, cm, 11/05/21 [...] 1 Refills, Soft Stop, 01/30/22 15:09:00 EDT, [facility]/pharmacy #[id number], 193.2, cm, 11/05/21 10:33:00 EST, Height Start Date: 01/30/22 Stop Date: 07/29/22 Status: Ordered clonazePAM 0.5 mg oral tablet 1 tablet = 0.5 mg, By Mouth, Daily, # 28 tablet, 0 Refills, Maintenance, 04/24/22 15:44:00 EDT, Tablet, [facility]/pharmacy #[id number], [...] tablet, 1 Refills, Maintenance, 03/31/22 13:35:00 EDT, [facility]/pharmacy #[id number], Partial fill upon patient request if the prescription is for a schedule II opioid drug., 193.2, cm, 03/16/22 9:24:00 EDT, Height Start Date: 03/31/22 Stop Date: 09/27/22 Status: Ordered metFORMIN 500 mg oral tablet, extended release 2 tablet = 1,000 mg, By Mouth, Daily, # 180 tablet, 1 Refills, Soft Stop, 10/01/21 13:42:00 EST, [facility]/pharmacy #[id number], 193.2, cm, 02/03/21 8:56:00 EDT, Height Start Date: 10/01/21 Stop Date: 03/30/22 Status: Ordered NovoLOG 100 units/mL subcutaneous solution See Instructions, 1-5 units sliding scale 15 min prior to meals Subcutaneous Infusion 3 times a day., # 30 mL, 0 Refills, Maintenance, 12/15/21 14:12:00 EDT, [facility]/pharmacy #[id number], 193.2, cm, 11/05/21 10:33:00 EST, Height Start Date: 12/15/21 Status: Ordered Pen [place], 30 G x 8 mm BD Ultra Fine II See Instructions, # 100 each, Refills 3, Tot. Refills 3, Maintenance, use as directed for Type 2 Diabetes Mellitus - once a day, 10/09/15 14:01:07, Compound Start Date: 10/09/15 Stop Date: 02/06/16 Status: Ordered Pen [place], 31 G x 5 mm BD Ultra Fine III See Instructions, # 100 each, Refills 2, Tot. Refills 2, Maintenance, use to inject Basaglar 1x daily, E11.9, 90-day, 12/02/21 15:33:00 EST, Supply, 193.2, cm, 11/05/21 10:33:00 EST, Height Start Date: 12/02/21 Status: Ordered Pen [place], 31 G x 8 mm BD [...] 3 Refills, Maintenance, 03/16/22 9:55:00 EDT, Tablet, [facility]/pharmacy #[id number], Partial fill upon patient request if the prescription is for a schedule II opioid drug., 193.2, cm,... Start Date: 03/16/22 Status: Ordered Singulair 10 mg oral tablet 10 mg, 1, tablet, By Mouth, Daily in PM, # 90 tablet, Refills 3, Tot. Refills 3, Maintenance, 01/15/22 12:15:00 EDT, Route to Pharmacy Electronically, [facility]/pharmacy #[id number], 193.2, cm, 11/05/21 [...]
[2024-05-09 08:01] VITALS: BP 142/75; PULSE 73; RESP 16; O2SAT 97; BMI 27.2
--- OUTSIDE RECORDS SUMMARY | 2024-05-09 08:01 | XMS_ITS | Continuity of Care Document ---
Author Organization [facility] Address [address] [place] [address]- Care Team Providers Care Sexual Health Physician Name Role Phone Jerry CHANG, Latesha Rocha Primary Care Physic augustina Encounter [facility] Date(s): 06/17/20 - 07/17/20 [facility] [address] [place] [address]- [facility] Allergies, Adverse Reactions, Alerts No Known Medication [...] (Td) 10/04/99 Recorded 1Result Comment: [09/07/2018] [facility] # [id number] 2Result Comment: [07/05/2017] [facility] [id number] 3Result Comment: [11/07/2014] Dr. Knox; consent signed. [...] 14:47:00 EDT, Powder, Route to Pharmacy Electronically, [id number], [facility]/pharmacy #[id number], 194.2, cm, 08/16/19 8:47:00 EST, Height,... Start Date: 02/09/20 Stop Date: 08/07/20 Status: Ordered albuterol CFC free 90 mcg/inh inhalation aerosol 2, puffs, Inhalation, Every 4 hours, PRN, # 8.5 Unknown, Refills 1, Tot. Refills 1, Maintenance, 01/11/20 11:44:00 EDT, Route to Pharmacy Electronically, [id number], [facility]/pharmacy #[id number], 194.2, cm, 08/16/19 8:47:00 EST, [...] 1 Refills, Soft Stop, 01/31/20 16:18:00 EDT, [facility]/pharmacy #[id number], 194.2, cm, 08/16/19 8:47:00 EST, Height, 113.1, kg, 08/09/19 10:20:00EST, Dry Weight Start Date: 01/31/20 Status: Ordered Basaglar KwikPen = 70 units, Subcutaneous Infusion, Daily, 0 Refills, Maintenance, 01/12/19 11:14:14 EDT Start Date: 01/12/19 Status: Ordered buPROPion 150 mg/12 hours (SR) oral tablet, extended release 1 tablet = 150 mg, By Mouth, Daily, # 90 tablet, 1 Refills, Soft Stop, 06/17/20 15:49:00 EDT, [facility]/pharmacy #[id number], 198, cm, 04/25/20 9:27:00 EDT, Height, 113.1, kg, 08/09/19 10:20:00 EST, Dry Weight Start Date: 06/17/20 Stop Date: 12/14/20 Status: Ordered Freestyle [place] Sensor See Instructions, # 2 each, Refills 5, Tot. Refills 5, Maintenance, Use to test blood sugars for 14days. Type II DM E11.9, 06/20/20 12:20:00 EDT, Supply, 198, cm, 04/25/20 9:27:00 EDT, Height, 113.1, kg, 08/09/19 10:20:00 EST, Dry Weight Start Date: 06/20/20 Status: Ordered Insulin Syringe, BD Ultra-Fine 0.5 [...] Refills, Maintenance, 10/27/19 7:12:00 EST, Tablet, [facility]/pharmacy #[id number], 194.2, cm, 08/16/19 8:47:00 EST, Height, 113.1, kg, 08/09/19 10:20:00 EST, D... Start Date: 10/27/19 Stop Date: 04/24/20 Status: Ordered levothyroxine 175 mcg (0.175 mg) oral tablet 1 tablet = 175 mcg, By Mouth, Daily, # 90 tablet, 0 Refills, Maintenance, 02/29/20 9:22:00 EDT, Tablet, [facility]/pharmacy #[id number], 194.2, cm, 08/16/19 8:47:00 EST, Height, 113.1, kg, 08/09/19 10:20:00 EST, Dry Weight Start Date: 02/29/20 Stop Date: 05/29/20 Status: Ordered metFORMIN 500 mg oral tablet, extended release 2 tablet = 1,000 mg, By Mouth, Daily, # 180 tablet, 0 Refills, Soft Stop, 05/14/20 14:03:00 EDT, [facility]/pharmacy #[id number], 198, cm, 04/25/20 9:27:00 EDT, Height, [...] EST,... Start Date: 11/05/19 Status: Ordered Pen [place], 30 G x 8 mm BD Ultra Fine II See Instructions, # 100 each, Refills 3, Tot. Refills 3, Maintenance, use as directed for Type 2 Diabetes Mellitus - once a day, 10/09/15 14:01:07, Compound Start Date: 10/09/15 Stop Date: 02/06/16 Status: Ordered Pen [place], 31 G x 5 mm BD Ultra Fine III See Instructions, # 100 each, Refills 2, Tot. Refills 2, Maintenance, use to inject Basaglar 1x daily, E11.9, 90-day, 02/01/20 10:42:00 EDT, Supply, 194.2, cm, 08/16/19 8:47:00 EST, Height, 113.1, kg, 08/09/19 10:20:00 EST, Dry Weight Start Date: 02/01/20 Status: Ordered Pen [place], 31 G x 8 mm BD Ultra [...] 11:42:00 EDT, Route to Pharmacy Electronically, [facility]/pharmacy #[id number], 194.2, cm, 08/16/19 8:47:00 EST, [...]
--- OUTSIDE RECORDS SUMMARY | 2024-05-09 08:01 | XMS_ITS | Continuity of Care Document ---
Author Organization [facility] Address [address] [place] [address]- Care Team Providers Care Utility Maintenance Worker Name Role Phone Jerry CHANG, Latesha Rocha Primary Care Physic augustina Encounter [facility] Date(s): 09/01/23 - 10/01/23 [facility] [address] [place] [address]- Allergies, Adverse Reactions, Alerts No Known Medication Allergies Substance Reaction Severity Status Other Environmental Allergy 1 Active 1pets Immunizations Given and Recorded Vaccine Date Status Refusal Reason Influenza Virus Vaccine (oldterm) 1 07/10/23 Recor ded SARS-CoV-2 mRNA (diqgxvl-zkyv-yhoxi) vax 2 07/10/23 Recorded influenza virus vaccine, [...] Recorded 1Result Comment: pt recevied vaccine from [facility] pharmacy 2Result Comment: pt received vaccine from [facility] pharmacy 3Result Comment: [facility]: [id number] 4Result Comment: [09/07/2018] [facility] # [id number] 5Result Comment: [07/05/2017] [facility] [id number] 6Result Comment: GUS Lowery [place] 7Result Comment: Beverley WEBER [place] 8Result Comment: [11/07/2014] Dr. Knox; consent signed. Medications Advair Diskus 250 mcg-50 mcg inhalation powder 1, puffs, Inhalation, 2 times a day, # 3 each, Refills 1, Tot. Refills 1, Maintenance, 09/01/23 18:48:00 EST, Powder, Route to Pharmacy Electronically, [id number], [facility]/pharmacy #[id number], 192.3, cm, 09/01/23 11:35:00 EST, Height,... Start Date: 09/01/23 Stop Date: 02/28/24 Status: Ordered albuterol CFC free 90 mcg/inh inhalation aerosol 2, puffs, Inhalation, Every 4 hours, PRN, # 3 each, Refills 3, Tot. Refills 3, Maintenance, 05/07/23 10:14:00 EDT, Route to Pharmacy Electronically, [id number], [facility]/pharmacy#[id number], 195, cm, [...] ... Start Date: 09/02/23 Status: Ordered Pen [place], 31 G x 5 mm BD Ultra [...] Rocha Position: [facility] Physician - Primary Care Member Role: PCP Address: Address[facility] [place] [address]- Care Team Related Persons Name: ROSALIA MAYES Address: [address] [place] [address]
--- OUTSIDE RECORDS SUMMARY | 2024-05-09 08:01 | XMS_ITS | Continuity of Care Document ---
Author Organization [facility] Address [address] [place] [address]- Care Team Providers Care Rn Otolaryngology Name Role Phone Jerry CHANG, Latesha Rocha Primary Care Physic augustina Encounter [facility] Date(s): 09/30/21 - 10/30/21 [facility] [address] [place] [address]- [place] Allergies, Adverse Reactions, Alerts No Known [...] [facility]: [id number] 4Result Comment: [09/07/2018] [facility] # [id number] 5Result Comment: [07/05/2017] [facility] [id number] 6Result Comment: [11/07/2014] Dr. Knox; consent signed. [...] 15:07:00 EDT, Powder, Route to Pharmacy Electronically, [id number], [facility]/pharmacy #[id number], 193.2, cm, 11/04/20 13:14:00 EST, Height,... Start Date: 02/04/21 Stop Date: 08/03/21 Status: Ordered albuterol CFC free 90 mcg/inh inhalation aerosol 2, puffs, Inhalation, Every 4 hours, PRN, # 3 each, Refills 1, Tot. Refills 1, Maintenance, 06/12/21 22:49:00 EDT, Route to Pharmacy Electronically, [id number], [facility]/pharmacy#[id number], 193.2, cm, 02/03/21 8:56:00 EDT, [...] 1 Refills, Soft Stop, 06/12/21 22:49:00 EDT, [facility]/pharmacy #[id number], 193.2, cm, 02/03/21 8:56:00 EDT, Height, 113.1, kg, 08/09/19 10:20:00EST, Dry Weight Start Date: 06/12/21 Status: Ordered Basaglar KwikPen 100 units/mL subcutaneous solution = 75 units, Subcutaneous Injection, Daily at bedtime, # 12 mL, 0 Refills, Maintenance, 01/06/21 11:59:00 EDT, [facility]/pharmacy #[id number], 193.2, cm, 11/04/20 13:14:00 [...] 1 Refills, Soft Stop, 08/03/21 15:09:00 EDT, [facility]/pharmacy #[id number], 193.2, cm, 02/03/21 8:56:00 [...] 1 Refills, Maintenance, 06/13/21 17:12:00 EDT, Tablet, [facility]/pharmacy #1095, 193.2, cm, 02/03/21 8:56:00 EDT, Height, 113.1, kg, 08/09/19 10:20:00 EST,... Start Date: 06/13/21 Stop Date: 12/10/21 Status: Ordered levothyroxine 175 mcg (0.175 mg) oral tablet 1 tablet = 175 mcg, By Mouth, Daily, for 90 days, # 90 tablet, 1 Refills, Hard Stop 12/10/21 12:26:00 EST, 06/13/21 12:26:00 EDT, Tablet, [facility]/pharmacy #[id number], 193.2, cm, 02/03/21 8:56:00 EDT, Height, 113.1, kg, 08/09/19 10:20:00 EST, Dry Weight Start Date: 06/13/21 Stop Date: 12/10/21 Status: Ordered MetFORMIN (Eqv-Glucophage XR) 500 mg oral tablet, extended release 2 tablet = 1,000 mg, By Mouth, Daily, # 180 tablet, 1 Refills, Maintenance, 10/02/21 13:35:00 EST, [facility]/pharmacy #[id number], Partial fill upon patient request if the prescription is for a schedule II opioid drug., 193.2, cm, 02/03/21 8:56:00 EDT, Height Start Date: 10/02/21 Stop Date: 03/31/22 Status: Ordered metFORMIN 500 mg oral tablet, extended release 2 tablet = 1,000 mg, By Mouth, Daily, # 180 tablet, 1 Refills, Soft Stop, 10/01/21 13:42:00 EST, [facility]/pharmacy #[id number], 193.2, cm, 02/03/21 8:56:00 EDT, Height Start Date: 10/01/21 Stop Date: 03/30/22 Status: Ordered NovoLOG 100 units/mL subcutaneous solution See Instructions, 1-5 units sliding scale 15 min prior to meals Subcutaneous Infusion 3 times a day., # 30 mL, 0 Refills, Maintenance, 01/06/21 11:59:00 EDT, [facility]/pharmacy #[id number], 193.2, cm, 11/04/20 13:14:00 EST, Height, 113.1, kg, 08/09/19 10:20:00 ES... Start Date: 01/06/21 Status: Ordered Pen [place], 30 G x 8 mm BD Ultra Fine II See Instructions, # 100 each, Refills 3, Tot. Refills 3, Maintenance, use as directed for Type 2 Diabetes Mellitus - once a day, 10/09/15 14:01:07, Compound Start Date: 10/09/15 Stop Date: 02/06/16 Status: Ordered Pen [place], 31 G x 5 mm BD Ultra Fine III See Instructions, # 100 each, Refills 2, Tot. Refills 2, Maintenance, use to inject Basaglar 1x daily, E11.9, 90-day, 08/08/20 15:07:00 EST, Supply, 193.2, cm, 08/08/20 14:34:00 EST, Height, 113.1, kg, 08/09/19 10:20:00 EST, Dry Weight Start Date: 08/08/20 Status: Ordered Pen [place], 31 G x 8 mm BD [...] 06/12/21 22:49:00 EDT, Route to Pharmacy Electronically, [facility]/pharmacy #[id number], 193.2, cm, 02/03/21 8:56:00 [...]
--- OUTSIDE RECORDS SUMMARY | 2024-05-09 08:01 | XMS_ITS | Continuity of Care Document ---
Author Organization [facility] Address [address] [place] [address]- Care Team Providers Care Desulfurizer Machine Name Role Phone Jerry CHANG, Latesha Rocha Primary Care Physic augustina Encounter [facility] Date(s): 04/03/20 - 04/10/20 [facility] [address] [place] [address]- [facility] Encounter Diagnosis Olecranon bursitis of left elbow(Discharge Diagnosis) - 04/03/20 Attending Physician: Jerry CHANG, Latesha Rocha Allergies, [...] toxoids (Td) 10/04/99 Recorded 1Result Comment: [09/07/2018] [facility] # [id number] 2Result Comment: [07/05/2017] [facility] [id number] 3Result Comment: [11/07/2014] Dr. Knox; consent signed. [...] 14:47:00 EDT, Powder, Route to Pharmacy Electronically, [id number], [facility]/pharmacy #[id number], 194.2, cm, 08/16/19 8:47:00 EST, Height,... Start Date: 02/09/20 Stop Date: 08/07/20 Status: Ordered albuterol CFC free 90 mcg/inh inhalation aerosol 2, puffs, Inhalation, Every 4 hours, PRN, # 8.5 Unknown, Refills 1, Tot. Refills 1, Maintenance, 01/11/20 11:44:00 EDT, Route to Pharmacy Electronically, [id number], [facility]/pharmacy #[id number], 194.2, cm, 08/16/19 8:47:00 [...] 1 Refills, Soft Stop, 01/31/20 16:18:00 EDT, [facility]/pharmacy #1095, 194.2, cm, 08/16/19 8:47:00 [...] 0 Refills, Soft Stop, 01/09/20 15:17:00 EDT, [facility]/pharmacy #1095, 194.2, cm, 08/16/19 8:47:00 [...] 1 Refills, Maintenance, 10/27/19 7:12:00 EST, Tablet, [facility]/pharmacy #1095, 194.2, cm, 08/16/19 8:47:00 EST, Height, 113.1, kg, 08/09/19 10:20:00 EST, D... Start Date: 10/27/19 Stop Date: 04/24/20 Status: Ordered levothyroxine 175 mcg (0.175 mg) oral tablet 1 tablet = 175 mcg, By Mouth, Daily, # 90 tablet, 0 Refills, Maintenance, 02/29/20 9:22:00 EDT, Tablet, [facility]/pharmacy #[id number], 194.2, cm, 08/16/19 8:47:00 EST, Height, 113.1, kg, 08/09/19 10:20:00 EST, Dry Weight Start Date: 02/29/20 Stop Date: 05/29/20 Status: Ordered metFORMIN 500 mg oral tablet, extended release 2 tablet = 1,000 mg, By Mouth, Daily, # 180 tablet, 0 Refills, Soft Stop, 02/29/20 9:22:00 EDT, [facility]/pharmacy #[id number], 194.2, cm, 08/16/19 8:47:00 [...] EST,... Start Date: 11/05/19 Status: Ordered Pen [place], 30 G x 8 mm BD Ultra Fine II See Instructions, # 100 each, Refills 3, Tot. Refills 3, Maintenance, use as directed for Type 2 Diabetes Mellitus - once a day, 10/09/15 14:01:07, Compound Start Date: 10/09/15 Stop Date: 02/06/16 Status: Ordered Pen [place], 31 G x 5 mm BD Ultra Fine III See Instructions, # 100 each, Refills 2, Tot. Refills 2, Maintenance, use to inject Basaglar 1x daily, E11.9, 90-day, 02/01/20 10:42:00 EDT, Supply, 194.2, cm, 08/16/19 8:47:00 EST, Height, 113.1, kg, 08/09/19 10:20:00 EST, Dry Weight Start Date: 02/01/20 Status: Ordered Pen [place], 31 G x 8 mm BD Ultra [...] 01/11/20 11:42:00 EDT, Route to Pharmacy Electronically, [facility]/pharmacy #[id number], 194.2, cm, 08/16/19 8:47:00 [...] Dates Health Status Cl inical Service Informant Olecranon bursitis of left elbow Discharge Diagnosis 04/03/20 Vital Signs Most recent to oldest [Reference Range]: 1 Height 194.2 cm (04/03/20 9:27 AM) Social History Social History Type Response Smoking Status Current every day sm oker; Tobacco user in household: No; Type: Cigarettes; Tobacco use times per day: Down to 1/2 pack a day from 1 pack a day. Has been smoking for 35 years.; entered on: 08/19/17 Sex
--- OUTSIDE RECORDS SUMMARY | 2024-05-09 08:01 | XMS_ITS | Continuity of Care Document ---
Author Organization [facility] Address [address] [place] [address]- Care Team Providers Care Ear Nose And Throat Specialist Name Role Phone Jerry CHANG, Latesha Rocha Primary Care Physic augustina Encounter [facility] Date(s): 11/06/21 - 03/06/22 [facility] [address] [place] [address]- [place] Attending Physician: Jerry CHANG, Latesha Rocha [...] 2Result Comment: Beverley WEBER [place] 3Result Comment: [facility]: [id number] 4Result Comment: [09/07/2018] [facility] # [id number] 5Result Comment: [07/05/2017] [facility] [id number] 6Result Comment: [11/07/2014] Dr. Knox; consent signed. [...] 15:07:00 EDT, Powder, Route to Pharmacy Electronically, [id number], [facility]/pharmacy #[id number], 193.2, cm, 11/04/20 13:14:00 EST, Height,... Start Date: 02/04/21 Stop Date: 08/03/21 Status: Ordered albuterol CFC free 90 mcg/inh inhalation aerosol 2, puffs, Inhalation, Every 4 hours, PRN, # 3 each, Refills 1, Tot. Refills 1, Maintenance, 06/12/21 22:49:00 EDT, Route to Pharmacy Electronically, [id number], [facility]/pharmacy#1095, 193.2, cm, 02/03/21 8:56:00 EDT, Height, 113... Start Date: 06/12/21 Status: Ordered aspirin 81 mg oral tablet 1 tablet = 81 mg, By Mouth, Daily, # 90 tablet, 0 Refills, Maintenance, 05/20/17 11:35:13, Tablet Start Date: 05/20/17 Status: Ordered atorvastatin 20 mg oral tablet See Instructions, TAKE 1 TABLET BY MOUTH EVERY DAY, # 90 tablet, 1 Refills, Soft Stop, 02/18/22 9:16:00 EDT, [facility]/pharmacy #1095, 193.2, cm, 11/05/21 10:33:00 EST, Height Start Date: 02/18/22 Status: Ordered Basaglar KwikPen 100 units/mL subcutaneous solution = 75 units, Subcutaneous Injection, Daily at bedtime, # 12 mL, 0 Refills, Maintenance, 02/18/22 9:16:00 EDT, [facility]/pharmacy #1095, 193.2, cm, 11/05/21 10:33:00 EST, Height [...] Soft Stop, 01/30/22 15:09:00 EDT, [facility]/pharmacy #1095, 193.2, cm, 11/05/21 10:33:00 EST, Height Start Date: 01/30/22 Stop Date: 07/29/22 Status: Ordered clonazePAM 0.5 mg oral tablet 1 tablet = 0.5 mg, By Mouth, Daily, # 28 tablet, 0 Refills, Maintenance, 02/18/22 9:16:00 EDT, Tablet, [facility]/pharmacy #[id number], [...] 1 Refills, Maintenance, 10/02/21 13:35:00 EST, [facility]/pharmacy #[id number], Partial fill upon patient request if the prescription is for a schedule II opioid drug., 193.2, cm, 02/03/21 8:56:00 EDT, Height Start Date: 10/02/21 Stop Date: 03/31/22 Status: Ordered metFORMIN 500 mg oral tablet, extended release 2 tablet = 1,000 mg, By Mouth, Daily, # 180 tablet, 1 Refills, Soft Stop, 10/01/21 13:42:00 EST, [facility]/pharmacy #1095, 193.2, cm, 02/03/21 8:56:00 EDT, Height Start Date: 10/01/21 Stop Date: 03/30/22 Status: Ordered NovoLOG 100 units/mL subcutaneous solution See Instructions, 1-5 units sliding scale 15 min prior to meals Subcutaneous Infusion 3 times a day., # 30 mL, 0 Refills, Maintenance, 12/15/21 14:12:00 EDT, [facility]/pharmacy #[id number], 193.2, cm, 11/05/21 10:33:00 EST, Height Start Date: 12/15/21 Status: Ordered Pen [place], 30 G x 8 mm BD Ultra Fine II See Instructions, # 100 each, Refills 3, Tot. Refills 3, Maintenance, use as directed for Type 2 Diabetes Mellitus - once a day, 10/09/15 14:01:07, Compound Start Date: 10/09/15 Stop Date: 02/06/16 Status: Ordered Pen [place], 31 G x 5 mm BD Ultra Fine III See Instructions, # 100 each, Refills 2, Tot. Refills 2, Maintenance, use to inject Basaglar 1x daily, E11.9, 90-day, 12/02/21 15:33:00 EST, Supply, 193.2, cm, 11/05/21 10:33:00 EST, Height Start Date: 12/02/21 Status: Ordered Pen [place], 31 G x 8 mm [...] Refills, Maintenance, 01/15/22 12:14:00 EDT, Tablet, [facility]/pharmacy #[id number], [...] 12:15:00 EDT, Route to Pharmacy Electronically, [facility]/pharmacy #[id number], 193.2, cm, 11/05/21 10:33:00EST, Height Start [...]
--- OUTSIDE RECORDS SUMMARY | 2024-05-09 08:01 | XMS_ITS | Continuity of Care Document ---
Author Organization [facility] Address [address] [place] [address]- Care Team Providers Care Scientific Diver Name Role Phone Jerry CHANG, Latesha Rocha Primary Care Physic augustina Encounter [facility] Date(s): 03/16/22 - 03/23/22 [facility] [address] [place] [address]- Encounter Diagnosis Diabetes mellitus type II, uncontrolled(Discharge Diagnosis) - 03/16/22 Injury of left toe(Discharge Diagnosis) - 03/16/22 Attending Physician: Nicole Zavaleta NP Referring Physician: Jerry CHANG, Latesha Rocha Allergies, [...] 2Result Comment: Beverley WEBER [place] 3Result Comment: [facility]: [id number] 4Result Comment: [09/07/2018] [facility] # [id number] 5Result Comment: [07/05/2017] [facility] [id number] 6Result Comment: [11/07/2014] Dr. Knox; consent signed. [...] 15:07:00 EDT, Powder, Route to Pharmacy Electronically, [id number], [facility]/pharmacy #[id number], 193.2, cm, 11/04/20 13:14:00 EST, Height,... Start Date: 02/04/21 Stop Date: 08/03/21 Status: Ordered albuterol CFC free 90 mcg/inh inhalation aerosol 2, puffs, Inhalation, Every 4 hours, PRN, # 3 each, Refills 1, Tot. Refills 1, Maintenance, 06/12/21 22:49:00 EDT, Route to Pharmacy Electronically, [id number], [facility]/pharmacy#[id number], 193.2, cm, 02/03/21 8:56:00 EDT, Height, 113... Start Date: 06/12/21 Status: Ordered aspirin 81 mg oral tablet 1 tablet = 81 mg, By Mouth, Daily, # 90 tablet, 0 Refills, Maintenance, 05/20/17 11:35:13, Tablet Start Date: 05/20/17 Status: Ordered atorvastatin 20 mg oral tablet See Instructions, TAKE 1 TABLET BY MOUTH EVERY DAY, # 90 tablet, 1 Refills, Soft Stop, 02/18/22 9:16:00 EDT, [facility]/pharmacy #[id number], 193.2, cm, 11/05/21 10:33:00 EST, Height Start Date: 02/18/22 Status: Ordered Basaglar KwikPen 100 units/mL subcutaneous solution = 70 units, Subcutaneous Injection, Daily at bedtime, pt reduced to 70 units related to hypoglycema, # 12 mL, 0 Refills, Maintenance, 02/18/22 9:16:00 EDT, [facility]/pharmacy #[id number], 193.2, cm, 11/05/21 10:33:00 EST, Height [...] 1 Refills, Soft Stop, 01/30/22 15:09:00 EDT, [facility]/pharmacy #[id number], 193.2, cm, 11/05/21 10:33:00 EST, Height Start Date: 01/30/22 Stop Date: 07/29/22 Status: Ordered clonazePAM 0.5 mg oral tablet 1 tablet = 0.5 mg, By Mouth, Daily, # 28 tablet, 0 Refills, Maintenance, 02/18/22 9:16:00 EDT, Tablet, [facility]/pharmacy #[id number], Partial [...] 1 Refills, Maintenance, 12/17/21 12:34:00 EDT, Tablet, [facility]/pharmacy #[id number], 193.2, cm, 11/05/21 10:33:00 EST, Height Start Date: 12/17/21 Stop Date: 06/15/22 Status: Ordered MetFORMIN (Eqv-Glucophage XR) 500 mg oral tablet, extended release 2 tablet = 1,000 mg, By Mouth, Daily, # 180 tablet, 1 Refills, Maintenance, 10/02/21 13:35:00 EST, [facility]/pharmacy #[id number], Partial [...] Height Start Date: 12/15/21 Status: Ordered Pen [place], 30 G x 8 mm BD Ultra Fine II See Instructions, # 100 each, Refills 3, Tot. Refills 3, Maintenance, use as directed for Type 2 Diabetes Mellitus - once a day, 10/09/15 14:01:07, Compound Start Date: 10/09/15 Stop Date: 02/06/16 Status: Ordered Pen [place], 31 G x 5 mm BD Ultra Fine III See Instructions, # 100 each, Refills 2, Tot. Refills 2, Maintenance, use to inject Basaglar 1x daily, E11.9, 90-day, 12/02/21 15:33:00 EST, Supply, 193.2, cm, 11/05/21 10:33:00 EST, Height Start Date: 12/02/21 Status: Ordered Pen [place], 31 G x 8 mm BD Ultra [...] 3 Refills, Maintenance, 03/16/22 9:55:00 EDT, Tablet, [facility]/pharmacy #[id number], Partial fill upon patient request if the prescription is for a schedule II opioid drug., 193.2, cm,... Start Date: 03/16/22 Status: Ordered Singulair 10 mg oral tablet 10 mg, 1, tablet, By Mouth, Daily in PM, # 90 tablet, Refills 3, Tot. Refills 3, Maintenance, 01/15/22 12:15:00 EDT, Route to Pharmacy Electronically, [facility]/pharmacy #[id number], 193.2, cm, 11/05/21 10:33:00EST, Height Start [...] Diabetes mellitus type II, uncontrolled Discharge Diagnosis 03/16/22 Injury of left toe Discharge Diagnosis 03/16/22 Vital Signs Most recent to oldest [Reference Range]: 1 Height 193.2 cm (03/16/22 9:24 AM) Social History Social History Type Response Smoking Status Current every day sm oker; Tobacco user in household: No; Type: Cigarettes; Tobacco use times per day: Down to 1/2 pack a day from 1 pack a day. Has been smoking for 35 years.; entered on: 08/19/17 Sex
--- OUTSIDE RECORDS SUMMARY | 2024-05-09 08:01 | XMS_ITS | Continuity of Care Document ---
Author Organization [facility] Address [address] [place] [address]- Care Team Providers Care Stock Repairer Name Role Phone Jerry CHANG, Latesha Rocha Primary Care Physic augustina Encounter [facility] Date(s): 08/31/22 - 09/30/22 [facility] [address] [place] [address]- Allergies, Adverse Reactions, Alerts No Known Medication [...] (Td) 10/04/99 Recorded 1Result Comment: [facility]: [id number] 2Result Comment: [09/07/2018] [facility] # [id number] 3Result Comment: [07/05/2017] [facility] [id number] 4Result Comment: GUS Lowery [place] 5Result Comment: [...] 12:32:00 EDT, Powder, Route to Pharmacy Electronically, [id number], [facility]/pharmacy #[id number], 193.2, cm, 07/27/22 10:43:00 EDT, Height Start Date: 07/27/22 Stop Date: 07/22/23 Status: Ordered albuterol CFC free 90 mcg/inh inhalation aerosol 2, puffs, Inhalation, Every 4 hours, PRN, # 3 each, Refills 1, Tot. Refills 1, Maintenance, 07/27/22 12:32:00 EDT, Route to Pharmacy Electronically, [id number], [facility]/pharmacy#[id number], 193.2, cm, 07/27/22 10:43:00 EDT, Height Start Date: 07/27/22 Status: Ordered aspirin 81 mg oral tablet 1 tablet = 81 mg, By Mouth, Daily, # 90 tablet, 0 Refills, Maintenance, 05/20/17 11:35:13, Tablet Start Date: 05/20/17 Status: Ordered atorvastatin 20 mg oral tablet See Instructions, TAKE 1 TABLET BY MOUTH EVERY DAY, # 90 tablet, 3 Refills, Soft Stop, 07/27/22 12:32:00 EDT, [facility]/pharmacy #[id number], 193.2, cm, 07/27/22 10:43:00 EDT, Height Start Date: 07/27/22 Status: Ordered Basaglar KwikPen 100 units/mL subcutaneous solution = 80 units, Subcutaneous Injection, Daily at bedtime, # 15 mL, 6 Refills, Maintenance, 07/27/22 11:43:00 EDT, [facility]/pharmacy #[id number], 193.2, cm, 07/27/22 10:43:00 EDT, [...] 3 Refills, Soft Stop, 10/27/22 15:09:00 EST, [facility]/pharmacy #[id number], 193.2, cm, 07/27/22 10:43:00 EDT, Height Start Date: 10/27/22 Stop Date: 10/22/23 Status: Ordered buPROPion 150 mg/12 hours (SR) oral tablet, extended release 1 tablet = 150 mg, By Mouth, Daily, for 90 days, # 90 tablet, 0 Refills, Hard Stop 10/27/22 15:09:00 EST, 07/29/22 15:09:00 EDT, [facility]/pharmacy #[id number], 193.2, cm, 03/16/22 9:24:00 EDT, Height Start Date: 07/29/22 Stop Date: 10/27/22 Status: Ordered clonazePAM 0.5 mg oral tablet 1 tablet = 0.5 mg, By Mouth, Daily, # 28 tablet, 0 Refills, Maintenance, 09/02/22 17:46:00 EST, Tablet, [facility]/pharmacy #[id number], Partial fill upon patient request [...] 1 Refills, Soft Stop, 10/01/21 13:42:00 EST, [facility]/pharmacy #[id number], 193.2, cm, 02/03/21 8:56:00 EDT, [...] Refills, Maintenance, 10/12/22 17:00:00 EST, REC Powder, [facility]/pharmacy #[id number], test date 10/13/22, 240 mL By Mouth Every 10 minutes,Instr:M... Start Date: 10/12/22 Status: Ordered Pen [place], 30 G x 8 mm BD Ultra Fine II See Instructions, # 100 each, Refills 3, Tot. Refills 3, Maintenance, use as directed for Type 2 Diabetes Mellitus - once a day, 10/09/15 14:01:07, Compound Start Date: 10/09/15 Stop Date: 02/06/16 Status: Ordered Pen [place], 31 G x 5 mm BD Ultra Fine III See Instructions, # 100 each, Refills 3, Tot. Refills 3, Maintenance, use to inject Basaglar 1x daily, E11.9, 90-day, 07/27/22 12:32:00 EDT, Supply, 193.2, cm, 07/27/22 10:43:00 EDT, Height Start Date: 07/27/22 Status: Ordered Pen [place], 31 G x 8 mm BD Ultra Fine III See Instructions, # 100 each, Refills 1, Tot. Refills 1, Maintenance, use with Lantus 1x daily, Dx E11.9, 90-day, 03/15/17 15:55:47, Compound Start Date: 03/15/17 Stop Date: 09/11/17 Status: Ordered sertraline 50 mg oral tablet 1 tablet = 50 mg, By Mouth, Daily, # 90 tablet, 3 Refills, Maintenance, 07/27/22 12:32:00 EDT, Tablet, [facility]/pharmacy #[id number], Partial fill upon patient request if the prescription is for a schedule II opioid drug., 193.2, cm, 07/27/22 10:43:00 EDT, Height Start Date: 07/27/22 Stop Date: 07/22/23 Status: Ordered Singulair 10 mg oral tablet 10 mg, 1, tablet, By Mouth, Daily in PM, # 90 tablet, Refills 3, Tot. Refills 3, Maintenance, 07/27/22 12:32:00 EDT, Route to Pharmacy Electronically, [facility]/pharmacy #[id number], 193.2, cm, 07/27/22 10:43:00EDT, Height [...] team information Care Team Personnel Name: Jerry CHAGN, Latesha Rocha Position: [facility] Primary Care Physician Member Role: PCP Address: Address: [address] [place] [id number]- Care Team Related Persons Name: SUGEYROSALIA Address: home [address] [place] [address]
--- OUTSIDE RECORDS SUMMARY | 2024-05-09 08:01 | XMS_ITS | Continuity of Care Document ---
Author Organization [facility] Address [address] [place] [address]- Care Team Providers Care Service Engineer Name Role Phone Jerry CHANG, Latesha Rocha Primary Care Physic augustina Encounter [facility] Date(s): 12/06/20 - 01/05/21 [facility] [address] [place] [id number] Allergies, Adverse Reactions, Alerts No Known Medication Allergies Substance Reaction Severity Status Other Environmental Allergy 1 Active 1pets Immunizations Given and Recorded Vaccine Date Status Refusal Reason SARS-CoV-2 (COVID-19) mRNA-1273 vaccine 1 12/05/20 Recorded influenza virus vaccine, inactivated 2 08/08/20 Gi evan influenza virus vaccine, inactivated 3 09/07/18 Gi evan influenza virus vaccine, inactivated 4 07/05/17 Gi evan influenza virus vaccine, inactivated 09/02/16 Give n influenza virus vaccine, inactivated 10/09/15 Give n influenza virus vaccine, inactivated 07/18/14 Give n tetanus/diphtheria/pertussis, acel(Tdap) 5 11/07/14 Given tetanus-diphtheria toxoids (Td) 10/04/99 Recorded 1Result Comment: Beverley WEBER [place] 2Result Comment: [facility]: [id number] 3Result Comment: [09/07/2018] [facility] # [id number] 4Result Comment: [07/05/2017] [facility] [id number] 5Result Comment: [11/07/2014] Dr. Knox; consent signed. Medications [...] 15:07:00 EST, Powder, Route to Pharmacy Electronically, [id number], [facility]/pharmacy #[id number], 193.2, cm, 08/08/20 14:34:00 EST, Height,... Start Date: 08/08/20 Stop Date: 02/04/21 Status: Ordered albuterol CFC free 90 mcg/inh inhalation aerosol 2, puffs, Inhalation, Every 4 hours, PRN, # 3 each, Refills 1, Tot. Refills 1, Maintenance, 10/10/20 16:06:00 EST, Route to Pharmacy Electronically, [id number], [facility]/pharmacy#[id number], 193.2, cm, 08/08/20 14:34:00 EST, Height, 11... Start Date: 10/10/20 Status: Ordered aspirin 81 mg oral tablet 1 tablet = 81 mg, By Mouth, Daily, # 90 tablet, 0 Refills, Maintenance, 05/20/17 11:35:13, Tablet Start Date: 05/20/17 Status: Ordered atorvastatin 20 mg oral tablet See Instructions, TAKE 1 TABLET BY MOUTH EVERY DAY, # 90 tablet, 1 Refills, Soft Stop, 08/08/20 15:09:00 EST, [facility]/pharmacy #[id number], 193.2, cm, 08/08/20 14:34:00 EST, Height, 113.1, kg, 08/09/19 10:20:00 EST, Dry Weight Start Date: 08/08/20 Status: Ordered Basaglar KwikPen 100 units/mL subcutaneous solution = 75 units, Subcutaneous Injection, Daily at bedtime, # 12 mL, 3 Refills, Maintenance, 08/08/20 16:16:00 EST, [facility]/pharmacy #[id number], 193.2, cm, 08/08/20 14:34:00 EST, Height, 113.1, kg, 08/09/19 10:20:00 EST, Dry Weight Start Date: 08/08/20 Status: Ordered buPROPion 150 mg/12 hours (SR) oral tablet, extended release 1 tablet = 150 mg, By Mouth, Daily, # 90 tablet, 1 Refills, Soft Stop, 08/08/20 15:09:00 EST, [facility]/pharmacy #[id number], 193.2, cm, 08/08/20 14:34:00 EST, Height, [...] 1 Refills, Maintenance, 08/08/20 15:04:00 EST, Tablet, [facility]/pharmacy #[id number], 193.2, cm, 08/08/20 14:34:00 EST, Height, [...] mL, 1 Refills, Maintenance, 08/08/20 15:05:00 EST, [facility]/pharmacy #[id number], 193.2, cm, 08/08/20 14:34:00 EST, Height, 113.1, kg, 08/09/19 10:20:00 ES... Start Date: 08/08/20 Status: Ordered NuLYTELY with Flavor Packs oral powder for reconstitution 240 mL, By Mouth, Every 10 minutes, Split prep method, # 1 each, 0 Refills, Acute 03/21/21 6:30:00 EDT, 03/20/21 17:00:00 EDT, REC Powder, [facility]/pharmacy #[id number], test date 03/21/21, 240 mL By Mouth Every10 minutes,Instr:Split prep method, 193.2, cm, 02/0... Start Date: 03/20/21 Stop Date: 03/21/21 Status: Ordered Pen [place], 30 G x 8 mm BD Ultra Fine II See Instructions, # 100 each, Refills 3, Tot. Refills 3, Maintenance, use as directed for Type 2 Diabetes Mellitus - once a day, 10/09/15 14:01:07, Compound Start Date: 10/09/15 Stop Date: 02/06/16 Status: Ordered Pen [place], 31 G x 5 mm BD Ultra Fine III See Instructions, # 100 each, Refills 2, Tot. Refills 2, Maintenance, use to inject Basaglar 1x daily, E11.9, 90-day, 08/08/20 15:07:00 EST, Supply, 193.2, cm, 08/08/20 14:34:00 EST, Height, 113.1, kg, 08/09/19 10:20:00 EST, Dry Weight Start Date: 08/08/20 Status: Ordered Pen [place], 31 G x 8 mm BD Ultra [...] 08/08/20 15:03:00 EST, Route to Pharmacy Electronically, [facility]/pharmacy #[id number], 193.2, cm, 08/08/20 14:34:00EST, Height, 113.1, [...]
--- OUTSIDE RECORDS SUMMARY | 2024-05-09 08:01 | XMS_ITS | Continuity of Care Document ---
Author Organization [facility] Address [address] [place] [address]- Care Team Providers Care Mill Operator Name Role Phone Jerry CHANG, Latesha Rocha Primary Care Physic augustina Encounter [facility] Date(s): 09/01/23 - 10/01/23 [facility] [address] [place] [address]- Allergies, Adverse Reactions, Alerts No Known Medication Allergies Substance Reaction Severity Status Other Environmental Allergy 1 Active 1pets Immunizations Given and Recorded Vaccine Date Status Refusal Reason Influenza Virus Vaccine (oldterm) 1 07/10/23 Recor ded SARS-CoV-2 mRNA (kbzebac-vbzl-uoykt) vax 2 07/10/23 Recorded influenza virus vaccine, [...] Recorded 1Result Comment: pt recevied vaccine from [facility] 2Result Comment: pt received vaccine from [facility] 3Result Comment: [facility]: [id number] 4Result Comment: [09/07/2018] [facility] # [id number] 5Result Comment: [07/05/2017] [facility] [id number] 6Result Comment: GUS Lowery [place] 7Result Comment: Beverley WEBER [place] 8Result Comment: [11/07/2014] Dr. Knox; consent signed. Medications Advair Diskus 250 mcg-50 mcg inhalation powder 1, puffs, Inhalation, 2 times a day, # 3 each, Refills 1, Tot. Refills 1, Maintenance, 09/01/23 18:48:00 EST, Powder, Route to Pharmacy Electronically, [id number], [facility]/pharmacy #[id number], 192.3, cm, 09/01/23 11:35:00 EST, Height,... Start Date: 09/01/23 Stop Date: 02/28/24 Status: Ordered albuterol CFC free 90 mcg/inh inhalation aerosol 2, puffs, Inhalation, Every 4 hours, PRN, # 3 each, Refills 3, Tot. Refills 3, Maintenance, 05/07/23 10:14:00 EDT, Route to Pharmacy Electronically, [id number], [facility]/pharmacy#[id number], 195, cm, 05/07/23 [...] ... Start Date: 09/02/23 Status: Ordered Pen [place], 31 G x 5 mm BD Ultra [...] Personnel Name: Jerry CHANG, Latesha Rocha Position: [facility] Physician - Primary Care Member Role: PCP Address: [facility] [place] [address]- Care Team Related Persons Name: ROSALIA MAYES Address: home [address] [place] [address]
--- OUTSIDE RECORDS SUMMARY | 2024-05-09 08:01 | XMS_ITS | Continuity of Care Document ---
Author Organization [facility] Address [address] [place] [address]- Care Team Providers Care Concrete Truck Driver Name Role Phone Jerry CHANG, Latesha Rocha Primary Care Physic augustina Encounter [facility] Date(s): 05/13/23 - 05/20/23 [facility] [address] [place] [address]- Encounter Diagnosis Cellulitis and abscess of toe(Discharge Diagnosis) - 05/13/23 Tobacco dependence(Discharge Diagnosis) - 05/13/23 Attending Physician: Jerry CHANG, Latesha Rocha Allergies, [...] tetanus-diphtheria toxoids (Td) 10/04/99 Recorded 1Result Comment: [facility]: [id number] 2Result Comment: [09/07/2018] [facility] # [id number] 3Result Comment: [07/05/2017] [facility] [id number] 4Result Comment: GUS Lowery [place] 5Result Comment: [...] 12:32:00 EDT, Powder, Route to Pharmacy Electronically, [id number], [facility]/pharmacy #[id number], 193.2, cm, 07/27/22 10:43:00 EDT, Height Start Date: 07/27/22 Stop Date: 07/22/23 Status: Ordered albuterol CFC free 90 mcg/inh inhalation aerosol 2, puffs, Inhalation, Every 4 hours, PRN, # 3 each, Refills 3, Tot. Refills 3, Maintenance, 05/07/23 10:14:00 EDT, Route to Pharmacy Electronically, [id number], [facility]/pharmacy#[id number], 195, cm, 05/07/23 9:23:00 EDT, [...] Refills, Soft Stop, 07/27/22 12:32:00 EDT, [facility]/pharmacy #[id number], 193.2, cm, 07/27/22 10:43:00 EDT, Height Start Date: 07/27/22 Status: Ordered Basaglar KwikPen 100 units/mL subcutaneous solution = 80 units, Subcutaneous Injection, Daily at bedtime, # 15 mL, 6 Refills, Maintenance, 07/27/22 11:43:00 EDT, [facility]/pharmacy #[id number], 193.2, cm, 07/27/22 10:43:00 [...] Maintenance, 05/07/23 9:46:00 EDT, ER Tablet, [facility]/pharmacy #[id number], Partial fill upon patient request if the prescription is for a schedule II opioid drug., 195, cm, 05/07/23 9:23:00 EDT, Heigh... Start Date: 05/07/23 Status: Ordered CeleBREX 100 mg oral capsule 1 capsule = 100 mg, By Mouth, 2 times a day, # 60 capsule, 0 Refills, Maintenance, 02/19/23 13:03:00 EDT, Capsule, [facility]/pharmacy #[id number], Partial fill upon patient request if the prescription is for a schedule II opioid drug., 195, cm, 02/10/23 13:17:00... Start Date: 02/19/23 Status: Ordered clonazePAM 0.5 mg oral tablet 1 tablet = 0.5 mg, By Mouth, Daily, # 28 tablet, 0 Refills, Maintenance, 09/02/22 17:46:00 EST, Tablet, [facility]/pharmacy #[id number], Partial fill upon patient [...] Acute 06/24/23 11:36:00 EDT, 05/13/23 11:36:00 EDT, [facility]/pharmacy #[id number], Partial fill upon patient [...] 10/12/22 17:00:00 EST, REC Powder, [facility]/pharmacy #[id number], test date 10/13/22, 240 mL By Mouth Every 10 minutes,Instr:M... Start Date: 10/12/22 Status: Ordered Ozempic 2 mg/3 mL (0.25 mg or 0.5 mg dose) subcutaneous solution = 0.25 mg, Subcutaneous Infusion, Every week, Take once weekly, rotate injection sites 11.9, # 3 mL, 3 Refills, Maintenance, 02/23/23 10:53:00 EDT, [facility]/pharmacy #[id number], Partial fill upon patient request if the prescription is for a schedule II opioid... Start Date: 02/23/23 Status: Ordered Pen [place], 31 G x [...] Cellulitis and abscess of toe Discharge Diagnosis 05/13/23 Tobacco dependence Discharge Diagnosis 05/13/23 Vital Signs Most recent to oldest [Reference Range]: 1 Height 195 cm (05/13/23 11:00 AM) Weight 112 kg (05/13/23 11:00 AM) Oxygen Saturation [94-100 %] 97 % (05/13/23 11:00 AM) Pulse Rate [55-90 bpm] 67 bpm (05/13/23 11:00 AM) Body Mass Index [18.5-24.99 kg/m2] 29.45 kg/m2 *H* (05/13/23 11:00 AM) Blood Pressure [90-138/55-84 mm Hg] 119/ 74mm Hg (05/13/23 11:00 AM) Mode of Delivery (Oxygen) Room air (05/13/23 11:00 AM) Blood pressure sites Arm, left (05/13/23 11:00 AM) Weight Obtained Via Standing scale (05/13/23 11:00 AM) Social History Social History Type Response Smoking Status Current every day sm okcarlos; Tobacco user in household: No; Type: Cigarettes; Tobacco use times per day: Down to 1/2 pack a day from 1 pack a day. Has been smoking for 35 years.; entered on: 08/19/17 Sex Patient Care team information Care Team Personnel Name: Jerry CHANG, Latesha Rocha Position: [facility] Physician - Primary Care Member Role: PCP Address: Address: [address] [place] [address]- Care Team Related Persons Name: ROSALIA MAYES Address: [address] [place] [address]
--- OUTSIDE RECORDS SUMMARY | 2024-05-09 08:01 | XMS_ITS | Continuity of Care Document ---
Author Organization [facility] Address [address] [place] [address]- Care Team Providers Care Mason Tender Name Role Phone Jerry CHANG, Latesha Rocha Primary Care Physic augustina Encounter [facility] Date(s): 01/24/24 - 01/31/24 [facility] [address] [place] [address]- Encounter Diagnosis Cervical radicular pain(Discharge Diagnosis) - 01/24/24 Attending Physician: Jerry CHANG, Latesha Rocha Allergies, Adverse Reactions, Alerts No Known Medication Allergies Substance Reaction Severity Status Other Environmental Allergy 1 Active 1pets Immunizations Given and Recorded Vaccine Date Status Refusal Reason SARS-CoV-2(COVID-19)mRNA-LNP vac([id number]) 12/21/23 Recorded Influenza Virus Vaccine (oldterm) 1 07/10/23 Recor ded SARS-CoV-2 mRNA ([id number]) vax 2 07/10/23 Recorded influenza virus vaccine, [...] Comment: pt recevied vaccine from [facility] pharmacy 2Result Comment: pt received vaccine from [facility] pharmacy 3Result Comment: [facility]: [phone] 4Result Comment: [09/07/2018] [facility] # [phone] 5Result Comment: [07/05/2017] [facility] [id number] 6Result Comment: [facility] Beverley [place] 7[facility] [place] [facility] Comment: [11/07/2014] Dr. Knox; consent signed. Medications Advair Diskus 250 mcg-50 mcg inhalation powder 1, puffs, Inhalation, 2 times a day, # 3 each, Refills 1, Tot. Refills 1, Maintenance, 09/01/23 18:48:00 EST, Powder, Route to Pharmacy Electronically, [id number], [id number] 192.3, cm, 09/01/23 11:35:00 EST, [...] Soft Stop, 10/22/23 15:01:00 EST, [facility]/pharmacy #[id number], 192.3, cm, 10/13/23 12:06:00 EST, Height, [...] 01/24/24 11:08:00 EDT, ER Tablet, [facility]/pharmacy #[id number], Partial fill upon patient request if the prescription is for a schedule II opioid drug., 192.3, cm, 01/24/24 10:24:00 EDT, H... Start Date: 01/24/24 Status: Ordered CeleBREX 100 mg oral capsule 1 capsule = 100 mg, By Mouth, 2 times a day, # 60 capsule, 0 Refills, Maintenance, 01/24/24 10:57:00 EDT, Capsule, [facility]/pharmacy #[id number], Partial fill upon patient request if the prescription is for a schedule II opioid drug., 192.3, cm, 01/24/24 10:24:0... Start Date: 01/24/24 Status: Ordered clonazePAM 0.5 mg oral tablet 1 tablet = 0.5 mg, By Mouth, Daily, # 28 tablet, 0 Refills, Maintenance, 09/02/22 17:46:00 EST, Tablet, [facility]/pharmacy #[id number], Partial [...] 01/24/24 11:09:00 EDT, Route to Pharmacy Electronically, [facility]/pharmacy #[id number], Partial fill upon patient request if the prescription is for a schedule... Start Date: 01/24/24 Status: Ordered Jardiance 10 mg oral tablet 1 tablet, By Mouth, Daily in AM, # 90 tablet, 3 Refills, Maintenance, 09/02/23 15:43:00 EST, [facility]/pharmacy #[id number], 192.3, cm, 09/02/23 15:03:00 EST, Height, 108, kg, 08/04/23 9:53:00 EDT, Dry Weight Start Date: 09/02/23 Status: Ordered Lantus Solostar Pen 100 units/mL subcutaneous solution = 80 units, Subcutaneous Infusion, Daily, 6 months supplies, # 144 mL, 3 Refills, Maintenance, 11/24/23 11:09:00 EST, [facility]/pharmacy #[id number], Partial fill [...] Refills, Maintenance, 07/27/22 12:32:00 EDT, [facility]/pharmacy #[id number], 193.2, cm, 07/27/22 10:43:00 EDT, Height Start Date: 07/27/22 Status: Ordered NuLYTELY with Flavor Packs oral powder for reconstitution 240 mL, By Mouth, Every 10 minutes, May substitute any PEG 3350 solution available SPLIT PREP METHOD, # 1 each, 0 Refills, Maintenance, 10/12/22 17:00:00 EST, REC Powder, [facility]/pharmacy #[id number], test date 10/13/22, 240 mL By [...] Refills, Maintenance, 12/21/23 8:40:00 EDT, [id number], 192.3, cm, 11/24/23 8:32:00 EST, Height, 108, kg, 08/04/23 9:53:00 EDT, Dry Weight Start Date: 12/21/23 Status: Ordered Pen [place], 31 G x 5 mm BD Ultra [...] EST, Route to Pharmacy Electronically, [facility]/pharmacy #[id number], 192.3, cm, 10/13/23 12:06:00EST, Height, 108, [...] Service Informant Cervical radicular pain Discharge Diagnosis 01/24/24 Vital Signs Most recent to oldest [Reference Range]: 1 Height 192.3 cm (01/24/24 10:24 AM) Weight 105 kg (01/24/24 10:24 AM) Oxygen Saturation [94-100 %] 97 % (01/24/24 10:24 AM) Pulse Rate [55-90 bpm] 84 bpm (01/24/24 10:24 AM) Body Mass Index [18.5-24.99 kg/m2] 28.39 kg/m2 *H* (01/24/24 10:24 AM) Blood Pressure [90-138/55-84 mm Hg] 124/ 81mm Hg (01/24/24 10:24 AM) Mode of Delivery (Oxygen) Room air (01/24/24 10:24 AM) Blood pressure sites Arm, left (01/24/24 10:24 AM) Weight Obtained Via Patient/family state d (01/24/24 10:24 AM) Social History Social History Type Response Smoking Status Current every day sm oker; Tobacco user in household: No; Type: Cigarettes; Tobacco use times per day: Down to 1/2 pack a day from 1 pack a day. Has been smoking for 35 years.; entered on: 08/19/17 Sex Note * Violeta Harris: PERFORM, SIGN, VERIFY Event Display: Patient Education/Instruction Authored Date: [id number] [facility] *[facility] Clinical Summary Name ROLA MAYES Age 58 Years 1965 PCP Jerry CHANG, Latesha Rocha PCP Visit Date 01/24/2024 09:40:00 Additional Instructions: Scheduled Appointments?? Future Appointments ?*[facility] ?[address]??[place],??[place],??[address] ?Phone:??--?Fax:??-- ?Appt. Date:??03/23/2024?2:05 PM ?Scheduled Provider:??Nicolás CHANG, Nora Follow-Up Instructions ?? Diagnosis Hypothyroidism, unspecified; Pain in unspecified thigh; Radiculopathy, cervical region Medications: Please continue your medications until treatment is completed or stopped by your provider. Discuss any questions related to medications with your provider. New Medications [id number], [address] [place] [id number], [phone] BuPROpion (buPROPion 300 mg/24 hours (XL) oral tablet, extended release) 1 tab(s) Oral Daily. Refills: 3. Next Dose: Gabapentin (gabapentin 300 mg oral capsule) 2 capsule Oral Daily at Bedtime. Refills: 3. Next Dose: Levalbuterol (levalbuterol 45 mcg/inh inhalation aerosol) 2 puff(s) Inhalation every 4 hours as needed for wheezing. Refills: 0. Next Dose: Tramadol (traMADol 50 mg oral tablet) 1 tab(s) Oral every 12 hours as needed Pain , Severe for 7 Days. Refills: 0. Next Dose: Medications to Continue Taking That Have Changed [id number], [address] [place] [id number], [phone] - Levothyroxine (levothyroxine 0.025 mg oral tablet) [...] Dose: Medications to Continue with No Changes [facility] #[id number], [address] [place], [place] [id number], [phone] Celecoxib (CeleBREX 100 mg oral capsule) 1 capsule Oral twice a day. Refills: 0. Next Dose: These medications were not printed or sent to your pharmacy Aspirin (aspirin 81 mg oral tablet) 1 tab(s) Oral Daily. Refills: 0. Next Dose: Atorvastatin (atorvastatin 20 mg oral tablet) TAKE 1 TABLET BY MOUTH EVERY DAY. Refills: 3. Next Dose: Clonazepam (clonazePAM 0.5 mg oral [...] 11. Next Dose: Durable Medical Equipment (Pen [place], 31 G x 5 mm BD Ultra Fine III) use to inject Basaglar 1x daily, E11.9, 90-day. Refills: 3. Next Dose: empagliflozin (Jardiance 10 mg oral tablet) 1 tab(s) Oral Daily in the morning. Refills: 3. Next Dose: Fluticasone-Salmeterol (Advair Diskus 250 mcg-50 mcg inhalation powder) 1 puff(s) Inhalation twice a day for 90 Days. Refills: 1. Next Dose: Insulin Aspart (NovoLOG 100 units/mL subcutaneous solution) 1-5 units sliding scale 15 min prior tomeals Subcutaneous Infusion 3 times a day.. Refills: 2. Next Dose: Insulin Glargine (Lantus Solostar Pen 100 units/mL subcutaneous solution) 80 unit(s) Subcutaneous Infusion Daily for 180 Days. 6 months supplies. Refills: 3. Next Dose: Metformin (MetFORMIN (Eqv-Glucophage [...] mg dose) 4 mg/3 mL subcutaneous solution) INJECT 1 MG SUBCUTANEOUS INFUSIONEVERY WEEK. USE ONCE PER WEEK E11.9. Refills: 11. Next Dose: Sildenafil (sildenafil 20 mg oral tablet) 1 tablet By Mouth as needed 1 hour prior to sexual intercourse. may take every 24 hours as needed. take tablet on empty stomach. can take 2 tablets by mouth if 1 tablet is ineffective.. Refills: 2. Next Dose: No Longer Take the Following Medications nirmatrelvir-ritonavir (Paxlovid 150 mg-100 mg (150 mg-100 mg Dose) oral tablet) Take 3 tablets twice a day by mouth for 5 days. GFR above 60. Refills: 0. Allergy Info:?? No Known Medication Allergies; Other Environmental Allergy Medications Given This Visit Future Orders ?MRI Cervical Spine W/O Contrast? Order Date:01/24/24?- Complete on or after?01/24/24 Future Orders ?MRI Cervical Spine W/O Contrast? Order Date:01/24/24?- Complete on or after?01/24/24 Vital Signs Height 192.3 cm Weight 105 kg BMI 28.39 kg/m2 Blood Pressure 124 mm Hg/81 mm Hg Temperature Pulse Rate 84 bpm Respiratory Rate 02 Sat Mode of Delivery 97 %/Room air You can now view a summary of your hospital visit from the comfort of your home through a free online portal called [employer] is a website that allows you to securely view your medical information including discharge summary, medications and follow-up visits. ??You can alsosend a secure electronic message to your doctor???s office to request appointments, renew medications or just ask a question. You can enroll at [email or web address] or register during your next office [...] primary care provider, you may find a [facility] provider by calling [facility] [employer] Link at [phone]. [facility], in keeping with [facility] guidance, no longer requires face masks [...] Primary Care Member Role: PCP Address: Address: [address] [place] [address]- Care Team Related Persons Name: ROSALIA MAYES Address: home [address] [place] [address]
--- OUTSIDE RECORDS SUMMARY | 2024-05-09 08:01 | XMS_ITS | Continuity of Care Document ---
Author Organization [facility] Address [address] [place] [address]- Care Team Providers Care Linen Room Custodian Name Role Phone Jerry CHANG, Latesha Rocha Primary Care Physic augustina Encounter [facility] Date(s): 01/13/22 - 02/12/22 [facility] [address] [place] [address]- [place] Encounter Diagnosis Generalized anxiety disorder with panic attacks(Discharge Diagnosis) - 01/15/22 Allergies, Adverse Reactions, Alerts No Known Medication [...] 2Result Comment: Beverley [place] 3Result Comment: [facility]: [id number] 4Result Comment: [09/07/2018] [facility] # [id number] 5Result Comment: [07/05/2017] [facility] [id number] 6Result Comment: [11/07/2014] Dr. Knox; consent signed. [...] 15:07:00 EDT, Powder, Route to Pharmacy Electronically, [id number], [facility]/pharmacy #[id number], 193.2, cm, 11/04/20 13:14:00 EST, Height,... Start Date: 02/04/21 Stop Date: 08/03/21 Status: Ordered albuterol CFC free 90 mcg/inh inhalation aerosol 2, puffs, Inhalation, Every 4 hours, PRN, # 3 each, Refills 1, Tot. Refills 1, Maintenance, 06/12/21 22:49:00 EDT, Route to Pharmacy Electronically, [id number], [facility]/pharmacy#1095, 193.2, cm, [...] 1 Refills, Soft Stop, 01/30/22 15:09:00 EDT, [facility]/pharmacy #[id number], 193.2, cm, 11/05/21 10:33:00 EST, Height Start Date: 01/30/22 Stop Date: 07/29/22 Status: Ordered clonazePAM 0.5 mg oral tablet 1 tablet = 0.5 mg, By Mouth, Daily, # 28 tablet, 0 Refills, Maintenance, 01/15/22 12:14:00 EDT, Tablet, [facility]/pharmacy [...] 1 Refills, Maintenance, 12/10/21 17:12:00 EST, Tablet, [facility]/pharmacy #[id number], 193.2, cm, 11/05/21 10:33:00 EST, Height Start Date: 12/10/21 Stop Date: 06/08/22 Status: Ordered levothyroxine 175 mcg (0.175 mg) oral tablet 1 tablet = 175 mcg, By Mouth, Daily, # 90 tablet, 1 Refills, Maintenance, 12/17/21 12:34:00 EDT, Tablet, [facility]/pharmacy #[id number], 193.2, cm, 11/05/21 10:33:00 EST, [...] mL, 0 Refills, Maintenance, 12/15/21 14:12:00 EDT, [facility]/pharmacy #[id number], 193.2, cm, 11/05/21 10:33:00 EST, Height Start Date: 12/15/21 Status: Ordered Pen [place], 30 G x 8 mm BD Ultra Fine II See Instructions, # 100 each, Refills 3, Tot. Refills 3, Maintenance, use as directed for Type 2 Diabetes Mellitus - once a day, 10/09/15 14:01:07, Compound Start Date: 10/09/15 Stop Date: 02/06/16 Status: Ordered Pen [place], 31 G x 5 mm BD Ultra Fine III See Instructions, # 100 each, Refills 2, Tot. Refills 2, Maintenance, use to inject Basaglar 1x daily, E11.9, 90-day, 12/02/21 15:33:00 EST, Supply, 193.2, cm, 11/05/21 10:33:00 EST, Height Start Date: 12/02/21 Status: Ordered Pen [place], 31 G x 8 mm BD Ultra Fine III See Instructions, # 100 each, Refills 1, Tot. Refills 1, Maintenance, use with Lantus 1x daily, Dx E11.9, 90-day, 03/15/17 15:55:47, Compound Start Date: 03/15/17 Stop Date: 09/11/17 Status: Ordered sertraline 25 mg oral tablet 1 tablet = 25 mg, By Mouth, Daily, # 90 tablet, 1 Refills, Maintenance, 01/15/22 12:14:00 EDT, Tablet, [facility]/pharmacy [...] 01/15/22 12:15:00 EDT, Route to Pharmacy Electronically, [facility]/pharmacy #[id number], 193.2, cm, 11/05/21 10:33:00EST, [...] anxiety disorder with panic attacks Discharge Diagnosis 01/15/22 Non-Specified Social History Social History Type Response Smoking Status Current every day sm oker; Tobacco user in household: No; Type: Cigarettes; Tobacco use times per day: Down to 1/2 pack a day from 1 pack a day. Has been smoking for 35 years.; entered on: 08/19/17 Sex
[2024-05-09 09:24] VITALS: BP 146/84; PULSE 74; RESP 16; O2SAT 97
== END 2024-05-09 08:56 | disposition home or self-care (01) ==
LOC: HO.PMCPRC 07:54
PROVIDERS: PCP Family Medicine; Visit Provider Anesthesiology
DX: M54.12 Radiculopathy, cervical region (principal)
CPT/HCPCS: 62321

== ENCOUNTER 2024-06-02 10:01 | Outpatient (AMB) | payer OTHER, SELFPAY ==
[2024-06-02 10:05] VITALS: BP 120/70; PULSE 74; O2SAT 99; BMI 28.5
--- NOTE | 2024-06-02 10:05 | A.OFFVIS_ITS ---
Vital Signs 3 06/02/24 10:05 Height 6 ft 5 in Weight 240 lb BMI 28.5 BP 120/70 Blood Pressure Location Rt brachial Position Sitting Pulse 74 Pulse Source Pulse Oximeter Pulse Oximetry (%) 99 Oxygen Delivery Method Room Air Intake Visit Reasons: RIGHT C6, C7 HARRY Allergies No Known Allergies Allergy (Verified 06/02/24 10:10) Medication List - Last Reconciled 06/02/24 by Demetra Jones albuterol sulfate 90 mcg/actuation 2 inhalations inhalation Q4-6H PRN atorvastatin 20 mg PO DAILY bupropion HCl XL 300 mg PO QAM gabapentin 600 mg PO TID insulin glargine (Basaglar KwikPen U-100 Insulin) 20 units subcut BID levothyroxine 25 mcg PO DAILY metformin 500 mg PO DAILY tramadol 50 mg PO DAILY HPI Comments Details: Patient presents back to the office today, accompanied by his , for follow- up 1 month status post right C6/C7 parasagittal epidural steroid injection Pain today is rated as a 2/10, he reports significant improvement after the injection but continues with right upper extremity weakness, burning and tingling Previously underwent surgical evaluation but did not want to return to that office. They were very discouraging and had a difficult bedside manner. He would be interested in speaking to our minimally invasive spine Center. Now that pain has improved he feels like he could trial physical therapy again in hopes to improve the strength of his right upper extremity. Has used a TENs unit in the past for his lower back, would be interested in trying this for his current pain Intake note: Ravindra is a very pleasant 59-year-old male who presents to the office today for evaluation management of his chronic cervical neck pain Patient was referred here by Neurosurgery for consideration of cervical epidural steroid injection He has been suffering with right cervical neck pain with radiation down the arm for several years. Endorses pain to the front of the right shoulder and back of the right shoulder. Burning, numbness and tingling down the right arm and decreased right upper extremity strength. Reports atrophy of the muscles of the right hand. Neurosurgery has offered anterior and posterior cervical fusion but patient is not ready to proceed with such an extensive surgery. The pain is constant, rated today as a 6/10. Pain is worse with activity, movement and right arm use. Pain improved with elevation of the right arm over the head. He has not had a nerve conduction study, underwent an MRI a couple weeks ago. Full results are not available for review at this time. Patient has tried physical therapy, does home exercise program as best he can but states is very painful. He finds no relief with nonsteroidal anti- inflammatory medications or prescription medications. In terms of muscle damage condition is described as aching, spasming, hot, burning, stabbing, sharp, shooting, tiring, tingling, pins and needles Pain is negatively impacting patient's enjoyment of life, general activity, work, sleep Review of Systems Const All systems reviewed & are unremarkable except as noted in HPI and below Physical Exam Vital Signs: Last Vital Signs Pulse 74 06/02/24 10:05 BP 120/70 06/02/24 10:05 Pulse Ox 99 06/02/24 10:05 Oxygen Delivery Method Room Air 06/02/24 10:05 BMI result Body Mass Index 28.5 General: awake, alert, oriented. Answers questions appropriately. Fully engaged in examination. Skin: warm, dry, intact HEENT: Normocephalic. Hearing intact. Cardiac: External chest normal in appearance. Respiratory: No cough, audible wheezing or stridor. Abdomen: without gross distension. MS: No obvious swelling or deformities. Decreased cervical range of motion. Pain with right lateral rotation, right lateral flexion Tenderness midline cervical vertebrae and cervical paraspinal muscles. Decreased hand strength of the right Thenar wasting on the right hand Spurling positive Neurological: Oriented to person, place, time and situation. Thought process intact. No gait abnormalities appreciated. Psychiatric: Appropriate mood and affect. Good judgment and insight. Results Reviewed Results Reviewed: Assessment & Plan Assessment & Plan (1) Cervical radiculopathy: Code(s): M54.12 - Radiculopathy, cervical region Category: Medical (2) Lumbar spondylosis: Code(s): M47.816 - Spondylosis without myelopathy or radiculopathy, lumbar region Category: Medical (3) Neuropathy: Code(s): G62.9 - Polyneuropathy, unspecified Category: Medical Plan Patient presented to the office today for follow-up, 3 weeks status post right cervical parasagittal epidural steroid injection Reports some improvement of his pain and continues with right upper extremity weakness, burning, tingling. Referral placed for neuro spine TENS unit ordered Referred to physical therapy, patient requested [facility] as they are close to his home All questions concerns answered, patient agrees with plan. Follow up after PT/neuro spine eval, sooner if needed Orders: Orders 2 PT Evaluation and Treatment Today M47.816 - Spondylosis without myelopathy or radiculopathy, lumbar region, M54.12 - Radiculopathy, cervical region Referrals 2 Neuro Spine Referral M54.12 - Radiculopathy, cervical region Coding Level of Care Code Est Pt Level 3 (27189) Complex EM visit Add On G2211 Diagnoses Cervical radiculopathy M54.12 Lumbar spondylosis M47.816 Neuropathy G62.9
== END 2024-06-02 10:56 | disposition home or self-care (01) ==
PROVIDERS: PCP Family Medicine; Visit Provider Registered Nurse Emergency
DX: M54.12 Radiculopathy, cervical region (principal); M47.816 Spondylosis without myelopathy or radiculopathy, lumbar region; G62.9 Polyneuropathy, unspecified
CPT/HCPCS: 99213; G2211

== ENCOUNTER → 2024-06-02 10:01 | Outpatient (BNVA) | payer OTHER, SELFPAY | PROVIDERS: PCP Family Medicine; Visit Provider Registered Nurse Emergency ==

== ENCOUNTER 2024-06-12 12:49 | Outpatient (AMB) | payer OTHER, SELFPAY ==
--- NOTE | 2024-06-12 13:06 | A.SPINEOV_ITS ---
Intake Visit Reasons: neck pain Intake Note: Mr. Tadeo is here today c/o neck/back pain. [employer] Pa[employer] Operator Required: No Allergies No Known Allergies Allergy (Verified 06/02/24 10:10) Assessment & Plan Assessment & Plan (1) Cervical radiculopathy: Code(s): M54.12 - Radiculopathy, cervical region Category: Medical Plan Dear GEE Oden, Thank you for referring Ravindra to our office today. He is a pleasant 59-year-old male who comes in today to be evaluated for his right upper extremity. He reports he is currently being worked up for his right-sided radiculopathy by our colleagues in pain management. He states that he has shooting pains down his right arm which start in his right deltoid, travel down the back of his right triceps, into his right elbow, and terminate near the right 4th and 5th digits. In addition to this he reports problems with dexterity and states he is unable to zip his pants up on his own or button his shirts. He reports his right hand has become weaker over the course of the last 10 years, and is now to the point where he drops things throughout the day. He also feels like his right triceps has become smaller and weaker. He was previously evaluated by Dr. Sanchez at [facility] who offered him a 4 level cervical fusion to correct his cervical kyphosis. Unfortunately she quoted him at a 75% chance of complete loss of function of his esophagus if they proceeded with the surgery. The patient has sought re-evaluation/consultation with pain management after this. PMH: History of bilateral forearm injury 40 years ago causing both tendon and nerve damage. T2DM, asthma, hypothyroidism, hyperlipidemia. L5-S1 microdiskectomy completed in 2010. Cholecystectomy 2000. Social hx: Patient smokes 1/2 pack cigarettes per day. Denies substance use. Medications: Albuterol, atorvastatin, Wellbutrin, gabapentin, insulin, levo thyroxine, metformin, tramadol. Allergies: NKDA. Physical exam: The patient has notable thenar wasting of his right hand. His right triceps muscle appears smaller than the left. He has scarring on his bilateral forearms which is more pronounced with strength testing. His right- sided interossei strength & triceps strength is 4/5. The rest of his strength is 5/5 intact. He ambulates well without a spastic gait. (-) Phan's bilaterally, (-) clonus bilaterally, (-) bilateral straight leg raise. Imaging review: MRI of the cervical spine completed at [facility] shows severe bilateral foraminal stenosis at C5-6, and C6-7. There is no evidence of cord signal change or myelomalacia. There is notable reversal of the normal cervical lordosis, with a kyphotic deformity starting around C4. EMG completed in March of this year shows right ulnar neuropathy, most likely at the elbow; chronic lower cervical radiculopathy; mild right median neuropathy at the wrist, consistent with carpal tunnel. Impression: Ravindra is a pleasant 59-year-old male who comes in today for evaluation of his right upper extremity after being referred to us by our colleagues in pain management. He has many symptoms which would classically be associated with some kind of myelopathy, however his examination is confounded by his bilateral forearm injuries from 40 years ago which caused both nerve and tendon damage. He has no neck pain and no myelopathic reflexes on exam. However he reports no thenar or triceps wasting on the right until about 10 years ago. He does have varying levels of degeneration throughout his cervical spine worse from C5-7. I feel this would be difficult to address in an isolated manner without attempting to correct the kyphotic deformity which is most predominant at C4. I will be sending the patient for a set of dynamic cervical spine x-rays to ensure there is no evidence of instability. After the report is received by Radiology I will schedule the patient to come in for follow-up. In addition to this the patient would also like to discuss his low back issues in the future. Thank you for allowing us to care for your patient. The total time spent with this visit with this patient was 65 minutes reviewing history, physical exam, MRI / EMG imaging review, and implementation of treatment plan or further diagnostic testing Drake Eid MD,PhD [facility] Orders: Orders XR cervical spine 4V Today M54.12 - Radiculopathy, cervical region Coding Level of Care Code New Pt Level 5 (68051) Diagnoses Cervical radiculopathy M54.12
== END 2024-06-12 13:44 | disposition home or self-care (01) ==
PROVIDERS: PCP Family Medicine; Referring Provider Anesthesiology; Visit Provider Physician Assistant
DX: M54.12 Radiculopathy, cervical region (principal)
CPT/HCPCS: 99205

== ENCOUNTER 2024-06-12 12:49 | Outpatient (REF) | payer OTHER, SELFPAY ==
--- NOTE | ~2024-06-12 | XR_ITS ---
EXAMINATION: XR CERVICAL SPINE CLINICAL INFORMATION: Radiculopathy cervical region. COMPARISON: None available. TECHNIQUE: 4 views of the cervical spine, inclusive of flexion and extension views, were obtained. FINDINGS: There is reversal of usual cervical lordosis. There is advanced degenerative disc changes with disc space narrowing and endplate osteophyte formation noted from C3-C4 C7-T1 facets unremarkable. Slight anterolisthesis of C3 on C4 in all positions No abnormal translation with flexion and extension. Surrounding bones and soft tissues unremarkable. XR/XR cervical spine 4V IMPRESSION: Advanced multilevel spondylosis of the cervical spine. Electronically signed by: Jad William MD 06/28/2024 06:20 AM EDT RP
== END 2024-06-12 12:50 | disposition home or self-care (01) ==
LOC: HO.HOSX 12:49
PROVIDERS: PCP Family Medicine; Visit Provider Physician Assistant
DX: M54.12 Radiculopathy, cervical region (principal)
CPT/HCPCS: 72050

== ENCOUNTER 2024-07-07 13:25 | Outpatient (AMB) | payer OTHER, SELFPAY ==
--- NOTE | 2024-07-07 13:27 | HO.SPINEOV ---
Intake Visit Reasons: Discuss sx Intake Note: Mr. Tadeo is here today to Discuss Surgery. Marble Mason Required: No Allergies No Known Allergies Allergy (Verified 07/07/24 13:29) Assessment & Plan Assessment & Plan (1) Cervical radiculopathy: Code(s): M54.12 - Radiculopathy, cervical region Category: Medical Plan Dear colleague, July 07, 2024 I saw for follow-up Mr. Ravindra Tadeo. The seen by HARRIET Mehta for severe right cervical radiculopathy. The case was discussed and we offered him an anterior diskectomy fusion C5-C6 and C6-7 to treat his cervical radiculopathy. He has seen multiple other specialist and was proposed to do either a 4 level anterior diskectomy and fusion or to perform the anterior part in combination with posterior decompression and fusion to correct his cervical deformity. He denies significant neck pain. I explained to the patient that my main objective would be to treat his cervical radiculopathy and therefore only a anterior diskectomy and fusion of these 2 levels required. I do not see an indication to correct a deformity that will create neck pain for him and will put him at risk for other surgeries in the future. We discussed an possible complications including hoarseness and dysphagia but this should be temporarily and the risk associated with this procedure are extremely low. He is scheduled for August 10/2024 to undergo the procedure. He will let me know if he wants to cancel cause he is going to see another opinion in [place]. I spent 50 minutes in his consult for history, in-depth review of his images and discussing the procedure and answering questions. Reji Eid MD, PhD Spine Fellowship Trained Neurosurgeon Director, [facility] Coding Level of Care Code Est Pt Level 5 (50921) Diagnoses Cervical radiculopathy M54.12
== END 2024-07-07 14:15 | disposition home or self-care (01) ==
PROVIDERS: PCP Family Medicine; Visit Provider Neurological Surgery
DX: M54.12 Radiculopathy, cervical region (principal)
CPT/HCPCS: 99215

== ENCOUNTER → 2024-07-07 13:25 | Outpatient (BNVA) | payer OTHER, SELFPAY | PROVIDERS: PCP Family Medicine; Visit Provider Neurological Surgery ==